=== PATIENT | female | born 1935 | race Caucasian/White ===

== ENCOUNTER 2023-06-24 12:08 | Inpatient (IN) | payer OTHER ==
--- OUTSIDE RECORDS SUMMARY | 2023-06-24 12:17 | XMS REPORT | Continuity of Care Document ---
Author Name Unknown Address [address] [facility] [address] [place] [address] [facility] Address [address] [facility] [address] [place] [address] Care Team Providers Care Nurse Head Name Role Phone MATHEUS MCNAMARA Primary Care Physician Diane vailable KATARZYNA MARQUEZ Attending Clinician Unavailable Katarzyna Owens Attending Clinician [phone] Pascual Smallwood MD Attending Clinician [phone] MATHEUS MCNAMARA Attending Clinician Matheus Yang MD Attending Clinician + [phone] Doctor Unassigned, [place] Attending Clinician U Yuliya Manjarrez Attending Clinician Unavailable JUSTINE LOPEZ Attending Clinician Unavailable Justine Lopez MD Attending Clinician [phone] CHUCKY PERKINS Attending Clinician Chucky Treadwell MD Attending Clinician + [phone] Only, Ad[facility] Test Attending Clinician Unavailable Daron Kelly CRNA Attending Clinician [phone] Stefanie Hernández MD Attending Clinician [phone] [phone], [facility] Main Attending Clinician Unavailbindu Mariee MD, Chucky Attending Clinician [phone] Penelope Diehl DO Attending Clinician [phone] PENELOPE DIEHL Attending Clinician Unavailable MARIE BATISTA Attending Clinician Unavailable Efra Aguilar DO Attending Clinician 2, [facility] Attending Clinician Unavailable Celeste Perez MD Attending Clinician [phone] Kika Sparks RN Attending Clinician [phone] Attending Clinician [phone] Sherif HOLLIS, Fabiana Attending Clinician [phone] Yuliya Potter Admitting Clinician Unavailable CHUCKY PERKINS Admitting Clinician Flip Perkins MD, Chucky Nassar Admitting Clinician +[phone] Fabiana Gorman MD Admitting Clinician [phone] Payers Payer Name Policy Type Policy Number Effective Date Expirati on Date Source [employer] MA[employer]GED MEDICARE PPO-MARLEN [id number] 2020 00:00:00 Problems Condition Name Condition Details Condition Category Status Onset Date Resolution Date Last Treatment Date Treating Clinician Comments Source Rectal bleed Rectal bleed Disease Active 06-13 00:00: 00 [facility] Acute on chronic diastolic congestive heart failure Acute on chronic diastolic congestive heart failure Disease Active 2017-05 00:00: 00 [facility] Anemia Anemia Disease Active 2017-05 00:00: 00 [facility] PAF (paroxysma l atrial fibrillati on) PAF (paroxysma l atrial fibrillati on) Disease Active 2017-05 00:00: 00 [facility] Lower GI bleed Lower GI bleed Disease Active 2017-05 00:00: 00 [facility] Acute blood loss anemia Acute blood loss anemia Disease Active 2017-05 00:00: 00 [facility] Screening for colorectal cancer Screening for colorectal cancer Disease Active 2017-05 00:00: 00 Overview: Formattin g of this note might be different from the original. Added automatic ally from request for surgery [id number] [facility] Chest pain Chest pain Disease Active 09-15 00:00: 00 [facility] Allergic rhinitis Allergic rhinitis Disease Active 2014-05 00:00: 00 [facility] Essential hypertensi on, benign Essential hypertensi on, benign Disease Active 2014-05 00:00: 00 [facility] Generalize d anxiety disorder Generalize d anxiety disorder Disease Active 2014-05 00:00: 00 [facility] Osteoarthr itis Osteoarthr itis Disease Active 2014-05 00:00: 00 [facility] Asthma, mild intermitte nt Asthma, mild intermitte nt Disease Active 2014-05 00:00: 00 [facility] Hypothyroi dism Hypothyroi dism Disease Active 2014-05 00:00: 00 [facility] Hyperlipid emia Hyperlipid emia Disease Active 2014-05 00:00: 00 [facility] Malaise Malaise Disease Active 2014-05 00:00: 00 [facility] Lumbago Lumbago Disease Active 2014-05 00:00: 00 [facility] Sinusitis, acute Sinusitis, acute Disease Active 2014-05 00:00: 00 [facility] Renal insufficie ncy Renal insufficie ncy Disease Active 2014-05 00:00: 00 Overview: Formattin g of this note might be different from the original. Patient is already under multiple MD's care for chronic renal insuffici ency. [facility] Allergies, Adverse Reactions, Alerts Allergy Name Allergy Type Status Severity Reaction(s) Onset Date Inactive Date Treating Clinician Comments Source enedeliaine DA Active [place] CHEST PAIN 2022-0516 00:00: 00 EDDIE Snell [facility] Doxycycl ine Drug Allergy Active Other - See comments 2018-05 0 00:00: 00 [facility] DOXYCYCL INE DRUG INGREDI Active Other-Cmnt 2018-05 0-04 00:00: 00 [facility] VIBRAMYC IN (CALCIUM ) DRUG Active N/V 2014-05 00:00: 00 [facility] Vibramyc in (Calcium ) Propensi ty to adverse reaction s Active Nausea and/or Vomiting 2014-05 00:00: 00 [facility] Vibramyc in Calcium Propensi ty to adverse reaction s Active Nausea and/or Vomiting 2014-05 00:00: 00 [facility] Codeine Drug Allergy Active Other - See comments 2014-05 00:00: 00 Chest pain also Chest pain also [facility] CODEINE DRUG INGREDI Active ITCHING 2014-05 00:00: 00 [facility] Social History Social Habit Start Date Stop Date Quantity Comments Source Gender identity [facility] function 2023-05-23 00:00:00 2023-05-23 00:00:00 [facility] Tobacco use and exposure 2023-05-23 00:00:00 2023-05-23 00:00:00 Smokeless tobacco non-user [facility] Alcohol intake 2023-05-23 00:00:00 2023-05-23 00:00:00 0 /d [facility] Exposure to SARS-CoV-2 (event) 2022-05-15 00:00:00 2022-05-25 10:36:00 Not sure [facility] Sex Assigned At 1935 00:00:00 1935 00:00:00 [facility] Smoking Status Start Date Stop Date Source Never smoked tobacco [facility] Medications Ordered Medication Name Filled Medication Name Start Date Stop Date Current Medication? Ordering Clinician Indication Dosage Frequency Signature (SIG) Comments Components Source azithromyci n 250 mg tablet 05-23 00:00: 00 Yes [id number] Take 500 mg PO day 1, then 250 mg PO days 2 to 5 [facility] benzonatate (TESSALON PERLES) 100 mg capsule 05-23 00:00: 00 Yes [id number] 100mg Take 1 capsule by mouth every 8 (eight) hours as needed for Cough. [facility] azelastine 137 mcg (0.1 %) nasal spray 05-23 00:00: 00 Yes [id number] 1{spray } Use 1 [place] in each nostril in the morning and 1 [place] in the evening. Use in each nostril as directed [facility] azithromyci n 250 mg tablet 05-23 00:00: 00 Yes [id number] Take 500 mg PO day 1, then 250 mg PO days 2 to 5 [facility] benzonatate (TESSALON PERLES) 100 mg capsule 05-23 00:00: 00 Yes [id number] 100mg Take 1 capsule by mouth every 8 (eight) hours as needed for Cough. [facility] azelastine 137 mcg (0.1 %) nasal spray 05-23 00:00: 00 Yes [id number] 1{spray } Use 1 [place] in each nostril in the morning and 1 [place] in the evening. Use in each nostril as directed [facility] azithromyci n 250 mg tablet 05-23 00:00: 00 Yes [id number] Take 500 mg PO day 1, then 250 mg PO days 2 to 5 [facility] benzonatate (TESSALON PERLES) 100 mg capsule 05-23 00:00: 00 Yes [id number] 100mg Take 1 capsule by mouth every 8 (eight) hours as needed for Cough. [facility] azelastine 137 mcg (0.1 %) nasal spray 05-23 00:00: 00 Yes [id number] 1{spray } Use 1 [place] in each nostril in the morning and 1 [place] in the evening. Use in each nostril as directed [facility] LEVOTHYROXI NE 50 mcg tablet 2022-05 00:00: 00 Yes [id number] TAKE 1 TABLET BY MOUTH EVERY DAY [facility] LEVOTHYROXI NE 50 mcg tablet 2022-05 00:00: 00 Yes [id number] TAKE 1 TABLET BY MOUTH EVERY DAY [facility] LEVOTHYROXI NE 50 mcg tablet 2022-05 2- 00:00: 00 Yes [id number] TAKE 1 TABLET BY MOUTH EVERY DAY [facility] LEVOTHYROXI NE 50 mcg tablet 2022-05 2- 00:00: 00 Yes [id number] TAKE 1 TABLET BY MOUTH EVERY DAY [facility] LEVOTHYROXI NE 50 mcg tablet 2022-0 9- 00:00: 00 Yes [id number] TAKE 1 TABLET BY MOUTH EVERY DAY [facility] LEVOTHYROXI NE 50 mcg tablet 2022-0 9- 00:00: 00 Yes [id number] TAKE 1 TABLET BY MOUTH EVERY DAY [facility] LEVOTHYROXI NE 50 mcg tablet 2022-0 01-24 00:00: 00 Yes [id number] TAKE 1 TABLET BY MOUTH EVERY DAY [facility] LEVOTHYROXI NE 50 mcg tablet 2022-0 01-24 00:00: 00 04-23 00:00 :00 No [id number] TAKE 1 TABLET BY MOUTH EVERY DAY [facility] PAROXETINE 10 mg tablet 2022-0 817 00:00: 00 Yes [id number] 10mg TAKE 1 TABLET BY MOUTH EVERY DAY IN THE MORNING [facility] PAROXETINE 10 mg tablet 2022-0 8-17 00:00: 00 Yes [id number] 10mg TAKE 1 TABLET BY MOUTH EVERY DAY IN THE MORNING [facility] PAROXETINE 10 mg tablet 2022-0 8-17 00:00: 00 Yes [id number] 10mg TAKE 1 TABLET BY MOUTH EVERY DAY IN THE MORNING [facility] PAROXETINE 10 mg tablet 3-0 8-17 00:00: 00 Yes [id number] 10mg TAKE 1 TABLET BY MOUTH EVERY DAY IN THE MORNING [facility] PAROXETINE 10 mg tablet 3-0 8-17 00:00: 00 Yes [id number] 10mg TAKE 1 TABLET BY MOUTH EVERY DAY IN THE MORNING [facility] PAROXETINE 10 mg tablet 3-0 8-17 00:00: 00 Yes [id number] 10mg TAKE 1 TABLET BY MOUTH EVERY DAY IN THE MORNING [facility] PAROXETINE 10 mg tablet 2023-0 8-17 00:00: 00 Yes [id number] 10mg TAKE 1 TABLET BY MOUTH EVERY DAY IN THE MORNING [facility] PAROXETINE 10 mg tablet 01-04 00:00: 00 Yes [id number] 10mg TAKE 1 TABLET BY MOUTH EVERY DAY IN THE MORNING [facility] LEVOTHYROXI NE 50 mcg tablet 10-18 00:00: 00 Yes [id number] TAKE 1 TABLET BY MOUTH EVERY DAY [facility] LEVOTHYROXI NE 50 mcg tablet 10-18 00:00: 00 Yes [id number] TAKE 1 TABLET BY MOUTH EVERY DAY [facility] LEVOTHYROXI NE 50 mcg tablet 10-18 00:00: 00 01-24 00:00 :00 No [id number] TAKE 1 TABLET BY MOUTH EVERY DAY [facility] LEVOTHYROXI NE 50 mcg tablet 07-20 00:00: 00 Yes [id number] TAKE 1 TABLET BY MOUTH EVERY DAY [facility] LEVOTHYROXI NE 50 mcg tablet 07-20 00:00: 00 Yes [id number] TAKE 1 TABLET BY MOUTH EVERY DAY [facility] LEVOTHYROXI NE 50 mcg tablet 07-20 00:00: 00 10-18 00:00 :00 No [id number] TAKE 1 TABLET BY MOUTH EVERY DAY [facility] amoxicillin 500 mg tablet 05-25 00:00: 00 Yes [id number] 500mg Take 1 tablet by mouth in the morning and 1 tablet at noon and 1 tablet in the evening. [facility] albuterol (VENTOLIN HFA) 90 mcg/actuati on inhaler 05-25 00:00: 00 Yes [id number] 2{puff} Inhale 2 Puffs every 6 (six) hours as needed for Wheezing or Shortness of Breath. [facility] amoxicillin 500 mg tablet 05-25 00:00: 00 Yes [id number] 500mg Take 1 tablet by mouth in the morning and 1 tablet at noon and 1 tablet in the evening. [facility] albuterol (VENTOLIN HFA) 90 mcg/actuati on inhaler 05-25 00:00: 00 Yes [id number] 2{puff} Inhale 2 Puffs every 6 (six) hours as needed for Wheezing or Shortness of Breath. [facility] amoxicillin 500 mg tablet 05-25 00:00: 00 Yes [id number] 500mg Take 1 tablet by mouth in the morning and 1 tablet at noon and 1 tablet in the evening. [facility] albuterol (VENTOLIN HFA) 90 mcg/actuati on inhaler 05-25 00:00: 00 Yes [id number] 2{puff} Inhale 2 Puffs every 6 (six) hours as needed for Wheezing or Shortness of Breath. [facility] amoxicillin 500 mg tablet 05-25 00:00: 00 Yes [id number] 500mg Take 1 tablet by mouth in the morning and 1 tablet at noon and 1 tablet in the evening. [facility] albuterol (VENTOLIN HFA) 90 mcg/actuati on inhaler 05-25 00:00: 00 Yes [id number] 2{puff} Inhale 2 Puffs every 6 (six) hours as needed for Wheezing or Shortness of Breath. [facility] amoxicillin 500 mg tablet 05-25 00:00: 00 Yes [id number] 500mg Take 1 tablet by mouth in the morning and 1 tablet at noon and 1 tablet in the evening. [facility] albuterol (VENTOLIN HFA) 90 mcg/actuati on inhaler 05-25 00:00: 00 Yes [id number] 2{puff} Inhale 2 Puffs every 6 (six) hours as needed for Wheezing or Shortness of Breath. [facility] amoxicillin 500 mg tablet 05-25 00:00: 00 Yes [id number] 500mg Take 1 tablet by mouth in the morning and 1 tablet at noon and 1 tablet in the evening. [facility] albuterol (VENTOLIN HFA) 90 mcg/actuati on inhaler 05-25 00:00: 00 Yes [id number] 2{puff} Inhale 2 Puffs every 6 (six) hours as needed for Wheezing or Shortness of Breath. [facility] amoxicillin 500 mg tablet 05-25 00:00: 00 Yes [id number] 500mg Take 1 tablet by mouth in the morning and 1 tablet at noon and 1 tablet in the evening. [facility] albuterol (VENTOLIN HFA) 90 mcg/actuati on inhaler 05-25 00:00: 00 Yes [id number] 2{puff} Inhale 2 Puffs every 6 (six) hours as needed for Wheezing or Shortness of Breath. [facility] amoxicillin 500 mg tablet 05-25 00:00: 00 Yes [id number] 500mg Take 1 tablet by mouth in the morning and 1 tablet at noon and 1 tablet in the evening. [facility] albuterol (VENTOLIN HFA) 90 mcg/actuati on inhaler 05-25 00:00: 00 Yes [id number] 2{puff} Inhale 2 Puffs every 6 (six) hours as needed for Wheezing or Shortness of Breath. [facility] amoxicillin 500 mg tablet 05-25 00:00: 00 Yes [id number] 500mg Take 1 tablet by mouth in the morning and 1 tablet at noon and 1 tablet in the evening. [facility] albuterol (VENTOLIN HFA) 90 mcg/actuati on inhaler 05-25 00:00: 00 Yes [id number] 2{puff} Inhale 2 Puffs every 6 (six) hours as needed for Wheezing or Shortness of Breath. [facility] amoxicillin 500 mg tablet 05-25 00:00: 00 Yes [id number] 500mg Take 1 tablet by mouth in the morning and 1 tablet at noon and 1 tablet in the evening. [facility] albuterol (VENTOLIN HFA) 90 mcg/actuati on inhaler 05-25 00:00: 00 Yes [id number] 2{puff} Inhale 2 Puffs every 6 (six) hours as needed for Wheezing or Shortness of Breath. [facility] albuterol (VENTOLIN HFA) 90 mcg/actuati on inhaler 05-25 00:00: 00 Yes [id number] 2{puff} Inhale 2 Puffs every 6 (six) hours as needed for Wheezing or Shortness of Breath. [facility] albuterol (VENTOLIN HFA) 90 mcg/actuati on inhaler 05-25 00:00: 00 Yes [id number] 2{puff} Inhale 2 Puffs every 6 (six) hours as needed for Wheezing or Shortness of Breath. [facility] albuterol (VENTOLIN HFA) 90 mcg/actuati on inhaler 05-25 00:00: 00 Yes [id number] 2{puff} Inhale 2 Puffs every 6 (six) hours as needed for Wheezing or Shortness of Breath. [facility] amoxicillin 500 mg tablet 05-25 00:00: 00 05-23 00:00 :00 No [id number] 500mg Take 1 tablet by mouth in the morning and 1 tablet at noon and 1 tablet in the evening. [facility] amoxicillin 500 mg tablet 05-25 00:00: 00 05-23 00:00 :00 No [id number] 500mg Take 1 tablet by mouth in the morning and 1 tablet at noon and 1 tablet in the evening. [facility] fluconazole (DIFLUCAN) 150 mg tablet 05-25 00:00: 00 05-26 05:59 :00 No [id number] 150mg Take 1 tablet by mouth once now for 1 dose. [facility] fluconazole (DIFLUCAN) 150 mg tablet 05-25 00:00: 00 05-26 05:59 :00 No [id number] 150mg Take 1 tablet by mouth once now for 1 dose. [facility] FUROSEMIDE 40 mg tablet 2021-05 00:00: 00 Yes [id number] TAKE 1 TABLET BY MOUTH EVERY DAY [facility] LEVOTHYROXI NE 50 mcg tablet 2021-05 00:00: 00 Yes [id number] TAKE 1 TABLET BY MOUTH EVERY DAY [facility] FUROSEMIDE 40 mg tablet 2021-05 00:00: 00 Yes [id number] TAKE 1 TABLET BY MOUTH EVERY DAY [facility] LEVOTHYROXI NE 50 mcg tablet 2021-05 00:00: 00 Yes [id number] TAKE 1 TABLET BY MOUTH EVERY DAY [facility] FUROSEMIDE 40 mg tablet 2021-05 00:00: 00 Yes [id number] TAKE 1 TABLET BY MOUTH EVERY DAY [facility] m[facility] tablet 2021-05 00:00: 00 Yes [id number] TAKE 1 TABLET BY MOUTH EVERY DAY [facility] FUROSEMIDE 40 mg tablet 2021-05 00:00: 00 Yes [id number] TAKE 1 TABLET BY MOUTH EVERY DAY [facility] FUROSEMIDE 40 mg tablet 2021-05 00:00: 00 Yes [id number] TAKE 1 TABLET BY MOUTH EVERY DAY [facility] FUROSEMIDE 40 mg tablet 2021-05 00:00: 00 Yes [id number] TAKE 1 TABLET BY MOUTH EVERY DAY [facility] FUROSEMIDE 40 mg tablet 2021-05 00:00: 00 Yes [id number] TAKE 1 TABLET BY MOUTH EVERY DAY [facility] FUROSEMIDE 40 mg tablet 2021-05 00:00: 00 Yes [id number] TAKE 1 TABLET BY MOUTH EVERY DAY [facility] FUROSEMIDE 40 mg tablet 2021-05 00:00: 00 Yes [id number] TAKE 1 TABLET BY MOUTH EVERY DAY [facility] FUROSEMIDE 40 mg tablet 2021-05 00:00: 00 Yes [id number] TAKE 1 TABLET BY MOUTH EVERY DAY [facility] FUROSEMIDE 40 mg tablet 2021-05 00:00: 00 Yes [id number] TAKE 1 TABLET BY MOUTH EVERY DAY [facility] FUROSEMIDE 40 mg tablet 2021-05 00:00: 00 Yes [id number] TAKE 1 TABLET BY MOUTH EVERY DAY [facility] FUROSEMIDE 40 mg tablet 2021-05 00:00: 00 Yes [id number] TAKE 1 TABLET BY MOUTH EVERY DAY [facility] FUROSEMIDE 40 mg tablet 2021-05 00:00: 00 Yes [id number] TAKE 1 TABLET BY MOUTH EVERY DAY [facility] LEVOTHYROXI NE 50 mcg tablet 2021-05 00:00: 00 07-20 00:00 :00 No [id number] TAKE 1 TABLET BY MOUTH EVERY DAY [facility] LEVOTHYROXI NE 50 mcg tablet 01-19 00:00: 00 Yes [id number] TAKE 1 TABLET BY MOUTH EVERY DAY [facility] LEVOTHYROXI NE 50 mcg tablet 0 01-19 00:00: 00 Yes [id number] TAKE 1 TABLET BY MOUTH EVERY DAY [facility] LEVOTHYROXI NE 50 mcg tablet 01-19 00:00: 00 Yes [id number] TAKE 1 TABLET BY MOUTH EVERY DAY [facility] LEVOTHYROXI NE 50 mcg tablet 01-19 00:00: 00 04-25 00:00 :00 No [id number] TAKE 1 TABLET BY MOUTH EVERY DAY [facility] molnupiravi r 200 mg capsule 2021-0 12-20 00:00: 00 Yes [id number] 800mg Take 4 capsules by mouth every 12 (twelve) hours. [facility] molnupiravi r 200 mg capsule 2021-0 12-20 00:00: 00 Yes [id number] 800mg Take 4 capsules by mouth every 12 (twelve) hours. [facility] molnupiravi r 200 mg capsule 2021-0 8- 00:00: 00 Yes [id number] 800mg Take 4 capsules by mouth every 12 (twelve) hours. [facility] molnupiravi r 200 mg capsule 2021-0 8- 00:00: 00 Yes [id number] 800mg Take 4 capsules by mouth every 12 (twelve) hours. [facility] molnupiravi r 200 mg capsule 2021-0 8- 00:00: 00 05-25 00:00 :00 No [id number] 800mg Take 4 capsules by mouth every 12 (twelve) hours. [facility] molnupiravi r 200 mg capsule 12-20 00:00: 00 05-25 00:00 :00 No [id number] 800mg Take 4 capsules by mouth every 12 (twelve) hours. [facility] molnupiravi r 200 mg capsule 12-20 00:00: 00 12-20 00:00 :00 No [id number] 800mg Take 4 capsules by mouth every 12 (twelve) hours. [facility] carvedilol 3.125 mg tablet 12-19 13:26: 11 Yes 3.125mg Take 3.125 mg by mouth 2 (two) times daily with meals. [facility] carvedilol 3.125 mg tablet 12-19 13:26: 11 Yes 3.125mg Take 3.125 mg by mouth 2 (two) times daily with meals. [facility] carvedilol 3.125 mg tablet 12-19 13:26: 11 Yes 3.125mg Take 3.125 mg by mouth 2 (two) times daily with meals. [facility] carvedilol 3.125 mg tablet 12-19 13:26: 11 Yes 3.125mg Take 3.125 mg by mouth 2 (two) times daily with meals. [facility] carvedilol 3.125 mg tablet 12-19 13:26: 11 Yes 3.125mg Take 3.125 mg by mouth 2 (two) times daily with meals. [facility] carvedilol 3.125 mg tablet 12-19 13:26: 11 Yes 3.125mg Take 3.125 mg by mouth 2 (two) times daily with meals. [facility] carvedilol 3.125 mg tablet 0 12-19 13:26: 11 Yes 3.125mg Take 3.125 mg by mouth 2 (two) times daily with meals. [facility] carvedilol 3.125 mg tablet 0 12-19 13:26: 11 Yes 3.125mg Take 3.125 mg by mouth 2 (two) times daily with meals. [facility] carvedilol 3.125 mg tablet 12-19 13:26: 11 Yes 3.125mg Take 3.125 mg by mouth 2 (two) times daily with meals. [facility] carvedilol 3.125 mg tablet 12-19 13:26: 11 Yes 3.125mg Take 3.125 mg by mouth 2 (two) times daily with meals. [facility] carvedilol 3.125 mg tablet 12-19 13:26: 11 Yes 3.125mg Take 3.125 mg by mouth 2 (two) times daily with meals. [facility] carvedilol 3.125 mg tablet 12-19 13:26: 11 Yes 3.125mg Take 3.125 mg by mouth 2 (two) times daily with meals. [facility] carvedilol 3.125 mg tablet 12-19 13:26: 11 Yes 3.125mg Take 3.125 mg by mouth 2 (two) times daily with meals. [facility] carvedilol 3.125 mg tablet 12-19 13:26: 11 Yes 3.125mg Take 3.125 mg by mouth 2 (two) times daily with meals. [facility] carvedilol 3.125 mg tablet 12-19 13:26: 11 Yes 3.125mg Take 3.125 mg by mouth 2 (two) times daily with meals. [facility] carvedilol 3.125 mg tablet 12-19 13:26: 11 Yes 3.125mg Take 3.125 mg by mouth 2 (two) times daily with meals. [facility] carvedilol 3.125 mg tablet 12-19 13:26: 11 Yes 3.125mg Take 3.125 mg by mouth 2 (two) times daily with meals. [facility] carvedilol 3.125 mg tablet 12-19 13:26: 11 Yes 3.125mg Take 3.125 mg by mouth 2 (two) times daily with meals. [facility] PARoxetine 10 mg tablet 2021-0 8- 00:00: 00 Yes [id number] 10mg Take 1 tablet by mouth in the morning. [facility] PARoxetine 10 mg tablet 0 8- 00:00: 00 Yes [id number] 10mg Take 1 tablet by mouth in the morning. [facility] PARoxetine 10 mg tablet 0 8- 00:00: 00 Yes [id number] 10mg Take 1 tablet by mouth in the morning. [facility] PARoxetine 10 mg tablet 0 8- 00:00: 00 Yes [id number] 10mg Take 1 tablet by mouth in the morning. [facility] PARoxetine 10 mg tablet 0 8- 00:00: 00 Yes [id number] 10mg Take 1 tablet by mouth in the morning. [facility] PARoxetine 10 mg tablet 0 8- 00:00: 00 Yes [id number] 10mg Take 1 tablet by mouth in the morning. [facility] PARoxetine 10 mg tablet 0 8- 00:00: 00 Yes [id number] 10mg Take 1 tablet by mouth in the morning. [facility] PARoxetine 10 mg tablet 0 8- 00:00: 00 Yes [id number] 10mg Take 1 tablet by mouth in the morning. [facility] PARoxetine 10 mg tablet 0 8- 00:00: 00 Yes [id number] 10mg Take 1 tablet by mouth in the morning. [facility] PARoxetine 10 mg tablet 0 8- 00:00: 00 Yes [id number] 10mg Take 1 tablet by mouth in the morning. [facility] PARoxetine 10 mg tablet 2021-0 8- 00:00: 00 01-04 00:00 :00 No [id number] 10mg Take 1 tablet by mouth in the morning. [facility] LEVOTHYROXI NE 50 mcg tablet 6 00:00: 00 Yes [id number] TAKE 1 TABLET BY MOUTH EVERY DAY [facility] LEVOTHYROXI NE 50 mcg tablet 10-25 00:00: 00 01-19 00:00 :00 No [id number] TAKE 1 TABLET BY MOUTH EVERY DAY [facility] FUROSEMIDE 40 mg tablet 0 10-18 00:00: 00 Yes [id number] TAKE 1 TABLET BY MOUTH EVERY DAY [facility] FUROSEMIDE 40 mg tablet 0 10-18 00:00: 00 Yes [id number] TAKE 1 TABLET BY MOUTH EVERY DAY [facility] FUROSEMIDE 40 mg tablet 0 10-18 00:00: 00 Yes [id number] TAKE 1 TABLET BY MOUTH EVERY DAY [facility] FUROSEMIDE 40 mg tablet 0 10-18 00:00: 00 Yes [id number] TAKE 1 TABLET BY MOUTH EVERY DAY [facility] FUROSEMIDE 40 mg tablet 0 10-18 00:00: 00 04-25 00:00 :00 No [id number] TAKE 1 TABLET BY MOUTH EVERY DAY [facility] telmisartan 40 mg tablet 2021-0 3-05 00:00: 00 Yes 40mg Take 40 mg by mouth daily. [facility] telmisartan 40 mg tablet 2021-0 3-05 00:00: 00 Yes 40mg Take 40 mg by mouth daily. [facility] telmisartan 40 mg tablet 2021-0 3-05 00:00: 00 Yes 40mg Take 40 mg by mouth daily. [facility] telmisartan 40 mg tablet 2021-0 3-05 00:00: 00 Yes 40mg Take 40 mg by mouth daily. [facility] telmisartan 40 mg tablet 2021-0 3-05 00:00: 00 Yes 40mg Take 40 mg by mouth daily. [facility] telmisartan 40 mg tablet 2021-0 3-05 00:00: 00 Yes 40mg Take 40 mg by mouth daily. [facility] telmisartan 40 mg tablet 2021-0 3-05 00:00: 00 Yes 40mg Take 40 mg by mouth daily. [facility] telmisartan 40 mg tablet 2021-0 3-05 00:00: 00 Yes 40mg Take 40 mg by mouth daily. [facility] telmisartan 40 mg tablet 0 305 00:00: 00 Yes 40mg Take 40 mg by mouth daily. [facility] telmisartan 40 mg tablet 3 00:00: 00 Yes 40mg Take 40 mg by mouth daily. [facility] telmisartan 40 mg tablet 3 00:00: 00 Yes 40mg Take 40 mg by mouth daily. [facility] telmisartan 40 mg tablet 3 00:00: 00 Yes 40mg Take 40 mg by mouth daily. [facility] telmisartan 40 mg tablet 07-23 00:00: 00 Yes 40mg Take 40 mg by mouth daily. [facility] telmisartan 40 mg tablet 07-23 00:00: 00 Yes 40mg Take 40 mg by mouth daily. [facility] telmisartan 40 mg tablet 3 00:00: 00 Yes 40mg Take 40 mg by mouth daily. [facility] telmisartan 40 mg tablet 3 00:00: 00 Yes 40mg Take 40 mg by mouth daily. [facility] telmisartan 40 mg tablet 07-23 00:00: 00 Yes 40mg Take 40 mg by mouth daily. [facility] telmisartan 40 mg tablet 07-23 00:00: 00 Yes 40mg Take 40 mg by mouth daily. [facility] spironolact one (SPIRONOLAC TONE) 25 mg tablet 06-30 11:39: 45 Yes 25mg Take 25 mg by mouth daily. [facility] cetirizine (ZYRTEC) 10 mg tablet 06-30 11:39: 45 Yes 10mg Take 10 mg by mouth as needed. [facility] NEBULIZER ACCESSORIES (NEBULIZER MISC) 06-30 11:39: 45 Yes [facility] MAGNESIUM CHLORIDE (SLOW-MAG ORAL) 06-30 11:39: 45 Yes Take by mouth daily. Indication s: stopped taking, reports not effective [facility] spironolact one (SPIRONOLAC TONE) 25 mg tablet 06-30 11:39: 45 Yes 25mg Take 25 mg by mouth daily. [facility] cetirizine (ZYRTEC) 10 mg tablet 06-30 11:39: 45 Yes 10mg Take 10 mg by mouth as needed. [facility] NEBULIZER ACCESSORIES (NEBULIZER MISC) 06-30 11:39: 45 Yes [facility] MAGNESIUM CHLORIDE (SLOW-MAG ORAL) 06-30 11:39: 45 Yes Take by mouth daily. Indication s: stopped taking, reports not effective [facility] spironolact one (SPIRONOLAC TONE) 25 mg tablet 06-30 11:39: 45 Yes 25mg Take 25 mg by mouth daily. [facility] cetirizine (ZYRTEC) 10 mg tablet 06-30 11:39: 45 Yes 10mg Take 10 mg by mouth as needed. [facility] NEBULIZER ACCESSORIES (NEBULIZER MISC) 06-30 11:39: 45 Yes [facility] MAGNESIUM CHLORIDE (SLOW-MAG ORAL) 06-30 11:39: 45 Yes Take by mouth daily. Indication s: stopped taking, reports not effective [facility] spironolact one (SPIRONOLAC TONE) 25 mg tablet 06-30 11:39: 45 Yes 25mg Take 25 mg by mouth daily. [facility] cetirizine (ZYRTEC) 10 mg tablet 06-30 11:39: 45 Yes 10mg Take 10 mg by mouth as needed. [facility] NEBULIZER ACCESSORIES (NEBULIZER MISC) 06-30 11:39: 45 Yes [facility] MAGNESIUM CHLORIDE (SLOW-MAG ORAL) 06-30 11:39: 45 Yes Take by mouth daily. Indication s: stopped taking, reports not effective [facility] spironolact one (SPIRONOLAC TONE) 25 mg tablet 06-30 11:39: 45 Yes 25mg Take 25 mg by mouth daily. [facility] cetirizine (ZYRTEC) 10 mg tablet 06-30 11:39: 45 Yes 10mg Take 10 mg by mouth as needed. [facility] NEBULIZER ACCESSORIES (NEBULIZER MISC) 06-30 11:39: 45 Yes [facility] MAGNESIUM CHLORIDE (SLOW-MAG ORAL) 06-30 11:39: 45 Yes Take by mouth daily. Indication s: stopped taking, reports not effective [facility] spironolact one (SPIRONOLAC TONE) 25 mg tablet 06-30 11:39: 45 Yes 25mg Take 25 mg by mouth daily. [facility] cetirizine (ZYRTEC) 10 mg tablet 06-30 11:39: 45 Yes 10mg Take 10 mg by mouth as needed. [facility] NEBULIZER ACCESSORIES (NEBULIZER MISC) 06-30 11:39: 45 Yes [facility] MAGNESIUM CHLORIDE (SLOW-MAG ORAL) 06-30 11:39: 45 Yes Take by mouth daily. Indication s: stopped taking, reports not effective [facility] spironolact one (SPIRONOLAC TONE) 25 mg tablet 06-30 11:39: 45 Yes 25mg Take 25 mg by mouth daily. [facility] cetirizine (ZYRTEC) 10 mg tablet 06-30 11:39: 45 Yes 10mg Take 10 mg by mouth as needed. [facility] NEBULIZER ACCESSORIES (NEBULIZER MISC) 06-30 11:39: 45 Yes [facility] MAGNESIUM CHLORIDE (SLOW-MAG ORAL) 06-30 11:39: 45 Yes Take by mouth daily. Indication s: stopped taking, reports not effective [facility] spironolact one (SPIRONOLAC TONE) 25 mg tablet 06-30 11:39: 45 Yes 25mg Take 25 mg by mouth daily. [facility] cetirizine (ZYRTEC) 10 mg tablet 06-30 11:39: 45 Yes 10mg Take 10 mg by mouth as needed. [facility] NEBULIZER ACCESSORIES (NEBULIZER MISC) 06-30 11:39: 45 Yes [facility] MAGNESIUM CHLORIDE (SLOW-MAG ORAL) 06-30 11:39: 45 Yes Take by mouth daily. Indication s: stopped taking, reports not effective [facility] spironolact one (SPIRONOLAC TONE) 25 mg tablet 06-30 11:39: 45 Yes 25mg Take 25 mg by mouth daily. [facility] cetirizine (ZYRTEC) 10 mg tablet 06-30 11:39: 45 Yes 10mg Take 10 mg by mouth as needed. [facility] NEBULIZER ACCESSORIES (NEBULIZER MISC) 06-30 11:39: 45 Yes [facility] MAGNESIUM CHLORIDE (SLOW-MAG ORAL) 06-30 11:39: 45 Yes Take by mouth daily. Indication s: stopped taking, reports not effective [facility] spironolact one (SPIRONOLAC TONE) 25 mg tablet 06-30 11:39: 45 Yes 25mg Take 25 mg by mouth daily. [facility] cetirizine (ZYRTEC) 10 mg tablet 06-30 11:39: 45 Yes 10mg Take 10 mg by mouth as needed. [facility] NEBULIZER ACCESSORIES (NEBULIZER MISC) 06-30 11:39: 45 Yes [facility] MAGNESIUM CHLORIDE (SLOW-MAG ORAL) 06-30 11:39: 45 Yes Take by mouth daily. Indication s: stopped taking, reports not effective [facility] spironolact one (SPIRONOLAC TONE) 25 mg tablet 06-30 11:39: 45 Yes 25mg Take 25 mg by mouth daily. [facility] cetirizine (ZYRTEC) 10 mg tablet 06-30 11:39: 45 Yes 10mg Take 10 mg by mouth as needed. [facility] NEBULIZER ACCESSORIES (NEBULIZER MISC) 06-30 11:39: 45 Yes [facility] MAGNESIUM CHLORIDE (SLOW-MAG ORAL) 06-30 11:39: 45 Yes Take by mouth daily. Indication s: stopped taking, reports not effective [facility] spironolact one (SPIRONOLAC TONE) 25 mg tablet 06-30 11:39: 45 Yes 25mg Take 25 mg by mouth daily. [facility] cetirizine (ZYRTEC) 10 mg tablet 06-30 11:39: 45 Yes 10mg Take 10 mg by mouth as needed. [facility] NEBULIZER ACCESSORIES (NEBULIZER MISC) 06-30 11:39: 45 Yes [facility] MAGNESIUM CHLORIDE (SLOW-MAG ORAL) 06-30 11:39: 45 Yes Take by mouth daily. Indication s: stopped taking, reports not effective [facility] spironolact one (SPIRONOLAC TONE) 25 mg tablet 06-30 11:39: 45 Yes 25mg Take 25 mg by mouth daily. [facility] cetirizine (ZYRTEC) 10 mg tablet 06-30 11:39: 45 Yes 10mg Take 10 mg by mouth as needed. [facility] NEBULIZER ACCESSORIES (NEBULIZER MISC) 06-30 11:39: 45 Yes [facility] MAGNESIUM CHLORIDE (SLOW-MAG ORAL) 06-30 11:39: 45 Yes Take by mouth daily. Indication s: stopped taking, reports not effective [facility] spironolact one (SPIRONOLAC TONE) 25 mg tablet 06-30 11:39: 45 Yes 25mg Take 25 mg by mouth daily. [facility] cetirizine (ZYRTEC) 10 mg tablet 06-30 11:39: 45 Yes 10mg Take 10 mg by mouth as needed. [facility] NEBULIZER ACCESSORIES (NEBULIZER MISC) 06-30 11:39: 45 Yes [facility] MAGNESIUM CHLORIDE (SLOW-MAG ORAL) 06-30 11:39: 45 Yes Take by mouth daily. Indication s: stopped taking, reports not effective [facility] spironolact one (SPIRONOLAC TONE) 25 mg tablet 06-30 11:39: 45 Yes 25mg Take 25 mg by mouth daily. [facility] cetirizine (ZYRTEC) 10 mg tablet 06-30 11:39: 45 Yes 10mg Take 10 mg by mouth as needed. [facility] NEBULIZER ACCESSORIES (NEBULIZER MISC) 06-30 11:39: 45 Yes [facility] MAGNESIUM CHLORIDE (SLOW-MAG ORAL) 06-30 11:39: 45 Yes Take by mouth daily. Indication s: stopped taking, reports not effective [facility] spironolact one (SPIRONOLAC TONE) 25 mg tablet 06-30 11:39: 45 Yes 25mg Take 25 mg by mouth daily. [facility] cetirizine (ZYRTEC) 10 mg tablet 06-30 11:39: 45 Yes 10mg Take 10 mg by mouth as needed. [facility] NEBULIZER ACCESSORIES (NEBULIZER MISC) 06-30 11:39: 45 Yes [facility] MAGNESIUM CHLORIDE (SLOW-MAG ORAL) 06-30 11:39: 45 Yes Take by mouth daily. Indication s: stopped taking, reports not effective [facility] spironolact one (SPIRONOLAC TONE) 25 mg tablet 06-30 11:39: 45 Yes 25mg Take 25 mg by mouth daily. [facility] cetirizine (ZYRTEC) 10 mg tablet 06-30 11:39: 45 Yes 10mg Take 10 mg by mouth as needed. [facility] NEBULIZER ACCESSORIES (NEBULIZER MISC) 06-30 11:39: 45 Yes [facility] MAGNESIUM CHLORIDE (SLOW-MAG ORAL) 06-30 11:39: 45 Yes Take by mouth daily. Indication s: stopped taking, reports not effective [facility]SPIRONOLAC TONE[facility] 25 mg tablet 06-30 11:39: 45 Yes 25mg Take 25 mg by mouth daily. [facility] (ZYRTEC) 10 mg tablet 06-30 11:39: 45 Yes 10mg Take 10 mg by mouth as needed. [facility] NEBULIZER ACCESSORIES (NEBULIZER MISC) 06-30 11:39: 45 Yes [facility] MAGNESIUM CHLORIDE (SLOW-MAG ORAL) 06-30 11:39: 45 Yes Take by mouth daily. Indication s: stopped taking, reports not effective [facility] XARELTO 15 mg tablet 06-23 00:00: 00 Yes 15mg Take 15 mg by mouth daily. [facility] mg tablet 06-23 00:00: 00 Yes 15mg Take 15 mg by mouth daily. [facility] mg tablet 06-23 00:00: 00 Yes 15mg Take 15 mg by mouth daily. [facility] mg tablet 06-23 00:00: 00 Yes 15mg Take 15 mg by mouth daily. [facility] mg tablet 06-23 00:00: 00 Yes 15mg Take 15 mg by mouth daily. [facility] mg tablet 06-23 00:00: 00 Yes 15mg Take 15 mg by mouth daily. [facility] mg tablet 06-23 00:00: 00 Yes 15mg Take 15 mg by mouth daily. [facility] XARELTO 15 mg tablet 06-23 00:00: 00 Yes 15mg Take 15 mg by mouth daily. [facility] XARELTO 15 mg tablet 0 2 00:00: 00 Yes 15mg Take 15 mg by mouth daily. [facility] XARELTO 15 mg tablet 0 2 00:00: 00 Yes 15mg Take 15 mg by mouth daily. [facility] XARELTO 15 mg tablet 0 2- 00:00: 00 Yes 15mg Take 15 mg by mouth daily. [facility] XARELTO 15 mg tablet 0 2 00:00: 00 Yes 15mg Take 15 mg by mouth daily. [facility] XARELTO 15 mg tablet 0 06-23 00:00: 00 Yes 15mg Take 15 mg by mouth daily. [facility] XARELTO 15 mg tablet 0 06-23 00:00: 00 Yes 15mg Take 15 mg by mouth daily. [facility] XARELTO 15 mg tablet 0 06-23 00:00: 00 Yes 15mg Take 15 mg by mouth daily. [facility] XARELTO 15 mg tablet 0 06-23 00:00: 00 Yes 15mg Take 15 mg by mouth daily. [facility] XARELTO 15 mg tablet 06-23 00:00: 00 Yes 15mg Take 15 mg by mouth daily. [facility] XARELTO 15 mg tablet 0 06-23 00:00: 00 Yes 15mg Take 15 mg by mouth daily. [facility] PROCTOSOL HC 2.5 % rectal cream 2020-05 00:00: 00 Yes [id number] INSERT INTO RECTUM 2 (TWO) TIMES DAILY. [facility] PROCTOSOL HC 2.5 % rectal cream 2020-05 00:00: 00 Yes [id number] INSERT INTO RECTUM 2 (TWO) TIMES DAILY. [facility] PROCTOSOL HC 2.5 % rectal cream 2020-05 00:00: 00 Yes [id number] INSERT INTO RECTUM 2 (TWO) TIMES DAILY. [facility] PROCTOSOL HC 2.5 % rectal cream 2020-05 00:00: 00 Yes [id number] INSERT INTO RECTUM 2 (TWO) TIMES DAILY. [facility] PROCTOSOL HC 2.5 % rectal cream 2020-05 00:00: 00 Yes [id number] INSERT INTO RECTUM 2 (TWO) TIMES DAILY. [facility] PROCTOSOL HC 2.5 % rectal cream 2020-05 00:00: 00 Yes [id number] INSERT INTO RECTUM 2 (TWO) TIMES DAILY. [facility] PROCTOSOL HC 2.5 % rectal cream 2020-05 00:00: 00 Yes [id number] INSERT INTO RECTUM 2 (TWO) TIMES DAILY. [facility] PROCTOSOL HC 2.5 % rectal cream 2020-05 00:00: 00 Yes [id number] INSERT INTO RECTUM 2 (TWO) TIMES DAILY. [facility] PROCTOSOL HC 2.5 % rectal cream 2020-05 00:00: 00 Yes [id number] INSERT INTO RECTUM 2 (TWO) TIMES DAILY. [facility] PROCTOSOL HC 2.5 % rectal cream 2020-05 00:00: 00 Yes [id number] INSERT INTO RECTUM 2 (TWO) TIMES DAILY. [facility] PROCTOSOL HC 2.5 % rectal cream 2020-05 00:00: 00 Yes [id number] INSERT INTO RECTUM 2 (TWO) TIMES DAILY. [facility] PROCTOSOL HC 2.5 % rectal cream 2020-05 00:00: 00 Yes [id number] INSERT INTO RECTUM 2 (TWO) TIMES DAILY. [facility] PROCTOSOL HC 2.5 % rectal cream 2020-05 00:00: 00 Yes [id number] INSERT INTO RECTUM 2 (TWO) TIMES DAILY. [facility] PROCTOSOL HC 2.5 % rectal cream 2020-05 00:00: 00 Yes [id number] INSERT INTO RECTUM 2 (TWO) TIMES DAILY. [facility] PROCTOSOL HC 2.5 % rectal cream 2020-05 00:00: 00 Yes [id number] INSERT INTO RECTUM 2 (TWO) TIMES DAILY. [facility] PROCTOSOL HC 2.5 % rectal cream 2020-05 00:00: 00 Yes [id number] INSERT INTO RECTUM 2 (TWO) TIMES DAILY. [facility] PROCTOSOL HC 2.5 % rectal cream 2020-05 00:00: 00 Yes [id number] INSERT INTO RECTUM 2 (TWO) TIMES DAILY. [facility] PROCTOSOL HC 2.5 % rectal cream 2020-05 00:00: 00 Yes [id number] INSERT INTO RECTUM 2 (TWO) TIMES DAILY. [facility] allopurinoL 300 mg tablet 0 16 00:00: 00 Yes 1{tbl} Take 1 tablet by mouth daily. [facility] allopurinoL 300 mg tablet 0 02-03 00:00: 00 Yes 1{tbl} Take 1 tablet by mouth daily. [facility] allopurinoL 300 mg tablet 2020-0 16 00:00: 00 Yes 1{tbl} Take 1 tablet by mouth daily. [facility] allopurinoL 300 mg tablet 0 16 00:00: 00 Yes 1{tbl} Take 1 tablet by mouth daily. [facility] allopurinoL 300 mg tablet 2020-0 16 00:00: 00 Yes 1{tbl} Take 1 tablet by mouth daily. [facility] allopurinoL 300 mg tablet 2020-0 16 00:00: 00 Yes 1{tbl} Take 1 tablet by mouth daily. [facility] allopurinoL 300 mg tablet 2020-0 16 00:00: 00 Yes 1{tbl} Take 1 tablet by mouth daily. [facility] allopurinoL 300 mg tablet 2020-0 16 00:00: 00 Yes 1{tbl} Take 1 tablet by mouth daily. [facility] allopurinoL 300 mg tablet 2020-0 16 00:00: 00 Yes 1{tbl} Take 1 tablet by mouth daily. [facility] allopurinoL 300 mg tablet 0 16 00:00: 00 Yes 1{tbl} Take 1 tablet by mouth daily. [facility] allopurinoL 300 mg tablet 0 16 00:00: 00 Yes 1{tbl} Take 1 tablet by mouth daily. [facility] allopurinoL 300 mg tablet 0 16 00:00: 00 Yes 1{tbl} Take 1 tablet by mouth daily. [facility] allopurinoL 300 mg tablet 0 16 00:00: 00 Yes 1{tbl} Take 1 tablet by mouth daily. [facility] allopurinoL 300 mg tablet 0 16 00:00: 00 Yes 1{tbl} Take 1 tablet by mouth daily. [facility] allopurinoL 300 mg tablet 0 16 00:00: 00 Yes 1{tbl} Take 1 tablet by mouth daily. [facility] allopurinoL 300 mg tablet 0 16 00:00: 00 Yes 1{tbl} Take 1 tablet by mouth daily. [facility] allopurinoL 300 mg tablet 0 16 00:00: 00 Yes 1{tbl} Take 1 tablet by mouth daily. [facility] allopurinoL 300 mg tablet 0 16 00:00: 00 Yes 1{tbl} Take 1 tablet by mouth daily. [facility] albuterol (VENTOLIN HFA) 90 mcg/actuati on inhaler 11-15 00:00: 00 Yes [id number] 2{puff} Inhale 2 Puffs every 6 (six) hours as needed for Wheezing or Shortness of Breath. [facility] albuterol (VENTOLIN HFA) 90 mcg/actuati on inhaler 11-15 00:00: 00 Yes [id number] 2{puff} Inhale 2 Puffs every 6 (six) hours as needed for Wheezing or Shortness of Breath. [facility] albuterol (VENTOLIN HFA) 90 mcg/actuati on inhaler 11-15 00:00: 00 Yes [id number] 2{puff} Inhale 2 Puffs every 6 (six) hours as needed for Wheezing or Shortness of Breath. [facility] albuterol (VENTOLIN HFA) 90 mcg/actuati on inhaler 11-15 00:00: 00 Yes [id number] 2{puff} Inhale 2 Puffs every 6 (six) hours as needed for Wheezing or Shortness of Breath. [facility] albuterol (VENTOLIN HFA) 90 mcg/actuati on inhaler 11-15 00:00: 00 Yes [id number] 2{puff} Inhale 2 Puffs every 6 (six) hours as needed for Wheezing or Shortness of Breath. [facility] albuterol (VENTOLIN HFA) 90 mcg/actuati on inhaler 11-15 00:00: 00 05-25 00:00 :00 No [id number] 2{puff} Inhale 2 Puffs every 6 (six) hours as needed for Wheezing or Shortness of Breath. [facility] albuterol (VENTOLIN HFA) 90 mcg/actuati on inhaler 11-15 00:00: 00 05-25 00:00 :00 No [id number] 2{puff} Inhale 2 Puffs every 6 (six) hours as needed for Wheezing or Shortness of Breath. [facility] PULMICORT FLEXHALER 180 mcg/actuati on aerosol powder 0 10-30 00:00: 00 Yes [id number] TAKE 1 PUFF BY MOUTH EVERY DAY [facility] PULMICORT FLEXHALER 180 mcg/actuati on aerosol powder 2020-0 10-30 00:00: 00 Yes [id number] TAKE 1 PUFF BY MOUTH EVERY DAY [facility] PULMICORT FLEXHALER 180 mcg/actuati on aerosol powder 2020-0 10-30 00:00: 00 Yes [id number] TAKE 1 PUFF BY MOUTH EVERY DAY [facility] PULMICORT FLEXHALER 180 mcg/actuati on aerosol powder 2020-0 6-12 00:00: 00 Yes [id number] TAKE 1 PUFF BY MOUTH EVERY DAY [facility] PULMICORT FLEXHALER 180 mcg/actuati on aerosol powder 2020-0 6-12 00:00: 00 Yes [id number] TAKE 1 PUFF BY MOUTH EVERY DAY [facility] PULMICORT FLEXHALER 180 mcg/actuati on aerosol powder 2020-0 6-12 00:00: 00 Yes [id number] TAKE 1 PUFF BY MOUTH EVERY DAY [facility] PULMICORT FLEXHALER 180 mcg/actuati on aerosol powder 2020-0 6-12 00:00: 00 Yes [id number] TAKE 1 PUFF BY MOUTH EVERY DAY [facility] PULMICORT FLEXHALER 180 mcg/actuati on aerosol powder 2020-0 6-12 00:00: 00 Yes [id number] TAKE 1 PUFF BY MOUTH EVERY DAY [facility] PULMICORT FLEXHALER 180 mcg/actuati on aerosol powder 2020-0 6-12 00:00: 00 Yes [id number] TAKE 1 PUFF BY MOUTH EVERY DAY [facility] PULMICORT FLEXHALER 180 mcg/actuati on aerosol powder 2020-0 612 00:00: 00 Yes [id number] TAKE 1 PUFF BY MOUTH EVERY DAY [facility] PULMICORT FLEXHALER 180 mcg/actuati on aerosol powder 2020-0 6-12 00:00: 00 Yes [id number] TAKE 1 PUFF BY MOUTH EVERY DAY [facility] PULMICORT FLEXHALER 180 mcg/actuati on aerosol powder 2020-0 6-12 00:00: 00 Yes [id number] TAKE 1 PUFF BY MOUTH EVERY DAY [facility] PULMICORT FLEXHALER 180 mcg/actuati on aerosol powder 2020-0 6-12 00:00: 00 Yes [id number] TAKE 1 PUFF BY MOUTH EVERY DAY [facility] PULMICORT FLEXHALER 180 mcg/actuati on aerosol powder 2020-0 6-12 00:00: 00 Yes [id number] TAKE 1 PUFF BY MOUTH EVERY DAY [facility] PULMICORT FLEXHALER 180 mcg/actuati on aerosol powder 2020-0 6-12 00:00: 00 Yes [id number] TAKE 1 PUFF BY MOUTH EVERY DAY [facility] PULMICORT FLEXHALER 180 mcg/actuati on aerosol powder 2020-0 6-12 00:00: 00 Yes [id number] TAKE 1 PUFF BY MOUTH EVERY DAY [facility] PULMICORT FLEXHALER 180 mcg/actuati on aerosol powder 2020-0 6-12 00:00: 00 Yes [id number] TAKE 1 PUFF BY MOUTH EVERY DAY [facility] PULMICORT FLEXHALER 180 mcg/actuati on aerosol powder 2020-0 612 00:00: 00 Yes [id number] TAKE 1 PUFF BY MOUTH EVERY DAY [facility] Immunizations Ordered Immunization Name Filled Immunization Name Date Status Comments Source SARS-COV-2 COVID-19 PFIZER VACCINE 2020-07-23 00:00:00 Completed [facility] SARS-COV-2 COVID-19 PFIZER VACCINE 2020-07-23 00:00:00 Completed [facility] SARS-COV-2 COVID-19 PFIZER VACCINE 2020-07-23 00:00:00 Completed [facility] SARS-COV-2 COVID-19 PFIZER VACCINE 2020-07-23 00:00:00 Completed [facility] SARS-COV-2 COVID-19 PFIZER VACCINE 2020-07-23 00:00:00 Completed [facility] SARS-COV-2 COVID-19 PFIZER VACCINE 2020-07-23 00:00:00 Completed [facility] SARS-COV-2 COVID-19 PFIZER VACCINE 2020-07-23 00:00:00 Completed [facility] SARS-COV-2 COVID-19 PFIZER VACCINE 2020-07-23 00:00:00 Completed [facility] SARS-COV-2 COVID-19 PFIZER VACCINE 2020-07-23 00:00:00 Completed [facility] SARS-COV-2 COVID-19 PFIZER VACCINE 2020-07-23 00:00:00 Completed [facility] SARS-COV-2 COVID-19 PFIZER VACCINE 2020-07-23 00:00:00 Completed [facility] SARS-COV-2 COVID-19 PFIZER VACCINE 2020-07-23 00:00:00 Completed [facility] SARS-COV-2 COVID-19 PFIZER VACCINE 2020-07-02 00:00:00 Completed [facility] SARS-COV-2 COVID-19 PFIZER VACCINE 2020-07-02 00:00:00 Completed [facility] SARS-COV-2 COVID-19 PFIZER VACCINE 2020-07-02 00:00:00 Completed [facility] SARS-COV-2 COVID-19 PFIZER VACCINE 2020-07-02 00:00:00 Completed [facility] SARS-COV-2 COVID-19 PFIZER VACCINE 2020-07-02 00:00:00 Completed [facility] SARS-COV-2 COVID-19 PFIZER VACCINE 2020-07-02 00:00:00 Completed [facility] SARS-COV-2 COVID-19 PFIZER VACCINE 2020-07-02 00:00:00 Completed [facility] SARS-COV-2 COVID-19 PFIZER VACCINE 2020-07-02 00:00:00 Completed [facility] SARS-COV-2 COVID-19 PFIZER VACCINE 2020-07-02 00:00:00 Completed [facility] SARS-COV-2 COVID-19 PFIZER VACCINE 2020-07-02 00:00:00 Completed [facility] SARS-COV-2 COVID-19 PFIZER VACCINE 2020-07-02 00:00:00 Completed [facility] SARS-COV-2 COVID-19 PFIZER VACCINE 2020-07-02 00:00:00 Completed [facility] Influenza High Dose 2019-02-13 00:00:00 Completed [facility] Influenza High Dose 2019-02-13 00:00:00 Completed [facility] Influenza High Dose 2019-02-13 00:00:00 Completed [facility] Influenza High Dose 2019-02-13 00:00:00 Completed [facility] Influenza High Dose 2019-02-13 00:00:00 Completed [facility] Influenza High Dose 2019-02-13 00:00:00 Completed [facility] Influenza High Dose 2019-02-13 00:00:00 Completed [facility] Influenza High Dose 2019-02-13 00:00:00 Completed [facility] Influenza High Dose 2019-02-13 00:00:00 Completed [facility] Influenza High Dose 2019-02-13 00:00:00 Completed [facility] Influenza High Dose 2019-02-13 00:00:00 Completed [facility] Influenza High Dose 2019-02-13 00:00:00 Completed [facility] Influenza High Dose 2018-03-14 00:00:00 Completed [facility] Influenza High Dose 2018-03-14 00:00:00 Completed [facility] Influenza High Dose 2018-03-14 00:00:00 Completed [facility] Influenza High Dose 2018-03-14 00:00:00 Completed [facility] Influenza High Dose 2018-03-14 00:00:00 Completed [facility] Influenza High Dose 2018-03-14 00:00:00 Completed [facility] Influenza High Dose 2018-03-14 00:00:00 Completed [facility] Influenza High Dose 2018-03-14 00:00:00 Completed [facility] Influenza High Dose 2018-03-14 00:00:00 Completed [facility] Influenza High Dose 2018-03-14 00:00:00 Completed [facility] Influenza High Dose 2018-03-14 00:00:00 Completed [facility] Influenza High Dose 2018-03-14 00:00:00 Completed [facility] Influenza High Dose 2017-02-21 00:00:00 Completed [facility] Influenza High Dose 2017-02-21 00:00:00 Completed [facility] Influenza High Dose 2017-02-21 00:00:00 Completed [facility] Influenza High Dose 2017-02-21 00:00:00 Completed [facility] Influenza High Dose 2017-02-21 00:00:00 Completed [facility] Influenza High Dose 2017-02-21 00:00:00 Completed [facility] Influenza High Dose 2017-02-21 00:00:00 Completed [facility] Influenza High Dose 2017-02-21 00:00:00 Completed [facility] Influenza High Dose 2017-02-21 00:00:00 Completed [facility] Influenza High Dose 2017-02-21 00:00:00 Completed [facility] Influenza High Dose 2017-02-21 00:00:00 Completed [facility] Influenza High Dose 2017-02-21 00:00:00 Completed [facility] Influenza High Dose 2016-02-11 00:00:00 Completed [facility] Influenza High Dose 2016-02-11 00:00:00 Completed [facility] Influenza High Dose 2016-02-11 00:00:00 Completed [facility] Influenza High Dose 2016-02-11 00:00:00 Completed [facility] Influenza High Dose 2016-02-11 00:00:00 Completed [facility] Influenza High Dose 2016-02-11 00:00:00 Completed [facility] Influenza High Dose 2016-02-11 00:00:00 Completed [facility] Influenza High Dose 2016-02-11 00:00:00 Completed [facility] Influenza High Dose 2016-02-11 00:00:00 Completed [facility] Influenza High Dose 2016-02-11 00:00:00 Completed [facility] Influenza High Dose 2016-02-11 00:00:00 Completed [facility] Influenza High Dose 2016-02-11 00:00:00 Completed [facility] Influenza High Dose 2015-04-27 00:00:00 Completed [facility] Influenza High Dose 2015-04-27 00:00:00 Completed [facility] Influenza High Dose 2015-04-27 00:00:00 Completed [facility] Influenza High Dose 2015-04-27 00:00:00 Completed [facility] Influenza High Dose 2015-04-27 00:00:00 Completed [facility] Influenza High Dose 2015-04-27 00:00:00 Completed [facility] Influenza High Dose 2015-04-27 00:00:00 Completed [facility] Influenza High Dose 2015-04-27 00:00:00 Completed [facility] Influenza High Dose 2015-04-27 00:00:00 Completed [facility] Influenza High Dose 2015-04-27 00:00:00 Completed [facility] Influenza High Dose 2015-04-27 00:00:00 Completed [facility] Influenza High Dose 2015-04-27 00:00:00 Completed [facility] Influenza High Dose Unknown Completed [facility] Influenza High Dose Unknown Completed [facility] Influenza High Dose Unknown Completed [facility] Influenza High Dose Unknown Completed [facility] Influenza High Dose Unknown Completed [facility] SARS-COV-2 COVID-19 PFIZER VACCINE Unknown Completed [facility] SARS-COV-2 COVID-19 PFIZER VACCINE Unknown Completed [facility] Influenza High Dose Unknown Completed [facility] Influenza High Dose Unknown Completed [facility] Influenza High Dose Unknown Completed [facility] Influenza High [facility]ose Unknown Completed [facility] Influenza High Dose Unknown Completed [facility] SARS-COV-2 COVID-19 PFIZER VACCINE Unknown Completed [facility] SARS-COV-2 COVID-19 PFIZER VACCINE Unknown Completed [facility] Influenza High Dose Unknown Completed [facility] Influenza High Dose Unknown Completed [facility] Influenza High Dose Unknown Completed [facility] Influenza High Dose Unknown Completed [facility] Influenza High Dose Unknown Completed [facility] SARS-COV-2 COVID-19 PFIZER VACCINE Unknown Completed [facility] SARS-COV-2 COVID-19 PFIZER VACCINE Unknown Completed [facility] Influenza High Dose Unknown Completed [facility] Influenza High Dose Unknown Completed [facility] Influenza High Dose Unknown Completed [facility] Influenza High Dose Unknown Completed [facility] Influenza High Dose Unknown Completed [facility] SARS-COV-2 COVID-19 PFIZER VACCINE Unknown Completed [facility] SARS-COV-2 COVID-19 PFIZER VACCINE Unknown Completed [facility] Influenza High Dose Unknown Completed [facility] Influenza High Dose Unknown Completed [facility] Influenza High Dose Unknown Completed [facility] Influenza High Dose Unknown Completed [facility] Influenza High Dose Unknown Completed [facility] SARS-COV-2 COVID-19 PFIZER VACCINE Unknown Completed [facility] SARS-COV-2 COVID-19 PFIZER VACCINE Unknown Completed [facility] Influenza High Dose Unknown Completed [facility] Influenza High Dose Unknown Completed [facility] Influenza High Dose Unknown Completed [facility] Influenza High Dose Unknown Completed [facility] Influenza High Dose Unknown Completed [facility] SARS-COV-2 COVID-19 PFIZER VACCINE Unknown Completed [facility] SARS-COV-2 COVID-19 PFIZER VACCINE Unknown Completed [facility] Vital Signs Vital Name Observation Time Observation Value Comments Michael curry Systolic blood pressure 2023-05-23 19:07:00 138 mm[Hg] [facility] Diastolic blood pressure 2023-05-23 19:07:00 81 mm[Hg] [facility] Heart rate 2023-05-23 19:07:00 94 /min [facility] Body temperature 2023-05-23 19:07:00 36.44 Hilaria [facility] Respiratory rate 2023-05-23 19:07:00 18 /min [facility] Body height 2023-05-23 19:07:00 152.4 cm [facility] Body weight 2023-05-23 19:07:00 50.349 kg [facility] BMI 2023-05-23 19:07:00 21.68 kg/m2 [facility] Oxygen saturation in Arterial blood by Pulse oximetry 2023-05-23 19:07:00 98 /min [facility] Systolic blood pressure 2022-05-25 16:49:00 108 mm[Hg] [facility] Diastolic blood pressure 2022-05-25 16:49:00 68 mm[Hg] [facility] Heart rate 2022-05-25 16:49:00 102 /min [facility] Body temperature 2022-05-25 16:49:00 36.39 Hilaria [facility] Body height 2022-05-25 16:49:00 152.4 cm [facility] Body weight 2022-05-25 16:49:00 51.256 kg [facility] BMI 2022-05-25 16:49:00 22.07 kg/m2 [facility] Oxygen saturation in Arterial blood by Pulse oximetry 2022-05-25 16:49:00 97 /min [facility] Procedures Procedure Date / Time Performed Performing Clinicia n Source REFERRAL- REQUEST/RESPONSE 2023-03-20 05:01:00 Doctor Unassigned, [place] [facility] REFERRAL- REQUEST/RESPONSE 2022-08-15 05:01:00 Doctor Unassigned, [place] [facility] REFERRAL- REQUEST/RESPONSE 2022-02-07 05:01:00 Doctor Unassigned, [place] [facility] Encounters Start Date/Time End Date/Time Encounter Type Admission Type Attending Clinicians Care Facility Care Department Encounter ID Source 2023-05-23 13:21:41 2023-05-23 23:59:00 Outpatient R KATARZYNA MARQUEZ [facility] [id number] [facility] 2023-05-23 13:21:41 2023-05-23 23:59:00 Hospital Encounter Katarzyna Marquez [facility] 1.2.840.114 350.1.13.10 4.2.7.2.686 [id number] [facility] 2023-05-23 13:00:00 2023-05-23 13:21:21 Office Visit Katarzyna Marquez [facility] 1.2.840.114 350.1.13.10 4.2.7.2.686 [id number] [facility] 2023-04-23 00:00:00 2023-04-23 00:00:00 Refill Pascual [place] [facility] 1.2.840.114 350.1.13.10 4.2.7.2.686 [id number] [facility] 2023-03-22 10:00:00 2023-03-22 10:00:00 Outpatient R MATHEUS MCNAMARA [facility] [id number] [facility] 2023-03-21 00:00:00 2023-03-21 00:00:00 Telephone Matheus Mcnamara [facility] 1.2.840.114 350.1.13.10 4.2.7.2.686 [id number] [facility] 2023-03-20 00:00:2023-03-20 00:00:00 Orders Only Doctor Unassigned, [place] [facility] 1.2840.114 350.1.13.10 4.2.7.2.686 [id number] [facility] 2023-03-10 11:04:00 2023-03-11 10:52:00 Inpatient Yuliya Tate [facility] MEDI.01 [id number] [facility] 2023-01-24 00:00:00 2023-01-24 00:00:00 Refill Naima [facility] 1.20.114 350.1.13.10 4.2.7.2.686 [id number] [facility] 2023-01-04 00:00:00 2023-01-04 00:00:00 Refill Naima [facility] 1.2840.114 350.1.13.10 4.2.7.2.686 [id number] [facility] 2022-10-18 00:00:00 2022-10-18 00:00:00 Refill Bryannated [facility] 1..114 350.1.13.10 4.2.7.2.686 [id number] [facility] 2022-08-15 00:00:00 2022-08-15 00:00:00 Orders Only Doctor Unassigned, [place] [facility] 1.2840.114 350.1.13.10 4.2.7.2.686 [id number] [facility] 2022-07-20 00:00:00 2022-07-20 00:00:00 Refill Bryannated [facility] 1.2.840.114 350.1.13.10 4.2.7.2.686 [id number] [facility] 2022-05-25 10:45:00 2022-05-25 11:00:00 Office Visit Matheus Mcnamara [facility] 1.2840.114 350.1.13.10 4.2.7.2.686 [id number] [facility] 2022-05-25 10:45:00 2022-05-25 10:45:00 Outpatient R AFSHANJOAO [facility] [id number] [facility] 2022-04-25 00:00:00 2022-04-25 00:00:00 Refill Naima [facility] 1.0114 350.1.13.10 4.2.7.2.686 [id number] [facility] 2022-02-15 00:00:00 2022-02-15 00:00:00 Refill Naima [facility] 1.20.114 350.1.13.10 4.2.7.2.686 [id number] [facility] 2022-02-07 00:00:00 2022-02-07 00:00:00 Orders Only Doctor Unassigned, [place] [facility] 1.2840.114 350.1.13.10 4.2.7.2.686 [id number] [facility] 2022-01-19 00:00:00 2022-01-19 00:00:00 Refill Naima [facility] 1.2840.114 350.1.13.10 4.2.7.2.686 [id number] [facility] 2021-12-20 00:00:00 2021-12-20 00:00:00 Telephone Matheus Mcnamara [facility] NAL BUILDING 1.2.840.114 350.1.13.10 4.2.7.2.686 [id number] [facility] 2021-12-20 00:00:00 2021-12-20 00:00:00 Telephone [facility] 1.2.840.114 350.1.13.10 4.2.7.2.686 [id number] [facility] 2021-12-19 13:15:00 2021-12-19 13:45:27 Outpatient R MATHEUS MCNAMARA [facility] [id number] [facility] 2021-12-19 13:15:00 2021-12-19 13:45:27 Outpatient R MATHEUS MCNAMARA [facility] [id number] [facility] 2021-12-19 13:15:00 2021-12-19 13:30:00 Office Visit [facility] 1.2.840.114 350.1.13.10 4.2.7.2.686 [id number] [facility] 2021-12-19 13:15:00 2021-12-19 13:15:00 Outpatient R MATHEUS MCNAMARA [facility] [id number] [facility] 2021-12-19 13:15:00 2021-12-19 13:15:00 Outpatient R MATHEUS MCNAMARA [facility] [id number] [facility] 2021-10-25 14:15:00 2021-10-25 14:15:00 Outpatient R MATHEUS MCNAMARA [facility] [id number] [facility] 2021-10-25 00:00:00 2021-10-25 00:00:00 Matheus Moreno [facility] 1..840.114 350.1.13.10 4.2.7.2.686 [id number] [facility] 2021-10-17 00:00:00 2021-10-17 00:00:00 Matheus Moreno [facility] 1.840.114 350.1.13.10 4.2.7.2.686 [id number] [facility] 2021-08-25 00:00:00 2021-08-25 00:00:00 Patient Secure Msg Doctor Unassigned, [place] [facility] 1.840.114 350.1.13.10 4.2.7.2.686 [id number] [facility] 2021-08-19 17:20:00 2021-08-19 17:42:43 Outpatient R JOHN [facility] [id number] [facility] 2021-08-19 17:20:00 2021-08-19 17:42:43 Urgent Care [facility] 1..840.114 350.1.13.10 4.2.7.2.686 [id number] [facility] 2021-08-18 17:20:00 2021-08-18 17:20:00 Outpatient R [facility] [id number] [facility] 2021-08-03 00:00:00 2021-08-03 00:00:00 Orders Only Doctor Unassigned, [place] [facility] 1.284.114 350.1.13.10 4.2.7.2.686 [id number] [facility] 2021-07-27 00:00:00 2021-07-27 00:00:00 [facility] 1.84.114 350.1.13.10 4.2.7.2.686 [id number] [facility] 2021-06-30 09:29:00 2021-06-30 11:39:[address] [facility] [id number] [facility] 2021-06-30 09:29:00 2021-06-30 11:39:00 [facility] 1.20.114 350.1.13.10 4.2.7.2.686 [id number] [facility] 2021-06-30 09:50:00 2021-06-30 10:25:00 Surgery Gregorio [facility] 1.20.114 350.1.13.10 4.2.7.2.686 [id number] [facility] 2021-06-28 14:45:00 2021-06-28 15:00:00 Laboratory Only Only, Adc Test Gregorio [facility] 1.2840.114 350.1.13.10 4.2.7.2.686 [id number] [facility] 2021-06-28 14:45:00 2021-06-28 14:45:00 Outpatient CHUCKY CAMPUZANO [facility] [id number] [facility] 2021-06-16 07:45:00 2021-06-16 10:25:00 Outpatient R CHUCKY PERKINS [facility] OPH [id number] [facility] 2021-06-16 07:45:00 2021-06-16 10:25:00 [facility] 1.2840.114 350.1.13.10 4.2.7.2.686 [id number] [facility] 2021-06-16 09:10:00 2021-06-16 09:40:00 Anesthesia Event Daron Kelly Queen[facility] 1.20.114 350.1.13.10 4.2.7.2.686 [id number] [facility] 2021-06-16 08:40:00 2021-06-16 09:15:00 Surgery Chucky Perkins [facility] 1.0.114 350.1.13.10 4.2.7.2.686 [id number] [facility] 2021-06-16 00:00:00 2021-06-16 00:00:00 Orders Only Doctor Unassigned, [place] [facility] 1..114 350.1.13.10 4.2.7.2.686 [id number] [facility] 2021-06-14 10:30:00 2021-06-14 10:45:00 Laboratory Only Only, Adc Test Chucky Perkins [facility] 1..114 350.1.13.10 4.2.7.2.686 [id number] [facility] 2021-06-14 10:30:00 2021-06-14 10:30:00 Outpatient R CHUCKY PERKINS [facility] [id number] [facility] 2021-06-14 10:15:00 2021-06-14 10:30:00 Clean Up Helper Banquet Visit Pob, Adc Lab Main Gregorio, Chucky Cesario [facility] 1.114 350.1.13.10 4.2.7.2.686 [id number] [facility] 2021-05-24 00:00:00 2021-05-24 00:00:00 Orders Only Doctor Unassigned, [place] [facility] 1.0.114 350.1.13.10 4.2.7.2.686 [id number] [id number] [facility] 2021-04-28 00:00:00 2021-04-28 00:00:00 Concha Mcnamara [facility] OFFICE BUILDING ONE 1.0.114 350.1.13.10 4.2.7.2.686 [id number] 044 [id number] [facility] 2021-04-18 00:00:00 2021-04-18 00:00:00 Orders Only Doctor Unassigned, [place] [facility] 1.0.114 350.1.13.10 4.2.7.2.686 [id number] [id number] [facility] 2021-03-22 00:00:00 2021-03-22 00:00:00 Concha Mcnamara [facility] OFFICE BUILDING ONE 1..114 350.1.13.10 4.2.7.2.686 [id number] 044 [id number] [facility] 2021-03-01 00:00:00 2021-03-01 00:00:00 Concha Mcnamara [facility] Office Building One 1..114 350.1.13.10 4.2.7.2.686 [id number] 044 [id number] [facility] 2021-02-10 00:00:00 2021-02-10 00:00:00 Orders Only Doctor Unassigned, [place] [facility] 1.0.114 350.1.13.10 4.2.7.2.686 [id number] 009 [id number] [facility] 2021-01-11 00:00:00 2021-01-11 00:00:00 Concha Mcnamara [facility] Office Building One 1.2.840.114 350.1.13.10 4.2.7.2.686 [id number] 044 [id number] [facility] 2020-12-28 00:00:00 2020-12-28 00:00:00 Refill Matheus Mcnamara [facility] Building 1.2840.114 350.1.13.10 4.2.7.2.686 [id number] 044 [id number] [facility] 2020-12-21 00:00:00 2020-12-21 00:00:00 Orders Only Doctor Unassigned, [place] [facility] 1.20.114 350.1.13.10 4.2.7.2.686 [id number] 009 [id number] [facility] 2020-11-26 08:56:37 2020-11-26 09:11:37 Clean Up Helper Banquet Visit Pob, Adc Lab Main Chucky Mariee [facility] Building 1.84.114 350.1.13.10 4.2.7.2.686 [id number] [facility] 2020-11-26 08:45:00 2020-11-26 08:45:00 Outpatient R [facility] [id number] [facility] 2020-11-26 00:00:00 2020-11-26 00:00:00 Orders Only Doctor Unassigned, [place] [facility] 1.2.114 350.1.13.10 4.2.7.2.686 [id number] [id number] [facility] 2020-11-15 10:39:15 2020-11-15 11:35:08 Office Visit Matheus Mcnamara [facility] Office Building One 1.284.114 350.1.13.10 4.2.7.2.686 [id number] 044 [id number] [facility] 2020-11-15 10:45:00 2020-11-15 10:45:00 Outpatient MATHEUS THAYER [facility] [id number] [facility] 2020-09-28 00:00:00 2020-09-28 00:00:00 Telephone Naima [facility] Office Building One 1.84.114 350.1.13.10 4.2.7.2.686 [id number] 044 [id number] [facility] 2020-09-27 00:00:00 2020-09-27 00:00:00 Orders Only Doctor Unassigned, [place] [facility] 1.840.114 350.1.13.10 4.2.7.2.686 [id number] [id number] [facility] 2020-09-23 00:00:00 2020-09-23 00:00:00 Refill Naima [facility] Office Building One 1.84.114 350.1.13.10 4.2.7.2.686 [id number] 044 [id number] [facility] 2020-07-30 10:12:53 2020-07-30 10:27:53 Clean Up Helper Banquet Visit Pob, Adc Lab Main Penelope Diehl [facility] Building 1.84.114 350.1.13.10 4.2.7.2.686 [id number] [facility] 2020-07-30 10:00:00 2020-07-30 10:00:00 Outpatient PENELOPE GUDINO [facility] [id number] [facility] 2020-07-30 00:00:00 2020-07-30 00:00:00 Orders Only Doctor Unassigned, [place] [facility] 1.284.114 350.1.13.10 4.2.7.2.686 [id number] [id number] [facility] 2020-07-23 14:40:00 2020-07-23 14:40:00 Outpatient Liz LESTER, REX [facility] [id number] [facility] 2020-07-14 00:00:00 2020-07-14 00:00:00 Concha Mcnamara Matheus Hoffmann [facility] Office Building One 1..840.114 350.1.13.10 4.2.7.2.686 [id number] 044 [id number] [facility] 2020-07-02 13:00:00 2020-07-02 13:00:00 Outpatient Liz LESTER MARIE [facility] [id number] [facility] 2020-07-02 13:00:00 2020-07-02 13:00:[address] [facility] [id number] [facility] 2020-06-12 00:00:00 2020-06-12 00:00:00 Patient Outreach Efra Aguilar [facility] 1.84.114 350.1.13.10 4.2.7.2.686 [id number] [facility] 2020-04-05 08:03:45 2020-04-05 08:18:45 Clean Up Helper Banquet Visit Pob, Adc Lab Main Penelope Diehl [facility] Building 1.840.114 350.1.13.10 4.2.7.2.686 [id number] [facility] 2020-04-05 08:00:00 2020-04-05 08:00:00 Outpatient PENELOPE GUDINO [facility] [id number] [facility] 2020-04-05 00:00:00 2020-04-05 00:00:00 Orders Only Doctor Unassigned, [place] [facility] 1.840.114 350.1.13.10 4.2.7.2.686 [id number] [id number] [facility] 2020-03-29 00:00:00 2020-03-29 00:00:00 Concha GouldjyotsnaMatheus loo [facility] Office Building One 1..114 350.1.13.10 4.2.7.2.686 [id number] 044 [id number] [facility] 2020-01-02 10:00:00 2020-01-02 10:00:00 Outpatient R PENELOPE DIEHL [facility] [id number] [facility] 2020-01-02 09:24:15 2020-01-02 09:39:15 Clean Up Helper Banquet Visit Pob, Adc Lab Main Penelope Diehl [facility] Building 1..114 350.1.13.10 4.2.7.2.686 [id number] [facility] 2020-01-02 00:00:00 2020-01-02 00:00:00 Orders Only Doctor Unassigned, [place] [facility] 1..114 350.1.13.10 4.2.7.2.686 [id number] 009 [id number] [facility] 2020-01-02 00:00:00 2020-01-02 00:00:00 Concha Mcnamara [facility] Office Building One 1.114 350.1.13.10 4.2.7.2.686 [id number] 044 [id number] [facility] 2019-12-27 00:00:00 2019-12-27 00:00:00 Refill Naima [facility] Office Building One 1.114 350.1.13.10 4.2.7.2.686 [id number] 044 [id number] [facility] 2019-12-24 11:49:05 2019-12-24 12:04:05 Clean Up Helper Banquet Visit 2, Adc Lab Afshanjoao [facility] Building 1.2840.114 350.1.13.10 4.2.7.2.686 [id number] [facility] 2019-12-24 11:17:19 2019-12-24 11:32:19 Office Visit Matheus Mcnamara Shun [facility] Building 1.2840.114 350.1.13.10 4.2.7.2.686 [id number] 044 [id number] [facility] 2019-12-24 11:30:00 2019-12-24 11:30:00 Outpatient R NAIMA MATHEUS [facility] [id number] [facility] 2019-12-11 00:00:00 2019-12-11 00:00:00 Telephone Naima Matheus [facility] Building 1.2840.114 350.1.13.10 4.2.7.2.686 [id number] 044 [id number] [facility] 2019-12-11 00:00:00 2019-12-11 00:00:00 Orders Only Doctor Unassigned, [place] [facility] 1.2840.114 350.1.13.10 4.2.7.2.686 [id number] [id number] [facility] 2019-12-03 00:00:00 2019-12-03 00:00:00 Refill BryannatedMatheus [facility] Office Building One 1.2840.114 350.1.13.10 4.2.7.2.686 [id number] 044 [id number] [facility] 2019-11-28 00:00:00 2019-11-28 00:00:00 Pre Visit Outreach Naima Matheus Hoffmann [facility] Building 1.2840.114 350.1.13.10 4.2.7.2.686 [id number] [id number] [facility] 2019-10-31 00:00:00 2019-10-31 00:00:00 Refill Matheus Mcnamara [facility] Building 1.2.840.114 350.1.13.10 4.2.7.2.686 [id number] 044 [id number] [facility] 2019-10-31 00:00:00 2019-10-31 00:00:00 Refill Matheus Mcnamara [facility] Office Building One 1.2840.114 350.1.13.10 4.2.7.2.686 [id number] 044 [id number] [facility] 2019-10-28 00:00:00 2019-10-28 00:00:00 Refill Matheus Mcnamara [facility] Building 1.2.840.114 350.1.13.10 4.2.7.2.686 [id number] 044 [id number] [facility] 2019-10-27 00:00:00 2019-10-27 00:00:00 Refill Naima [facility] Office Building One 1.2840.114 350.1.13.10 4.2.7.2.686 [id number] 044 [id number] [facility] 2019-10-14 00:00:00 2019-10-14 00:00:00 Telephone NaimaMatheus [facility] Building 1.2.840.114 350.1.13.10 4.2.7.2.686 [id number] 044 [id number] [facility] 2019-09-29 00:00:00 2019-09-29 00:00:00 Refill Matheus Mcnamara [facility] Office Building One 1.2840.114 350.1.13.10 4.2.7.2.686 [id number] 044 [id number] [facility] 2019-09-04 00:00:00 2019-09-04 00:00:00 Telephone Veselka, Matheus [facility] Office Building One 1.840.114 350.1.13.10 4.2.7.2.686 [id number] 044 [id number] [facility] 2019-09-03 00:00:00 2019-09-03 00:00:00 Telephone [facility] 1.840.114 350.1.13.10 4.2.7.2.686 [id number] 044 [id number] [facility] 2019-09-03 00:00:00 2019-09-03 00:00:00 Telephone Naima [facility] Office Building One 1..114 350.1.13.10 4.2.7.2.686 [id number] 044 [id number] [facility] 2019-08-29 00:00:00 2019-08-29 00:00:00 Refill Naima [facility] Building One 1.0.114 350.1.13.10 4.2.7.2.686 [id number] 044 [id number] [facility] 2019-08-25 00:00:00 2019-08-25 00:00:00 Orders Only Doctor Unassigned, [place] [facility] 1.0.114 350.1.13.10 4.2.7.2.686 [id number] [id number] [facility] 2019-08-05 10:30:49 2019-08-18 07:52:14 Telemedici ne Visit Naima [facility] Building One 1..114 350.1.13.10 4.2.7.2.686 [id number] 044 [id number] [facility] 2019-08-06 00:00:00 2019-08-06 00:00:00 Refill Naima [facility] Building One 1.114 350.1.13.10 4.2.7.2.686 [id number] 044 [id number] [facility] 2019-08-05 10:15:00 2019-08-05 10:15:00 Outpatient Liz MCNAMARA MATHEUS [facility] [id number] [facility] 2019-08-01 07:36:52 2019-08-01 07:51:52 Clean Up Helper Banquet Visit Pob, Adc Lab Main CristinoroslynchunPenelope sawant [facility] Building 1.114 350.1.13.10 4.2.7.2.686 [id number] [facility] 2019-08-01 07:45:00 2019-08-01 07:45:00 Outpatient PENELOPE GUDINO [facility] [id number] [facility] 2019-08-01 00:00:00 2019-08-01 00:00:00 Orders Only Doctor Unassigned, [place] [facility] 1.114 350.1.13.10 4.2.7.2.686 [id number] [id number] [facility] 2019-07-22 08:59:19 2019-07-22 09:42:43 Office Visit Matheus Mcnamara domi [facility] Office Building One 1.114 350.1.13.10 4.2.7.2.686 [id number] [id number] [facility] 2019-07-22 09:00:00 2019-07-22 09:00:00 Outpatient Liz MCNAMARA MATHEUS [facility] [id number] [facility] 2019-07-07 00:00:00 2019-07-07 00:00:00 Telephone Matheus Mcnamara [facility] Office Building One 1.114 350.1.13.10 4.2.7.2.686 [id number] 044 [id number] [facility] 2019-07-03 09:26:15 2019-07-03 10:37:04 Office Visit Matheus Mcnamara [facility] Office Building One 1.2.840.114 350.1.13.10 4.2.7.2.686 [id number] 044 [id number] [facility] 2019-07-03 00:00:00 2019-07-03 00:00:00 Orders Only Doctor Unassigned, [place] [facility] 1.2.840.114 350.1.13.10 4.2.7.2.686 [id number] [id number] [facility] 2019-06-26 14:19:49 2019-06-26 15:35:33 Office Visit Chris Celeste [facility] Building 1.2840.114 350.1.13.10 4.2.7.2.686 [id number] [facility] 2019-06-21 00:00:00 2019-06-21 00:00:00 Refill Matheus Mcnamara [facility] Office Building One 1.2840.114 350.1.13.10 4.2.7.2.686 [id number] 044 [id number] [facility] 2019-06-17 00:00:00 2019-06-17 00:00:00 Transition of Care Kika Sparks 1.2.840.114 350.1.13.10 4.2.7.2.686 [id number] [facility] 2019-06-13 18:48:06 2019-06-16 18:54:00 Hospital Encounter Cr Dumont [facility] 1.2.840.114 350.1.13.10 4.2.7.2.686 [id number] [facility] 2019-06-14 00:00:00 2019-06-14 00:00:00 Matheus Moreno [facility] Office Building One 1.2840.114 350.1.13.10 4.2.7.2.686 [id number] 044 [id number] [facility] 2019-06-10 00:00:00 2019-06-10 00:00:00 Orders Only Doctor Unassigned, [place] [facility] 1.2.840.114 350.1.13.10 4.2.7.2.686 [id number] [id number] [facility] 2019-01-29 00:00:00 2019-01-29 00:00:00 Concha Mcnamara [facility] Office Building One 1.2840.114 350.1.13.10 4.2.7.2.686 [id number] 044 [id number] [facility] 2019-01-08 00:00:00 2019-01-08 00:00:00 Concha Mcnamara [facility] Office Building One 1.2840.114 350.1.13.10 4.2.7.2.686 [id number] 044 [id number] [facility] 2019-01-05 00:00:00 2019-01-05 00:00:00 Concha Mcnamara [facility] Office Building One 1.2.840.114 350.1.13.10 4.2.7.2.686 [id number] 044 [id number] [facility] 2018-12-12 00:00:00 2018-12-12 00:00:00 Concha Mcnamara [facility] Building One 1.2840.114 350.1.13.10 4.2.7.2.686 [id number] 044 [id number] [facility] Results Test Description Test Time Test Comments Results Result Co mments Source - XR CHEST 1 V 2023-03-11 07:11:00 [facility] 1935 Sex: F Name: JAMA VERDUZCO [facility] : 1935 Age/S: 88 / F [address] Unit #: [id number] Loc: [place] [address] Phys: Nury Mendoza MD Cardiology Acct: [id number] Dis Date: Status: ADM IN PHONE #: [phone] Exam Date: 03/11/2023 0438 FAX #: Reason: Post implanted device EXAMS: CPT: [id number] XR CHEST 1 V 20428 Fluoro Time: DAP (Gy m2): Air Kerma (mGy): EXAM: Portable chest x-ray, one view INDICATION: Post implanted device ADMITTING DIAGNOSIS: sick sinus syndrome, post pacemaker placement LOCATION CODE: C3 COMPARISON: March 10, 2023 TECHNIQUE: Single Portable AP upright view of the chest DISCUSSION: Catheter and Tubes: This a left subclavian pacemaker with a single ventricular lead. Lung: The lungs are clear. No pneumothorax No Pleural effusion Mediastinum: Unremarkable Cardiac: Heart is mild to moderately enlarged Osseous structures are within normal limits. IMPRESSION: 1. Unremarkable chest x-ray. Stable chest x-ray at 0711 Reported and signed by: Vishnu Pederson M.D. CC: Nury Alejandra Cardiology Reji HOLLIS; Yuliya Potter MD PAGE 1 Signed Report Name: JAMA VERDUZCO [facility] : 1935 Age/S: 88 / F [id number] [facility] Unit #: [id number] Loc: [place] [address] Phys: Nury Mendoza MD Cardiology Acct: [id number] Dis Date: Status: ADM IN PHONE #: [phone] Exam Date: 03/11/2023 0438 FAX #: Reason: Post implanted device EXAMS: CPT: [id number] XR CHEST 1 V 46537 Fluoro Time: DAP (Gy m2): Air Kerma (mGy): (Continued) Technologist: Myra Gunn Trnscb Date/Time: 03/11/2023 (0711) [id number] Orig Print D/T: S: 03/11/2023 (0777) PAGE 2 Signed Report CBC W/AUTO [id number] 04:44:00* Test Item Value Reference Range Interpretation Comme nts WHITE BLOOD CELL (test code = WBC) 5.9 K/mm3 3.5-11.0 N RED BLOOD CELL (test code = RBC) 3.68 M/mm3 4.70-6.10 L HEMOGLOBIN (test code = HGB) 10.7 G/DL 10.4-14.9 N HEMATOCRIT (test code = HCT) 34.4 % 31.5-44.1 N MEAN CELL VOLUME (test code = MCV) 93.5 Fl 84.5-98.6 N MEAN CELL HGB (test code = MCH) 29.1 pg 27.0-34.2 N MEAN CELL HGB CONCETRATION (test code = MCHC) 31.1 G/DL 31.5-34.0 L RED CELL DISTRIBUTION WIDTH (test code = RDW) 16.2 SD 11.5-14.5 H PLATELET COUNT (test code = PLT) 213 K/mm3 150-450 N MEAN PLATELET VOLUME (test c ode = MPV) 10.90 fL 7.0-10.5 H NEUTROPHIL % (test code = NT%) 52.2 % 40-76 IMMATURE GRANULOCYTE % (test code = IG%) 0.2 % 0.0-5.0 N LYMPHOCYTE % (test code = LY%) 35.1 % 20.5-51.1 N MONOCYTE % (test code = MO%) 7.6 % 1.7-9.3 N EOSINOPHIL % (test code = EO%) 4.1 % 0.0-6.0 N BASOPHIL % (test code = BA%) 0.8 % 0.0-2.0 N NUCLEATED RBC % (test code = NRBC%) 0.3 /100WBC% 0.0-1.0 N NEUTROPHIL # (test code = NT#) 3.1 K/mm3 1.8-7.6 N IMMATURE GRANULOCYTE # (test code = IG#) 0.01 x10 3/uL 0.00-0.03 N LYMPHOCYTE # (test code = LY#) 2.1 K/mm3 0.6-3.2 N MONOCYTE # (test code = MO#) 0.5 K/mm3 0.3-1.1 N EOSINOPHIL # (test code = EO#) 0.2 K/mm3 0.0-0.4 N BASOPHIL # (test code = BA#) 0.1 K/mm3 0.0-0.1 N NUCLEATED RBC # (test code = NRBC#) 0.0 K/mm3 0.0-0.1 N MANUAL DIFF REQUIRED (test c ode = MDIFF) NO DIFF/SCN CRITERIA - XR CHEST 1 [id number] 15:12:00 [facility] 1935 Sex: F Name: JAMA VERDUZCO [facility] : 1935 Age/S: 88 / F [address] Unit #: [id number] Loc: [place] [address] Phys: Nury Mendoza MD Cardiology Acct: [id number] Dis Date: Status: ADMIN PHONE #: [phone] Exam Date: 03/10/2023 1446 FAX #: Reason: Post implanted device EXAMS: CPT: [id number] XR CHEST 1 V 89174 Fluoro Time: DAP (Gy m2): Air Kerma (mGy): EXAM: Portable chest x-ray, one view INDICATION: Post implanted device ADMITTING DIAGNOSIS: 6 sinus syndrome, post pacemakerplacement LOCATION CODE: C3 COMPARISON: None TECHNIQUE: Single Portable AP upright view of the chest DISCUSSION: Catheter and Tubes: This a left subclavian pacemaker with a single ventricular lead. Lung: The lungs are clear. No pneumothorax No Pleural effusion Mediastinum: Severe atherosclerotic calcification of the aortic knob is noted. Cardiac: Heart is moderately enlarged. Osseous structures thoracic spine demonstrate scoliosis with secondary severe degenerative changes. IMPRESSION: 1. Cardiomegaly. 2. Status post left subclavian pacemaker. at 1512 Reported and signed by: Vishnu Pederson M.D. CC: Nury Alejandra Cardiology Reji HOLLIS; Yuliya Potter MD PAGE 1 Signed Report Name: JAMA VERDUZCO [facility] : 6Age/S: 88 / F [id number] [address] Unit #: [id number] Loc: [place] [address] Phys: Nury Mendoza MD Cardiology Acct: [id number] Dis Date: Status: ADM IN PHONE #: [phone] Exam Date: 03/10/2023 1446 FAX #: Reason: Post implanted device EXAMS: CPT: [id number] XR CHEST 1 V 13753 Fluoro Time: DAP (Gy m2): Air Kerma (mGy): (Continued) Technologist: Tirso Adams Trnscb Date/Time: 03/10/2023 (1511) [email or web address] Orig Print D/T: S: 03/10/2023 (1515) PAGE 2 Signed ReportPROTHROMBIN [id number] 10:52:00* Test Item Value Reference Range Interpretation Comme nts PT PATIENT (test code = PTP) 12.1 SECONDS 9.3-12.9 N INTERNATIONAL NORMAL RATIO (test code = INR) 1.09 INR Unit 0.8-1.2 N TARGET INR BY INDICATION Indication INR1. Prophylaxis of venous thrombosis 2.0 - 3.0 (orthopedic surgery), Prophylaxis of venous thrombosis (other than high-risk surgery), Treatment of Deep Vein Thrombosis/Pulmonary Embolism, Prevention of systemic embolism - Tissue heart valves, Acute Myocardial Infarction (to prevent systemic embolism), Valvular heart disease, Acute Myocardial Infarction (to prevent systemic embolism), Valvular heart disease, Atrial Fibrillation, Bileaflet mechanical valve in aortic position.2. Mechanical prosthetic valves (high risk), 2.5 - 3.5 Presence of Lupus Anticoagulant or Antiphospholipid Antibodies, Prevention of systemic embolism - Acute Myocardial Infarction (to prevent recurrent infarct). COMPREHENSIVE METABOLIC [id number] 10:52:00* Test Item Value Reference Range Interpretation Comme nts SODIUM (test code = NA) 141 mmol/L 134-147 N POTASSIUM (test code = K) 3.2 mmol/L 3.4-5.0 L CHLORIDE (test code = CL) 109 mmol/L 100-108 H CARBON DIOXIDE (test code = CO2) 28 mmol/L 21-32 N ANION GAP (test code = GAP) 4.0 GAP calc 4.0-15.0 N GLUCOSE (test code = GLU) 135 MG/DL 70-110 H BLOOD UREA NITROGEN (test code = BUN) 22 MG/DL 7-18 H GLOMERULAR FILTRATION RATE (test code = GFR) 40 estGFR >60 L The Glomerular Filtration Rate is a calculated parameterbased on serum Creatinine, patient age and sex. GFR valuesless than 60 mL/min/1.73 square meters are indicative ofChronic Kidney Disease. Values less than 15 mL/min/1.73square meters indicate Kidney failure. The calculation forGFR is based on the CKD-EPI (202) calculation. This formulais race indifferent and is the recommended formula for GFRby the National Kidney Foundation for Adults.The GFR will not calculate if the sex is unknown or if thepatient's age is <18 years. CREATININE (test code = CREAT) 1.3 MG/DL 0.6-1.0 H TOTAL PROTEIN (test code = PROT) 8.3 G/DL 6.4-8.2 H ALBUMIN (test code = ALB) 3.7 G/DL 3.4-5.0 N GLOBULIN (test code = GLOB) 4.6 GM/dL ALBUMIN/GLOBULIN RATIO (test code = A/G) 0.8 RATIO 1.2-2.2 L CALCIUM (test code = CA) 9.5 MG/DL 8.5-10.1 N BILIRUBIN TOTAL (test code = BILT) 1.50 MG/DL 0.2-1.2 H SGOT/AST (test code = AST) 9 Unit/L 15-37 L SGPT/ALT (test code = ALT) 13 Unit/L 12-78 N ALKALINE PHOSPHATASE TOTAL (test code = ALKP) 89 Unit/L 45-117 N LIPID PROFILE (CORONARY RISK)2023-03-10 10:52:00* Test Item Value Reference Range Interpretation Comme nts TRIGLYCERIDES (test code = TRIG) 85 MG/DL 0-150 N CHOLESTEROL (test code = CHOL) 159 MG/DL 133-200 N CHOLESTEROL/HDL RATIO (test code = CHOLHDL) 2.79 RATIO See_Comment RISK ASSOCIATED WITH CHOL/HDL RATIOS: RISK MALE FEMALE1/2 AVERAGE 3.43 3.27AVERAGE 4.97 4.442X AVERAGE 9.55 7.053X AVERAGE 23.39 11.04 NOTE THAT THE REFERENCE VALUE IS RELATED TO RISK LEVELS ASRECOMMENDED BY THE [facility]. [Automated message] The system which generated this result transmitted reference range: 0-. The reference range was not used to interpret this result as normal/abnormal. HDL CHOLESTEROL (test code = HDL) 57 MG/DL 40-59 N NON-HDL CHOLESTEROL (test code = NHDL) 102 mg/dL <130 LIPOPROTEIN LDL (test code = LDL) 90 MG/DL 0-129 N <100 [id number] 0 - 129 NEAR OPTIMAL/ABOVE [id number] - 159 [id number] - 189 HIGH>OR= 190 VERY HIGHNOTE THAT GUIDELINES ARE PROVIDED BY NATIONAL CHOLESTEROLEDUCATION PROGRAM ADULT TREATMENT PANEL III LDL/HDL (test code = LDL/HDL) 1.57 Ratio See_Comment N [Automated messa ge] The system which generated this result transmitted reference range: 1.48-3.22 Avg. The reference range was not used to interpret this result as normal/abnormal. [id number] 10:52:00* Test Item Value Reference Range Interpretation Comme nts MAGNESIUM (test code = MAG) 2.1 MG/DL 1.8-2.4 N CBC W/AUTO [id number] 10:28:00* Test Item Value Reference Range Interpretation Comme nts WHITE BLOOD CELL (test code = WBC) 8.6 K/mm3 3.5-11.0 N RED BLOOD CELL (test code = RBC) 4.23 M/mm3 4.70-6.10 L HEMOGLOBIN (test code = HGB) 12.4 G/DL 10.4-14.9 N HEMATOCRIT (test code = HCT) 39.3 % 31.5-44.1 N MEAN CELL VOLUME (test code = MCV) 92.9 Fl 84.5-98.6 N MEAN CELL HGB (test code = MCH) 29.3 pg 27.0-34.2 N MEAN CELL HGB CONCETRATION (test code = MCHC) 31.6 G/DL 31.5-34.0 N RED CELL DISTRIBUTION WIDTH (test code = RDW) 16.2 SD 11.5-14.5 H PLATELET COUNT (test code = PLT) 270 K/mm3 150-450 N MEAN PLATELET VOLUME (test c ode = MPV) 10.70 fL 7.0-10.5 H NEUTROPHIL % (test code = NT%) 71.0 % 40-76 N IMMATURE GRANULOCYTE % (test code = IG%) 0.3 % 0.0-5.0 N LYMPHOCYTE % (test code = LY%) 21.3 % 20.5-51.1 N MONOCYTE % (test code = MO%) 4.3 % 1.7-9.3 N EOSINOPHIL % (test code = EO%) 2.3 % 0.0-6.0 N BASOPHIL % (test code = BA%) 0.8 % 0.0-2.0 N NUCLEATED RBC % (test code = NRBC%) 0.0 /100WBC% 0.0-1.0 N NEUTROPHIL # (test code = NT#) 6.1 K/mm3 1.8-7.6 N IMMATURE GRANULOCYTE # (test code = IG#) 0.03 x10 3/uL 0.00-0.03 N LYMPHOCYTE # (test code = LY#) 1.8 K/mm3 0.6-3.2 N MONOCYTE # (test code = MO#) 0.4 K/mm3 0.3-1.1 N EOSINOPHIL # (test code = EO#) 0.2 K/mm3 0.0-0.4 N BASOPHIL # (test code = BA#) 0.1 K/mm3 0.0-0.1 N NUCLEATED RBC # (test code = NRBC#) 0.0 K/mm3 0.0-0.1 N MANUAL DIFF REQUIRED (test c ode = MDIFF) NO DIFF/SCN CRITERIA Notes Date/Time Note Provider Source 2023-03-11 08:37:00 [id number] mTgUvEW+SRLz JkvEy9EjTeI3AWvBw3j99ZK+2266-46-33S56:37:00 [facility] ([facility])Hospitalist Discharge SummaryREPORT#:[id number] REPORT STATUS: SignedREPORT INITIALIZATION DATE:03/11/23 TIME:836 PATIENT: JAMA VERDUZCO UNIT #: [id number]#: [id number] [address] AGE: 88 SEX: F ATTEND: Yuliya Potter MDADM AUTHOR: Alirio Thompson MDREPT SERVICE DT/TIME: 03/11/23836* ALL edits or amendments must be made on the electronic/computer document * General InformationDischarge date: 03/11/23Discharge diagnosis:Symptomatic sick sinus syndromeChronic atrial fibrillationStatus post pacemaker placementHypertensionHyperlipidemiaHypothyroidism Hospital course:88-year-old female with past medical history of sick sinus syndrome who underwent pacemaker placement by Dr. Mendoza and is admitted for postoperative monitoring. Denies any pain. No fever or chills. No nausea vomiting or diarrhea.Patient was admitted and was monitored closely under telemetry. Pain was controlled well. Patient had a pacemaker impression. Appreciate help from cardiology She responded well to treatment and is being discharged to home today in a stable condition with an advise to follow up with PCP in 1 week and also with Cardiology in 1 week Med Rec Med RecDischarge meds:Continue taking these medications:LEVOTHYROXINE (SYNTHROID) 50 MCG TAB 50 MICROGRAM ORAL DAILY. FUROSEMIDE (LASIX) 20 MG TAB 20 MILLIGRAM ORAL DAILY. RIVAROXABAN (XARELTO) 15 MG TAB 15 MILLIGRAM ORAL DAILY. CARVEDILOL (COREG) 3.125 MG TAB 3.125 MILLIGRAM ORAL DAILY. SPIRONOLACTONE (ALDACTONE) 50 MG TAB 50 MILLIGRAM ORAL DAILY. TELMISARTAN (MICARDIS) 40 MG TAB 40 MILLIGRAM ORAL DAILY. ALLOPURINOL (ZYLOPRIM) 300 MG TAB 300 MILLIGRAM ORAL DAILY. PARoxetine HCL (PAXIL) 10 MG TAB 10 MILLIGRAM ORAL EVERY MORNING. ALBUTEROL (ALBUTEROL HFA 90 MCG/ACT) 90 MCG INHALER 2 PUFF INHALATION RT - EVERY 6 HOURS. ObjectiveVS/I OLast Documented: Result Date Time O2 Delivery Nasal cannula 03/11 930 O2 Flow Rate 2 03/11 930 Pulse Ox 97 03/11 0752 B/P 140/76 03/11 075 B/P Mean 97.2 03/11 075 Pulse 91 03/11 0752 Resp 21 03/11 075 FiO2 28 03/11 0738 Temp 97.5 03/11 0405 Free Text Obj NotesFree Text Obj Notes:Physical ExamGeneral appearance: alert, awake, orientedHEENT : normocephalic ,AtraumaticEyes: Eyes normal inspection.ENT: Dry mucous membranes present.Neck: Normal inspection. Neck supple.CVS: Normal heart rate and rhythm. Heart sounds normal.Respiratory: No respiratory distress. Breath sounds normal.Abdomen: Soft and nontender.Genitourinary: no bladder distentionBack: Normal inspection.Skin: Skin warm. Normal skin color. No rash.Extremities: No lower extremity edema.Neuro: Oriented X 3. No motor deficitNo generalized lymph adenopathyPsych normal affect Discharge Instructions PCPDischarge to: Home/Self CareAdditional Discharge Routines: PCP Follow-Up, Cashier And Waiter/Waitress Follow-UpDiet: Resume Home Diet/FeedsDischarge management: greater than 30 mins Follow-up AppointmentsPCP follow-up: PCP: DOES_NOT KNOW PCP follow up timeframe: In 1-2 weeksConsulting provider 1: Provider 1: Nury Mendoza MD Cardiology Specialty: CardiologyInterventional Consult follow up timeframe: In 1-2 weeks at [address] [facility] #: [id number] OF REPORT DSDischarge dooklwy7275-38-19R54:37:00L.[id number] able for patient gkigKTGLFFGPFKUIER5422-28-73I11:04:39 [facility] 2023-03-11 05:47:00 [id number] wqJCzZrjUCJv HY4Zgwi2H+urm0gnl0i3immR1447-42-50J80:47:[id number] [facility] [id number] [place] [address] PATIENT NAME: JAMA VERDUZCO ADMIT DATE: 03/10/23ACCOUNT NO: [id number] ROOM NO: [facility] AGE: 88 REPORT TYPE: eELECTROCARDIOGRAM SEX: F ADMITTING PHYSICIAN: Yuliya Potter MD ATTENDING PHYSICIAN: Yuliya Potter MD Order:[id number] Reason : Post insertion procedure Test Date/Time Stamp:SunMar 11 2023 05:47:22Blood Pressure : / mmHGVent. Rate : 077 BPM Atrial Rate : 308 BPM P-R Int : 000 ms QRS Dur : 102 ms QT Int : 418 ms P-R-T Axes : 000 099 024 degrees QTc Int : 473 ms Atrial flutter with variable AV blockLateral infarct (cited on or before 10-MAR-2023)Abnormal ECGWhen compared with ECG of 10-MAR-2023 14:10,Criteria for Septal infarct are no longer presentConfirmed by NURY MENDOZA ([id number]) on 03/11/2023 8:08:35 AM Referred By: Nury Mendoza Confirmed by:NURY MENDOZA at 0808 PATIENT NAME: JAMA VERDUZCO .[id number] [facility] patient hakoRMMGXBHRIMHKUY4154-69-35A06:08:58 [facility] 2023-03-10 15:11:00 [id number]+ au4RmU16eHRu QveLtTDsDauFeXqnFA/Gp7IB3384-78-09Q31:11:00 [facility])Hospitalist History PhysicalREPORT#:[id number] REPORT STATUS: SignedREPORT INITIALIZATION DATE:03/10/23 TIME:1510 PATIENT: JAMA VERDUZCO UNIT #: [id number]#: [id number] [address] AGE: 88 SEX: F ATTEND: Yuliya Potter [facility] AUTHOR: Alirio Thompson MDREPT SERVICE DT/TIME: 03/10/231510* ALL edits or amendments must be made on the electronic/computer document * History of Present Illness HPIChief complaint:Status post pacemaker placementHPI:88-year-old female with past medical history of sick sinus syndrome who underwent pacemaker placement by Dr. Mendoza and is admitted for postoperative monitoring. Denies any pain. No fever or chills. No nausea vomiting or diarrhea. History Past Medical Surgical HxAdditional medical history:Hypertension, hyperlipidemia, osteoarthritis, hypothyroidism, anxiety, gout, iron deficiency anemia, asthma, sinusitis, CKD stage II, vitamin D deficiencyAdditional surgical history:Status post pacemaker placementComplete cystectomyLeft knee replacement, cholecystectomy, Family HistoryFamily history:Reports: Hypertension. Social HistorySmoking status for patients 13 years old or older: Never Smoker Medication/Allergy-Vaccine HxMedications:Home Medications:LEVOTHYROXINE (SYNTHROID) 50 MCG PO DAILY FUROSEMIDE (LASIX) 20 MG PO DAILY RIVAROXABAN (XARELTO) 15 MG PO DAILY CARVEDILOL (COREG) 3.125 MG PO DAILY SPIRONOLACTONE (ALDACTONE) 50 MG PO DAILY TELMISARTAN (MICARDIS) 40 MG PO DAILY ALLOPURINOL (ZYLOPRIM) 300 MG PO DAILY PARoxetine HCL (PAXIL) 10 MG PO QAM ALBUTEROL (ALBUTEROL HFA 90 MCG/ACT) 2 PUFF INH RTQ6H Allergies:Coded Allergies:codeine (Intermediate, CHEST PAIN 03/05/23) Review of Systems Free Text ROS NotesFree Text ROS Notes:Constitutional:Reports: generalized weakness. Skin:Denies: rash. Allergy/Immun:Denies: rhinorrhea, sneezing. Eyes:Denies: visual loss/blurred. ENT:Denies: earache, nasal congestion. Respiratory:Denies: non productive cough. Cardiovascular:Denies: chest pain, palpitations. GI:Denies: diarrhea, nausea. :Denies: dysuria. Musculoskeletal:Reports: arthritis. Denies: extremity pain. Heme:Denies: bleeding. Endocrine:Denies: polydipsia. Neuro:Reports: dizziness, gait problem, lightheaded, spinning sensation. Psych:Reports: anxiety. All systems rev neg: except as noted OBJECTIVEVS/I O:Vital Signs Date Temp Pulse Resp B/P B/P Mean Pulse Ox FiO2 03/10 97.3-98.0 88-99 - 122-150/71-93 95-100 Last Documented: Result Date Time Pulse Ox 98 03/10 1450 B/P 150/71 03/10 1450 O2 Delivery Nasal cannula 03/10 1450 O2 Flow Rate 2 03/10 1450 Pulse 90 03/10 1450 Resp 18 03/10 1430 Temp 97.3 03/10 1400 Patient Weight and BMI Weight (kg): 50.000 BMI: 20.8 Medications:Active Meds + DC'd Last 24 HrsAllopurinol (ZYLOPRIM) 300 MG DAILY PO Furosemide (LASIX) 20 MG DAILY PO Losartan Potassium (COZAAR) 50 MG DAILY PO Paroxetine HCl (PAXIL) 10 MG QAM PO Spironolactone (ALDACTONE) 50 MG DAILY PO Carvedilol (COREG) 12.5 MG BID@0900,2100 PO Acetaminophen (TYLENOL) 650 MG Q4H PRN PRN PO Albuterol Sulfate (PROVENTIL) 2.5 MG RTQ6H NEB Cefazolin Sodium (KEFZOL) 1 GM Q8H IV Sterile Water (WATER FOR INJECTION) 10 MLHydrocodone Bitart/Acetaminophen (NORCO 5/325) 1 TAB Q4H PRN PRN PO Ondansetron HCl (ZOFRAN ODT) 4 MG Q8H PRN PRN PO Sodium Chloride (SODIUM CHLORIDE) SALINE FLUSH ASDIR PRN IV Metoprolol Tartrate (LOPRESSOR) 0 .STK-MED ONE .ROUTE (DC) Metoprolol Tartrate (LOPRESSOR) 0 .STK-MED ONE .ROUTE (DC) Lidocaine HCl (lidocaine HCL) 0 .STK-MED ONE .ROUTE (DC) Potassium Chloride (K-DUR 20 mEq) 40 MEQ ONCE ONE PO (DC) Lidocaine HCl (lidocaine HCL) 0 .STK-MED ONE .ROUTE (DC) Lidocaine HCl (lidocaine HCL) 0 .STK-MED ONE .ROUTE (DC) Cefazolin Sodium (KEFZOL) 0 .STK-MED ONE .ROUTE (DC) Fentanyl Citrate (SUBLIMAZE) 0 .STK-MED ONE .ROUTE (DC) Gentamicin Sulfate (GARAMYCIN) 0 .STK-MED ONE .ROUTE (DC) Midazolam HCl (VERSED) 0 .STK-MED ONE .ROUTE (DC) Diazepam (VALIUM) 5 MG ONCALL PO (CKD) Diphenhydramine HCl (BENADRYL) 25 MG ONCALL PO (CKD) Sodium Chloride (0.9% Sodium Chloride) 1,000 ML ASDIR IV ResultsFindings/Data:Laboratory Tests 03/10/23 1000:[Embedded Image Not Available]Laboratory Tests: 03/10 1000 Chemistry Sodium (134 - 147 mmol/L) 141 Potassium (3.4 - 5.0 mmol/L) 3.2 L Chloride (100 - 108 mmol/L) 109 H Carbon Dioxide (21 - 32 mmol/L) 28 Anion Gap (4.0 - 15.0 GAP calc) 4.0 BUN (7 - 18 MG/DL) 22 H Creatinine (0.6 - 1.0 MG/DL) 1.3 H Glomerular Filtr Rate (>60 estGFR) 40 L Glucose (70 - 110 MG/DL) 135 H Calcium (8.5 - 10.1 MG/DL) 9.5 Magnesium (1.8 - 2.4 MG/DL) 2.1 Total Bilirubin (0.2 - 1.2 MG/DL) 1.50 H AST (15 - 37 Unit/L) 9 L ALT (12 - 78 Unit/L) 13 Total Alk Phosphatase (45 - 117 Unit/L) 89 Total Protein (6.4 - 8.2 G/DL) 8.3 H Albumin (3.4 - 5.0 G/DL) 3.7 Globulin (GM/dL) 4.6 Albumin/Globulin Ratio (1.2 - 2.2 RATIO) 0.8 L Triglycerides (0 - 150 MG/DL) 85 Cholesterol (133 - 200 MG/DL) 159 LDL Cholesterol Measurd (0 - 129 MG/DL) 90 Non-HDL Cholesterol (<130 mg/dL) 102 HDL Cholesterol (40 - 59 MG/DL) 57 LDL/HDL Ratio (1.48 - 3.22 Avg Ratio) 1.57 Cholesterol/HDL Ratio (0 RATIO) 2.79 Coagulation INR (0.8 - 1.2 INR Unit) 1.09 PT Patient/Control Mix (9.3 - 12.9 SECONDS) 12.1 Hematology WBC (3.5 - 11.0 K/mm3) 8.6 RBC (4.70 - 6.10 M/mm3) 4.23 L Hgb (10.4 - 14.9 G/DL) 12.4 Hct (31.5 - 44.1 %) 39.3 MCV (84.5 - 98.6 Fl) 92.9 MCH (27.0 - 34.2 pg) 29.3 MCHC (31.5 - 34.0 G/DL) 31.6 RDW (11.5 - 14.5 SD) 16.2 H Plt Count (150 - 450 K/mm3) 270 MPV (7.0 - 10.5 fL) 10.70 H Neut % (Auto) (40 - 76 %) 71.0 Lymph % (Auto) (20.5 - 51.1 %) 21.3 Alcorn % (Auto) (1.7 - 9.3 %) 4.3 Eos % (Auto) (0.0 - 6.0 %) 2.3 Baso % (Auto) (0.0 - 2.0 %) 0.8 Neut # (Auto) (1.8 - 7.6 K/mm3) 6.1 Lymph # (Auto) (0.6 - 3.2 K/mm3) 1.8 Alcorn # (Auto) (0.3 - 1.1 K/mm3) 0.4 Eos # (Auto) (0.0 - 0.4 K/mm3) 0.2 Baso # (Auto) (0.0 - 0.1 K/mm3) 0.1 Abs Immat Gran (auto) (0.00 - 0.03 x10 3/uL) 0.03 Add Manual Diff (CRITERIA DIFF/SCN) NO Immature Gran % (0.0 - 5.0 %) 0.3 Nucleated RBC % (0.0 - 1.0 /100WBC%) 0.0 Laboratory Tests 03/10/23 1000:[Embedded Image Not Available] Free Text PE NotesFree Text PE Notes:Physical ExamGeneral appearance: alert, awake, orientedHEENT : normocephalic ,AtraumaticEyes: Eyes normal inspection.ENT: Dry mucous membranes present.Neck: Normal inspection. Neck supple.CVS: Normal heart rate and rhythm. Heart sounds normal.Respiratory: No respiratory distress. Breath sounds normal.Abdomen: Soft and nontender.Genitourinary: no bladder distentionBack: Normal inspection.Skin: Skin warm. Normal skin color. No rash.Extremities: No lower extremity edema.Neuro: Oriented X 3. No motor deficitNo generalized lymph adenopathyPsych normal affect Diagnosis, Assessment PlanFree Text A P:Symptomatic sick sinus syndrome chronic atrial fibrillationStatus post pacemaker placementPain controlAppreciate help from cardiologyContinue home medications HypertensionContinue home medicationsTitrate antihypertensives HyperlipidemiaContinue statin HypothyroidismContinue Synthroid Anemia of chronic diseaseMonitor CBC in a.m.GI/DVT prophylaxisAdvanced directive full code at [facility] #: [id number] OF REPORT HPHistory and physical ydjjxyrwaee2424-47-74O65:11:00L.[id number] vailable for patient jiinZLYGJZEDZFHNGQ3929-76-62Q92:03:09 [facility] 2023-03-10 14:10:00 [id number]+R585rt7rlgKcDwL5y FW+rOUoheoKc 2I5QKJND8yDw3tpdBp5Oi4T12480-56-52B79:10:528421-[address] [address] PATIENT NAME: JAMA VERDUZCO ADMIT DATE: 03/10/23ACCOUNT NO: [id number] ROOM NO: [facility] AGE: 88 REPORT TYPE: eELECTROCARDIOGRAM SEX: F ADMITTING PHYSICIAN: Yuliya Potter MD ATTENDING PHYSICIAN: Yuliya Potter MD Order:[id number] Reason : post ekg Test Date/Time Stamp:[facility] Mar 10 2023 14:10:55Blood Pressure : / mmHGVent. Rate : 088 BPM Atrial Rate : 264 BPM P-R Int : 000 ms QRS Dur : 108 ms QT Int : 402 ms P-R-T Axes : 000 104 -18 degrees QTc Int : 486 ms Atrial flutter with variable AV blockSeptal infarct (cited on or before 10-MAR-2023)Lateral infarct (cited on or before 10-MAR-2023)Abnormal ECGWhen compared with ECG of 10-MAR-2023 10:20,Atrial flutter has replaced Atrial fibrillationT wave inversion no longer evident in Inferior leadsConfirmed by NURY MENDOZA ([id number]) on 03/10/2023 2:45:42 PM Referred By: Nury Mendoza Confirmed by:NURY MENDOZA at 1445 PATIENT NAME: JAMA VERDUZCO .[id number] vailable for patient nzqmRBFEPIXXBXDXLQ7857-06-64Z54:46:05 [facility] 2023-03-10 13:45:00 [id number]/MWsMimhSyPzM/9vU7Q1 C3Yj8HWwPK87 BeNl3ngYjgZpUQBDk5YgDtXV4918-87-57F62:45:471784-[address] [address] PATIENT NAME: JAMA VERDUZCO ADMIT DATE: 03/10/23ACCOUNT NO: [id number] ROOM NO: [facility] AGE: 88 REPORT TYPE: OPERATIVE REPORT SEX: F ADMITTING PHYSICIAN: Yuliya Potter MD ATTENDING PHYSICIAN: Yuliya Potter MD OPERATION DATE: 03/10/2023 CARDIOLOGY PROCEDURE. BUSINESS DEVELOPMENT ASSISTANT: Nury Mendoza MD PREOPERATIVE DIAGNOSIS: POSTOPERATIVE DIAGNOSIS TITLE OF PROCEDURE: Single chamber MRI compatible permanent pacemaker implantation. SURGEON: Nury Mendoza MDASSISTANT: INDICATION FOR THE PROCEDURE: Symptomatic sick sinus syndrome, tachybrady syndrome in a patient with chronic atrial fibrillation, frequent pauses, heart rates down to 18 at night. ESTIMATED BLOOD LOSS: Minimal. COMPLICATIONS: None. CONTRAST: None. ANESTHESIA: Conscious sedation with Versed and fentanyl and 1% lidocaine for local anesthesia. FINAL DIAGNOSES: Successful single chamber permanent pacemaker implantation that is MRI compatible. DISPOSITION: Observation overnight. PROCEDURE IN DETAIL: Please see enclosed report in the chart. Dictated By: Nury Mendoza MD Date Dictated: 03/10/2023 13:45:38Date Transcribed: 03/10/2023 14:54:27SNIMA/Yoandy #: [id number] PATIENT NAME: JAMA VERDUZCO Receipt ID: [id number] by Nury Mendoza MD On 03/10/2023 09:11:29 PM at 0911 PATIENT NAME: JAMA VERDUZCO wxbqyw7582-22-49Y95:54:00L.[id number] le for patient mvwwVXFTSQRJZSMOSO9417-40-29C08:12:01 H [facility] 2023-03-10 10:20:00 [id number]JiRZ 8xvSlW87rnPO UsraRrkac2LtC4Vgl25gajYQ0052-78-93U62:20:[id number] [address] PATIENT NAME: JAMA VERDUZCO ADMIT DATE: 03/10/23ACCOUNT NO: [id number] ROOM NO: AGE: 88 REPORT TYPE: eELECTROCARDIOGRAM SEX: F ADMITTING PHYSICIAN: ATTENDING PHYSICIAN: Nury Alejandra Cardiology MD Reji Order:[id number] Reason : PRE PPM Test Date/Time Stamp:[facility] Mar 10 2023 10:20:28Blood Pressure : / mmHGVent. Rate : 090 BPM Atrial Rate : 000 BPM P-R Int : 000 ms QRS Dur : 106 ms QT Int : 384 ms P-R-T Axes : 000 106 -51 degrees QTc Int : 469 ms Atrial fibrillation with premature ventricular or aberrantly conducted complexesSeptal infarct , age undeterminedLateral infarct , age undeterminedT wave abnormality, consider inferior ischemiaAbnormal ECGNo previous ECGs availableConfirmed by NURY MENDOZA ([id number]) on 03/10/2023 10:25:29 AM Referred By: Nury Mendoza Confirmed by:NURY MENDOZA at 1025 PATIENT NAME: JAMA VERDUZCO .[id number] vailable for patient hnqaDOFWZCMFAMTFNO0042-67-84E86:25:58 [facility] 2023-03-09 07:39:00 [id number]5r3+ tFFzteBrxYK3 hIjSPQ/AeL5GFt0O6efpbDXS0225-56-47N40:39:140625-[address] [address] PATIENT NAME: JAMA VERDUZCO ADMIT DATE: ACCOUNT NO: [id number] ROOM NO: AGE: 88 REPORT TYPE: HISTORY AND PHYSICAL SEX: F ADMITTING PHYSICIAN: ATTENDING PHYSICIAN: Nury Mendoza MD Cardiology PATIENT NAME: JAMA VERDUZCO ADMIT DATE:03/10/2023DMISSION DATE: 03/10/2023 10:30:00 ADMISSION HISTORY AND PHYSICAL BUSINESS DEVELOPMENT ASSISTANT: Nury Mendoza MD REASON FOR ADMISSION: Single chamber permanent pacemaker implantation forsymptomatic sick sinus syndrome with worsening pauses in a patient with chronicatrial fibrillation. HISTORY OF PRESENT ILLNESS: Jama is an 88-year-old lady who I have beenfollowing in my office since 2003. The patient has a long history of atrialfibrillation, which is now chronic and sick sinus syndrome. She has beenfollowed up regularly over the years with monitoring. Her last Holter monitorshowed 805 pauses, the longest was 4.7 seconds. Heart rate going down to 18 atnight. Average heart rate was 76. The patient has worsening sick sinussyndrome and is here for single chamber permanent pacemaker implantation. Shehad a cardiac catheterization back in 2008 that showed no angiographic coronaryartery disease. She has had carotid Doppler showing less than 25% plaquing.Echocardiogram shows wewhwsfp-xc-vuhkbd mitral regurgitation, moderate tricuspidinsufficiency, vmpv-ue-sywwfsta aortic valve insufficiency, normal ejectionfraction, pulmonary hypertension 50-60 mmHg. Her last nuclear stress test wasnegative for ischemia in 2014. The patient has been having worsening dizziness,dyspnea, tiredness. No syncope. She has had episodes of near syncope in thepast. She has been taking a very low dose carvedilol for atrial fibrillationcontrol and she is here for single chamber permanent pacemaker implantation.The patient needs the carvedilol for rate control for her atrial fibrillation.So, she has tachybrady syndrome also. There is no history of congestive heartfailure, TIAs or strokes. There is no history of chest pains. PAST MEDICAL HISTORY: Remarkable for the above, in addition to hypertension,hyperlipidemia, osteoarthritis, hypothyroidism, anxiety, gout, bronchitis, irondeficiency anemia, asthma, sinusitis, chronic renal insufficiency. She had COVIDin 11/2021. History also of vitamin D deficiency, and allergies. PAST SURGICAL HISTORY: She has had complete hysterectomy, left kneereplacement, cholecystectomy, right knee replacement, and colonoscopy back [id number]. ALLERGIES: CODEINE AND DOXYCYCLINE. PATIENT NAME: JAMA VERDUZCO MEDICATIONS: She takes Xarelto 15 mg daily is on hold, carvedilol 3.125 mgdaily, furosemide 20 mg daily, paroxetine 10 mg daily, allopurinol 300 mg daily,iron, ____ 50 mcg daily, Slow-Mag, vitamin D3, Zyrtec, albuterol, vfquvbbwwileyh75 mg daily, telmisartan 40 mg daily. SOCIAL HISTORY: There is no history of smoking, alcohol or street drug use. FAMILY HISTORY: Negative for premature atherosclerosis. REVIEW OF SYSTEMS: Remarkable for the above, in addition to fatigue, allergies,decreased hearing, mouth breathing at night, dizzy spells, presyncope episodes,asthma, cough, occasional wheezing, history of symptomatic anemia,osteoarthritis, difficulty balancing for which she uses a cane, poorcoordination, numbness. No acute GI or symptoms. No TIAs or strokes. PHYSICAL EXAMINATION:GENERAL: Reveals a pleasant elderly lady in no acute distress.VITAL SIGNS: Blood pressure 136/68, pulse 90 and irregular, respiratory rate 18and unlabored, temperature afebrile.HEENT: Head atraumatic, normocephalic. Eyes and ENT examination within normalfor age.NECK: Supple. Elevated jugular venous pressure is noted. No bruits. Normalupstroke.LUNGS: Clear and resonant.HEART: Irregular rate and rhythm with III/ systolic and II/ diastolicmurmurs at the mitral and aortic area respectively. No gallops.ABDOMEN: Soft. No tenderness, no organomegaly, no masses or bruits.EXTREMITIES: 1+ edema. 2+ distal pulses. No cyanosis or clubbing.NEUROLOGIC: Alert and oriented x3. Examination appears to be nonfocal. LABORATORY DATA: Pending. Noninvasive cardiovascular workup enclosed. IMPRESSION: This is an 88-year-old lady with chronic atrial fibrillation,tachybrady syndrome with significant pauses on recent Holter monitor that issymptomatic with dizzy spells. The patient has also valvular heart disease andhypertensive heart disease, pulmonary hypertension, multiple cardiovascular riskfactors. The patient is here for single chamber permanent pacemakerimplantation. PLAN: The recommendation is to proceed with the above-mentioned procedures.The risks and benefits of the planned procedures were discussed in detail withthe patient and available family members and she is willing to proceed. Rest asper orders. Dictated By: Nury Mendoaz MD Date Dictated: 03/09/2023 07:39:07Date Transcribed: 03/09/2023 10:13:43SNIMA/Romelia #: [id number] ID: [id number] and Edited by Nury Mendoza MD On 03/09/23 4:54:10 PM PATIENT NAME: JAMA VERDUZCO at 0455 PATIENT NAME: JAMA VERDUZCO and physical xmywbdwxdvq4401-55-31R29:13:00L.[id number] ailable for patient zkoeFCXJFILGIFBTTX1023-01-59P67:56:31 [facility] 2023-01-24 10:45:24 CHeknM0WnmyFLF5IYaQlSQt21fqclXN+BxtFielL WGeTYVw50UXD [facility]+IraF9f2832-52-80O35:45:24 Images from the original note were not included.Requested Renewals Name from pharmacy: LEVOTHYROXINE 50 MCG TABLET Will file in chart as: LEVOTHYROXINE 50 mcg tablet Sig: TAKE 1 TABLET BY MOUTH EVERY DAY Disp: 90 tablet Refills: 0 (Pharmacy requested: Not specified) Start: 01/24/2023 Class: eRX For: Acquired hypothyroidism Last ordered: 3 months ago (10/18/2022) by Matheus Mcnamara MD Last refill: 10/18/2022 Rx #: [id number] Endocrinology: Hypothyroid Agents Failed 01/24/2023 09:58 AM Protocol Details Manual Review: ENT providers forward refill request to PCP. TSH in normal range and within 360 days Valid encounter within last 12 months To be filled at: [facility]/pharmacy #[id number] - [place], [place] - [address] AT [facility] [address] Recent VisitsDate Type Provider Dept 05/25/22 Office Visit Matheus Mcnamara MD [facility] 12/19/21 Office Visit Matheus Mcnamara MD [facility] Showing recent visits within past 540 days with a meds authorizing provider and meeting all other requirementsFuture AppointmentsNo visits were found meeting these conditions.Showing future appointments within next 150 days with a meds authorizing provider and meeting all other requirements [id number] encounter [id number] encounter [id number] 41AVAvailable for patient [id number] M Fisher [address] Ht[id number] [id number]:45:[id number]|1. [id number] Christiane Workman [facility] 2023-01-04 09:39:03 [id number] ZLF4/[id number] [id number]:39:03 Images from the original note were not included.Requested Renewals Name from pharmacy: PAROXETINE HCL 10 MG TABLET Will file in chart as: PAROXETINE 10 mg tablet Sig: TAKE 1 TABLET BY MOUTH EVERY DAY IN THE MORNING Disp: 90 tablet Refills: 3 Start: 01/04/2023 Class: eRX For: Generalized anxiety disorder Last ordered: 1 year ago (12/19/2021) by Matheus Mcnamara MD Last refill: 10/03/2022 Rx #: [id number] Psychiatry: Antidepressants Failed 01/04/2023 12:38 AM Protocol Details Manual Review: Verify no changes in dose in the last 3 months Valid encounter within last 12 months To be filled at: [facility]/pharmacy #[id number] - [place], [place] - [facility] [address] [facility] [address] Recent VisitsDate Type Provider Dept 05/25/22 Office Visit Matheus Mcnamara MD [facility] 12/19/21 Office Visit Matheus Mcnamara MD [facility] Showing recent visits within past 540 days with a meds authorizing provider and meeting all other requirementsFuture AppointmentsNo visits were found meeting these conditions.Showing future appointments within next 150 days with a meds authorizing provider and meeting all other requirements [id number] encounter [id number]:39:12Telephone encounter [id number] for patient [id number] M Fisher [address] [id number] [id number]:39:[id number]|1. [id number] Christiane Workman LVN [facility]"
[2023-06-24] MEDS ORDERED: ONDANSETRON 4 MG/2 ML VIAL ONE (13:31)
[2023-06-24] MEDS ORDERED: NA CHLORIDE 0.9% 1,000 ML ONE (13:32)
[2023-06-24 14:15] LABS: Absolute Lymphocytes (CBC) 0.5 K/uL (0.7-4.9); Hematocrit 41.3 % (36.0-45.0); MCV 93.7 fL (80-100); MPV 8.3 fL (7.6-11.3); Platelets 219 thou/uL (152-406); RBC Red Blood Cell Count 4.41 M/uL (3.86-4.86)
[2023-06-24 14:32] LABS: Albumin 3.6 g/dL (3.4-5.0); Bilirubin Total 1.5 mg/dL (0.2-1.0); Potassium 4.3 mEq/L (3.5-5.1); Protein, Total 8.2 g/dL (6.4-8.2); Troponin High Sensitivity 9.4 pg/mL (<58.9)
[2023-06-24 14:33] LABS: Specific Gravity 1.018 (1.005-1.030); Urine Bacteria Loaded /HPF (<20); Urine Bilirubin NEGATIVE (Negative); Urine Blood Negative (Negative); Urine Clarity Extremely Turbid (Clear); Urine Color Yellow (Yellow); Urine Glucose NEGATIVE (Negative); Urine Mucus 4+ /HPF (None Seen); Urine Protein TRACE (Negative); Urine RBC <5 /HPF (None Seen); Urine Urobilinogen Normal (Normal); Urine pH 5.5 (5.0-7.0)
--- NOTE | 2023-06-24 15:51 | RAD REPORT ---
EXAM DESCRIPTION: CT - Abdomen Pelvis Wo Contrast - 06/24/2023 3:16 pm CLINICAL HISTORY: Abdominal pain COMPARISON: None TECHNIQUE: Computed axial tomography of the abdomen and pelvis was obtained. IV and oral contrast we re not requested. All CT scans are performed using dose optimization technique as appropriate and may include automated exposure control or mA/KV adjustment according to patient size. FINDINGS: The evaluation of solid organs, vessels and bowel is limited secondary to the lack of con trast administration. Moderate ground-glass and tree-in-bud opacities right middle and right lower lobes. It appears that t he gallbladder has been resected although this is not certain. Prominence of the extrahepatic biliary tree 8 millimeter peripherally calcified lesions spleen nonspecific but probably benign Liver, pancreas, adrenals and right kidney grossly normal. Tiny nonobstructing left renal calculus. Small low-density left renal mass is nonspecific but may rep resent a cyst. Appendix not clearly seen. Diverticula stem from the colon without visualization of diverticulitis Hysterectomy. No adnexal mass Mild anterior subluxation of L4 on L5. Spondylosis lumbar spine. Scoliosis Mild gastric distention IMPRESSION: Moderate ground-glass and tree-in-bud opacities right middle and right lower lobes proba tanesha indicate pneumonia Prominence of the extrahepatic biliary tree. If the patient has had a cholecystectomy then this may b e physiologic. This should be correlated clinically and with appropriate lab values Mild gastric distention
--- NOTE | 2023-06-24 16:19 | EDPHYS ---
Physician Documentation [facility] Name: Jama Johnson Age: 88 yrs Sex: Female : 1935 Arrival Date: 06/24/2023 Time: 12:08 Bed 17 Private MD: ED Physician rAsh Lacy HPI: 06/24 13:53 This 88 yrs old Female presents to ER via Wheelchair with complaints of sp3 Nausea/Vomiting/Diarrhea. 13:53 88-year-old female with a history of hypertension, atrial fibrillation, status post sp3 pacemaker, diverticulitis now presents to the ED with chief complaint nausea, vomiting, diarrhea, diffuse crampy abdominal pain after eating out yesterday. Patient denies any other symptoms including fever, URI symptoms, chest pain, shortness of breath, rash, bleeding, any other signs or symptoms at this time. No other family members ill.. Historical: - Allergies: 12:32 Codeine (Upset stomach); hb - PMHx: 12:32 Pacemaker; Hypertension; Atrial fibrillation; hb 12:34 Diverticulitis; hb - PSHx: 12:32 Cholecystectomy; Hysterectomy; hb 12:34 Knee - Bilateral; hb 12:34 Appendectomy; hb - Immunization history:: Client reports having NOT received the Covid vaccine. Flu vaccine is up to date. - Social history:: Smoking status: Patient denies any tobacco usage or history of. ROS: 13:54 Constitutional: Negative for fever, chills, and weight loss, Eyes: Negative for injury, sp3 pain, redness, and discharge, ENT: Negative for injury, pain, and discharge, Neck: Negative for injury, pain, and swelling, Respiratory: Negative for shortness of breath, cough, wheezing, and pleuritic chest pain, Back: Negative for injury and pain, MS/Extremity: Negative for injury and deformity, Skin: Negative for injury, rash, and discoloration, Neuro: Negative for headache, weakness, numbness, tingling, and seizure, Psych: Negative for depression, anxiety, suicide ideation, homicidal ideation, and hallucinations, Allergy/Immunology: Negative for hives, rash, and allergies, Endocrine: Negative for neck swelling, polydipsia, polyuria, polyphagia, and marked weight changes, Hematologic/Lymphatic: Negative for swollen nodes, abnormal bleeding, and unusual bruising, 13:54 All other systems are negative, Exam: 13:54 Constitutional: This is a well developed, well nourished patient who is awake, alert, sp3 and in no acute distress. Head/Face: Normocephalic, atraumatic. Eyes: Pupils equal round and reactive to light, extra-ocular motions intact. Lids and lashes normal. Conjunctiva and sclera are non-icteric and not injected. Cornea within normal limits. Periorbital areas with no swelling, redness, or edema. ENT: Nares patent. No nasal discharge, no septal abnormalities noted. External auditory canals are clear. Oropharynx with no redness, swelling, or masses, exudates, or evidence of obstruction, uvula midline. Mucous membranes moist. Neck: Trachea midline, no thyromegaly or masses palpated, and no cervical lymphadenopathy. Supple, full range of motion without nuchal rigidity, or vertebral point tenderness. No Meningismus. Chest/axilla: Normal chest wall appearance and motion. Nontender with no deformity. No lesions are appreciated. Respiratory: Lungs have equal breath sounds bilaterally, clear to auscultation and percussion. No rales, rhonchi or wheezes noted. No increased work of breathing, no retractions or nasal flaring. Back: No spinal tenderness. No costovertebral tenderness. Full range of motion. Skin: Warm, dry with normal turgor. Normal color with no rashes, no lesions, and no evidence of cellulitis. MS/ Extremity: Pulses equal, no cyanosis. Neurovascular intact. Full, normal range of motion. Neuro: Awake and alert, GCS 15, oriented to person, place, time, and situation. Cranial nerves II-XII grossly intact. Motor strength 5/5 in all extremities. Sensory grossly intact. Cerebellar exam normal. Normal gait. Psych: Awake, alert, with orientation to person, place and time. Behavior, mood, and affect are within normal limits. 13:54 Cardiovascular: Patient with tachycardia in the 110s, 13:54 Abdomen/GI: Diffuse abdominal pain to palpation without peritoneal signs, rebound or guarding. Decreased bowel sounds noted., Vital Signs: 12:30 BP 142 / 90; Pulse 114; Resp 18; Temp 98(O); Pulse Ox 98% on R/A; Weight 49.9 kg; hb Height 5 ft. 1 in. ; Pain 0/10; 14:03 BP 143 / 71 LA; Pulse 107 LA; Resp 14 S; Pulse Ox 99% on R/A; jg11 14:30 BP 136 / 92; Pulse 104; Resp 18; Pulse Ox 96% on R/A; db 19:00 BP 119 / 45; Pulse 92; Resp 16; Pulse Ox 96% on R/A; km8 12:30 Body Mass Index 20.78 (49.90 kg, 154.94 cm) hb 12:30 Pain Scale: Adult hb MDM: 13:22 Patient medically screened. sp3 13:55 Data reviewed: vital signs, nurses notes, lab test result(s), EKG, radiologic studies. sp3 ED course: 88-year-old female with PMH above now with nausea, vomiting, diarrhea and abdominal pain after eating out. Differential diagnosis includes foodborne illness, gastroenteritis, viral syndrome, COVID-19, other GI pathology, among others. On my highly suspicious for aortic pathology including dissection or aneurysm, acute coronary syndrome, PE, sepsis, shock reother critical process at this time. Workup will include CT scan of the abdomen pelvis, laboratory lites, urinalysis, normal saline rehydration, as needed ondansetron IV, and general supportive care. Workup pending and disposition will be based on workup and patient course.. 16:11 ED course: Patient positive for UTI as well as pneumonia on chest x-ray. Will treat sp3 with cefepime IV and admit patient. Continue IV fluids for elevated lactate.. 06/24 13:21 Order name: CBC with Diff sp3 06/24 13:21 Order name: CMP; Complete Time: 14:35 sp3 06/24 13:21 Order name: Lipase; Complete Time: 14:35 sp3 06/24 13:21 Order name: Urinalysis w/ reflexes; Complete Time: 14:39 sp3 06/24 13:21 Order name: Troponin High Sensitivity; Complete Time: 14:35 sp3 06/24 13:21 Order name: Lactate w/ 2H reflex if indic.; Complete Time: 14:39 sp3 06/24 14:39 Order name: Urine Culture EDMS 06/24 14:39 Order name: Blood Culture Adult (2) snw 06/24 16:50 Order name: NT PRO-BNP EDSC 06/24 16:50 Order name: T4 Free EDMS 06/24 16:50 Order name: Thyroid Stimulating Hormone EDMS 06/24 16:50 Order name: Urinalysis w/ reflexes EDMS 06/24 16:50 Order name: Basic Metabolic Panel EDMS 06/24 16:50 Order name: Basic Metabolic Panel EDMS 06/24 16:50 Order name: Basic Metabolic Panel EDMS 06/24 16:50 Order name: Basic Metabolic Panel EDMS 06/24 16:50 Order name: CBC with Automated Diff EDMS 06/24 16:50 Order name: CBC with Automated Diff EDMS 06/24 16:50 Order name: CBC with Automated Diff EDMS 06/24 16:50 Order name: CBC with Automated Diff EDMS 06/24 16:50 Order name: Lipid Profile EDMS 06/24 16:50 Order name: Lipid Profile EDMS 06/24 16:50 Order name: Magnesium EDMS 06/24 16:50 Order name: Magnesium EDMS 06/24 16:50 Order name: Magnesium EDMS 06/24 16:50 Order name: Magnesium EDMS 06/24 16:50 Order name: Phosphorus EDMS 06/24 16:50 Order name: Phosphorus EDMS 06/24 16:50 Order name: Phosphorus EDMS 06/24 16:50 Order name: Phosphorus EDMS 06/24 17:41 Order name: CBC Smear Scan EDMS 06/24 17:41 Order name: Lactate Sepsis 2 HR Follow-up EDMS 06/24 15:15 Order name: Abdomen ; Complete Time: 16:11 EDMS 06/24 13:21 Order name: EKG; Complete Time: 13:22 sp3 06/24 13:21 Order name: IV Saline Lock; Complete Time: 13:27 sp3 06/24 13:21 Order name: Labs collected and sent; Complete Time: 14:03 sp3 06/24 13:21 Order name: EKG - Nurse/Tech; Complete Time: 13:59 sp3 Administered Medications: 13:55 Drug: NS 0.9% IV 1000 ml IV at 1 bolus Per protocol; 1000 mL bolus Route: IV; Rate: 1 db bolus; Site: right antecubital; 16:01 Follow up: Response: No adverse reaction; IV Status: Completed infusion; IV Intake: db 1000ml 13:58 Drug: Ondansetron IVP 4 mg IVP once; over 2 minutes Route: IVP; Site: right antecubital; 16:01 Follow up: Response: No adverse reaction db 15:55 Drug: levofloxacin IVPB 500 mg 100 ml IVPB once over 60 mins Volume: 100 ml; Route: db IVPB; Infused Over: 60 mins; Site: right antecubital; 19:00 Follow up: IV Status: Completed infusion km8 16:04 Drug: NS 0.9% IV 1000 ml IV at 75 ml/hr continuous Route: IV; Rate: 75 ml/hr; Site: db right antecubital; 19:30 Follow up: IV Status: Infusion continued upon admission km8 Disposition Summary: 06/24/23 16:19 Hospitalization Ordered Notes: Hospitalization Status: Inpatient Admission sp3 Provider: Bravo Painter sp3 Condition: Stable sp3 Problem: new sp3 Symptoms: have worsened sp3 Bed/Room Type: Standard sp3 Location: Telemetry/MedSurg (Inpatient)(06/25/23 04:26) cg Room Assignment: [facility](06/25/23 04:26) Diagnosis - UTI, pneumonia, dehydration sp3 Forms: - Medication Reconciliation Form sp3 - SBAR form sp3 - Leadership Thank You Letter sp3 Signatures: Dispatcher [employer] EDMS Martina Garcia FNP-C RN FIRST ASSISTANT-Csnw Kathya Munroe, RN RN Lulu Medellin RN RN Arsh Lacy MD MD sp3 Jaleesa Hidalgo RN RN db Niharika Watkins RN km8 Corrections: (The following items were deleted from the chart) 14:06 13:21 Barnhart ordered. sp3 db 15:15 13:22 Abdomen Pelvis W Con+CT.RAD.BRZ ordered. EDMS EDMS 19:02 16:19 Telemetry/MedSurg (Inpatient) sp3 cg 19:02 16:19 sp3 cg 06/25 04:26 06/24 19:02 [facility] ER HOLD cg cg 06/25 04:06/24 19:02 ERHOLD- cg cg
--- NOTE | 2023-06-24 16:19 | ER ---
Nurse's Notes [facility] Name: Jama Johnson Age: 88 yrs Sex: Female : 1935 Arrival Date: 06/24/2023 Time: 12:08 Bed 17 Private MD: Diagnosis: UTI, pneumonia, dehydration Presentation: 06/24 12:30 Chief complaint: EMS states: N/V/D since this morning. Coronavirus screen: Client hb presents with at least one sign or symptom that may indicate coronavirus-19. Provider contacted for isolation considerations. Ebola Screen: No symptoms or risks identified at this time. Initial Sepsis Screen: Does the patient meet any 2 criteria? HR > 90 bpm. No. Patient's initial sepsis screen is negative. Does the patient have a suspected source of infection? No. Patient's initial sepsis screen is negative. Risk Assessment: Do you want to hurt yourself or someone else? Patient reports no desire to harm self or others. Onset of symptoms was June 24, 2023. 12:30 Method Of Arrival: Wheelchair hb 12:30 Acuity: ALMAZ 3 hb Historical: - Allergies: 12:32 Codeine (Upset stomach); hb - PMHx: 12:32 Pacemaker; Hypertension; Atrial fibrillation; hb 12:34 Diverticulitis; hb - PSHx: 12:32 Cholecystectomy; Hysterectomy; hb 12:34 Knee - Bilateral; hb 12:34 Appendectomy; hb - Immunization history:: Client reports having NOT received the Covid vaccine. Flu vaccine is up to date. - Social history:: Smoking status: Patient denies any tobacco usage or history of. Screenin:[address] [facility] ED Fall Risk Assessment (Adult) History of falling in the last 3 months, db including since admission No falls in past 3 months (0 pts) Confusion or Disorientation No (0 pts) Intoxicated or Sedated No (0 pts) Impaired Gait No (0 pts) Mobility Assist Device Used No (0 pt) Altered Elimination No (0 pt) Score/Fall Risk Level 0 - 2 = Low Risk Oriented to surroundings, Maintained a safe environment. Abuse screen: Denies threats or abuse. Denies injuries from another. Nutritional screening: No deficits noted. Tuberculosis screening: No symptoms or risk factors identified. Assessment: 14:07 Reassessment: Patient appears in no apparent distress at this time. Patient and/or db family updated on plan of care and expected duration. Pain level reassessed. Patient is alert, oriented x 3, equal unlabored respirations, skin warm/dry/pink. COMPLAINS OF N/V/DIARRHEA STARTED THIS AM. LAST NIGHT ATE [facility] [employer]. General: Appears in no apparent distress. comfortable, Behavior is calm, cooperative. Pain: Denies pain. Neuro: Level of Consciousness is awake, alert, obeys commands, Oriented to person, place, time, situation. Respiratory: Airway is patent Respiratory effort is even, unlabored, Respiratory pattern is regular, symmetrical. GI: Abdomen is flat, non-distended, Reports diarrhea, nausea, vomiting. 15:00 Reassessment: Patient appears in no apparent distress at this time. Patient and/or db family updated on plan of care and expected duration. Pain level reassessed. Patient is alert, oriented x 3, equal unlabored respirations, skin warm/dry/pink. Patient states feeling better. Patient states symptoms have improved. 15:06 Reassessment: PT TO CT. db Vital Signs: 12:30 BP 142 / 90; Pulse 114; Resp 18; Temp 98(O); Pulse Ox 98% on R/A; Weight 49.9 kg; hb Height 5 ft. 1 in. ; Pain 0/10; 14:03 BP 143 / 71 LA; Pulse 107 LA; Resp 14 S; Pulse Ox 99% on R/A; jg11 14:30 BP 136 / 92; Pulse 104; Resp 18; Pulse Ox 96% on R/A; db 19:00 BP 119 / 45; Pulse 92; Resp 16; Pulse Ox 96% on R/A; km8 12:30 Body Mass Index 20.78 (49.90 kg, 154.94 cm) hb 12:30 Pain Scale: Adult hb ED Course: 12:12 Patient arrived in ED. mg5 12:32 Triage completed. hb 12:34 Arm band placed on. hb 13:12 Arsh Lacy MD is Attending Physician. sp3 13:26 Jaleesa Hidalgo, MIKE is Primary Nurse. db 13:59 Lactate w/ 2H reflex if indic. Sent. jg11 14:00 Initial lab(s) drawn, by me, sent to lab. Urine collected: clean catch specimen, clear. jg11 Inserted saline lock: 22 gauge in right antecubital area, using aseptic technique. Blood collected. 14:08 Patient has correct armband on for positive identification. Bed in low position. Call db light in reach. Side rails up X 1. Client placed on continuous cardiac and pulse oximetry monitoring. NIBP monitoring applied. Warm blanket given. 14:57 First set of blood cultures drawn Second set of blood cultures drawn. db 15:18 Abdomen In Process Unspecified. EDMS 16:18 Bravo Painter MD is Hospitalizing Provider. sp3 19:30 Provided Education on: admission process. km8 19:30 No provider procedures requiring assistance completed. km8 19:30 Patient admitted, IV remains in place. km8 Administered Medications: 13:55 Drug: NS 0.9% IV 1000 ml IV at 1 bolus Per protocol; 1000 mL bolus Route: IV; Rate: 1 db bolus; Site: right antecubital; 16:01 Follow up: Response: No adverse reaction; IV Status: Completed infusion; IV Intake: db 1000ml 13:58 Drug: Ondansetron IVP 4 mg IVP once; over 2 minutes Route: IVP; Site: right antecubital;db 16:01 Follow up: Response: No adverse reaction db 15:55 Drug: levofloxacin IVPB 500 mg 100 ml IVPB once over 60 mins Volume: 100 ml; Route: db IVPB; Infused Over: 60 mins; Site: right antecubital; 19:00 Follow up: IV Status: Completed infusion km8 16:04 Drug: NS 0.9% IV 1000 ml IV at 75 ml/hr continuous Route: IV; Rate: 75 ml/hr; Site: db right antecubital; 19:30 Follow up: IV Status: Infusion continued upon admission km8 Medication: 19:30 VIS not applicable for this client. km8 Intake: 16:01 IV: 1000ml; Total: 1000ml. db Outcome: 16:19 Decision to Hospitalize by Provider. sp3 19:30 Admitted to ER Hold. Please see [facility] for further documentation. km8 19:30 Condition: stable 19:30 Instructed on the need for admit, Demonstrated understanding of instructions, 0205 05:03 Patient left the ED. km8 Signatures: Dispatcher [employer] EDMS Lulu Medellin RN RN Arsh Lacy MD MD sp3 Jaleesa Hidalgo RN RN db Piedad Hodge mg5 Niharika Watkins RN RN km8 Steve Castro jg11
[2023-06-24] MEDS ORDERED: ALBUTEROL 2.5 MG/3 ML NEB SOL NEB PRN ×2 (16:44)
[2023-06-24] MEDS ORDERED: IPRATROPIUM BROM 0.5MG/2.5ML NEB PRN (16:44)
[2023-06-24] MEDS ORDERED: HYDROCODONE/APAP 5/325 MG TAB PO PRN (16:44)
[2023-06-24] MEDS ORDERED: SODIUM CHLORIDE 0.9% 10ML INJ IV PRN (16:47)
--- NOTE | 2023-06-24 16:51 | P.HP ---
Certification for Inpatient Patient admitted to: Inpatient With expected LOS: <2 Midnights Patient will require the following post-hospital care: None Practitioner: I am a practitioner with admitting privileges, knowledge of patient current condition, hospital course, and medical plan of care. Services: Services provided to patient in accordance with Admission requirements found in Title 42 Section 412.3 of the Code of Federal Regulations <Karuna Lucia - Last Filed: 06/24/23 17:11> Patient History Date of Service: 06/24/23 Reason for admission: UTI,Pneimonia History of Present Illness: Ms. Yun 88-year-old female with a primary medical history of hypertension, atrial fibrillation, permanent pacemaker, and diverticulitis presented to the emergency room via wheelchair with complaints of nausea/vomiting/diarrhea. Patient reports that the onset of symptoms 1 day ago. Patient is also positive for diffuse abdominal pain. Pain severity 5 out of 10. Patient denies chest pain, shortness of breath, fever or chills. ED course Vital signs blood pressure 140/90, heart rate 114, breathing 18/min, temperature 98.0, pulse ox 98% on room air. Laboratory evaluationCBC unremarkable, basic metabolic panel showing renal impairment elevated BUN of 40, creatinine 1.6, low GFR 31, hyperglycemia blood sugar 172. Elevated lactic acid of 2.6. Positive urinalysis. CT abdomen pelvis without contrast showing moderate to groundglass and tree-in-bud opacities right middle and right lower lobes probably indicate pneumonia.. Patient was given levofloxacin and normal saline bolus in the emergency department. Admitting the patient with a diagnosis of UTI, pneumonia and dehydration. - Past Medical/Surgical History -: HTN -: Afib -: PPM -: Diverticulitis -: Knee surgery Psychosocial/ Personal History: Lives at home with family - Social History Smoking Status: Never smoker Alcohol use: No CD- Drugs: No Caffeine use: Yes Place of Residence: Home <Karuna Lucia - Last Filed: 06/24/23 17:11> Date of Service: 06/24/23 <Bravo Painter - Last Filed: 06/24/23 17:38> Review of Systems 10-point ROS is otherwise unremarkable <Karuna Lucia - Last Filed: 06/24/23 17:11> Physical Examination - Physical Exam General: Alert, Oriented x3 HEENT: Atraumatic, Normocephalic Neck: Supple, 2+ carotid pulse no bruit Respiratory: Clear to auscultation bilaterally, Normal air movement Cardiovascular: No edema, Normal pulses, Normal S1 S2, Irregular heart rate/rhythm Gastrointestinal: Normal bowel sounds, Soft and benign Musculoskeletal: No clubbing, No swelling Integumentary: No rashes, No breakdown Neurological: Normal speech, Normal tone, Normal reflexes 2+ - Studies Laboratory Data (last 24 hrs) 06/24/23 06/24/23 13:53 13:53 WBC 9.60 Hgb 13.8 Hct 41.3 Plt Count 219 Sodium 136 Potassium 4.3 BUN 40 H Creatinine 1.60 H Glucose 172 H Total Bilirubin 1.5 H AST 9 L ALT 14 Alkaline Phosphatase 84 Lipase 38 <Karuna Lucia - Last Filed: 06/24/23 17:11> - Studies Laboratory Data (last 24 hrs) 06/24/23 06/24/23 13:53 13:53 WBC 9.60 Hgb 13.8 Hct 41.3 Plt Count 219 Sodium 136 Potassium 4.3 BUN 40 H Creatinine 1.60 H Glucose 172 H Total Bilirubin 1.5 H AST 9 L ALT 14 Alkaline Phosphatase 84 Lipase 38 <Bravo Painter - Last Filed: 06/24/23 17:38> Assessment and Plan - Problems (Diagnosis) (1) UTI (urinary tract infection) Current Visit: Yes Status: Acute Qualifiers: Urinary tract infection type: acute pyelonephritis Qualified Code(s): N10 - Acute pyelonephritis (2) Pneumonia Current Visit: Yes Status: Acute Qualifiers: Pneumonia type: due to unspecified organism Laterality: right Lung location: lower lobe of lung Qualified Code(s): J18.9 - Pneumonia, unspecified organism (3) SIRS (systemic inflammatory response syndrome) Current Visit: Yes Status: Acute (4) Dehydration Current Visit: Yes Status: Acute (5) Abdominal pain Current Visit: Yes Status: Acute Qualifiers: Abdominal location: generalized Qualified Code(s): R10.84 - Generalized abd ominal pain (6) Nausea and vomiting Current Visit: Yes Status: Acute Qualifiers: Vomiting type: unspecified Qualified Code(s): R11.2 - Nausea with vomiting, unspecified (7) Hypertension Current Visit: Yes Status: Acute Qualifiers: Hypertension type: primary hypertension Qualified Code(s): I10 - Essential (primary) hypertension (8) A-fib Current Visit: Yes Status: Acute Qualifiers: Atrial fibrillation type: unspecified Qualified Code(s): I48.91 - Unspecified atrial fibrillation (9) Renal impairment Current Visit: Yes Status: Acute - Plan UTI Pneumonia SIRS Dehydration Abdominal pain, nausea/vomiting/diarrhea Hypertension Atrial fibrillation Permanent pacemaker Renal impairment * Anemia based on clinical presentation and CT abdomen pelvis without contrast showing moderate to groundglass and tree-in-bud opacities right middle and right lower lobes probably indicate pneumonia.. * Empiric antibiotic therapy with Rocephin and Zithromax to be continued to cover appropriate organism. * Vital signs blood pressure 140/90, heart rate 114, breathing 18/min, tempera ture 98.0, pulse ox 98% on room air. * Monitor clinical symptomatology * Continue as needed breathing treatment. * Will supplement oxygen if oxygen saturation drops less than 90%. * Urinary tract infection-positive urinalysis-IV antibiotic and IV hydration, analgesics as needed and PPI * monitor electrolytes and replete * Close monitoring of vital signs reconciliation of home medication and resume as appropriate * Continue the current antihypertensive medications at this time * A-fibpatient denies palpitation or chest discomfort, continue the current home medications at this time * Renal impairment- basic metabolic panel showing renal impairment elevated BUN of 40, creatinine 1.6, low GFR 31-renal dose the medications avoid nephrotoxins, and NSAIDs. IV hydration started. Will closely monitor renal panel. * DVT prophylaxis heparin * CODE STATUS full code * Diet low-sodium diet . Discharge Plan: Home Plan to discharge in: 48 Hours - Advance Directives Does patient have a Living Will: No Does patient have a Durable POA for Healthcare: No - Code Status/Comfort Care Code Status Assessed: Yes (full code) Code Status: Full Code Physician Review: Patient Assessed, Agree with Above Assessment and Plan Critical Care: No Time Spent Managing Pts Care (In Minutes): 55 (Minutes) <Karuna Lucia - Last Filed: 06/24/23 17:11> - Plan Pt seen and examined. I agree with the note by the DINING ROOM MAID. Pt is an 88yo male with past medical history A. fib, htn and diverticulosis who presents with nausea, vomiting, diarrhea, diffuse crampy abdominal pain. The symptoms started after pt ate out yesterday. The symptoms progressively worsened and pt came to the ER for evaluation. On admission, lab studies show wbc 9.6, Hgb 13.8, K 4.3, Cr 1.6, lactate 2.6, UA is positive for UTI. CT chest and abd shows RML and RLL pneumonia. At bedside, pt is resting comfortably in bed. A/P: Severe sepsis 2/2 UTI and Pneumonia: Will continue abx, IVF and follow up blood cx / urine cx. Pneumonia: CT chest shows RML and RLL pna. Will continue rocephin and azithro. Follow up blood cx. UTI: Continue rocephin and follow up blood cx. Htn: Continue home med A.fib: Continue telemetry, and home meds. Lactic acidosis: lactate is 2.6. Will continue IVF and trend lactate. DVT ppx: SCD Code: full <Bravo Painter - Last Filed: 06/24/23 17:38>
[2023-06-24] MEDS: HEPARIN 5000 UNIT/ML 1 ML VIAL SQ SCH (17:00)
[2023-06-24 17:40] LABS: Blood Morphology Comment NOT SEEN (NOT SEEN); Platelet Estimate ADEQ; White Blood Cell Scan OK (OK)
[2023-06-24 17:47] LABS: Thyroid Stimulating Hormone 0.794 uIU/mL (0.358-3.740)
[2023-06-24] MEDS: NA CHLORIDE 0.9% 1,000 ML IV SCH (19:00)
[2023-06-24] MEDS: NA CHLORIDE 0.9% 1,000 ML ONE (19:43)
[2023-06-24] MEDS: Levofloxacin500mg IV 500 MG/100 ML BAG IV ONE (19:45)
[2023-06-24] MEDS ORDERED: AZITHROMYCIN 500 MG INJ IVPB ONE (19:55)
[2023-06-24] MEDS ORDERED: NA CHLORIDE 0.9% 250 ML ONE (19:55)
[2023-06-24] MEDS: AZITHROMYCIN IV 500 MG in NA CHLORIDE 0.9% 250 ML IVPB SCH (20:00)
[2023-06-24] MEDS: IPRATROPIUM BROM 0.5MG/2.5ML NEB SCH (21:02)
[2023-06-24] MEDS ORDERED: CEFTRIAXONE 1000 MG/VIAL ONE (21:10)
[2023-06-24] MEDS ORDERED: IPRATROPIUM BROM 0.5MG/2.5ML ONE (21:10)
[2023-06-24] MEDS ORDERED: ACETAMINOPHEN 500 MG TAB ONE (21:10)
[2023-06-24] MEDS ORDERED: NA CHLORIDE 0.9% 50 ML ONE (21:11)
[2023-06-24] MEDS: CEFTRIAXONE 1,000 MG in NA CHLORIDE 0.9% 50 ML IVPB SCH (21:15)
[2023-06-24] MEDS: ACETAMINOPHEN 500 MG TAB PO PRN (21:21)
[2023-06-24 21:40] VITALS: BMI 20.7
[2023-06-25] MEDS ORDERED: IPRATROPIUM BROM 0.5MG/2.5ML ONE (01:08)
[2023-06-25] MEDS ORDERED: HEPARIN 5000 UNIT/ML 1 ML VIAL ONE (01:08)
[2023-06-25] MEDS ORDERED: ACETAMINOPHEN 500 MG TAB ONE (03:31)
[2023-06-25 04:25] LABS: Absolute Lymphocytes (CBC) 0.8 K/uL (0.7-4.9); Hematocrit 32.7 % (36.0-45.0); Lymphocytes % 15.9 % (15.3-44.8); MCV 94.4 fL (80-100); MPV 8.5 fL (7.6-11.3); Platelets 176 thou/uL (152-406); RBC Red Blood Cell Count 3.47 M/uL (3.86-4.86)
[2023-06-25 04:34] LABS: Magnesium 1.8 mg/dL (1.6-2.4); Phosphorus 2.7 mg/dL (2.5-4.9); Potassium 4.4 mEq/L (3.5-5.1)
[2023-06-25] MEDS ORDERED: MAGNESIUM SULFATE 1 gm IVPB 1 GM/100 ML BAG IV ONE (05:05)
[2023-06-25] MEDS: MAGNESIUM SULFATE 1 gm IVPB 1 GM/100 ML BAG IV ONE (05:45)
[2023-06-25] MEDS: PANTOPRAZOLE 40 MG INJ IVP SCH (08:03)
[2023-06-25] MEDS: allopurinoL 300 MG TAB PO SCH (10:59)
[2023-06-25] MEDS: FUROSEMIDE 40 MG TABLET PO SCH (10:59)
[2023-06-25] MEDS ORDERED: FUROSEMIDE 40 MG/4 ML VIAL IV SCH ×2 (11:00→21:00)
[2023-06-25] MEDS: PARoxetine HCL 10 MG TAB PO SCH (11:00)
--- NOTE | 2023-06-25 12:48 | P.PN ---
Subjective Date of Service: 06/25/23 Chief Complaint: UTI,Pneimonia Pt is resting comfortably in bed. She denies any fever, chills, chest pain, SOB or cough. Pt is feeling better. No complaints. Review of Systems Unremarkable General: Unremarkable Eyes: Unremarkable ENT: Unremarkable Respiratory: Unremarkable Cardiovascular: Unremarkable Gastrointestinal: Unremarkable Genitourinary: Unremarkable Musculoskeletal: Unremarkable Integumentary: Unremarkable Neurological: Unremarkable Lymphatics: Unremarkable Physical Examination - Vital Signs Temperature: 98.2 F Blood Pressure: 129/70 Pulse: 86 Respirations: 16 Pulse Ox (%): 99 - Physical Exam General: Alert, In no apparent distress, Oriented x3 HEENT: Atraumatic, Normocephalic, PERRLA Neck: Supple, 2+ carotid pulse no bruit Respiratory: Clear to auscultation bilaterally, Normal air movement Cardiovascular: No edema, Normal pulses, Regular rate/rhythm, Normal S1 S2 Capillary refill: <2 Seconds Gastrointestinal: Normal bowel sounds, Soft and benign, Non-distended Musculoskeletal: No clubbing, No swelling Integumentary: No rashes, No breakdown Neurological: Normal speech, Normal strength at 5/5 x4 extr, Normal tone, Sensation intact, Cranial nerves 3-12 intact Lymphatics: No axilla or inguinal lymphadenopathy - Studies Laboratory Data (last 24 hrs) 06/24/23 06/24/23 13:53 13:53 WBC 9.60 Hgb 13.8 Hct 41.3 Plt Count 219 Sodium 136 Potassium 4.3 BUN 40 H Creatinine 1.60 H Glucose 172 H Total Bilirubin 1.5 H AST 9 L ALT 14 Alkaline Phosphatase 84 Lipase 38 Assessment And Plan - Plan Severe sepsis 2/2 UTI and Pneumonia: Will continue abx and follow up blood cx / urine cx. Pneumonia: CT chest shows RML and RLL pna. Will continue rocephin and azithro. Follow up blood cx. Hx of CHF: BNP is 3622. Will continue lasix 40mg po daily, coreg, low salt diet and daily weight. Will add spironolactone and telmisartan as BP permits. Follow up Echo. UTI: Continue rocephin and follow up blood cx. Htn: Continue home meds A.fib: Continue telemetry, and home meds. Lactic acidosis: lactate is 1.7<- 2.6. Will discontinue IVF and trend lactate. DVT ppx: SCD Code: full Dispo: Pending hospital course. Physician Review: Patient Assessed, Agree with Above Assessment and Plan
--- NOTE | 2023-06-25 15:00 | EKG ---
Test Date: 2023-06-24 Test Time: 13:44:51 Boiler Service Technician: ROSENDA MEASUREMENT RESULTS: Intervals: Rate: 108 PA: 168 QRSD: 124 QT: 376 QTc: 503 Bradley: P: 38 PA: 168 QRS: 105 T: -51 INTERPRETIVE STATEMENTS: Sinus tachycardia s T wave abnormality, consider inferior ischemia T wave abnormality, consider anterolateral ischemia Abnormal ECG No previous ECG available for comparison Electronically Signed On 06-25-23 14:58:07 LINE CREW SUPERVISOR by Hoang Reynolds
--- NOTE | 2023-06-25 22:23 | RAD REPORT ---
EXAM DESCRIPTION: RADChest Single View06/25/2023 4:23 pm CLINICAL HISTORY: poss pneumonia COMPARISON: Abdomen Pelvis Wo Contrast dated 06/24/2023 TECHNIQUE: Portable AP view of the chest. FINDINGS: Patchy perihilar mild airspace opacification again seen. No pneumothorax or effusion. Mil d cardiomegaly. Mediastinal contours are unremarkable. Left chest wall pacer in place IMPRESSION: Mild patchy perihilar opacities, may reflect central edema or multifocal pneumonia.
[2023-06-26] MEDS: LEVOTHYROXINE SOD 0.05 MG TABLET PO SCH (05:45)
[2023-06-26 07:39] LABS: Phosphorus 2.3 mg/dL (2.5-4.9); Potassium 3.8 mEq/L (3.5-5.1)
[2023-06-26 07:47] LABS: Absolute Lymphocytes (CBC) 1.6 K/uL (0.7-4.9); Hematocrit 32.3 % (36.0-45.0); Lymphocytes % 28.6 % (15.3-44.8); MCV 94.1 fL (80-100); MPV 8.4 fL (7.6-11.3); Platelets 165 thou/uL (152-406); RBC Red Blood Cell Count 3.44 M/uL (3.86-4.86)
--- NOTE | 2023-06-26 07:54 | RAD REPORT ---
EXAM DESCRIPTION: RADChest Single View06/26/2023 4:38 am CLINICAL HISTORY: poss pneumonia COMPARISON: Chest Single View dated 06/25/2023 TECHNIQUE: Portable AP view of the chest. FINDINGS: Stable perihilar mild patchy opacities. Peripheral left basilar mild opacification may be slightly progressive, and could relate to progressive airspace opacification or atelectasis. No pneu mothorax or effusion. Stable cardiomegaly. Left chest wall pacer in place. Mediastinal contours are u nchanged. dextroconvex lower thoracic scoliosis somewhat limits evaluation. IMPRESSION: Mildly progressive left basilar peripheral opacity, may relate to progressive airspace d isease or atelectasis. Other stable findings as above.
[2023-06-26] MEDS: SPIRONOLACTONE 25 MG TABLET PO SCH (08:51)
[2023-06-26] MEDS: VALSARTAN 80 MG TAB PO SCH (08:51)
[2023-06-26] MEDS: carvediloL 12.5 MG TAB PO SCH (08:53)
[2023-06-26] MEDS ORDERED: TELMISARTAN 40 MG PO SCH (09:00)
--- NOTE | 2023-06-26 12:07 | P.CNS ---
Date of Consult: 06/26/23 Reason for Consult: Possible pneumonia Chief Complaint: UTI,Pneimonia History of Present Illness: Patient is 88 years of age a poor historian admitted with 3-day onset of diarrhea nausea feeling ill and weak and was admitted from the emergency room prior history of pulmonary complaints does see a dinking machine operator as an outpatient Allergies codeine Adverse Reaction (Verified 06/24/23 21:23) Nausea/Vomiting Home Medications: Albuterol Inhaler [Ventolin Inhaler*] 1 puff 06/25/23 Albuterol Sulfate [Albuterol Sulfate 0.083% Neb Soln] 1 amp NEB PRN 06/25/23 Allopurinol 300 mg PO DAILY 06/25/23 Carvedilol [Coreg] 12.5 mg PO DAILY 06/25/23 Cetirizine HCl [Zyrtec] 10 mg PO DAILY 06/25/23 Furosemide 20 mg PO DAILY 06/25/23 Levothyroxine [Synthroid] 50 mcg PO [id number] 06/25/23 PARoxetine HCL [Paxil*] 10 mg PO DAILY 06/25/23 Rivaroxaban [Xarelto*] 15 mg PO DAILY 06/25/23 Spironolactone 50 mg PO DAILY 06/25/23 Telmisartan 40 mg PO DAILY 06/25/23 - Past Medical/Surgical History Diabetic: No -: HTN -: Afib -: PPM -: Diverticulitis -: Knee surgery Psychosocial/ Personal History: Lives at home with family - Social History Alcohol use: No CD- Drugs: No Caffeine use: Yes Place of Residence: Home Review of Systems Unremarkable General: Weakness Respiratory: Cough Gastrointestinal: Nausea, Diarrhea Physical Examination Temp Pulse Resp BP Pulse Ox 97.6 F 120 H 17 126/81 96 06/26/23 04:00 06/26/23 08:53 06/26/23 04:00 06/26/23 08:53 06/26/23 04:00 General: Alert, In no apparent distress, Oriented x3 Neck: Supple Respiratory: Clear to auscultation bilaterally Cardiovascular: No edema, Regular rate/rhythm, Normal S1 S2 Gastrointestinal: Normal bowel sounds, Soft and benign, Non-distended - Problems (1) Abnormal CT of the abdomen Current Visit: Yes Status: Acute Plan: Patient is 88 years of age admitted with diarrhea and nausea feeling weak and sick for the past 2 or 3 days and is very alert oriented feeling weak right now CT of the abdomen some basilar groundglass changes she has very impressive cardiomegaly on the chest x-ray with a pacemaker white count is normal mildly anemic patient is in renal failure renal function is improving vital signs oxygenation satisfactory I agree this is probably a urinary tract infection can DC azithromycin echocardiogram is pending suspect patient has CHF as she is on Lasix and spironolactone also anticoagulated
[2023-06-26] MEDS: ALBUTEROL 2.5 MG/3 ML NEB SOL NEB SCH (13:41)
--- NOTE | 2023-06-26 13:51 | P.PN ---
Subjective Date of Service: 06/26/23 Chief Complaint: UTI,Pneimonia No reported pain, fever, hard of hearing, PT eval for ambulation assistance instruction on fall precautions - Physical Exam General: Alert, In no apparent distress, Oriented x3 HEENT: Atraumatic, Normocephalic, PERRLA Neck: Supple, 2+ carotid pulse no bruit Respiratory: Clear to auscultation bilaterally, Normal air movement Cardiovascular: No edema, Normal pulses, Regular rate/rhythm, Normal S1 S2 Capillary refill: <2 Seconds Gastrointestinal: Normal bowel sounds, Soft and benign, Non-distended Musculoskeletal: No clubbing, No swelling moderate generalized weakness Integumentary: No rashes, No breakdown Neurological: Normal speech, Normal strength at 5/5 x4 extr, Normal tone, Sensation intact, Cranial nerves 3-12 intact Lymphatics: No axilla or inguinal lymphadenopathy Review of Systems per HPI Physical Examination - Vital Signs Temperature: 97.6 F Blood Pressure: 126/81 Pulse: 120 Respirations: 17 Pulse Ox (%): 96 Assessment And Plan - Plan Assessment plan Severe sepsis 2/2 UTI and Pneumonia: Will continue abx and follow up blood cx / urine cx. Lactic acidosis: lactate is 1.7<- 2.6. Will discontinue IVF and trend lactate Acute hypoxic respiratory failure secondary to mild pneumonia pneumonia: CT chest shows RML and RLL pna. Will continue rocephin and azithro. Follow up blood cx. Acute on chronic heart unknown baseline ejection fraction Hx of CHF: BNP is 3622. Will continue lasix 40mg po daily, coreg, low salt diet and daily weight. Will add spironolactone and telmisartan as BP permits. Follow up Echo. Acute cystitis UTI: Continue rocephin and follow up blood cx. Generalized weakness Fall precautions PT eval Htn: Stable Continue home meds A.fib: Continue telemetry, and home meds. DVT ppx: SCD Code: full Dispo: Pending hospital course. Physician Review: Patient Assessed, Agree with Above Assessment and Plan Discharge Plan: Home - Code Status/Comfort Care Code Status: Full Code Critical Care: No Time Spent Managing PTS Care (In Minutes): 35
[2023-06-26] MEDS: RIVAROXABAN 15 MG TABLET PO SCH (16:40)
[2023-06-26] MEDS: POTASS/SODIUM PHOSPHATE 1 PKT POWD.PACK PO SCH (16:58)
[2023-06-26] MEDS: POTASSIUM CL SA 10 MEQ TAB PO ONE (16:59)
[2023-06-27 04:45] VITALS: BP 110/59; TEMP 97.9
[2023-06-27 07:09] LABS: Hematocrit 31.5 % (36.0-45.0); Lymphocytes % 37.9 % (15.3-44.8); MCV 93.9 fL (80-100); MPV 8.1 fL (7.6-11.3); Platelets 169 thou/uL (152-406); RBC Red Blood Cell Count 3.36 M/uL (3.86-4.86)
[2023-06-27 07:25] LABS: Magnesium 1.8 mg/dL (1.6-2.4); Phosphorus 3.1 mg/dL (2.5-4.9); Potassium 4.1 mEq/L (3.5-5.1)
--- NOTE | 2023-06-27 08:11 | P.DS ---
Admission Date: 06/24/23 Discharge Date: 06/27/23 Disposition: ROUTINE DISCHARGE Discharge Condition: FAIR Reason for Admission: UTI,Pneimonia Brief History of Present Illness: Ms. Yun 88-year-old female with a primary medical history of hypertension, atrial fibrillation, permanent pacemaker, and diverticulitis presented to the emergency room via wheelchair with complaints of nausea/vomiting/diarrhea. Patient reports that the onset of symptoms 1 day ago. Patient is also positive for diffuse abdominal pain. Pain severity 5 out of 10. Patient denies chest pain, shortness of breath, fever or chills. ED course Vital signs blood pressure 140/90, heart rate 114, breathing 18/min, temperature 98.0, pulse ox 98% on room air. Laboratory evaluationCBC unremarkable, basic metabolic panel showing renal impairment elevated BUN of 40, creatinine 1.6, low GFR 31, hyperglycemia blood sugar 172. Elevated lactic acid of 2.6. Positive urinalysis. CT abdomen pelvis without contrast showing moderate to groundglass and tree-in-bud opacities right middle and right lower lobes probably indicate pneumonia.. Patient was given levofloxacin and normal saline bolus in the emergency department. Admitting the patient with a diagnosis of UTI, pneumonia and dehydration. - Physical Exam General: Alert, In no apparent distress, Oriented x3 HEENT: Atraumatic, Normocephalic, PERRLA Neck: Supple, 2+ carotid pulse no bruit Respiratory: Clear to auscultation bilaterally, Normal air movement Cardiovascular: No edema, Normal pulses, Regular rate/rhythm, Normal S1 S2 Capillary refill: <2 Seconds Gastrointestinal: Normal bowel sounds, Soft and benign, Non-distended Musculoskeletal: No clubbing, No swelling moderate generalized weakness Integumentary: No rashes, No breakdown Neurological: Normal speech, Normal strength at 5/5 x4 extr, Normal tone, Sensation intact, Cranial nerves 3-12 intact Lymphatics: No axilla or inguinal lymphadenopathy Hospital Course: 88year-old female patient presented with shortness of breath, generalized weakness, abdominal pain. Was noted to have sepsis secondary to pneumonia and UTI. Treated with IV antibiotic, IV fluids, pneumonia and urinary tract infection. Was treated with IV antibiotics, evaluated by pulmonary. Condition improved with IV antibiotics, IV fluid. Patient was evaluated by physical therapy for generalized weakness. Patient lives at home with spouse. Patient tolerating diet, stable for discharge to home with follow-up appointment with primary care physician. PROBLEM: Pneumonia Urinary tract infection Generalized weakness History of atrial fibrillation permanent pacemaker on Coreg, New prescription for digoxin per cardiology Patient ambulated with therapy using rolling walker. finished antibiotics Instructed on fall precautions with physical therapy Patient needs to follow-up with cardiology after discharge. Continue home medicines as previously prescribed GOAL: Clear understanding of disease process INSTRUCTIONS: Physician Discharge Instructions: -DC IV and DC home -Follow-up with PCP in 1 to 2 weeks -Please call Dr. Medeiros at [phone] if any questions regarding hospital stay -Please call nursing station at [phone] if any nursing or medication questions -Return to the emergency room if symptoms worsen Diet: ADA, low sodium Activity: Fall precautions DME: Date Ordered: Name of Company: [employer] Services Needed: None Date or Referral: IMMUNIZATION Influenza Vaccine Indicated: Influenza Vaccine Given: Date Given: Pneumonia Vaccine Indicated: Pneumonia Vaccine Given: Date Given: Vital Signs/Physical Exam: Temp Pulse Resp BP Pulse Ox 97.9 F 103 H 18 110/59 L 93 06/27/23 04:00 06/27/23 04:00 06/27/23 04:00 06/27/23 04:00 06/27/23 04:00 Laboratory Data at Discharge: WBC 5.40 thou/uL (4.3-10.9) 06/27/23 07:01 Hgb 10.5 g/dL (12.0-15.0) L 06/27/23 07:01 Hct 31.5 % (36.0-45.0) L 06/27/23 07:01 Plt Count 169 thou/uL (152-406) 06/27/23 07:01 Sodium 138 mEq/L (136-145) 06/27/23 07:01 Potassium 4.1 mEq/L (3.5-5.1) 06/27/23 07:01 BUN 17 mg/dL (7-18) 06/27/23 07:01 Creatinine 1.24 mg/dL (0.55-1.02) H 06/27/23 07:01 Glucose 97 mg/dL (74-106) 06/27/23 07:01 Phosphorus 3.1 mg/dL (2.5-4.9) 06/27/23 07:01 Magnesium 1.8 mg/dL (1.6-2.4) 06/27/23 07:01 Total Bilirubin 1.5 mg/dL (0.2-1.0) H 06/24/23 13:53 AST 9 U/L (15-37) L 06/24/23 13:53 ALT 14 U/L (13-56) 06/24/23 13:53 Alkaline Phosphatase 84 U/L (45-117) 06/24/23 13:53 Triglycerides 57 mg/dL (<150) 06/25/23 04:05 Cholesterol 107 mg/dL (<200) 06/25/23 04:05 HDL Cholesterol 45 mg/dL (40-60) 06/25/23 04:05 Cholesterol/HDL Ratio 2.38 06/25/23 04:05 Lipase 38 U/L (13-75) 06/24/23 13:53 Home Medications: Albuterol Inhaler [Ventolin Inhaler*] 1 puff 06/25/23 Allopurinol 300 mg PO DAILY 06/25/23 Carvedilol [Coreg] 12.5 mg PO DAILY 06/25/23 Cetirizine HCl [Zyrtec] 10 mg PO DAILY 06/25/23 Furosemide 20 mg PO DAILY 06/25/23 Levothyroxine [Synthroid*] 50 mcg PO [id number] 06/25/23 PARoxetine HCL [Paxil*] 10 mg PO DAILY 06/25/23 Rivaroxaban [Xarelto*] 15 mg PO DAILY 06/25/23 Spironolactone 50 mg PO DAILY 06/25/23 Telmisartan 40 mg PO DAILY 06/25/23 Digoxin 125 mcg PO DAILY #30 tab 06/27/23 New Medications: Digoxin 125 mcg PO DAILY #30 tab Physician Discharge Instructions: 88year-old female patient presented with shortness of breath, generalized weakness, abdominal pain. Was noted to have sepsis secondary to pneumonia and UTI. Treated with IV antibiotic, IV fluids, pneumonia and urinary tract infection. Was treated with IV antibiotics, evaluated by pulmonary. Condition improved with IV antibiotics, IV fluid. Patient was evaluated by physical therapy for generalized weakness. Patient lives at home with spouse. Patient tolerating diet, stable for discharge to home with follow-up appointment with primary care physician. PROBLEM: Pneumonia Urinary tract infection Generalized weakness History of atrial fibrillation permanent pacemaker on Coreg Patient ambulated with therapy using rolling walker. finished antibiotics inpatient Instructed on fall precautions with physical therapy Patient needs to follow-up with cardiology after discharge. Continue home medicines as previously prescribed GOAL: Clear understanding of disease process INSTRUCTIONS: Physician Discharge Instructions: -DC IV and DC home -Follow-up with PCP in 1 to 2 weeks -Please call Dr. Medeiros at [phone] if any questions regarding hospital stay -Please call nursing station at [phone] if any nursing or medication questions -Return to the emergency room if symptoms worsen Diet: ADA, low sodium Activity: Fall precautions Diet: AHA Activity: Fall precautions Followup: OOT,OOT [Primary Care Provider] - (Follow-up with cardiology after discharge) Hoang Reynolds MD [ACTIVE - CAN ADMIT] - Time spent managing pt's care (in minutes): 55
--- NOTE | 2023-06-27 08:26 | ECHO ---
HEIGHT: 5 ft 1 in WEIGHT: 110 lb 0 oz DATE OF STUDY: 06/26/[address]: Bravo Painter MD 2-DIMENSIONAL: YES M.MODE: YES DOPPLER: YES COLOR FLOW: YES TDS: PORTABLE: YES DEFINITY: BUBBLE STUDY: DIAGNOSIS: ELEVATED TROPONIN CARDIAC HISTORY: CATHERIZATION: SURGERY: PROSTHETIC VALVE: PACEMAKER: MEASUREMENTS (cm) DIASTOLIC (NORMALS) SYSTOLIC (NORMALS) IVSd 0.9 (0.6-1.2) LA Diam 5.2 (1.9-4.0) LVEF 50% LVIDd 3.6 (3.5-5.7) LVIDs 2.7 (2.0-3.5) %FS 25% LVPWd 0.9 (0.6-1.2) Ao Diam 2.7 (2.0-3.7) 2 DIMENSIONAL ASSESSMENT: RIGHT ATRIUM: NORMAL LEFT ATRIUM: SEVERELY ENLARGED RIGHT VENTRICLE: NORMAL LEFT VENTRICLE: NORMAL TRICUSPID VALVE: MILD TRICUSPID REGURGITATION MITRAL VALVE: MODERATE TO SEVERE MITRAL REGURGITATION PULMONIC VALVE: MILD PULMONIC INSUFFICIENCY AORTIC VALVE: MILD AORTIC INSUFFICIENCY PERICARDIAL EFFUSION: NONE AORTIC ROOT: NORMAL LEFT VENTRICULAR WALL MOTION: NORMAL DOPPLER/COLOR FLOW: SEE BELOW COMMENTS: 1. NORMAL LEFT VENTRICULAR EJECTION FRACTIO N55-60% 2. NORMAL WALL MOTION 3. SEVERELY DILATED LEFT ATRIUM 4. MODERATE TO SEVERE MITRAL REGURGITATION, RECOMMEND TRASNESOPHAGEAL ECHOCARDIOGRAM TO FURTHER EVALUATE. TECHNOLOGIST: LEON SLAUGHTER
[2023-06-27 11:14] VITALS: O2SAT 95
--- NOTE | 2023-06-27 12:21 | P.PN ---
Subjective Date of Service: 06/27/23 Chief Complaint: UTI, Subjective: Improving (Patient is doing much better no new complaints still feels a little weak) Review of Systems Unremarkable General: Weakness Physical Examination - Vital Signs Temperature: 97.9 F Blood Pressure: 110/59 Pulse: 103 Respirations: 18 Pulse Ox (%): 93 - Physical Exam General: Alert, Oriented x3 Neck: Supple Respiratory: Clear to auscultation bilaterally Cardiovascular: No edema, Regular rate/rhythm - Studies Microbiology Data (last 24 hrs): 06/24/23 13:53 Clean Catch Urine [place] Count - Final BETWEEN 10,000 & 100,000 CFU/ML 06/24/23 13:53 Clean Catch Urine - Final Escherichia Coli Assessment And Plan - Current Problems (Diagnosis) (1) UTI (urinary tract infection) Current Visit: Yes Status: Acute Plan: Patient is 88 years of age admitted with E. coli UTI which appears to be pansensitive and is currently doing much better vital signs are stable oxygenation satisfactory plan to discharge on p.o. antibiotics renal function has improved Qualifiers: Urinary tract infection type: acute cystitis Physician Review: Patient Assessed, Agree with Above Assessment and Plan
[2023-06-27] MEDS: DIGOXIN 0.25 MG TABLET PO ONE (13:29)
[2023-06-27] MEDS: AMOXICILLIN TRIHYDR 250 MG CAP PO SCH (13:29)
== END 2023-06-27 15:37 | disposition home or self-care (01) | DRG 871 ==
LOC: ER 12:08 → ERHOLD 16:55 → 2ND 06-25 04:36
PROVIDERS: ADMIT Hospitalist; ATTEND Hospitalist
DX: A41.51 Sepsis due to Escherichia coli [E. coli] (principal); J18.9 Pneumonia, unspecified organism; J96.01 Acute respiratory failure with hypoxia; N10 Acute pyelonephritis; E87.20 Acidosis, unspecified; I50.30 Unspecified diastolic (congestive) heart failure; I11.0 Hypertensive heart disease with heart failure; R65.20 Severe sepsis without septic shock; E86.0 Dehydration; D64.9 Anemia, unspecified; I48.91 Unspecified atrial fibrillation; N28.9 Disorder of kidney and ureter, unspecified; R73.9 Hyperglycemia, unspecified; Z95.0 Presence of cardiac pacemaker; Z88.5 Allergy status to narcotic agent; Z79.02 Long term (current) use of antithrombotics/antiplatelets; Z90.49 Acquired absence of other specified parts of digestive tract; Z90.710 Acquired absence of both cervix and uterus; Z28.310 Unvaccinated for COVID-19; Z79.890 Hormone replacement therapy; Z79.899 Other long term (current) drug therapy
CPT/HCPCS: 36415; 71045; 74176; 80048; 80053; 80061; 81001; 83605; 83690; 83735; 83880; 84100; 84439; 84443; 84484; 85025; 87040; 87077; 87086; 87088; 87186; 93005; 93306; 94640; 96361; 96365; 96366; 96375; 97116; 97161; 97530; 99285; C9113; J0696; J1644; J2405; J3475; J7030; J7050; J7613; J7644

== ENCOUNTER 2023-12-15 17:53 | Inpatient (IN) | payer OTHER ==
--- OUTSIDE RECORDS SUMMARY | 2023-12-15 17:57 | XMS REPORT | Continuity of Care Document ---
Author Name Unknown Address [address] [facility] [place] [address] [facility] Address [address] [facility] [place] [address] Care Team Providers Care Transportation Superintendent Name Role Phone MATHEUS MCNAMARA Primary Care Physician Diane MATHEUS Jones Attending Clinician Flip Mcnamara MD, Matheus Hoffmann Attending Clinician + [phone] Doctor Unassigned, [place] Attending Clinician U Katarzyna De Los Santos Attending Clinician [phone] KATARZYNA MARQUEZ Attending Clinician Unavailable Pascual Smallwood MD Attending Clinician [phone] Yuliya Potter Attending Clinician Unavailable JUSTINE LOPEZ Attending Clinician Unavailable Justine Lopez MD Attending Clinician [phone] CHUCKY PERKINS Attending Clinician Flip Perkins MD, Chucky Nassar Attending Clinician +- [phone] Only, [facility] Attending Clinician Unavailable Daron Kelly CRNA Attending Clinician [phone] Stefanie Hernández MD Attending Clinician [phone] Pob, [facility] Main Attending Clinician Unavailbindu Mariee MD, Chucky Attending Clinician [phone] Penelope Diehl DO Attending Clinician [phone] PENELOPE DIEHL Attending Clinician Unavailable MARIE BATISTA Attending Clinician Unavailable Efra Aguilar DO Attending Clinician 2, [facility] Attending Clinician Unavailable Celeste Perez MD Attending Clinician [phone] Kika Sparks RN Attending Clinician [phone] Attending Clinician [phone] Sherif HOLLIS, Fabiana Attending Clinician [phone] Yuliya Potter Admitting Clinician Unavailable CHUCKY PERKINS Admitting Clinician Flip Perkins MD, Chucky Nassar Admitting Clinician [phone]- [phone] Fabiana Gorman MD Admitting Clinician [phone] Payers Payer Name Policy Type Policy Number Effective Date Expirati on Date Source [employer] MA[employer]ED [employer]ICARE PPO-MARLEN [id number] 2020 00:00:00 Problems Condition Name Condition Details Condition Category Status Onset Date Resolution Date Last Treatment Date Treating Clinician Comments Source Rectal bleed Rectal bleed Disease Active 06-13 00:00: 00 [facility] Acute on chronic diastolic congestive heart failure Acute on chronic diastolic congestive heart failure Disease Active 2017-05 00:00: 00 [facility] Anemia Anemia Disease Active 2017-05 00:00: 00 [facility] PAF (paroxysma l atrial fibrillati on) PAF (paroxysma l atrial fibrillati on) Disease Active 2017-05 00:00: 00 [facility] Lower GI bleed Lower GI bleed Disease Active 2017-05 00:00: 00 [facility] Acute blood loss anemia Acute blood loss anemia Disease Active 2017-05 00:00: 00 [facility] Screening for colorectal cancer Screening for colorectal cancer Disease Active 2017-05 00:00: 00 Overview: Formattin g of this note might be different from the original. Added automatic ally from request for surgery [id number] [facility] Chest pain Chest pain Disease Active 09-15 00:00: 00 [facility] Allergic rhinitis Allergic rhinitis Disease Active 2014-05 00:00: 00 [facility] Essential hypertensi on, benign Essential hypertensi on, benign Disease Active 2014-05 00:00: 00 [facility] Generalize d anxiety disorder Generalize d anxiety disorder Disease Active 2014-05 00:00: 00 [facility] Osteoarthr itis Osteoarthr itis Disease Active 2014-05 00:00: 00 [facility] Asthma, mild intermitte nt Asthma, mild intermitte nt Disease Active 2014-05 00:00: 00 [facility] Hypothyroi dism Hypothyroi dism Disease Active 2014-05 00:00: 00 [facility] Hyperlipid emia Hyperlipid emia Disease Active 2014-05 00:00: 00 [facility] Malaise Malaise Disease Active 2014-05 00:00: 00 [facility] Lumbago Lumbago Disease Active 2014-05 00:00: 00 [facility] Sinusitis, acute Sinusitis, acute Disease Active 2014-05 00:00: 00 [facility] Renal insufficie ncy Renal insufficie ncy Disease Active 2014-05 00:00: 00 Overview: Formattin g of this note might be different from the original. Patient is already under multiple MD's care for chronic renal insuffici ency. [facility] Allergies, Adverse Reactions, Alerts Allergy Name Allergy Type Status Severity Reaction(s) Onset Date Inactive Date Treating Clinician Comments Source enedeliaine DA Active [place] CHEST PAIN 2022-05 0-16 00:00: 00 [facility] [place] Doxycycl ine Drug Allergy Active Other - See comments 2018-05 004 00:00: 00 [facility] DOXYCYCL INE DRUG INGREDI Active Other-Cmnt 2018-05 004 00:00: 00 [facility] VIBRAMYC IN (CALCIUM ) DRUG Active N/V 2014-05 00:00: 00 [facility] Vibramyc in (Calcium ) Propensi ty to adverse reaction s Active Nausea and/or Vomiting 2014-05 00:00: 00 [facility] Vibramyc in Calcium Propensi ty to adverse reaction s Active Nausea and/or Vomiting 2014-05 00:00: 00 [facility] Codeine Drug Allergy Active Other - See comments 2014-05 00:00: 00 Chest pain also Chest pain also [facility] CODEINE DRUG INGREDI Active ITCHING 2014-05 00:00: 00 [facility] Social History Social Habit Start Date Stop Date Quantity Comments Source Gender identity [facility] Alcoholic beverage intake 2023-10-16 00:00:00 2023-10-16 00:00:00 0 /d [facility] Alcohol intake 2023-07-16 00:00:00 2023-07-16 00:00:00 0 /d [facility] History of Social function 2023-05-23 00:00:00 2023-05-23 00:00:00 [facility] Tobacco use and exposure 2023-05-23 00:00:00 2023-05-23 00:00:00 Smokeless tobacco non-user [facility] Exposure to SARS-CoV-2 (event) 2022-05-15 00:00:00 2022-05-25 10:36:00 Not sure [facility] Sex assigned at 1935 00:00:00 1935 00:00:00 [facility] Smoking Status Start Date Stop Date Source Never smoked tobacco [facility] Medications Ordered Medication Name Filled Medication Name Start Date Stop Date Current Medication? Ordering Clinician Indication Dosage Frequency Signature (SIG) Comments Components Source carvediloL 6.25 mg tablet 10-15 16:31: 53 Yes 6.25mg Take 1 tablet by mouth in the morning and 1 tablet in the evening. Take with meals. [facility] hydrocortis one (PROCTOSOL HC) 2.5 % rectal cream 10-15 00:00: 00 Yes [id number] INSERT INTO RECTUM 2 (TWO) TIMES DAILY. [facility] azelastine 137 mcg (0.1 %) nasal spray 3-07 00:00: 00 10-15 00:00 :00 No [id number] 1{spray } USE 1 SPRAY IN EACH NOSTRIL IN THE MORNING AND 1 SPRAY IN THE EVENING. USE IN EACH NOSTRIL DIRECTED [facility] levothyroxi ne 50 mcg tablet - 00:00: 00 Yes [id number] 50ug Take 1 tablet by mouth every morning. [facility] azelastine 137 mcg (0.1 %) nasal spray 2- 00:00: 00 07-25 00:00 :00 No [id number] 1{spray } Use 1 [place] in each nostril in the morning and 1 [place] in the evening. Use in each nostril as directed [facility] azithromyci n 250 mg tablet 1-03 00:00: 00 07-16 00:00 :00 No [id number] Take 500 mg PO day 1, then 250 mg PO days 2 to 5 [facility] benzonatate (TESSALON PERLES) 100 mg capsule 1-03 00:00: 00 07-16 00:00 :00 No [id number] 100mg Take 1 capsule by mouth every 8 (eight) hours as needed for Cough. [facility] azelastine 137 mcg (0.1 %) nasal spray 1-03 00:00: 00 06-25 00:00 :00 No [id number] 1{spray } Use 1 [place] in each nostril in the morning and 1 [place] in the evening. Use in each nostril as directed [facility] LEVOTHYROXI NE 50 mcg tablet 2022-05 2-04 00:00: 00 07-16 00:00 :00 No [id number] TAKE 1 TABLET BY MOUTH EVERY DAY [facility] LEVOTHYROXI NE 50 mcg tablet - 00:00: 00 04-23 00:00 :00 No [id number] TAKE 1 TABLET BY MOUTH EVERY DAY [facility] PAROXETINE 10 mg tablet 8-17 00:00: 00 Yes [id number] 10mg TAKE 1 TABLET BY MOUTH EVERY DAY IN THE MORNING [facility] LEVOTHYROXI NE 50 mcg tablet - 00:00: 00 01-24 00:00 :00 No [id number] TAKE 1 TABLET BY MOUTH EVERY DAY [facility] LEVOTHYROXI NE 50 mcg tablet - 00:00: 00 10-18 00:00 :00 No [id number] TAKE 1 TABLET BY MOUTH EVERY DAY [facility] albuterol (VENTOLIN HFA) 90 mcg/actuati on inhaler - 00:00: 00 Yes [id number] 2{puff} Inhale 2 Puffs every 6 (six) hours as needed for Wheezing or Shortness of Breath. [facility] amoxicillin 500 mg tablet - 00:00: 00 05-23 00:00 :00 No [id number] 500mg Take 1 tablet by mouth in the morning and 1 tablet at noon and 1 tablet in the evening. [facility] fluconazole (DIFLUCAN) 150 mg tablet 05-25 00:00: 00 05-26 05:59 :00 No [id number] 150mg Take 1 tablet by mouth once now for 1 dose. [facility] FUROSEMIDE 40 mg tablet 2021-05 00:00: 00 Yes [id number] TAKE 1 TABLET BY MOUTH EVERY DAY [facility] LEVOTHYROXI NE 50 mcg tablet 2021-05 00:00: 00 07-20 00:00 :00 No [id number] TAKE 1 TABLET BY MOUTH EVERY DAY [facility] LEVOTHYROXI NE 50 mcg tablet 01-19 00:00: 00 04-25 00:00 :00 No [id number] TAKE 1 TABLET BY MOUTH EVERY DAY [facility] molnupiravi r 200 mg capsule 12-20 00:00: 00 05-25 00:00 :00 No [id number] 800mg Take 4 capsules by mouth every 12 (twelve) hours. [facility] carvedilol 3.125 mg tablet 12-19 13:26: 11 10-15 00:00 :00 No 3.125mg Take 3.125 mg by mouth 2 (two) times daily with meals. [facility] PARoxetine 10 mg tablet 12-19 00:00: 00 01-04 00:00 :00 No [id number] 10mg Take 1 tablet by mouth in the morning. [facility] LEVOTHYROXI NE 50 mcg tablet 10-25 00:00: 00 Yes [id number] TAKE 1 TABLET BY MOUTH EVERY DAY [facility] FUROSEMIDE 40 mg tablet 5-31 00:00: 00 04-25 00:00 :00 No [id number] TAKE 1 TABLET BY MOUTH EVERY DAY [facility] telmisartan 40 mg tablet 305 00:00: 00 Yes 40mg Take 40 mg by mouth daily. [facility] spironolact one (SPIRONOLAC TONE) 25 mg tablet 2 11:39: 45 Yes 25mg Take 25 mg by mouth daily. [facility] cetirizine (ZYRTEC) 10 mg tablet 06-30 11:39: 45 Yes 10mg Take 10 mg by mouth as needed. [facility] NEBULIZER ACCESSORIES (NEBULIZER MISC) 2- 11:39: 45 10-15 00:00 :00 No [facility] MAGNESIUM CHLORIDE (SLOW-MAG ORAL) 2-10 11:39: 45 10-15 00:00 :00 No Take by mouth daily. Indication s: stopped taking, reports not effective [facility] XARELTO 15 mg tablet 2-03 00:00: 00 Yes 15mg Take 15 mg by mouth daily. [facility] PROCTOSOL HC 2.5 % rectal cream 2020-05- 00:00: 00 10-15 00:00 :00 No [id number] INSERT INTO RECTUM 2 (TWO) TIMES DAILY. [facility] allopurinoL 300 mg tablet 02-03 00:00: 00 Yes 1{tbl} Take 1 tablet by mouth daily. [facility] albuterol (VENTOLIN HFA) 90 mcg/actuati on inhaler 11-15 00:00: 00 05-25 00:00 :00 No [id number] 2{puff} Inhale 2 Puffs every 6 (six) hours as needed for Wheezing or Shortness of Breath. [facility] PULMICORT FLEXHALER 180 mcg/actuati on aerosol powder 10-30 00:00: 00 Yes [id number] TAKE 1 PUFF BY MOUTH EVERY DAY [facility] Immunizations Ordered Immunization Name Filled Immunization Name Date Status Comments Source SARS-COV-2 COVID-19 PFIZER VACCINE 2020-07-23 00:00:00 Completed [facility] SARS-COV-2 COVID-19 PFIZER VACCINE 2020-07-23 00:00:00 Completed [facility] SARS-COV-2 COVID-19 PFIZER VACCINE 2020-07-23 00:00:00 Completed [facility] SARS-COV-2 COVID-19 PFIZER VACCINE 2020-07-23 00:00:00 Completed [facility] SARS-COV-2 COVID-19 PFIZER VACCINE 2020-07-23 00:00:00 Completed [facility] SARS-COV-2 COVID-19 PFIZER VACCINE 2020-07-23 00:00:00 Completed [facility] SARS-COV-2 COVID-19 PFIZER VACCINE 2020-07-23 00:00:00 Completed [facility] SARS-COV-2 COVID-19 PFIZER VACCINE 2020-07-23 00:00:00 Completed [facility] SARS-COV-2 COVID-19 PFIZER VACCINE 2020-07-23 00:00:00 Completed [facility] SARS-COV-2 COVID-19 PFIZER VACCINE 2020-07-23 00:00:00 Completed [facility] SARS-COV-2 COVID-19 PFIZER VACCINE 2020-07-23 00:00:00 Completed [facility] SARS-COV-2 COVID-19 PFIZER VACCINE 2020-07-23 00:00:00 Completed [facility] SARS-COV-2 COVID-19 PFIZER VACCINE 2020-07-02 00:00:00 Completed [facility] SARS-COV-2 COVID-19 PFIZER VACCINE 2020-07-02 00:00:00 Completed [facility] SARS-COV-2 COVID-19 PFIZER VACCINE 2020-07-02 00:00:00 Completed [facility] SARS-COV-2 COVID-19 PFIZER VACCINE 2020-07-02 00:00:00 Completed [facility] SARS-COV-2 COVID-19 PFIZER VACCINE 2020-07-02 00:00:00 Completed [facility] SARS-COV-2 COVID-19 PFIZER VACCINE 2020-07-02 00:00:00 Completed [facility] SARS-COV-2 COVID-19 PFIZER VACCINE 2020-07-02 00:00:00 Completed [facility] SARS-COV-2 COVID-19 PFIZER VACCINE 2020-07-02 00:00:00 Completed [facility] SARS-COV-2 COVID-19 PFIZER VACCINE 2020-07-02 00:00:00 Completed [facility] SARS-COV-2 COVID-19 PFIZER VACCINE 2020-07-02 00:00:00 Completed [facility] SARS-COV-2 COVID-19 PFIZER VACCINE 2020-07-02 00:00:00 Completed [facility] SARS-COV-2 COVID-19 PFIZER VACCINE 2020-07-02 00:00:00 Completed [facility] Influenza High Dose 2019-02-13 00:00:00 Completed [facility] Influenza High Dose 2019-02-13 00:00:00 Completed [facility] Influenza High Dose 2019-02-13 00:00:00 Completed [facility] Influenza High Dose 2019-02-13 00:00:00 Completed [facility] Influenza High Dose 2019-02-13 00:00:00 Completed [facility] Influenza High Dose 2019-02-13 00:00:00 Completed [facility] Influenza High Dose 2019-02-13 00:00:00 Completed [facility] Influenza High Dose 2019-02-13 00:00:00 Completed [facility] Influenza High Dose 2019-02-13 00:00:00 Completed [facility] Influenza High Dose 2019-02-13 00:00:00 Completed [facility] Influenza High Dose 2019-02-13 00:00:00 Completed [facility] Influenza High Dose 2019-02-13 00:00:00 Completed [facility] Influenza High Dose 2018-03-14 00:00:00 Completed [facility] Influenza High Dose 2018-03-14 00:00:00 Completed [facility] Influenza High Dose 2018-03-14 00:00:00 Completed [facility] Influenza High Dose 2018-03-14 00:00:00 Completed [facility] Influenza High Dose 2018-03-14 00:00:00 Completed [facility] Influenza High Dose 2018-03-14 00:00:00 Completed [facility] Influenza High Dose 2018-03-14 00:00:00 Completed [facility] Influenza High Dose 2018-03-14 00:00:00 Completed [facility] Influenza High Dose 2018-03-14 00:00:00 Completed [facility] Influenza High Dose 2018-03-14 00:00:00 Completed [facility] Influenza High Dose 2018-03-14 00:00:00 Completed [facility] Influenza High Dose 2018-03-14 00:00:00 Completed [facility] Influenza High Dose 2017-02-21 00:00:00 Completed [facility] Influenza High Dose 2017-02-21 00:00:00 Completed [facility] Influenza High Dose 2017-02-21 00:00:00 Completed [facility] Influenza High Dose 2017-02-21 00:00:00 Completed [facility] Influenza High Dose 2017-02-21 00:00:00 Completed [facility] Influenza High Dose 2017-02-21 00:00:00 Completed [facility] Influenza High Dose 2017-02-21 00:00:00 Completed [facility] Influenza High Dose 2017-02-21 00:00:00 Completed [facility] Influenza High Dose 2017-02-21 00:00:00 Completed [facility] Influenza High Dose 2017-02-21 00:00:00 Completed [facility] Influenza High Dose 2017-02-21 00:00:00 Completed [facility] Influenza High Dose 2017-02-21 00:00:00 Completed [facility] Influenza High Dose 2016-02-11 00:00:00 Completed [facility] Influenza High Dose 2016-02-11 00:00:00 Completed [facility] Influenza High Dose 2016-02-11 00:00:00 Completed [facility] Influenza High Dose 2016-02-11 00:00:00 Completed [facility] Influenza High Dose 2016-02-11 00:00:00 Completed [facility] Influenza High Dose 2016-02-11 00:00:00 Completed [facility] Influenza High Dose 2016-02-11 00:00:00 Completed [facility] Influenza High Dose 2016-02-11 00:00:00 Completed [facility] Influenza High Dose 2016-02-11 00:00:00 Completed [facility] Influenza High Dose 2016-02-11 00:00:00 Completed [facility] Influenza High Dose 2016-02-11 00:00:00 Completed [facility] Influenza High Dose 2016-02-11 00:00:00 Completed [facility] Influenza High Dose 2015-04-27 00:00:00 Completed [facility] Influenza High Dose 2015-04-27 00:00:00 Completed [facility] Influenza High Dose 2015-04-27 00:00:00 Completed [facility] Influenza High Dose 2015-04-27 00:00:00 Completed [facility] Influenza High Dose 2015-04-27 00:00:00 Completed [facility] Influenza High Dose 2015-04-27 00:00:00 Completed [facility] Influenza High Dose 2015-04-27 00:00:00 Completed [facility] Influenza High Dose 2015-04-27 00:00:00 Completed [facility] Influenza High Dose 2015-04-27 00:00:00 Completed [facility] Influenza High Dose 2015-04-27 00:00:00 Completed [facility] Influenza High Dose 2015-04-27 00:00:00 Completed [facility] Influenza High Dose 2015-04-27 00:00:00 Completed [facility] Influenza High Dose Unknown Completed [facility] Influenza High Dose Unknown Completed [facility] Influenza High Dose Unknown Completed [facility] Influenza High Dose Unknown Completed [facility] Influenza High Dose Unknown Completed [facility] SARS-COV-2 COVID-19 PFIZER VACCINE Unknown Completed [facility] SARS-COV-2 COVID-19 PFIZER VACCINE Unknown Completed [facility] Influenza High Dose Unknown Completed [facility] Influenza High Dose Unknown Completed [facility] Influenza High Dose Unknown Completed [facility] Influenza High Dose Unknown Completed [facility] Influenza High Dose Unknown Completed [facility] SARS-COV-2 COVID-19 PFIZER VACCINE Unknown Completed [facility] SARS-COV-2 COVID-19 PFIZER VACCINE Unknown Completed [facility] Influenza High Dose Unknown Completed [facility] Influenza High Dose Unknown Completed [facility] Influenza High Dose Unknown Completed [facility] Influenza High Dose Unknown Completed [facility] Influenza High Dose Unknown Completed [facility] SARS-COV-2 COVID-19 PFIZER VACCINE Unknown Completed [facility] SARS-COV-2 COVID-19 PFIZER VACCINE Unknown Completed [facility] Influenza High Dose Unknown Completed [facility] Influenza High Dose Unknown Completed [facility] Influenza High Dose Unknown Completed [facility] Influenza High Dose Unknown Completed [facility] Influenza High Dose Unknown Completed [facility] SARS-COV-2 COVID-19 PFIZER VACCINE Unknown Completed [facility] SARS-COV-2 COVID-19 PFIZER VACCINE Unknown Completed [facility] Influenza High Dose Unknown Completed [facility] Influenza High Dose Unknown Completed [facility] Influenza High Dose Unknown Completed [facility] Influenza High Dose Unknown Completed [facility] Influenza High Dose Unknown Completed [facility] SARS-COV-2 COVID-19 PFIZER VACCINE Unknown Completed [facility] SARS-COV-2 COVID-19 PFIZER VACCINE Unknown Completed [facility] Influenza High Dose Unknown Completed [facility] Influenza High Dose Unknown Completed [facility] Influenza High Dose Unknown Completed [facility] Influenza High Dose Unknown Completed [facility] Influenza High Dose Unknown Completed [facility] SARS-COV-2 COVID-19 PFIZER VACCINE Unknown Completed [facility] SARS-COV-2 COVID-19 PFIZER VACCINE Unknown Completed [facility] Influenza High Dose Unknown Completed [facility] Influenza High Dose Unknown Completed [facility] Influenza High Dose Unknown Completed [facility] Influenza High Dose Unknown Completed [facility] Influenza High Dose Unknown Completed [facility] SARS-COV-2 COVID-19 PFIZER VACCINE Unknown Completed [facility] SARS-COV-2 COVID-19 PFIZER VACCINE Unknown Completed [facility] Influenza High Dose Unknown Completed [facility] Influenza High Dose Unknown Completed [facility] Influenza High Dose Unknown Completed [facility] Influenza High Dose Unknown Completed [facility] Influenza High Dose Unknown Completed [facility] SARS-COV-2 COVID-19 PFIZER VACCINE Unknown Completed [facility] SARS-COV-2 COVID-19 PFIZER VACCINE Unknown Completed [facility] Influenza High Dose Unknown Completed [facility] Influenza High Dose Unknown Completed [facility] Influenza High Dose Unknown Completed [facility] Influenza High Dose Unknown Completed [facility] Influenza High Dose Unknown Completed [facility] SARS-COV-2 COVID-19 PFIZER VACCINE Unknown Completed [facility] SARS-COV-2 COVID-19 PFIZER VACCINE Unknown Completed [facility] Influenza High Dose Unknown Completed [facility] Influenza High Dose Unknown Completed [facility] Influenza High Dose Unknown Completed [facility] Influenza High Dose Unknown Completed [facility] Influenza High Dose Unknown Completed [facility] SARS-COV-2 COVID-19 PFIZER VACCINE Unknown Completed [facility] SARS-COV-2 COVID-19 PFIZER VACCINE Unknown Completed [facility] Influenza High Dose Unknown Completed [facility] Influenza High Dose Unknown Completed [facility] Influenza High Dose Unknown Completed [facility] Influenza High Dose Unknown Completed [facility] Influenza High Dose Unknown Completed [facility] SARS-COV-2 COVID-19 PFIZER VACCINE Unknown Completed [facility] SARS-COV-2 COVID-19 PFIZER VACCINE Unknown Completed [facility] Influenza High Dose Unknown Completed [facility] Influenza High Dose Unknown Completed [facility] Influenza High Dose Unknown Completed [facility] Influenza High Dose Unknown Completed [facility] Influenza High Dose Unknown Completed [facility] SARS-COV-2 COVID-19 PFIZER VACCINE Unknown Completed [facility] SARS-COV-2 COVID-19 PFIZER VACCINE Unknown Completed [facility] Influenza High Dose Unknown Completed [facility] Influenza High Dose Unknown Completed [facility] Influenza High Dose Unknown Completed [facility] Influenza High Dose Unknown Completed [facility] Influenza High Dose Unknown Completed [facility] SARS-COV-2 COVID-19 PFIZER VACCINE Unknown Completed [facility] SARS-COV-2 COVID-19 PFIZER VACCINE Unknown Completed [facility] Vital Signs Vital Name Observation Time Observation Value Comments S ource Systolic blood pressure 2023-10-16 21:24:00 153 mm[Hg] [facility] Diastolic blood pressure 2023-10-16 21:24:00 81 mm[Hg] [facility] Heart rate 2023-10-16 21:15:00 95 /min [facility] Body temperature 2023-10-16 21:15:00 36.11 Hilaria [facility] Body weight 2023-10-16 21:15:00 48.988 kg [facility] BMI 2023-10-16 21:15:00 21.09 kg/m2 [facility] Oxygen saturation in Arterial blood by Pulse oximetry 2023-10-16 21:15:00 95 /min [facility] Systolic blood pressure 2023-07-16 20:29:00 124 mm[Hg] [facility] Diastolic blood pressure 2023-07-16 20:29:00 75 mm[Hg] [facility] Heart rate 2023-07-16 20:29:00 81 /min [facility] Body temperature 2023-07-16 20:29:00 36.39 Hilaria [facility] Body weight 2023-07-16 20:29:00 49.442 kg [facility] BMI 2023-07-16 20:29:00 21.29 kg/m2 [facility] Oxygen saturation in Arterial blood by Pulse oximetry 2023-07-16 20:29:00 98 /min [facility] Systolic blood pressure 2023-05-23 19:07:00 138 mm[Hg] [facility] Diastolic blood pressure 2023-05-23 19:07:00 81 mm[Hg] [facility] Heart rate 2023-05-23 19:07:00 94 /min [facility] Body temperature 2023-05-23 19:07:00 36.44 Hilaria [facility] Respiratory rate 2023-05-23 19:07:00 18 /min [facility] Body height 2023-05-23 19:07:00 152.4 cm [facility] Body weight 2023-05-23 19:07:00 50.349 kg [facility] BMI 2023-05-23 19:07:00 21.68 kg/m2 [facility] Oxygen saturation in Arterial blood by Pulse oximetry 2023-05-23 19:07:00 98 /min [facility] Systolic blood pressure 2022-05-25 16:49:00 108 mm[Hg] [facility] Diastolic blood pressure 2022-05-25 16:49:00 68 mm[Hg] [facility] Heart rate 2022-05-25 16:49:00 102 /min [facility] Body temperature 2022-05-25 16:49:00 36.39 Hilaria [facility] Body height 2022-05-25 16:49:00 152.4 cm [facility] Body weight 2022-05-25 16:49:00 51.256 kg [facility] BMI 2022-05-25 16:49:00 22.07 kg/m2 [facility] Oxygen saturation in Arterial blood by Pulse oximetry 2022-05-25 16:49:00 97 /min [facility] Procedures Procedure Date / Time Performed Performing Clinicia n Source REFERRAL- REQUEST/RESPONSE 2023-07-24 06:01:00 Doctor Unassigned, [place] [facility] REFERRAL- REQUEST/RESPONSE 2023-03-20 05:01:00 Doctor Unassigned, [place] [facility] REFERRAL- REQUEST/RESPONSE 2022-08-15 05:01:00 Doctor Unassigned, [place] [facility] REFERRAL- REQUEST/RESPONSE 2022-02-07 05:01:00 Doctor Unassigned, [place] [facility] Encounters Start Date/Time End Date/Time Encounter Type Admission Type Attending [facility] Care Facility Care Department Encounter ID Source 2024-04-10 10:15:00 2024-04-10 10:15:00 Outpatient MATHEUS THAYER [facility] [id number] [facility] 2023-12-10 14:00:00 2023-12-10 14:00:00 Outpatient MATHEUS THAYER [facility] [id number] [facility] 2023-10-16 16:30:00 2023-10-16 16:45:00 Office Visit Matheus Mcnamara [facility] MEDICAL OFFICE BUILDING 1.2.840.114 350.1.13.10 4.2.7.2.686 [id number] [facility] 2023-10-16 16:30:00 2023-10-16 16:41:03 Outpatient MATHEUS THAYER [facility] [id number] [facility] 2023-07-24 00:00:00 2023-07-24 00:00:00 Orders Only Doctor Unassigned, [place] [facility] 1.2.840.114 350.1.13.10 4.2.7.2.686 [id number] [facility] 2023-07-19 00:00:00 2023-07-19 00:00:00 Refill Katarzyna Marquez [facility] MEDICAL OFFICE BUILDING 1.2.840.114 350.1.13.10 4.2.7.2.686 [id number] [facility] 2023-07-16 14:30:00 2023-07-16 15:00:00 Office Visit BryannajyotsanjoaoMatheus [facility] 1.84114 350.1.13.10 4.2.7.2.686 [id number] [facility] 2023-07-16 14:30:00 2023-07-16 14:30:00 Outpatient R AFSHANJAOOMATHEUS [facility] [id number] [facility] 2023-06-24 00:00:00 2023-06-24 00:00:00 Refill Jovita Katarzyna Cid [facility] MEDICAL OFFICE BUILDING 1.84114 350.1.13.10 4.2.7.2.686 [id number] [facility] 2023-05-23 13:21:41 2023-05-23 23:59:00 Outpatient R KATARZYNA MARQUEZ [facility] [id number] [facility] 2023-05-23 13:21:41 2023-05-23 23:59:00 Hospital Encounter Jovita Katarzyna Cid [facility] MEDICAL OFFICE BUILDING 1.114 350.1.13.10 4.2.7.2.686 [id number] [facility] 2023-05-23 13:00:00 2023-05-23 13:21:21 Office Visit Jovita Katarzyna Cid [facility] MEDICAL OFFICE BUILDING 1.84114 350.1.13.10 4.2.7.2.686 [id number] [facility] 2023-04-23 00:00:00 2023-04-23 00:00:00 Refill Pascual [place] [facility] MEDICAL OFFICE BUILDING 1.114 350.1.13.10 4.2.7.2.686 [id number] [facility] 2023-03-22 10:00:00 2023-03-22 10:00:00 Outpatient MATHEUS THAYER [facility] [id number] [facility] 2023-03-21 00:00:00 2023-03-21 00:00:00 Telephone [facility] MEDICAL OFFICE BUILDING 1.84114 350.1.13.10 4.2.7.2.686 [id number] [facility] 2023-03-20 00:00:00 2023-03-20 00:00:00 Orders Only Doctor Unassigned, [place] [facility] 1..114 350.1.13.10 4.2.7.2.686 [id number] [facility] 2023-03-10 11:04:00 2023-03-11 10:52:00 Inpatient Yuliya Tate [facility] MEDI.01 [id number] [facility] [place] 2023-01-24 00:00:00 2023-01-24 00:00:00 Concha Mcnamara Matheus [facility] M[facility]O?[facility] MEDICAL OFFICE BUILDING 1.84.114 350.1.13.10 4.2.7.2.686 [id number] [facility] 2023-01-04 00:00:00 2023-01-04 00:00:00 Reffrance Mcnamara Matheus [facility] MEDICAL OFFICE BUILDING 1.84.114 350.1.13.10 4.2.7.2.686 [id number] [facility] 2022-10-18 00:00:00 2022-10-18 00:00:00 Concha Mcnamara Matheus [facility] MEDICAL OFFICE BUILDING 1.840.114 350.1.13.10 4.2.7.2.686 [id number] [facility] 2022-08-15 00:00:00 2022-08-15 00:00:00 Orders Only Doctor Unassigned, [place] [facility] 1.2840.114 350.1.13.10 4.2.7.2.686 [id number] [facility] 2022-07-20 00:00:00 2022-07-20 00:00:00 Refill [facility] MEDICAL OFFICE BUILDING 1..114 350.1.13.10 4.2.7.2.686 [id number] [facility] 2022-05-25 10:45:00 2022-05-25 11:00:00 Office [facility] MEDICAL OFFICE BUILDING 1.114 350.1.13.10 4.2.7.2.686 [id number] [facility] 2022-05-25 10:45:00 2022-05-25 10:45:00 Outpatient R MATHEUS MCNAMARA [facility] [id number] [facility] 2022-04-25 00:00:00 2022-04-25 00:00:00 Refill Naima [facility] MEDICAL OFFICE BUILDING 1.114 350.1.13.10 4.2.7.2.686 [id number] [facility] 2022-02-15 00:00:00 2022-02-15 00:00:00 Refill Bryannabeulah [facility] MEDICAL OFFICE BUILDING 1..114 350.1.13.10 4.2.7.2.686 [id number] [facility] 2022-02-07 00:00:00 2022-02-07 00:00:00 Orders Only Doctor Unassigned, [place] [facility] 1.84.114 350.1.13.10 4.2.7.2.686 [id number] [facility] 2022-01-19 00:00:00 2022-01-19 00:00:00 Refill BryannaMatheus jean [facility] 1.84.114 350.1.13.10 4.2.7.2.686 [id number] [facility] 2021-12-20 00:00:00 2021-12-20 00:00:[address] [facility] NAL BUILDING 1.84.114 350.1.13.10 4.2.7.2.686 [id number] [facility] 2021-12-20 00:00:00 2021-12-20 00:00:00 [facility] MEDICAL OFFICE BUILDING 1.84.114 350.1.13.10 4.2.7.2.686 [id number] [facility] 2021-12-19 13:15:00 2021-12-19 13:45:27 Outpatient R MATHEUS MCNAMARA [facility] [id number] [facility] 2021-12-19 13:15:00 2021-12-19 13:45:27 Outpatient R MATHEUS MCNAMARA [facility] [id number] [facility] 2021-12-19 13:15:00 2021-12-19 13:30:00 Office [facility] MEDICAL OFFICE BUILDING 1.84.114 350.1.13.10 4.2.7.2.686 [id number] [facility] 2021-12-19 13:15:00 2021-12-19 13:15:00 Outpatient Liz NAIMAMATHEUS [facility] [id number] [facility] 2021-12-19 13:15:00 2021-12-19 13:15:00 Outpatient Liz ALTAMIRANOBEULAH MATHEUS [facility] [id number] [facility] 2021-10-25 14:15:00 2021-10-25 14:15:00 Outpatient Liz ALTAMIRANOBEULAHMATHEUS [facility] [id number] [facility] 2021-10-25 00:00:00 2021-10-25 00:00:00 Matheus Moreno [facility]?YULIANAJose Roberto [facility] MEDICAL OFFICE BUILDING 1..840.114 350.1.13.10 4.2.7.2.686 [id number] [facility] 2021-10-17 00:00:00 2021-10-17 00:00:00 Concha Bryannabeulah [facility] MEDICAL OFFICE BUILDING 1..840.114 350.1.13.10 4.2.7.2.686 [id number] [facility] 2021-08-25 00:00:00 2021-08-25 00:00:00 Patient Secure Msg Doctor Unassigned, [place] [facility] 1.840.114 350.1.13.10 4.2.7.2.686 [id number] [facility] 2021-08-19 17:20:00 2021-08-19 17:42:43 Outpatient JUSTINE MURILLO [facility] [id number] [facility] 2021-08-19 17:20:00 2021-08-19 17:42:43 [facility] 1.840.114 350.1.13.10 4.2.7.2.686 [id number] [facility] 2021-08-18 17:20:00 2021-08-18 17:20:00 Outpatient R [facility] [id number] [facility] 2021-08-03 00:00:00 2021-08-03 00:00:00 Orders Only Doctor Unassigned, [place] [facility] 1..114 350.1.13.10 4.2.7.2.686 [id number] [facility] 2021-07-27 00:00:00 2021-07-27 00:00:00 Matheus Moreno [facility] OFFICE BUILDING ONE 1.114 350.1.13.10 4.2.7.2.686 [id number] [facility] 2021-06-30 09:29:00 2021-06-30 11:39:00 Outpatient R CHUCKY PERKINS [facility] O[facility] [id number] [facility] 2021-06-30 09:29:00 2021-06-30 11:39:00 Hospital Encounter Chucky Perkins [facility] 1..114 350.1.13.10 4.2.7.2.686 [id number] [facility] 2021-06-30 09:50:00 2021-06-30 10:25:00 Surgery Chucky Perkins [facility] 1..114 350.1.13.10 4.2.7.2.686 [id number] [facility] 2021-06-28 14:45:00 2021-06-28 15:00:00 Laboratory Only Only, Adc Test Chucky Perkins [facility] 1..114 350.1.13.10 4.2.7.2.686 [id number] [facility] 2021-06-28 14:45:00 2021-06-28 14:45:00 Outpatient R CHUCKY PERKINS [facility] [id number] [facility] 2021-06-16 07:45:00 2021-06-16 10:25:00 Outpatient R CHUCKY PERKINS [facility] OPH [id number] [facility] 2021-06-16 07:45:00 2021-06-16 10:25:[address] Hospital Encounter Chucky Perkins [facility] 1.2.840.114 350.1.13.10 4.2.7.2.686 [id number] [facility] 2021-06-16 09:10:00 2021-06-16 09:40:00 Anesthesia Event Daron Kelly [facility] 1.2.840.114 350.1.13.10 4.2.7.2.686 [id number] [facility] 2021-06-16 08:40:00 2021-06-16 09:15:00 Surgery Chucky Perkins [facility] 1.2.840.114 350.1.13.10 4.2.7.2.686 [id number] [facility] 2021-06-16 00:00:00 2021-06-16 00:00:00 Orders Only Doctor Unassigned, [place] [facility] 1.2.840.114 350.1.13.10 4.2.7.2.686 [id number] [facility] 2021-06-14 10:30:00 2021-06-14 10:45:00 Laboratory Only Only, Adc Test Chucky Perkins [facility] 1.2.840.114 350.1.13.10 4.2.7.2.686 [id number] [facility] 2021-06-14 10:30:00 2021-06-14 10:30:00 Outpatient R CHUCKY PERKINS [facility] [id number] [facility] 2021-06-14 10:15:00 2021-06-14 10:30:00 Foreign Agent Visit Pob, Adc Lab Main Chucky Perkins Cesario [facility] BUILDING 1.114 350.1.13.10 4.2.7.2.686 [id number] [facility] 2021-05-24 00:00:00 2021-05-24 00:00:00 Orders Only Doctor Unassigned, [place] [facility] 1.114 350.1.13.10 4.2.7.2.686 [id number] [facility] 2021-04-28 00:00:00 2021-04-28 00:00:00 Refill Naima [facility] OFFICE BUILDING ONE .114 350.1.13.10 4.2.7.2.686 [id number] [facility] 2021-04-18 00:00:00 2021-04-18 00:00:00 Orders Only Doctor Unassigned, [place] [facility] 1..114 350.1.13.10 4.2.7.2.686 [id number] [facility] 2021-03-22 00:00:00 2021-03-22 00:00:00 Concha Mcnamara [facility] OFFICE BUILDING ONE .114 350.1.13.10 4.2.7.2.686 [id number] [facility] 2021-03-01 00:00:00 2021-03-01 00:00:00 Reffrance Mcnamara [facility] Office Building One .2.840.114 350.1.13.10 4.2.7.2.686 [id number] [facility] 2021-02-10 00:00:00 2021-02-10 00:00:00 Orders Only Doctor Unassigned, [place] [facility] 1.2.840.114 350.1.13.10 4.2.7.2.686 [id number] [id number] [facility] 2021-01-11 00:00:00 2021-01-11 00:00:00 [facility] 1.2840.114 350.1.13.10 4.2.7.2.686 [id number] [facility] 2020-12-28 00:00:00 2020-12-28 00:00:00 Concha Mcnamara [facility] Building 1.2840.114 350.1.13.10 4.2.7.2.686 [id number] [facility] 2020-12-21 00:00:00 2020-12-21 00:00:00 Orders Only Doctor Unassigned, [place] [facility] 1.2.840.114 350.1.13.10 4.2.7.2.686 [id number] [facility] 2020-11-26 08:56:37 2020-11-26 09:11:37 Foreign Agent Visit Pob, Adc Lab Main Chucky Mariee [facility] Building 1.2840.114 350.1.13.10 4.2.7.2.686 [id number] [facility] 2020-11-26 08:45:00 2020-11-26 08:45:00 Outpatient R [facility] [id number] [facility] 2020-11-26 00:00:00 2020-11-26 00:00:00 Orders Only Doctor Unassigned, [place] [facility] 1.0.114 350.1.13.10 4.2.7.2.686 [id number] [facility] 2020-11-15 10:39:15 2020-11-15 11:35:08 Office Visit Naima [facility] Office Building One 1.0.114 350.1.13.10 4.2.7.2.686 [id number] [facility] 2020-11-15 10:45:00 2020-11-15 10:45:00 Outpatient R MATHEUS MCNAMARA [facility] [id number] [facility] 2020-09-28 00:00:00 2020-09-28 00:00:00 Telephone Afshanjoao [facility] Office Building One 1..114 350.1.13.10 4.2.7.2.686 [id number] [facility] 2020-09-27 00:00:00 2020-09-27 00:00:00 Orders Only Doctor Unassigned, [place] [facility] 1.0.114 350.1.13.10 4.2.7.2.686 [id number] [facility] 2020-09-23 00:00:00 2020-09-23 00:00:00 Refill Bryannajyotsnajoao [facility] Office Building One ..114 350.1.13.10 4.2.7.2.686 [id number] [facility] 2020-07-30 10:12:53 2020-07-30 10:27:53 Foreign Agent Visit Pob, Adc Lab Main Penelope Diehl [facility] Building 1..114 350.1.13.10 4.2.7.2.686 [id number] [facility] 2020-07-30 10:00:00 2020-07-30 10:00:00 Outpatient PENELOPE GUDINO [facility] [id number] [facility] 2020-07-30 00:00:00 2020-07-30 00:00:00 Orders Only Doctor Unassigned, [place] [facility] 1.0.114 350.1.13.10 4.2.7.2.686 [id number] [facility] 2020-07-23 14:40:00 2020-07-23 14:40:00 Outpatient MARIE VALENTINE [facility] [id number] [facility] 2020-07-14 00:00:00 2020-07-14 00:00:[address] [facility] Building One .840.114 350.1.13.10 4.2.7.2.686 [id number] [facility] 2020-07-02 13:00:00 2020-07-02 13:00:00 Outpatient MARIE VALENTINE [facility] [id number] [facility] 2020-07-02 13:00:00 2020-07-02 13:00:00 Outpatient MARIE VALENTINE [facility] [id number] [facility] 2020-06-12 00:00:00 2020-06-12 00:00:00 Patient Outreach Efra Aguilar [facility] 1.840.114 350.1.13.10 4.2.7.2.686 [id number] [facility] 2020-04-05 08:03:45 2020-04-05 08:18:45 Foreign Agent Visit Pob, Adc Lab Main [facility] 1.114 350.1.13.10 4.2.7.2.686 [id number] [facility] 2020-04-05 08:00:00 2020-04-05 08:00:00 Outpatient PENELOPE GUDINO [facility] [id number] [facility] 2020-04-05 00:00:00 2020-04-05 00:00:00 Orders Only Doctor Unassigned, [place] [facility] 1.114 350.1.13.10 4.2.7.2.686 [id number] [facility] 2020-03-29 00:00:00 2020-03-29 00:00:00 Conhca Mcnamara [facility] Office Building One .114 350.1.13.10 4.2.7.2.686 [id number] [facility] 2020-01-02 10:00:00 2020-01-02 10:00:00 Outpatient PENELOPE GUDINO [facility] [id number] [facility] 2020-01-02 09:24:15 2020-01-02 09:39:15 Foreign Agent Visit Pob, Adc Lab Main Bautista Penelope [facility] Building 1. 350.1.13.10 4.2.7.2.686 [id number] [facility] 2020-01-02 00:00:00 2020-01-02 00:00:00 Orders Only Doctor Unassigned, [place] [facility] . 350.1.13.10 4.2.7.2.686 [id number] [id number] [facility] 2020-01-02 00:00:00 2020-01-02 00:00:00 Concha Mcnamara [facility] Office Building One .2.840.114 350.1.13.10 4.2.7.2.686 [id number] [facility] 2019-12-27 00:00:00 2019-12-27 00:00:00 Refill Matheus Mcnamara [facility] Office Building One [id number] 350.1.13.10 4.2.7.2.686 [id number] [facility] 2019-12-24 11:49:05 2019-12-24 12:04:05 Foreign Agent Visit 2, [facility] Matheus Mcnamara [facility] Building 1.2840.114 350.1.13.10 4.2.7.2.686 [id number] [facility] 2019-12-24 11:17:19 2019-12-24 11:32:19 Office Visit Matheus Mcnamara [facility] Building 1.2840.114 350.1.13.10 4.2.7.2.686 [id number] [facility] 2019-12-24 11:30:00 2019-12-24 11:30:00 Outpatient R MATHEUS MCNAMARA [facility] [id number] [facility] 2019-12-11 00:00:00 2019-12-11 00:00:00 Telephone Matheus Mcnamara [facility] Building 1.2840.114 350.1.13.10 4.2.7.2.686 [id number] 044 [id number] [facility] 2019-12-11 00:00:00 2019-12-11 00:00:00 Orders Only Doctor Unassigned, [place] [facility] 1.2840.114 350.1.13.10 4.2.7.2.686 [id number] [id number] [facility] 2019-12-03 00:00:00 2019-12-03 00:00:00 Refill Matheus Mcnamara [facility] Office Building One 1.2.840.114 350.1.13.10 4.2.7.2.686 [id number] 044 [id number] [facility] 2019-11-28 00:00:00 2019-11-28 00:00:00 Pre Visit Outreach Matheus Mcnamara [facility] Building 1.2.840.114 350.1.13.10 4.2.7.2.686 [id number] 044 [id number] [facility] 2019-10-31 00:00:00 2019-10-31 00:00:00 Refill Matheus Mcnamara [facility] Building 1.2.840.114 350.1.13.10 4.2.7.2.686 [id number] 044 [id number] [facility] 2019-10-31 00:00:00 2019-10-31 00:00:00 Refill Matheus Mcnamara [facility] Office Building One 1.2840.114 350.1.13.10 4.2.7.2.686 [id number] 044 [id number] [facility] 2019-10-28 00:00:00 2019-10-28 00:00:00 Refill Matheus Mcnamara [facility] 1.2.840.114 350.1.13.10 4.2.7.2.686 [id number] 044 [id number] [facility] 2019-10-27 00:00:00 2019-10-27 00:00:00 Refill Matheus Mcnamara [facility] Office Building One 1.2840.114 350.1.13.10 4.2.7.2.686 [id number] 044 [id number] [facility] 2019-10-14 00:00:00 2019-10-14 00:00:00 Telephone Matheus Mcnamara [facility] 1.2840.114 350.1.13.10 4.2.7.2.686 [id number] 044 [id number] [facility] 2019-09-29 00:00:00 2019-09-29 00:00:00 Refill Naima [facility] Office Building One 1.840.114 350.1.13.10 4.2.7.2.686 [id number] 044 [id number] [facility] 2019-09-04 00:00:00 2019-09-04 00:00:00 Telephone Naima [facility] Office Building One 1.840.114 350.1.13.10 4.2.7.2.686 [id number] 044 [id number] [facility] 2019-09-03 00:00:00 2019-09-03 00:00:00 Telephone Naima [facility] Building 1.840.114 350.1.13.10 4.2.7.2.686 [id number] 044 [id number] [facility] 2019-09-03 00:00:00 2019-09-03 00:00:00 Telephone Naima [facility] Office Building One 1.840.114 350.1.13.10 4.2.7.2.686 [id number] 044 [id number] [facility] 2019-08-29 00:00:00 2019-08-29 00:00:00 Refill Naima [facility] Office Building One 1.2840.114 350.1.13.10 4.2.7.2.686 [id number] 044 [id number] [facility] 2019-08-25 00:00:00 2019-08-25 00:00:00 Orders Only Doctor Unassigned, [place] [facility] 1.114 350.1.13.10 4.2.7.2.686 [id number] 009 [id number] [facility] 2019-08-05 10:30:49 2019-08-18 07:52:14 Telemedici ne Visit Naima [facility] Office Building One 1.114 350.1.13.10 4.2.7.2.686 [id number] 044 [id number] [facility] 2019-08-06 00:00:00 2019-08-06 00:00:00 Refill aNima [facility] Office Building One 1.114 350.1.13.10 4.2.7.2.686 [id number] 044 [id number] [facility] 2019-08-05 10:15:00 2019-08-05 10:15:00 Outpatient MATHEUS THAYER [facility] [id number] [facility] 2019-08-01 07:36:52 2019-08-01 07:51:52 Foreign Agent Visit Yang, Adc Lab Main Penelope Diehl [facility] Building 1.114 350.1.13.10 4.2.7.2.686 [id number] [facility] 2019-08-01 07:45:00 2019-08-01 07:45:00 Outpatient PENELOPE GUDINO [facility] [id number] [facility] 2019-08-01 00:00:00 2019-08-01 00:00:00 Orders Only Doctor Unassigned, [place] [facility] 1.114 350.1.13.10 4.2.7.2.686 [id number] 009 [id number] [facility] 2019-07-22 08:59:19 2019-07-22 09:42:43 Office Visit Afshanjoao [facility] Office Building One 1.0.114 350.1.13.10 4.2.7.2.686 [id number] 044 [id number] [facility] 2019-07-22 09:00:00 2019-07-22 09:00:00 Outpatient R MATHEUS MCNAMARA [facility] [id number] [facility] 2019-07-07 00:00:00 2019-07-07 00:00:00 Telephone Matheus Mcnamara [facility] Office Building One 1.0.114 350.1.13.10 4.2.7.2.686 [id number] 044 [id number] [facility] 2019-07-03 09:26:15 2019-07-03 10:37:04 Office Visit Matheus Mcnamara [facility] Office Building One 1.840.114 350.1.13.10 4.2.7.2.686 [id number] 044 [id number] [facility] 2019-07-03 00:00:00 2019-07-03 00:00:00 Orders Only Doctor Unassigned, [place] [facility] 1.840.114 350.1.13.10 4.2.7.2.686 [id number] 009 [id number] [facility] 2019-06-26 14:19:49 2019-06-26 15:35:33 Office Visit Celeste Perez [facility] Building 1..114 350.1.13.10 4.2.7.2.686 [id number] [facility] 2019-06-21 00:00:00 2019-06-21 00:00:00 Refill Matheus Mcnamara [facility] Office Building One 1..114 350.1.13.10 4.2.7.2.686 [id number] 044 [id number] [facility] 2019-06-17 00:00:00 2019-06-17 00:00:00 Transition of Care Kika Sparks 1.2.840.114 350.1.13.10 4.2.7.2.686 [id number] [facility] 2019-06-13 18:48:06 2019-06-16 18:54:00 Hospital Encounter Cr Dumont Adnan [facility] 1.2.840.114 350.1.13.10 4.2.7.2.686 [id number] [facility] 2019-06-14 00:00:00 2019-06-14 00:00:00 Matheus Moreno [facility] Office Building One 1.840.114 350.1.13.10 4.2.7.2.686 [id number] 044 [id number] [facility] 2019-06-10 00:00:00 2019-06-10 00:00:00 Orders Only Doctor Unassigned, [place] [facility] 1.2840.114 350.1.13.10 4.2.7.2.686 [id number] 009 [id number] [facility] 2019-01-29 00:00:00 2019-01-29 00:00:00 Concha Mcnamara [facility] Office Building One 1.0.114 350.1.13.10 4.2.7.2.686 [id number] 044 [id number] [facility] 2019-01-08 00:00:00 2019-01-08 00:00:00 Matheus Moreno [facility] Office Building One 1.840.114 350.1.13.10 4.2.7.2.686 [id number] 044 [id number] [facility] 2019-01-05 00:00:00 2019-01-05 00:00:00 Matheus Moreno [facility] Office Building One .2.840.114 350.1.13.10 4.2.7.2.686 [id number] 044 [id number] [facility] 2018-12-12 00:00:00 2018-12-12 00:00:00 Matheus Moreno [facility] One ..840.114 350.1.13.10 4.2.7.2.686 [id number] 044 [id number] [facility] Results Test Description Test Time Test Comments Results Result Co mments Source - XR CHEST 1 V 2023-03-11 07:11:00 [facility] 1935 Sex: F Name: JAMA VERDUZCO [facility] : 1935 Age/S: 88 / F [address] Unit #: [id number] Loc: [place] [address] Phys: Nury Mendoza MD Cardiology Acct: [id number] Dis Date: Status: ADM IN PHONE #: [phone] Exam Date: 03/11/2023 0438 FAX #: Reason: Post implanted device EXAMS: CPT: [id number] XR CHEST 1 V 32935 Fluoro Time: DAP (Gy m2): Air Kerma [...] PAGE 1 Signed Report Name: JAMA VERDUZCO [facility] : 1935 Age/S: 88 / F [address] Unit #: [id number] Loc: [place] [address] Phys: Nury Mendoza MD Cardiology Acct: [id number] Dis Date: Status: ADM IN PHONE #: [phone] Exam Date: 03/11/2023 0438 FAX #: Reason: Post implanted device EXAMS: CPT: [id number] XR CHEST 1 V 69618 Fluoro Time: DAP (Gy m2): Air Kerma (mGy): (Continued) Technologist: Myra Gunn Trnscb Date/Time: 03/11/2023 (0711) tEARLR.WEID Orig Print D/T: S: 03/11/2023 (0714) PAGE 2 Signed Report CBC W/AUTO UKDJ2755-16-37 04:44:00* Test Item Value Reference Range Interpretation [...] NO DIFF/SCN CRITERIA - XR CHEST 1 Q9127-35-72 15:12:00 [facility]: 1935 Sex: F Name: JAMA VERDUZCO [place] : 1935 Age/S: 88 / F [address] Unit #: [id number] Loc: [place] [address] Phys: Nury Mendoza MD Cardiology Acct: [id number] Dis Date: Status: ADM IN PHONE #: [phone] Exam Date: 03/10/2023 1446 FAX #: Reason: Post implanted device EXAMS: CPT: [id number] XR CHEST 1 V 69420 Fluoro Time: DAP (Gy m2): Air Kerma (mGy): EXAM: Portable chest x-ray,one view INDICATION: Post implanted device ADMITTING DIAGNOSIS: 6 sinus syndrome, post pacemaker placement LOCATION CODE: C3 COMPARISON: None TECHNIQUE: Single [...] Cardiomegaly. 2. Status post left subclavian pacemaker. Electronically Signed by Marguerite Pederson on 03/10/2023 at 1512 Reported and signed by: Vishnu Pederson M.D. CC: Nury Alejandra Cardiology Didi; Yuliya Potter MD PAGE 1 Signed Report Name: JAMA VERDUZCO [place] : 1935 Age/S: 88 / F [address] Unit #: [id number] Loc: [place] [address] Phys: Nury Mendoza MD Cardiology Acct: [id number] Dis Date: Status: ADM IN PHONE #: [phone] Exam Date: 03/10/2023 4641 FAX #: Reason: Post implanted device EXAMS: CPT: [id number] XR CHEST 1 V 76802 Fluoro Time: DAP (Gy m2): Air Kerma (mGy): (Continued) Technologist: Tirso Adamsb Date/Time: 03/10/2023 (1511)Michelle Orig Print D/T: S: 03/10/2023 (1919) PAGE 2 Signed ReportPROTHROMBIN CDSF8370-25-67 10:52:00* Test Item Value Reference Range Interpretation [...] Infarction (to prevent recurrent infarct). COMPREHENSIVE METABOLIC PIJZR8634-42-43 10:52:00* Test Item Value Reference Range Interpretation [...] calculation forGFR is based on the CKD-EPI (2020) calculation. This formulais race indifferent and is [...] = LDL) 90 MG/DL 0-129 N <100 BWLOFEE46 0 - 129 NEAR OPTIMAL/ABOVE DZOJFZS107 - 159 WEWBVWYRAI883 - 189 HIGH>OR= 190 VERY HIGHNOTE THAT GUIDELINES ARE PROVIDED BY NATIONAL CHOLESTEROLEDUCATION PROGRAM ADULT TREATMENT PANEL III LDL/HDL (test code = LDL/HDL) 1.57 Ratio See_Comment N [Automated Buruda[employer]certa ge] The system which generated this result transmitted reference range: 1.48-3.22 Avg. The reference range was not used to interpret this result as normal/abnormal. KASZBYIJM3116-74-77 10:52:00* Test Item Value Reference Range Interpretation Comme nts MAGNESIUM (test code = MAG) 2.1 MG/DL 1.8-2.4 N CBC W/AUTO FMFC0861-24-21 10:28:00* Test Item Value Reference Range Interpretation [...] DIFF/SCN CRITERIA Notes Date/Time Note Provider Source 2023-07-19 09:45:59 0643-88-75L37:45:59Formatting of this no te is different from the original.Images from the original note were not included.Requesting 90 daysNotes: 06/25/23Last Refilled:[facility]/pharmacy #[id number] - [place], [place] - [address] [facility] [address] ST[address]Phone: Hkopgr VisitsDate Type Provider Dept07/16/23 Office Visit Matheus Mcnamara MD [facility]05/23/23 Office Visit Katarzyna Marquez PA [facility]05/25/22 Office Visit Matheus Mcnamara MD [facility] MedShowing recent visits within past 540 days with a meds authorizing provider and meeting all other requirementsFuture AppointmentsDate Type Provider Dept10/16/23 Appointment Matheus Mcnamara MD [facility] MedShowing future appointments within next 150 days with a meds authorizing provider and meeting all other requirementsName from pharmacy: AZELASTINE 0.1% (137 MCG) Jimi file in chart as: AZELASTINE 137 mcg (0.1 %) nasal spraySig: Use 1 [place] in each nostril in the morning and 1 [place] in the evening. Use in each nostril as directedDisp: Not specified (Pharmacy requested: 90 Each) Refills: 1Start: 07/19/2023lass: eRXNon-formulary For: Acute URI, Acute coughLast ordered: 3 weeks ago (06/25/2023) by Dago Levy refill: 4Rx #: [id number] comment: REQUEST FOR 90 DAYS PRESCRIPTION. DX Code Needed.Allergy Tkfcnm6607/19/2023 09:31 AMProtocol Details Valid encounter within last 12 monthsThis request has changes from the previous prescription.To be filled at: [facility]/pharmacy #[id number] - [place], [place] - [facility] [address] AT [facility] [id number] encounter HgteWK8660-07-16V61:46:47Telephone encounter NoteTXT1.2.840.139014.1.13.104.2.7.2.448148|[id number] 60AVAvailable for patient kczx67497-9YgluJOAVSWHDAFVJcfzfykhv C-CDA narrative text[address] JxgaImsjonpjyHojfxsuqnRYYB0698881349LKYJCSQHLXSTGPSK NNJRKM3599-51-35C28:46:471.2.840.103496.1.72.3.15|1. 2.840.119940.1.13.104.2.7.2.727879_2037113560 [facility] 2023-03-11 08:37:00 EH0773922296gVj7Ul0SiGTxgOUACa+9NW9VT0jh mTgUvEW+SRLz UptHc7UcJqH9NFyAm6a31RM+3409-86-68C81:37:00 [facility] ([facility])Hospitalist Discharge SummaryREPORT#:[id number] REPORT STATUS: SignedREPORT INITIALIZATION DATE:03/11/23 TIME:836 PATIENT: JAMA VERDUZCO UNIT #: [id number]#: [id number] [address] [birth year] AGE: 88 SEX: F ATTEND: [...] 2 03/11 930 Pulse Ox 97 03/11 075 B/P 140/76 03/11 0752 B/P Mean 97.2 03/11 075 Pulse 91 03/11 075 Resp 21 03/11 075 FiO2 28 03/11 [...] to: Home/Self CareAdditional Discharge Routines: PCP Follow-Up, Contour [employer] Mill Operator Follow-UpDiet: Resume Home Diet/FeedsDischarge management: greater than 30 mins Follow-up AppointmentsPCP follow-up: PCP: DOES_NOT KNOW PCP follow up timeframe: In 1-2 weeksConsulting provider 1: Provider 1: Nury Mendoza MD Cardiology Specialty: CardiologyInterventional Consult follow up timeframe: In 1-2 weeks at [address] [facility] #: [id number] OF REPORT DSDischarge gjbootb1738-77-56C69:37:00L.XLIM99014357-3924PYKkrca able for patient dmocPMQQWIRRFZOQGL0506-63-85W73:04:39 [facility] 2023-03-11 05:47:00 IK3276852859FAL6RBGuIZSrUasaS5C89ZAnLDwM wqJCzZrjUCJv WA0Egjd3I+hzm3xej8x5cjlV9978-26-37E29:47:581844-2420 [facility] [address] [place] [address] PATIENT NAME: JAMA VERDUZCO ADMIT DATE: 03/10/23ACCOUNT NO: [id number] ROOM NO: L.PO7 AGE: 88 REPORT TYPE: eELECTROCARDIOGRAM SEX: F ADMITTING PHYSICIAN: Yuliya Potter MD ATTENDING PHYSICIAN: Yuliya Potter MD Order:[id number] Reason : Post insertion procedure Test Date/Time Stamp:[place] Mar 11 2023 05:47:22Blood Pressure : / mmHGVent. [...] 8:08:35 AM Referred By: Nury Mendoza Confirmed by:NUYR MENDOZA at 0808 PATIENT NAME: JAMA VERDUZCO .[id number] vailable for patient yvvwGHDDCZTKYAGFFE2732-24-73I71:08:58 [facility] 2023-03-10 15:11:00 QI0975576197bv4qc1G1NZt64hwD8ElG068t5ti+ ge2KeP98oZMh QveLtTDsDauFeXqnFA/Oe2SF3541-18-74S84:11:00 [facility] ([facility])Hospitalist History PhysicalREPORT#:[id number] REPORT STATUS: SignedREPORT INITIALIZATION DATE:03/10/23 TIME:1511 PATIENT: JAMA VERDUZCO UNIT #: [id number]#: [id number] [facility]ED: [facility]DOB: [birth year] AGE: 88 SEX: F ATTEND: Yuliya Potter [employer] AUTHOR: Alirio Thompson MDREPT SERVICE DT/TIME: 03/10/23 1511* ALL edits or amendments must be made [...] Mean Pulse Ox FiO2 03/10 97.3-98.0 88-99 18- 122-150/71-93 95-100 Last Documented: Result Date Time [...] % (Auto) (20.5 - 51.1 %) 21.3 Drew % (Auto) (1.7 - 9.3 %) 4.3 Eos % (Auto) (0.0 - 6.0 %) 2.3 Baso % (Auto) (0.0 - 2.0 %) 0.8 Neut # (Auto) (1.8 - 7.6 K/mm3) 6.1 Lymph # (Auto) (0.6 - 3.2 K/mm3) 1.8 Drew # (Auto) (0.3 - 1.1 K/mm3) 0.4 [...] a.m.GI/DVT prophylaxisAdvanced directive full code at 1102 RPT #: [id number] OF REPORT HPHistory and physical kivptndzenu7209-26-59L06:11:00L.YMGG12611518-2250GSR vailable for patient vrelRTNJPVOADXRGHA0530-27-19S12:03:09 [facility] 2023-03-10 14:10:00 [id number]+K704ln1sihRcKrC4o FW+rOUoheoKc 0U7MOENJ8tIv9jmbUw1Cs6Q84975-15-42S80:10:485466-4[address] [facility] [address] [place] [address] PATIENT NAME: JAMA VERDUZCO ADMIT DATE: 03/10/23ACCOUNT NO: [id number] ROOM NO: [facility] AGE: 88 REPORT TYPE: eELECTROCARDIOGRAM SEX: F ADMITTING PHYSICIAN: Yuliya Potter MD ATTENDING PHYSICIAN: Yuliya Potter MD Order:[id number] Reason : post ekg Test Date/Time Stamp:[facility] Mar 10 2023 14:10:55Blood Pressure : / [...] MENDOZA at 1445 PATIENT NAME: JAMA VERDUZCO .[id number] vailable for patient pyneSNAKYUKMCVLJYJ4951-76-38F50:46:05 [facility] 2023-03-10 13:45:00 [id number]/MWsMimhSyPzM/9vU7Q1 Y6Sj6MXjDG72 KpEf4ucHazIhSSPAy1ZdJxFU3627-59-20J18:45:586223-[address] [address] PATIENT NAME: JAMA VERDUZCO ADMIT DATE: 03/10/23ACCOUNT NO: [id number] ROOM NO: [facility] AGE: 88 REPORT TYPE: OPERATIVE REPORT SEX: F ADMITTING PHYSICIAN: Yuliya Potter MD ATTENDING PHYSICIAN: Yuliya Potter MD OPERATION DATE: 03/10/2023 CARDIOLOGY PROCEDURE. TRAFFIC RATE ANALYST: Nury Mendoza MD PREOPERATIVE DIAGNOSIS: POSTOPERATIVE DIAGNOSIS [...] MD Date Dictated: 03/10/2023 13:45:38Date Transcribed: 03/10/2023 14:54:27SFD/Yoandy #: [id number] PATIENT NAME: JAMA VERDUZCO Receipt ID: [id number] by Nury Mendoza MD On 03/10/2023 09:11:29 PM at 0911 PATIENT NAME: JAMA VERDUZCO sxnnqv7839-60-31J34:54:00L.VFA66202217-8604HGDxgflho le for patient ndngEEZIIAEQTKDOHQ4260-88-18F12:12:01 [facility] 2023-03-10 10:20:00 [id number]UNIjRF 1hkPlN46nfXV ApvvEumfk8TgL7Yzs82wxcLG9265-14-86O57:20:859271-2249 [facility] [address] [place] [address] PATIENT NAME: JAMA VERDUZCO ADMIT DATE: 03/10/23ACCOUNT NO: [id number] ROOM NO: AGE: 88 REPORT TYPE: eELECTROCARDIOGRAM SEX: F ADMITTING PHYSICIAN: ATTENDING PHYSICIAN: Nury Mendoza MD Order:[id number] Reason : PRE PPM Test Date/Time Stamp:Sat Mar 10 2023 10:20:28Blood Pressure : / [...] MENDOZA at 1025 PATIENT NAME: JAMA VERDUZCO .[id number] vailable for patient ynewRJCMCWMBDNTWST2273-61-65L72:25:58 [facility] 2023-03-09 07:39:00 [id number]1a8+ tFFzteBrxYK3 hIjSPQ/ZiF2GHm2L0avezEAI5017-97-79Y62:39:651111-32[address] [facility] [address] [place] [address] PATIENT NAME: JAMA VERDUZCO ADMIT DATE: ACCOUNT NO: [id number] ROOM NO: AGE: 88 REPORT TYPE: HISTORY AND PHYSICAL SEX: F ADMITTING PHYSICIAN: ATTENDING PHYSICIAN: Nury Mendoza MD Cardiology PATIENT NAME: JAMA VERDUZCO ADMIT DATE:03/10/2023DMISSION DATE: 03/10/2023 10:30:00 ADMISSION HISTORY AND PHYSICAL TRAFFIC RATE ANALYST: Nury Mendoza MD REASON FOR ADMISSION: Single [...] Doppler showing less than 25% plaquing.Echocardiogram shows elpkcnbh-sw-msybrp mitral regurgitation, moderate tricuspidinsufficiency, rueo-qh-yzqtbkct aortic valve insufficiency, normal ejectionfraction, pulmonary hypertension [...] cholecystectomy, right knee replacement, and colonoscopy back el0825. ALLERGIES: CODEINE AND DOXYCYCLINE. PATIENT NAME: JAMA VERDUZCO MEDICATIONS: She takes Xarelto 15 mg daily is on hold, carvedilol 3.125 mgdaily, furosemide 20 mg daily, paroxetine 10 mg daily, allopurinol 300 mg daily,iron, ____ 50 mcg daily, Slow-Mag, vitamin D3, Zyrtec, albuterol, ixekaycnbactnn03 mg daily, telmisartan 40 mg daily. SOCIAL [...] proceed. Rest asper orders. Dictated By: Nury Mendoza MD Date Dictated: 03/09/2023 07:39:07Date Transcribed: 03/09/2023 10:13:43SNIMA/CHRISTINA/Griffin #: [id number] ID: [id number] and Edited by Nury Mendoza MD On 03/09/23 4:54:10 PM PATIENT NAME: DAXJAMA at 0455 PATIENT NAME: DAXVYE and physical yztgjfcptxc9077-09-46N68:13:00L.VIG55540312-1878JKEg ailable for patient kgmwUVNSYOZQOAGVKE8759-07-21K33:56:31 [facility] 2023-01-24 10:45:24 1997-74-36R36:45:24Formatting of this no te is different from the original.Images from the original note were not included.Requested Renewals Name from pharmacy: LEVOTHYROXINE 50 MCG TABLET Will file in chart as: LEVOTHYROXINE 50 mcg tablet Sig: TAKE 1 TABLET BY MOUTH EVERY DAY Disp: 90 tablet Refills: 0 (Pharmacy requested: Not specified) Start: 01/24/2023 Class: eRX For: Acquired hypothyroidism Last ordered: 3 months ago (10/18/2022) by Matheus Mcnamara MD Last refill: 10/18/2022 Rx #: [id number] Endocrinology: Hypothyroid Agents Failed 01/24/2023 09:58 AM Protocol Details Manual Review: ENT providers forward refill request to PCP. TSH in normal range and within 360 days Valid encounter within last 12 months To be filled at: [facility]/pharmacy #[id number] - [place], [place] - [address] [place] [address] [address] [facility] [address] [place] Recent VisitsDate Type Provider Dept 05/25/22 Office Visit Matheus Mcnamara MD [facility] Med 12/19/21 Office Visit Matheus Mcnamara MD [facility] Med Showing recent visits within past 540 days with a meds authorizing provider and meeting all other requirementsFuture AppointmentsNo visits were found meeting these conditions.Showing future appointments within next 150 days with a meds authorizing provider and meeting all other requirements 70960-8Pvaxozefq encounter RielOA7658-66-05U90:45:34Telephone encounter NoteTXT1.2.840.211280.1.13.104.2.7.2.405040|[id number] 41AVAvailable for patient kuwg55793-5RaapES412323832Armnxfe M Fisher [address] [id number] SENABIBHNN8032-06-69X52:45:341.2.840.708253.1.72.3.15|1. 2.840.825408.1.13.104.2.7.2.727879_1892243341 Christiane Workman LVN [facility] 2023-01-04 09:39:03 0240-37-08U99:39:03Formatting of this no te is different from the original.Images from the original note were not included.Requested [...] Mcnamara MD Last refill: 10/03/2022 Rx #: [id number] Psychiatry: Antidepressants Failed 01/04/2023 12:38 AM Protocol Details Manual Review: Verify no changes in dose in the last 3 months Valid encounter within last 12 months To be filled at: [facility]/pharmacy #[id number] [place] [place] [facility] Recent VisitsDate Type Provider Dept 05/25/22 Office Visit Matheus Mcnamara MD [facility] 12/19/21 Office Visit Matheus Mcnamara MD [facility] Showing recent visits within past 540 days with a meds authorizing provider and meeting all other requirementsFuture AppointmentsNo visits were found meeting these conditions.Showing future appointments within next 150 days with a meds authorizing provider and meeting all other requirements [id number] encounter [id number]:39:12Telephone encounter [id number] 21AVAvailable for patient [id number] M Fisher [address] Gy[id number] [id number]:39:121.2.840.123177.1.72.3.15|1. 2.84[id number] Christiane Workman [facility]"
--- NOTE | 2023-12-15 20:09 | RAD REPORT ---
[facility] CLINICAL HISTORY: weakness COMPARISON: Chest Single View dated 06/26/2023; Chest Single View dated 06/25/2023 TECHNIQUE: Portable AP view of the chest. FINDINGS: No pneumothorax. Developing left small effusion and underlying airspace opacification. The cardiomediastinal contours are unremarkable. IMPRESSION: Developing left small pleural effusion with underlying airspace opacification. Pneumonia should be considered.
[2023-12-15] MEDS ORDERED: ONDANSETRON 4 MG/2 ML VIAL ONE (20:49)
[2023-12-15] MEDS ORDERED: NA CHLORIDE 0.9% 500 ML ONE (20:49)
[2023-12-15 21:04] LABS: Absolute Basophils 0.1 K/uL (0-0.5); Absolute Eosinophils 0.1 K/uL (0-0.5); Absolute Lymphocytes (CBC) 1.4 K/uL (0.7-4.9); Absolute Monocytes 0.7 K/uL (0.1-1.3); Absolute Neutrophil 7.2 K/uL (1.8-8.0); Basophils % 0.9 % (0-1.3); Eosinophils % 0.9 % (0-4.4); Hematocrit 35.8 % (36.0-45.0); Hemoglobin 11.5 g/dL (12.0-15.0); Lymphocytes % 14.9 % (15.3-44.8); MCHC 32.2 g/dL (32.0-36.0); MCV 89.9 fL (80-100); MPV 7.5 fL (7.6-11.3); Monocytes % 7.6 % (3.3-12.3); Neutrophils % 75.7 % (41.7-73.7); Nucleated Red Blood Cells % 0.1 % (0-0); Platelets 537 thou/uL (152-406); RBC Red Blood Cell Count 3.99 M/uL (3.86-4.86); Red Cell Distribution Width 16.5 % (12.1-15.2)
[2023-12-15 21:24] LABS: AST/SGOT 12 U/L (15-37); Albumin 2.6 g/dL (3.4-5.0); Albumin/Globulin Ratio 0.6 (1.1-1.8); Alkaline Phosphatase 68 U/L (45-117); Anion Gap 12.7 mEq/L (5.0-15.0); BUN Blood Urea Nitrogen 24 mg/dL (7-18); Bicarbonate 21 mEq/L (21-32); Bilirubin Direct 0.2 mg/dL (0-0.2); Bilirubin Indirect, Calculated 0.5 mg/dL (0.2-0.8); Bilirubin Total 0.7 mg/dL (0.2-1.0); Globulin 4.1 g/dL (2.3-3.5); Glomerular Filtration Rate 48 ml/min (=/>90); Glucose Level 136 mg/dL (74-106); Magnesium 1.8 mg/dL (1.6-2.4); Potassium 4.7 mEq/L (3.5-5.1); Protein, Total 6.7 g/dL (6.4-8.2); Sodium Level 133 mEq/L (136-145)
[2023-12-15 21:27] LABS: PT Prothrombin Time 32.6 SECONDS (9.4-12.5); Protime INR 3.01
[2023-12-15 21:28] LABS: ALT/SGPT < 14 U/L (13-56)
[2023-12-15 21:54] LABS: Sqamous Epithelial <5 /HPF (None Seen); Urine Bacteria <20 /HPF (<20); Urine Culture Reflex Order REFLEXED; Urine Mucus Slight /HPF (None Seen); Urine RBC <5 /HPF (None Seen)
[2023-12-15 21:55] LABS: Specific Gravity 1.014 (1.005-1.030); Urine Bilirubin NEGATIVE (Negative); Urine Blood Negative (Negative); Urine Clarity Extremely Turbid (Clear); Urine Color Light-Yellow (Yellow); Urine Glucose NEGATIVE (Negative); Urine Ketones NEGATIVE (Negative); Urine Micro Reflex YN NO BILL NO MICROSCOPIC; Urine Nitrite NEGATIVE (Negative); Urine Protein TRACE (Negative); Urine Urobilinogen Normal (Normal); Urine pH 5.5 (5.0-7.0)
[2023-12-15 22:11] LABS: SARS-CoV-2 Antigen CONTROL BLUE LINE VIS/BG OK; SARS-CoV-2 Antigen Rapid Res Negative (Negative)
[2023-12-15] MEDS ORDERED: carvediloL 6.25 MG TAB ONE (22:28)
--- NOTE | 2023-12-15 23:08 | RAD REPORT ---
EXAM DESCRIPTION: CT - Head Brain Wo Cont - 12/15/2023 10:24 pm CLINICAL HISTORY: WEAKNESS COMPARISON: No comparisons TECHNIQUE: Noncontrast head CT images were obtained without IV contrast. Multiplanar reformats were generated and reviewed. All CT scans are performed using dose optimization technique as appropriate and may include automated exposure control or mA/KV adjustment according to patient size. FINDINGS: No intracranial hemorrhage, mass, or edema. Midline structures are unremarkable. Normal ventricular caliber for age. Left parasagittal occipital parietal encephalomalacia suggesting sequelae of remote ischemia. Aguirre-wh ite matter differentiation elsewhere is preserved, without evidence of acute infarct. No abnormal ext ra-axial fluid collections. Mastoid air cells and visualized portions of the paranasal sinuses are clear. No acute bony findings. IMPRESSION: No evidence of an acute intracranial process. Left occipital parietal encephalomalacia s uggesting sequelae of remote ischemia.
--- NOTE | 2023-12-15 23:31 | RAD REPORT ---
EXAM DESCRIPTION: CT - Abdomen Pelvis W Contrast - 12/15/2023 10:25 pm CLINICAL HISTORY: ABD PAIN COMPARISON: Head Brain Wo Cont dated 12/15/2023 TECHNIQUE: Thin cut axial CT imaging of the abdomen and pelvis was performed following intravenous a dministration of iodinated contrast. Multiplanar reformats were generated and reviewed. All CT scans are performed using dose optimization technique as appropriate and may include automated exposure control or mA/KV adjustment according to patient size. FINDINGS: No suspicious findings in the lung bases. The liver, spleen, adrenal glands, and pancreas show no suspicious findings. Gallbladder is not visua lized, could be surgically removed. Prominent common bile duct up to 1.4 cm in caliber. Symmetric renal function is seen with no hydronephrosis or suspicious renal mass. Moderate to large volume free ascites, with linear enhancement along the dependent peritoneal lining, specially in the pelvis. Some mucosal or visceral peritoneal enhancement of mildly dilated fluid-charlie led small bowel loops in the central abdomen. No focal transition point or bowel wall thickening. No free air, fluid collections, or inflammatory stranding. No hernia, mass or bulky lymphadenopathy. The urinary bladder is without significant finding. No suspicious bony findings. IMPRESSION: Mildly distended small bowel loops with no focal transition point, suggesting ileus. Moderate to large volume free fascitis. Linear enhancement along the dependent peritoneal peritoneal lining, suggesting reactive or infectious peritonitis. Some enhancement is also seen along the small bowel mucosa which may indicate concomitant enteritis. Nonspecific distention of the common bile duct. Please correlate for history of prior cholecystectomy and signs/ symptoms of biliary stasis.
--- NOTE | 2023-12-16 00:14 | ER ---
Nurse's Notes [facility] Name: Jama Johnson Age: 88 yrs Sex: Female : 1935 Arrival Date: 12/15/2023 Time: 17:53 Bed 19 Private MD: Diagnosis: Weakness;Ileus, unspecified;Other ascites Presentation: 12/14 18:32 Chief complaint: Patient states: Pt c/o her heart feeling like it is "jumping around', tl4 right side abdominal pain, loose stools, heartburn, nausea, and decreased energy. Pt was diagnosed with IBS approx 1 week ago. Symptoms seem to be getting worse. Pt states she is getting weaker. Coronavirus screen: diarrhea, nausea. Ebola Screen: No symptoms or risks identified at this time. Initial Sepsis Screen: Does the patient meet any 2 criteria? No. Patient's initial sepsis screen is negative. Does the patient have a suspected source of infection? No. Patient's initial sepsis screen is negative. Risk Assessment: Do you want to hurt yourself or someone else? Patient reports no desire to harm self or others. Onset of symptoms is unknown. 18:32 Method Of Arrival: Wheelchair tl4 18:32 Acuity: ALMAZ 3 tl4 Triage Assessment: 18:41 General: Appears in no apparent distress. Behavior is cooperative. Pain: Complains of tl4 pain in abdomen. EENT: No signs and/or symptoms were reported regarding the EENT system. Neuro: Level of Consciousness is awake, alert, obeys commands, Oriented to person, place, time, situation. Cardiovascular: Capillary refill < 3 seconds Patient's skin is warm and dry. Respiratory: Airway is patent Respiratory effort is even, unlabored, Respiratory pattern is regular, symmetrical. GI: Reports lower abdominal pain, upper abdominal pain, bloating. : No signs and/or symptoms were reported regarding the genitourinary system. Musculoskeletal: No signs and/or symptoms reported regarding the musculoskeletal system. Historical: - Allergies: 18:40 Codeine (Upset stomach); tl4 - Home Meds: 18:44 dicyclomine 10 mg Oral capsule 1 cap 3 times per day [Active]; Xarelto 15 mg oral tl4 tablet 1 tab daily [Active]; levothyroxine 50 mcg tablet 1 tab daily [Active]; telmisartan 40 mg oral tablet 1 tab daily [Active]; carvedilol 6.25 mg oral tablet 1 tab 2 times per day [Active]; paroxetine HCl 10 mg oral tablet 1 tab daily [Active]; - PMHx: 18:40 Atrial fibrillation; Diverticulitis; Hypertension; Pacemaker; tl4 - PSHx: 18:40 Appendectomy; Cholecystectomy; hysterectomy; Knee - Bilateral; tl4 - Immunization history:: Adult Immunizations unknown. - Infectious Disease History:: Denies. - Social history:: Smoking status: Patient denies any tobacco usage or history of. Screenin:16 [facility] ED Fall Risk Assessment (Adult) History of falling in the last 3 months, mt4 including since admission No falls in past 3 months (0 pts) Confusion or Disorientation No (0 pts) Intoxicated or Sedated No (0 pts) Impaired Gait No (0 pts) Mobility Assist Device Used Yes (1 pt) Altered Elimination No (0 pt) Score/Fall Risk Level 3 or more points = High Risk Oriented to surroundings, Maintained a safe environment, Educated pt \\T\\ family on fall prevention, incl call for assistance when getting out of bed, Assessed \\T\\ reinforced patient's understanding of fall precautions, Provided non-skid footwear, Hourly rounding (assess needs \\T\\ fall precautionary measures) done, Used ambulatory aids as needed (educated on \\T\\ assisted with), Implemented a Fall Risk Plan of Care. Abuse screen: Denies injuries from another. Nutritional screening: No deficits noted. Tuberculosis screening: No symptoms or risk factors identified. Assessment: 20:15 Cardiovascular: Capillary refill < 3 seconds Patient's skin is warm and dry. Rhythm is mt4 atrial fibrillation with rapid ventricular response Chest pain is denied. 20:15 General: Appears in no apparent distress. comfortable, Behavior is calm, cooperative, mt4 appropriate for age, Smells of Reports Denies. 20:15 Pain: Complains of pain in abdomen Pain Quality of pain is described as aching, crampy, mt4 Pain began Is. Neuro: Level of Consciousness is awake, alert, obeys commands, Oriented to person, place, time, situation, Speech is normal. Respiratory: Airway is patent Respiratory effort is unlabored, Respiratory pattern is regular. GI: Bowel sounds present X 4 quads. Abd is soft X 4 quads Reports upper abdominal pain, diarrhea. : Urine is cloudy. EENT: Ear canal decrease hearing . Oral mucosa is moist. Musculoskeletal: Range of motion: intact in all extremities. 21:15 Reassessment: Patient and/or family updated on plan of care and expected duration. Pain mt4 level reassessed. Patient is alert, oriented x 3, equal unlabored respirations, skin warm/dry/pink. 22:00 Reassessment: No changes from previously documented assessment. Patient and/or family mt4 updated on plan of care and expected duration. Pain level reassessed. Patient is alert, oriented x 3, equal unlabored respirations, skin warm/dry/pink. 23:00 Reassessment: Patient and/or family updated on plan of care and expected duration. Pain mt4 level reassessed. Patient is alert, oriented x 3, equal unlabored respirations, skin warm/dry/pink. 23:00 Pain: Denies pain. mt4 12/15 00:00 Reassessment: Patient and/or family updated on plan of care and expected duration. Pain mt4 level reassessed. Patient is alert, oriented x 3, equal unlabored respirations, skin warm/dry/pink. 01:00 Reassessment: Patient and/or family updated on plan of care and expected duration. Pain mt4 level reassessed. Patient is alert/active/playful, equal unlabored respirations, skin warm/dry/pink. Pain: Denies pain. Vital Signs: 12/14 18:32 BP 113 / 69; Pulse 112; Resp 20; Temp 97.5(O); Pulse Ox 99% on R/A; Weight 45.36 kg; tl4 Height 5 ft. 1 in. ; 20:16 BP 137 / 94; Pulse 113; Resp 18; Temp 98.4; Pulse Ox 97% on R/A; Pain 6/10; mt4 21:15 BP 139 / 82; Pulse 113; Resp 16; Pulse Ox 95% on R/A; mt4 22:00 BP 126 / 90; Pulse 116; Resp 16; Pulse Ox 98% on R/A; mt4 23:55 BP 120 / 75; Pulse 104; Resp 25; Pulse Ox 99% on R/A; mt4 12/15 01:09 BP 116 / 85; Pulse 96; Resp 26; Temp 98(O); Pulse Ox 98% on R/A; Pain 0/10; mt4 12/14 18:32 Body Mass Index 18.89 (45.36 kg, 154.94 cm) tl4 20:16 Pain Scale: Adult mt4 12/15 01:09 Pain Scale: Adult mt4 Vitals: 12/14 20:16 Cardiac Rhythm Assessment Atrial fibrillation W/rapid ventricular response. mt4 [place] Coma Score: 20:16 Eye Response: spontaneous(4). Motor Response: obeys commands(6). Verbal Response: mt4 oriented(5). Total: 15. 12/15 01:00 Eye Response: spontaneous(4). Motor Response: obeys commands(6). Verbal Response: mt4 oriented(5). Total: 15. ED Course: 12/14 17:57 Patient arrived in ED. ts1 18:21 Richard Alfaro PA is PHCP. cp 18:21 Yoan Adair MD is Attending Physician. cp 18:40 Triage completed. tl4 18:42 Arm band placed on left wrist. tl4 19:40 XRAY Chest (1 view) In Process Unspecified. EDMS 19:42 Bhupendra Tripathi MD is Attending Physician. cp 20:16 No apparent distress. Resting quietly. mt4 20:16 Patient has correct armband on for positive identification. Fall risk band placed. Bed mt4 in low position. Call light in reach. Side rails up X 1. Adult w/ patient. Client placed on continuous cardiac and pulse oximetry monitoring. NIBP monitoring applied. head of merchandise buying on. Pulse ox on. Noise minimized. Lights dimmed. Patient is placed in psych hold. Assisted to bathroom. 20:16 Inserted saline lock: 20 gauge in left antecubital area, using aseptic technique. mt4 Patient maintains SpO2 saturation greater than 95% on room air. 20:21 Nafisa Foy, RN is Primary Nurse. mt4 21:15 Bed in low position. Call light in reach. Side rails up X 1. Adult w/ patient. Verbal mt4 reassurance given. 22:00 Patient has correct armband on for positive identification. Bed in low position. Call mt4 light in reach. Side rails up X 1. Adult w/ patient. 22:25 CT Head Brain wo Cont In Process Unspecified. EDMS 22:27 CT Abd/Pelvis - IV Contrast Only In Process Unspecified. EDMS 23:00 Bed in low position. Call light in reach. Side rails up X2. Adult w/ patient. mt4 12/15 00:00 Fall risk band placed. Call light in reach. Side rails up X 1. Adult w/ patient. mt4 00:13 Nestor Thompson MD is Hospitalizing Provider. cp 01:00 Allergy band placed. Fall risk band placed. Placed in gown. Bed in low position. Call mt4 light in reach. Side rails up X 1. 01:54 Provided Education on: need for admission. 8 01:54 No provider procedures requiring assistance completed. Patient admitted, IV remains in bm8 place. Administered Medications: 12/14 20:55 Drug: Ondansetron IVP 4 mg IVP once; over 2 minutes Route: IVP; Site: left antecubital; mn4 23:47 Follow up: Response: No adverse reaction mn4 20:55 Drug: NS 0.9% IV 500 ml IV at 250 ml/hr continuous Route: IV; Rate: 250 ml/hr; Site: [facility] left antecubital; 23:47 Follow up: Response: No adverse reaction; IV Status: Completed infusion; IV Intake: mt4 500ml 22:39 Drug: carvedilol PO 6.25 mg PO once; administer with food Route: PO; 8 23:47 Follow up: Response: No adverse reaction [facility] 12/15 00:43 Drug: Piperacillin-Tazobactam IVPB 3.375 grams IVPB once over 60 mins; (mix in NS 100 mt4 mL) Route: IVPB; Infused Over: 60 mins; Site: left antecubital; 01:53 Follow up: Response: No adverse reaction; IV Status: Completed infusion; IV Intake: bm8 100ml 00:43 Drug: NS 0.9% IV 500 ml IV at 500 ml/hr once Route: IV; Rate: 500 ml/hr; Site: left [facility] antecubital; 01:40 Follow up: IV Status: Completed infusion; IV Intake: 500ml mn4 Medication: 01:54 VIS not applicable for this client. bm8 Intake: 12/14 23:47 IV: 500ml; Total: 500ml. mn4 12/15 01:40 IV: 500ml; Total: 1000ml. mt4 01:53 IV: 100ml; Total: 1100ml. bm8 Outcome: 00:14 Decision to Hospitalize by Provider. cp 01:42 Admitted to Med/surg accompanied by nurse, accompanied by tech, via stretcher, room mt4 204, Report called to faxed up 01:42 Condition: stable 01:42 Instructed on the need for admit, Demonstrated understanding of instructions, 01:55 Patient left the ED. bm8 Signatures: Dispatcher [employer] EDMS Richard Alfaro PA PA cp Simpson, Tanya, PAS PAS ts1 Oliver Marte, RN RN tl4 Charles Maldonado, RN RN bm8 Nafisa Foy RN RN mt4 Corrections: (The following items were deleted from the chart) 12/14 22:02 21:47 Cardiovascular: Capillary refill < 3 seconds Patient's skin is warm and dry. mt4 Rhythm is atrial fibrillation with rapid ventricular response Chest pain is denied mt4 22:04 21:47 General: Appears in no apparent distress. comfortable, Behavior is calm, mt4 cooperative, appropriate for age, Smells of Reports Denies mt4 22:04 21:47 Pain: Complains of pain in abdomen Pain Quality of pain is described as aching, mt4 crampy, Pain began Is mt4 22:04 21:47 Neuro: Level of Consciousness is awake, alert, obeys commands, Oriented to mt4 person, place, time, situation, Speech is normal, mt4 22:40 21:47 Respiratory: Airway is patent Respiratory effort is unlabored, Respiratory mt4 pattern is regular, mt4 22:40 21:47 GI: Bowel sounds present X 4 quads. Abd is soft X 4 quads Reports upper abdominal mt4 pain, diarrhea, mt4 22:40 21:47 : Urine is cloudy, mt4 mt4 22:40 21:47 EENT: Ear canal decrease hearing . Oral mucosa is moist. mt4 mt4 22:40 21:47 Musculoskeletal: Range of motion: intact in all extremities, mt4 mt4 22:40 21:47 Neuro: Level of Consciousness is awake, alert, obeys commands, Oriented to mt4 person, place, time, situation, Speech is normal, mt4 22:40 21:47 Pain: Complains of pain in abdomen Pain Quality of pain is described as aching, mt4 crampy, Pain began Is mt4
--- NOTE | 2023-12-16 00:14 | EDPHYS ---
Physician Documentation [facility] Name: Jama Johnson Age: 88 yrs Sex: Female : 1935 Arrival Date: 12/15/2023 Time: 17:53 Bed 19 Private MD: ED Physician Bhupendra Tripathi HPI: 12/14 20:30 This 88 yrs old Female presents to ER via Wheelchair with complaints of Abdominal Pain, cp General Weakness. 20:30 The patient presents with abdominal pain in the upper abdomen, abdominal distention cp that is diffuse. 20:30 Onset: The symptoms/episode began/occurred 1 week(s) ago. cp 20:30 Associated signs and symptoms: Pertinent positives: diarrhea, nausea, Pertinent cp negatives: blood in stools, chest pain, fever, vomiting. The symptoms are described as constant. Historical: - Allergies: 18:40 Codeine (Upset stomach); tl4 - Home Meds: 18:44 dicyclomine 10 mg Oral capsule 1 cap 3 times per day [Active]; Xarelto 15 mg oral tl4 tablet 1 tab daily [Active]; levothyroxine 50 mcg tablet 1 tab daily [Active]; telmisartan 40 mg oral tablet 1 tab daily [Active]; carvedilol 6.25 mg oral tablet 1 tab 2 times per day [Active]; paroxetine HCl 10 mg oral tablet 1 tab daily [Active]; - PMHx: 18:40 Atrial fibrillation; Diverticulitis; Hypertension; Pacemaker; tl4 - PSHx: 18:40 Appendectomy; Cholecystectomy; hysterectomy; Knee - Bilateral; tl4 - Immunization history:: Adult Immunizations unknown. - Infectious Disease History:: Denies. - Social history:: Smoking status: Patient denies any tobacco usage or history of. ROS: 20:35 Constitutional: Negative for fever, cp 20:35 Eyes: Negative for injury, pain, redness, and discharge, cp 20:35 Cardiovascular: Negative for chest pain, 20:35 Respiratory: Negative for cough, shortness of breath, wheezing, 20:35 Abdomen/GI: Positive for abdominal pain, nausea, diarrhea, 20:35 Neuro: Positive for weakness, Negative for altered mental status, 20:35 All other systems are negative, Exam: 20:40 Constitutional: The patient appears in no acute distress, alert, awake, cp non-diaphoretic, non-toxic, well developed, well nourished, 20:40 Head/Face: Normocephalic, atraumatic. cp 20:40 Eyes: Periorbital structures: appear normal, Conjunctiva: normal, no exudate, no injection, Sclera: no appreciated abnormality, Lids and lashes: appear normal, bilaterally, 20:40 ENT: External ear(s): are unremarkable, Nose: is normal, Mouth: Lips: moist, Oral mucosa: pink and intact, moist, Posterior pharynx: Airway: no evidence of obstruction, patent, 20:40 Chest/axilla: Inspection: normal, 20:40 Cardiovascular: Rate: tachycardic, Rhythm: irregular, Edema: is not appreciated, JVD: is not appreciated, 20:40 Respiratory: the patient does not display signs of respiratory distress, Respirations: normal, no use of accessory muscles, no retractions, labored breathing, is not present, Breath sounds: are clear throughout, no decreased breath sounds, no stridor, no wheezing, 20:40 Abdomen/GI: Inspection: distension, that is moderate, Bowel sounds: active, all quadrants, Palpation: soft, in all quadrants, mild abdominal tenderness, in all quadrants, 20:40 Back: CVA tenderness, is absent, 20:40 Neuro: Orientation: to person, place \T\ time. Mentation: is normal, Motor: moves all fours, no focal deficits, Sensation: no obvious gross deficits, 20:58 ECG was reviewed by the Attending Physician. cp Vital Signs: 18:32 BP 113 / 69; Pulse 112; Resp 20; Temp 97.5(O); Pulse Ox 99% on R/A; Weight 45.36 kg; tl4 Height 5 ft. 1 in. ; 20:16 BP 137 / 94; Pulse 113; Resp 18; Temp 98.4; Pulse Ox 97% on R/A; Pain 6/10; mt4 21:15 BP 139 / 82; Pulse 113; Resp 16; Pulse Ox 95% on R/A; mt4 22:00 BP 126 / 90; Pulse 116; Resp 16; Pulse Ox 98% on R/A; mt4 23:55 BP 120 / 75; Pulse 104; Resp 25; Pulse Ox 99% on R/A; mt4 12/15 01:09 BP 116 / 85; Pulse 96; Resp 26; Temp 98(O); Pulse Ox 98% on R/A; Pain 0/10; wa4 12/14 18:32 Body Mass Index 18.89 (45.36 kg, 154.94 cm) tl4 20:16 Pain Scale: Adult wa4 12/15 01:09 Pain Scale: Adult wa4 Bowman Coma Score: 12/14 20:16 Eye Response: spontaneous(4). Motor Response: obeys commands(6). Verbal Response: mt4 oriented(5). Total: 15. 12/15 01:00 Eye Response: spontaneous(4). Motor Response: obeys commands(6). Verbal Response: mt4 oriented(5). Total: 15. MDM: 12/14 18:49 Patient medically screened. cp 12/15 00:00 Differential diagnosis: diverticulitis, gastritis, Pyelonephritis, urinary tract cp infection. 00:10 Data reviewed: vital signs, nurses notes, lab test result(s), EKG, radiologic studies, cp CT scan. 00:10 Management of patient was discussed with the following: Baby Sitter: DR Goldberg would cp like patient started on IV Zosyn and admit to services of hospitalist. I considered the following discharge prescriptions or medication management in the emergency department Medications were administered in the Emergency Department. See MAR. Care significantly affected by the following chronic conditions: Hypertension. Counseling: I had a detailed discussion with the patient and/or guardian regarding the historical points, exam findings, and any diagnostic results supporting the discharge/admit diagnosis, lab results, radiology results. Response to treatment: the patient's symptoms have mildly improved after treatment. 00:20 Management of patient was discussed with the following: Hospitalist: DR Jay seaman admit after discussion. 12/14 19:16 Order name: Basic Metabolic Panel; Complete Time: 22:05 12/14 22:06 Interpretation: Normal except: NA 133; GLUC 136; BUN 24; CRE 1.11; GFR 48. 12/14 19:16 Order name: CBC with Diff; Complete Time: 22:05 12/14 22:06 Interpretation: Normal except: HGB 11.5; HCT 35.8; PLT 537; RDW 16.5; MPV 7.5; PRESTON% cp 75.7; LYM% 14.9. 12/14 19:16 Order name: LFT's; Complete Time: 22:05 12/14 22:07 Interpretation: Normal except: AST 12; ALB 2.6; GLOB 4.1; A/G 0.6. 12/14 19:16 Order name: Magnesium; Complete Time: 22:05 12/14 19:16 Order name: PT-INR; Complete Time: 22:05 12/14 22:07 Interpretation: Reviewed. 12/14 19:16 Order name: Troponin HS; Complete Time: 22:05 12/14 20:34 Order name: SARS RAPID; Complete Time: 23:39 12/14 20:34 Order name: Influenza Screen (a \T\ B); Complete Time: 23:39 12/14 20:34 Order name: Urinalysis W/Microscopic; Complete Time: 22:05 12/14 22:07 Interpretation: Normal except: [facility] Extremely Turbid; UPROT TRACE; UESTR 75; UWBC 10-20. 12/14 21:58 Order name: Urine Culture [facility] 12/14 23:53 Order name: Lactate w/ 2H reflex if indic. 12/14 23:53 Order name: Blood Culture Adult (2) 12/14 23:53 Order name: CRP 12/15 00:39 Order name: Urinalysis w/ reflexes [facility] 12/15 00:39 Order name: CBC with Automated Diff [facility] 12/15 00:39 Order name: CBC with Automated Diff [facility] 12/15 00:39 Order name: Comprehensive Metabolic Panel [facility] 12/15 00:39 Order name: Comprehensive Metabolic Panel [facility] 12/14 19:16 Order name: XRAY Chest (1 view); Complete Time: 22:05 12/14 22:07 Interpretation: Report reviewed. 12/14 20:34 Order name: CT Head Brain wo Cont; Complete Time: 23:39 12/14 23:39 Interpretation: Report reviewed. 12/14 20:34 Order name: CT Abd/Pelvis - IV Contrast Only; Complete Time: 23:39 12/14 19:16 Order name: Cardiac monitoring; Complete Time: 20:55 12/14 19:16 Order name: EKG - Nurse/Tech; Complete Time: 20:56 12/14 19:16 Order name: IV Saline Lock; Complete Time: 20:56 cp 12/14 19:16 Order name: Labs collected and sent; Complete Time: 20:56 cp 12/14 19:16 Order name: O2 Per Protocol; Complete Time: 20:57 cp 12/14 19:16 Order name: O2 Sat Monitoring; Complete Time: 20:57 cp EC/27 20:58 Rate is 118 beats/min. Rhythm is irregular. QRS interval is prolonged at 102 msec. QT cp interval is normal. Interpreted by me. Reviewed by me. Administered Medications: 20:55 Drug: Ondansetron IVP 4 mg IVP once; over 2 minutes Route: IVP; Site: left antecubital; mt4 23:47 Follow up: Response: No adverse reaction mt4 20:55 Drug: NS 0.9% IV 500 ml IV at 250 ml/hr continuous Route: IV; Rate: 250 ml/hr; Site: [facility] left antecubital; 23:47 Follow up: Response: No adverse reaction; IV Status: Completed infusion; IV Intake: mt4 500ml 22:39 Drug: carvedilol PO 6.25 mg PO once; administer with food Route: PO; bm8 23:47 Follow up: Response: No adverse reaction wa4 12/15 00:43 Drug: Piperacillin-Tazobactam IVPB 3.375 grams IVPB once over 60 mins; (mix in NS 100 mt4 mL) Route: IVPB; Infused Over: 60 mins; Site: left antecubital; 01:53 Follow up: Response: No adverse reaction; IV Status: Completed infusion; IV Intake: bm8 100ml 00:43 Drug: NS 0.9% IV 500 ml IV at 500 ml/hr once Route: IV; Rate: 500 ml/hr; Site: left wa4 antecubital; 01:40 Follow up: IV Status: Completed infusion; IV Intake: 500ml mt4 Disposition: 05:00 Co-signature as Attending Physician, Bhupendra Tripathi MD I reviewed the patient's care rn provided by the Advanced Practice Provider and agree with the diagnosis and treatment plan. Disposition Summary: 12/16/23 00:14 Hospitalization Ordered Notes: Hospitalization Status: Inpatient Admission cp Provider: Nestor Thompson cp Location: [facility] (Inpatient) cp Condition: Stable cp Problem: new cp Symptoms: have improved cp Bed/Room Type: Standard cp Room Assignment: 204(12/16/23 00:52) kl Diagnosis - Weakness cp - Ileus, unspecified cp - Other ascites cp Forms: - Medication Reconciliation Form cp - SBAR form cp - Leadership Thank You Letter cp Signatures: Dispatcher [employer] EDKavita Salgado, MIKE RN Bhupendra Barnhart MD MD rn Page, Corey, PA PA cp Oliver Marte, RN RN tl4 Charlse Maldonado RN RN bm8 Nafisa Foy, RN RN mt4 Corrections: (The following items were deleted from the chart) 12/14 19:17 19:16 Chest Single View+RAD.RAD.BRZ ordered. EDMS EDMS 20:34 20:34 SARS-COV-2 Antigen Rapid+I.LAB.BRZ ordered. EDMS EDMS 20:34 20:34 Influenza Screen (A \T\ B)+BA.LAB.BRZ ordered. EDMS EDMS 20:34 20:34 Urinalysis W/Microscopic+U.LAB.BRZ ordered. EDMS EDMS 20:34 20:34 Abdomen Pelvis W Con+CT.RAD.BRZ ordered. EDMS EDMS 23:53 23:53 LACTATE+C.LAB.BRZ ordered. EDMS EDMS 23:53 23:53 BLOOD CULTURE*+BA.LAB.BRZ ordered. EDMS EDMS 23:53 23:53 C-REACTIVE PROTEIN+C.LAB.BRZ ordered. EDMS EDMS 12/15 00:52 00:14 cp kl
[2023-12-16] MEDS ORDERED: NA CHLORIDE 0.9% 500 ML ONE (00:16)
[2023-12-16] MEDS ORDERED: PIPERACIL/TAZO 3.375 GM VIAL IV ONE (00:17)
[2023-12-16] MEDS ORDERED: NA CHLORIDE 0.9% 100 ML ONE (00:18)
--- NOTE | 2023-12-16 00:25 | P.HP ---
Certification for Inpatient Patient admitted to: Inpatient With expected LOS: >2 Midnights Practitioner: I am a practitioner with admitting privileges, knowledge of patient current condition, hospital course, and medical plan of care. Services: Services provided to patient in accordance with Admission requirements found in Title 42 Section 412.3 of the Code of Federal Regulations Patient History Date of Service: 12/16/23 Reason for admission: Abdominal Pain History of Present Illness: 88 yrs old Female with past medical history of hypertension, atrial fibrillation, status post pacemaker placement, diverticulitis, appendectomy and cholecystectomy and bilateral knee surgeries and hysterectomy who was brought to ER with abdominal pain and generalized weakness which has been going on for the last 2 days and has been progressively worsening. Abdominal pain and distention noted few days ago. Abdominal pain is diffuse intermittent, not associated with any diaphoresis. Patient still nauseous but no vomiting. Denies any melena. No fever or chills. Denies any dysuria. The patient was assessed in the ER and was admitted for further management of possible ileus and ascites with possible infective/reactive peritonitis. Allergies codeine Adverse Reaction (Verified 06/24/23 21:23) Nausea/Vomiting Home medications list reviewed: Yes Home Medications: Albuterol Inhaler [Ventolin Inhaler*] 1 puff 06/25/23 Allopurinol 300 mg PO DAILY 06/25/23 Carvedilol [Coreg] 12.5 mg PO DAILY 06/25/23 Cetirizine HCl [Zyrtec] 10 mg PO DAILY 06/25/23 Furosemide 20 mg PO DAILY 06/25/23 Levothyroxine [Synthroid*] 50 mcg PO [id number] 06/25/23 PARoxetine HCL [Paxil*] 10 mg PO DAILY 06/25/23 Rivaroxaban [Xarelto*] 15 mg PO DAILY 06/25/23 Spironolactone 50 mg PO DAILY 06/25/23 Telmisartan 40 mg PO DAILY 06/25/23 Digoxin 125 mcg PO DAILY #30 tab 06/27/23 - Past Medical/Surgical History Diabetic: No Past Medical History: Reviewed- Non-Contributory -: HTN -: Afib -: PPM -: Diverticulitis Past Surgical History: Reviewed- Non-Contributory -: Knee surgery Psychosocial/ Personal History: Lives at home with family - Family History Family History: Reviewed- Non-Contributory - Social History Smoking Status: Never smoker Alcohol use: No CD- Drugs: No Caffeine use: Yes Review of Systems 10-point ROS is otherwise unremarkable Physical Examination - Vital Signs Temperature: 97.5 F Blood Pressure: 113/68 Pulse: 102 Respirations: 18 Pulse Ox (%): 94 - Physical Exam General: Alert, In no apparent distress, Oriented x3 HEENT: Atraumatic, Normocephalic Neck: Supple Respiratory: Clear to auscultation bilaterally, Normal air movement Cardiovascular: Regular rate/rhythm, Normal S1 S2 Capillary refill: <2 Seconds Gastrointestinal: W/out hepatosplenomegaly, Distended, Tenderness Musculoskeletal: No clubbing Integumentary: No rashes Neurological: Normal speech, Normal strength at 5/5 x4 extr Lymphatics: No axilla or inguinal lymphadenopathy - Studies Laboratory Data (last 24 hrs) 12/15/23 12/15/23 12/15/23 20:40 20:40 20:40 WBC 9.60 Hgb 11.5 L Hct 35.8 L Plt Count 537 H PT 32.6 H INR 3.01 Sodium 133 L Potassium 4.7 BUN 24 H Creatinine 1.11 H Glucose 136 H Magnesium 1.8 Total Bilirubin 0.7 AST 12 L ALT < 14 Alkaline Phosphatase 68 Microbiology Data (last 24 hrs): 12/15/23 21:00 Nasopharnyx Influenza Type A Antigen Screen - Final 12/15/23 21:00 Nasopharnyx Influenza Type B Antigen Screen - Final Assessment and Plan - Problems (Diagnosis) (1) Abdominal pain Current Visit: No Status: Acute Plan: Abdominal pain CT findings noted : Mildly distended small bowel loops with no focal transition point, suggesting ileus. Moderate to large volume free fascitis. Linear enhancement along the dependent peritoneal peritoneal lining, suggesting reactive or infectious peritonitis. Some enhancement is also seen along the small bowel mucosa which may indicate concomitant enteritis. Nonspecific distention of the common bile duct. Started on IV antibiotics Pain control Monitor closely on telemetry Hypertension Continue home medications and titrate as needed History of atrial fibrillation Rate controlled now Status post pacemaker Monitor closely under telemetry Hyponatremia Acute renal insufficiency Dehydration Elevated CRP IV hydration Continue antibiotics Monitor closely Monitor electrolytes and replace accordingly GI/DVT prophylaxis Advanced directive full code Qualifiers: Abdominal location: generalized Qualified Code(s): R10.84 - Generalized abdominal pain Discharge Plan: Home Plan to discharge in: 48 Hours - Advance Directives Does patient have a Living Will: No Does patient have a Durable POA for Healthcare: No - Code Status/Comfort Care Code Status: Full Code Time Spent Managing Pts Care (In Minutes): 48
[2023-12-16] MEDS: NA CHLORIDE 0.9% 1,000 ML IV SCH (02:41)
[2023-12-16 02:48] VITALS: BMI 21.5
[2023-12-16] MEDS: LEVOTHYROXINE SOD 0.05 MG TABLET PO SCH (06:05)
[2023-12-16] MEDS: MAGNESIUM SULFATE 1 gm IVPB 1 GM/100 ML BAG IV SCH (08:00)
[2023-12-16] MEDS: carvediloL 12.5 MG TAB PO SCH (09:00)
[2023-12-16] MEDS: ENOXAPARIN 30 MG/0.3 ML SQ SCH (09:20)
[2023-12-16] MEDS: DIGOXIN 0.125 MG TABLET PO SCH (09:20)
[2023-12-16] MEDS: PIPER TAZO 3.375 GM in NA CHLORIDE 0.9% 100 ML IV SCH (09:21)
[2023-12-16] MEDS: PARoxetine HCL 10 MG TAB PO SCH (09:21)
[2023-12-16] MEDS ORDERED: carvediloL 12.5 MG TAB PO SCH (09:30)
[2023-12-16] MEDS: carvediloL 3.125 MG TAB PO SCH (09:30)
[2023-12-16] MEDS: carvediloL 6.25 MG TAB PO SCH (09:30)
--- NOTE | 2023-12-16 13:22 | P.PN ---
Date of Service: 12/16/23 Patient seen and examined. She denies any abdominal pain. She states she feels better today Patient states she is passing gas. On examination, abdomen is benign, no rebound tenderness or guarding. Normal bowel sounds. Ascites Suspected peritonitis. UTI Plan: Continue IV Zosyn Analgesics as needed Diet as tolerated N.p.o. at bedtime US guided therapeutic and diagnostic thoracentesis.
[2023-12-16] MEDS ORDERED: carvediloL 6.25 MG TAB PO SCH (18:00)
[2023-12-16] MEDS: KETOROLAC 30 MG/ML INJ IV ONE (21:51)
[2023-12-16] MEDS: MAGNESIUM SULFATE 1 gm IVPB 1 GM/100 ML BAG IV ONE (21:52)
[2023-12-17 07:17] LABS: Absolute Basophils 0.1 K/uL (0-0.5); Absolute Eosinophils 0.2 K/uL (0-0.5); Absolute Lymphocytes (CBC) 1.9 K/uL (0.7-4.9); Absolute Neutrophil 5.5 K/uL (1.8-8.0); Basophils % 0.9 % (0-1.3); Eosinophils % 2.8 % (0-4.4); Hematocrit 33.8 % (36.0-45.0); Hemoglobin 10.6 g/dL (12.0-15.0); Lymphocytes % 22.2 % (15.3-44.8); MCH 28.7 pg (27.0-35.0); MCHC 31.4 g/dL (32.0-36.0); MCV 91.2 fL (80-100); MPV 7.6 fL (7.6-11.3); Monocytes % 11.1 % (3.3-12.3); Platelets 468 thou/uL (152-406); RBC Red Blood Cell Count 3.71 M/uL (3.86-4.86); Red Cell Distribution Width 17.2 % (12.1-15.2)
[2023-12-17 07:31] LABS: Albumin 2.3 g/dL (3.4-5.0); Albumin/Globulin Ratio 0.6 (1.1-1.8); Alkaline Phosphatase 60 U/L (45-117); Anion Gap 10.4 mEq/L (5.0-15.0); BUN Blood Urea Nitrogen 21 mg/dL (7-18); Bicarbonate 21 mEq/L (21-32); Bilirubin Total 0.7 mg/dL (0.2-1.0); Globulin 3.9 g/dL (2.3-3.5); Glomerular Filtration Rate 41 ml/min (=/>90); Glucose Level 107 mg/dL (74-106); Potassium 4.4 mEq/L (3.5-5.1); Protein, Total 6.2 g/dL (6.4-8.2); Sodium Level 136 mEq/L (136-145)
[2023-12-17 07:33] LABS: ALT/SGPT < 14 U/L (13-56); AST/SGOT < 10 U/L (15-37)
[2023-12-17 10:20] LABS: PT Prothrombin Time 16.4 SECONDS (9.4-12.5); PTT, Activated Partial Thromb 34.6 SECONDS (24.3-36.9); Protime INR 1.48
[2023-12-17] MEDS: VALSARTAN 80 MG TAB PO SCH (10:43)
[2023-12-17] MEDS: SPIRONOLACTONE 25 MG TABLET PO SCH (10:43)
[2023-12-17] MEDS: ONDANSETRON 4 MG/2 ML VIAL IV PRN (11:36)
--- NOTE | 2023-12-17 12:31 | EKG ---
Test Date: 2023-12-15 Test Time: 20:50:41 Hospital Scientist: BF MEASUREMENT RESULTS: Intervals: Rate: 118 CT: QRSD: 102 QT: 312 QTc: 437 [place]: P: CT: QRS: -70 T: 104 INTERPRETIVE STATEMENTS: Atrial fibrillation with rapid ventricular response with premature ventricular or aberrantly conducted complexes Left axis deviation Inferior infarct, age undetermined ST & T wave abnormality, consider anterolateral ischemia Abnormal ECG Compared to ECG 06/24/2023 13:44:51 Ventricular premature complex(es) now present Left-axis deviation now present Myocardial infarct finding now present ST (T wave) deviation now present Sinus tachycardia no longer present T-wave abnormality no longer present Possible ischemia still present Electronically Signed On 12-17-23 12:30:17 CDT by Hoang Reynolds
--- NOTE | 2023-12-17 13:09 | P.PN ---
Subjective Date of Service: 12/17/23 Chief Complaint: Abdominal Pain Patient denies any new complaint. No issues overnight. No recorded fever. Physical Examination - Vital Signs Temperature: 97.5 F Blood Pressure: 129/79 Pulse: 96 Respirations: 15 Pulse Ox (%): 97 Assessment And Plan - Plan Physical examination General: Alert and oriented x3, NAD, HEENT: Conjunctiva not pale, anicteric sclera Neck: Supple, no elevated JVD Heart: Heart sounds 1 and 2 normal, regular rhythm, normal rate, no pedal edema Lungs: Clear to auscultation bilaterally, adequate breath sounds bilaterally, no rhonchi or crackles. Abdomen: Soft, mildly distended, mild tenderness in the left lower quadrant, ascites, normal bowel sounds. Extremities: No tenderness, no deformity Skin: Normal skin turgor, no rash, no nodules or ulcers. Neuro: No focal motor deficit. Normal speech. Psychiatry: Normal mood, no agitation. Abdominal pain Ascites Ileus Peritonitis CT findings noted Continue IV antibiotics Analgesics as needed Patient is on Aldactone I suspect she has baseline chronic liver disease. Diagnostic and therapeutic US guided paracentesis Hypertension Continue home medications. Chronic atrial fibrillation Rate controlled. Status post pacemaker Continue home dose Coreg Xarelto is on hold for pparacentesis. Hyponatremia Resolved IV Lasix Chronic kidney disease stage III Continue Lasix and Aldactone. Monitor renal function. DVT prophylaxis: Lovenox Advanced directive full code
[2023-12-17] MEDS: FUROSEMIDE 40 MG/4 ML VIAL IV SCH (18:29)
[2023-12-18 05:47] LABS: Absolute Basophils 0.1 K/uL (0-0.5); Absolute Eosinophils 0.2 K/uL (0-0.5); Absolute Monocytes 0.8 K/uL (0.1-1.3); Absolute Neutrophil 6.2 K/uL (1.8-8.0); Basophils % 0.8 % (0-1.3); Eosinophils % 2.9 % (0-4.4); Hematocrit 30.8 % (36.0-45.0); Hemoglobin 10.1 g/dL (12.0-15.0); Lymphocytes % 11.9 % (15.3-44.8); MCH 29.6 pg (27.0-35.0); MCHC 32.9 g/dL (32.0-36.0); MPV 7.1 fL (7.6-11.3); Monocytes % 9.8 % (3.3-12.3); Neutrophils % 74.6 % (41.7-73.7); Platelets 423 thou/uL (152-406); RBC Red Blood Cell Count 3.42 M/uL (3.86-4.86); Red Cell Distribution Width 17.5 % (12.1-15.2)
[2023-12-18 06:01] LABS: Albumin 2.1 g/dL (3.4-5.0); Albumin/Globulin Ratio 0.6 (1.1-1.8); Alkaline Phosphatase 54 U/L (45-117); Anion Gap 11.2 mEq/L (5.0-15.0); BUN Blood Urea Nitrogen 19 mg/dL (7-18); Bicarbonate 22 mEq/L (21-32); Bilirubin Total 0.6 mg/dL (0.2-1.0); Globulin 3.6 g/dL (2.3-3.5); Glomerular Filtration Rate 39 ml/min (=/>90); Glucose Level 105 mg/dL (74-106); Potassium 4.2 mEq/L (3.5-5.1); Protein, Total 5.7 g/dL (6.4-8.2); Sodium Level 138 mEq/L (136-145)
[2023-12-18 06:02] LABS: ALT/SGPT < 14 U/L (13-56); AST/SGOT < 10 U/L (15-37)
[2023-12-18] MEDS: LORazepam 2 MG/ML VIAL IV ONE (09:19)
--- NOTE | 2023-12-18 10:27 | RAD REPORT ---
EXAM DESCRIPTION: US - Paracentesis Proc Guidance - 12/18/2023 10:17 am CLINICAL HISTORY: ascites, peritoniitis Ascites COMPARISON: No comparisons FINDINGS: Informed consent was obtained and time-out was performed. Patient's abdomen was prepped and draped in the usual sterile fashion. 1% lidocaine was used for loca l anesthetic purposes. A small skin incision was made right lower quadrant. A paracentesis catheter was guided into the milan susie cavity under sonographic guidance. A small amount of fluid was sent for requested lab studies. A large volume paracentesis was performed . The patient tolerated the procedure well. Patient was administered IV albumin per protocol following the procedure. IMPRESSION: Successful ultrasound-guided paracentesis.
--- NOTE | 2023-12-18 11:18 | P.PN ---
Date of Service: 12/18/23 Subjective: tired after paracentesis no new/worsening symptoms s/p 0.5mg ativan ROS: 10 point ROS as noted above, otherwise negative Physical Exam: GEN: Alert, oriented, tired HEENT: Normal conjunctiva, sclera anicteric CV: Regular rate and rhythm, trace pedal edema Pulm: Nonlabored respirations on room air, diminished bilaterally ABD: mildly distended, mild LLQ tenderness Integumentary: No rashes Neuro: Normal speech, normal affect vitals reviewed Problem List: Ascites, unknown etiology Ileus POA, secondary to ascites suspected Peritonitis Hypertension Chronic atrial fibrillation s/p pacemaker Hyponatremia CKD3 Ascites, unknown etiology Ileus secondary to ascites suspected Peritonitis CT abdomen (12/14): mildly distended small bowel loops suggesting ileus, moderate-large volume ascites Linear enhancement along the dependent peritoneal peritoneal lining, ?possible reactive/infectious peritonitis on admission presented with diffuse abdominal pain, abdominal distention,, weakness for ~2 days. +nausea without vomiting concerning for peritonitis Continue empiric IV zosyn (12/15-) pain control continue IV lasix, spironolactone Suspect she has baseline chronic liver disease. however no prior documentation s/p diagnostic and therapeutic US guided paracentesis (12/17) results pending afebrile reports a few days prior to these symptoms, she was seen and treated for UTI, unclear if possible medication side effect LFTS are unremarkable making DILI unlikely, and not typical presentation Hypertension Continue home coreg, valsartan Chronic atrial fibrillation s/p pacemaker Rate controlled. Continue home dose Coreg Lovenox held this morning for paracentesis Hyponatremia, resolved monitor and replete electrolytes as needed Resolved CKD3 Continue home Lasix and Aldactone. Stable. continue to monitor renal function. VTE: Lovenox held this morning for paracentesis Code: Full Dispo: Home, ~2 days pending paracentesis results Time Spent Managing Pts Care (In Minutes): 45
[2023-12-18 14:19] LABS: Body Fluid Source PERITONEAL; Color of Supernate Not Xanthochromic (Not Xantho); Color of fluid Yellow (COLORLESS)
[2023-12-18 14:20] LABS: Appearance SLT. TURBID (CLEAR); Body Fluid WBC 1025 /mm^3; Fluid Total Cells Count 100
[2023-12-18 14:21] LABS: Body Fluid Lymphocytes 59 %
[2023-12-19 05:53] LABS: Absolute Basophils 0.1 K/uL (0-0.5); Absolute Eosinophils 0.3 K/uL (0-0.5); Absolute Monocytes 0.9 K/uL (0.1-1.3); Absolute Neutrophil 5.4 K/uL (1.8-8.0); Basophils % 1.1 % (0-1.3); Eosinophils % 3.7 % (0-4.4); Hematocrit 32.2 % (36.0-45.0); Hemoglobin 10.1 g/dL (12.0-15.0); Lymphocytes % 13.5 % (15.3-44.8); MCH 28.4 pg (27.0-35.0); MCHC 31.4 g/dL (32.0-36.0); MCV 90.3 fL (80-100); MPV 7.5 fL (7.6-11.3); Monocytes % 11.2 % (3.3-12.3); Neutrophils % 70.5 % (41.7-73.7); Platelets 391 thou/uL (152-406); RBC Red Blood Cell Count 3.57 M/uL (3.86-4.86); Red Cell Distribution Width 17.3 % (12.1-15.2)
[2023-12-19 06:14] LABS: AST/SGOT 13 U/L (15-37); Albumin 2.1 g/dL (3.4-5.0); Albumin/Globulin Ratio 0.6 (1.1-1.8); Alkaline Phosphatase 56 U/L (45-117); Anion Gap 8.9 mEq/L (5.0-15.0); BUN Blood Urea Nitrogen 18 mg/dL (7-18); Bicarbonate 23 mEq/L (21-32); Bilirubin Total 0.6 mg/dL (0.2-1.0); Globulin 3.7 g/dL (2.3-3.5); Glomerular Filtration Rate 36 ml/min (=/>90); Glucose Level 106 mg/dL (74-106); Magnesium 1.7 mg/dL (1.6-2.4); Potassium 3.9 mEq/L (3.5-5.1); Protein, Total 5.8 g/dL (6.4-8.2); Sodium Level 139 mEq/L (136-145)
[2023-12-19 06:17] LABS: ALT/SGPT < 14 U/L (13-56)
[2023-12-19] MEDS: MAGNESIUM SULFATE 1 gm IVPB 1 GM/100 ML BAG IV ONE (08:43)
[2023-12-19] MEDS: POTASSIUM CL SA 10 MEQ TAB PO ONE (08:43)
[2023-12-19] MEDS: FUROSEMIDE 40 MG TABLET PO SCH (08:44)
--- NOTE | 2023-12-19 10:40 | P.PN ---
Date of Service: 12/19/23 Subjective: feels slightly better overall today abdomen feels a little tender but not as bad as yesterday doesn't feel any worse stomach discomfort improving ROS: 10 point ROS as noted above, otherwise negative Physical Exam: GEN: Alert, oriented, tired HEENT: Normal conjunctiva, sclera anicteric CV: Regular rate and rhythm, trace pedal edema Pulm: Nonlabored respirations on room air, diminished bilaterally ABD: mildly distended, mild LLQ tenderness - improving Integumentary: No rashes Neuro: Normal speech, normal affect vitals reviewed Problem List: Ascites, unknown etiology Ileus POA, secondary to ascites suspected Peritonitis hx diverticulitis Hypertension Chronic atrial fibrillation s/p pacemaker Hyponatremia CKD3 Ascites, unknown etiology Ileus secondary to ascites suspected Peritonitis hx diverticulitis CT abdomen (12/14): mildly distended small bowel loops suggesting ileus, moderate-large volume ascites Linear enhancement along the dependent peritoneal peritoneal lining, ?possible reactive/infectious peritonitis on admission presented with diffuse abdominal pain, abdominal distention,, weakness for ~2 days. +nausea without vomiting has history of diverticulitis. Family reports between 1-5 hospitalizations in the past. suspect peritonitis, however unclear origin source ; possible malignancy Continue empiric IV zosyn (12/15-) for now afebrile, no leukocytosis lasix, spironolactone s/p diagnostic and therapeutic US guided paracentesis (12/17) fluid cytology sent out. Culture preliminary without growth Hypertension Continue home coreg, valsartan Chronic atrial fibrillation s/p pacemaker Rate controlled. Continue home dose Coreg takes xarelto at home Hyponatremia, resolved monitor and replete electrolytes as needed Resolved CKD3 Continue home Lasix and Aldactone. Stable. continue to monitor renal function. VTE: Lovenox for now Code: Full Dispo: Home, ~1-2 days pending paracentesis results / culture Time Spent Managing Pts Care (In Minutes): 40
[2023-12-19] MEDS: LORazepam 2 MG/ML VIAL IV ONE (23:22)
[2023-12-20 06:45] LABS: AST/SGOT 12 U/L (15-37); Albumin/Globulin Ratio 0.6 (1.1-1.8); Alkaline Phosphatase 49 U/L (45-117); Anion Gap 8.1 mEq/L (5.0-15.0); BUN Blood Urea Nitrogen 22 mg/dL (7-18); Bicarbonate 27 mEq/L (21-32); Bilirubin Total 0.6 mg/dL (0.2-1.0); Globulin 3.6 g/dL (2.3-3.5); Glomerular Filtration Rate 27 ml/min (=/>90); Glucose Level 113 mg/dL (74-106); Potassium 4.1 mEq/L (3.5-5.1); Protein, Total 5.6 g/dL (6.4-8.2); Sodium Level 142 mEq/L (136-145)
[2023-12-20 06:49] LABS: ALT/SGPT < 14 U/L (13-56)
--- NOTE | 2023-12-20 09:31 | P.PN ---
Date of Service: 12/20/23 Subjective: feels slightly better overall today abdomen not as tender no issues overnight stomach discomfort improving weak, lightheaded ROS: 10 point ROS as noted above, otherwise negative Physical Exam: GEN: Alert, oriented, tired HEENT: Normal conjunctiva, sclera anicteric CV: Regular rate and rhythm, trace pedal edema Pulm: Nonlabored respirations on room air, diminished bilaterally ABD: mildly distended, mild LLQ tenderness - improving Integumentary: No rashes Neuro: Normal speech, normal affect vitals reviewed Problem List: Ascites, unknown etiology Ileus POA, secondary to ascites suspected Peritonitis hx diverticulitis KRYSTYNA on CKD3 Hypertension Chronic atrial fibrillation s/p pacemaker Hyponatremia Ascites, unknown etiology Ileus secondary to ascites suspected Peritonitis hx diverticulitis CT abdomen (12/14): mildly distended small bowel loops suggesting ileus, moderate-large volume ascites Linear enhancement along the dependent peritoneal peritoneal lining, ?possible reactive/infectious peritonitis on admission presented with diffuse abdominal pain, abdominal distention, weakness for ~2 days. +nausea without vomiting has history of diverticulitis. Family reports between 1-5 hospitalizations in the past. suspect peritonitis, however unclear origin source; possible malignancy empiric IV zosyn (12/15-12/19) cultures without growth, has remained afebrile, without leukocytosis durign hospitalization 12/19 - was able to get clinic records - shown to have klebsiella uti, sensitive to cipro and zosyn has completed 7+ days abx s/p diagnostic and therapeutic US guided paracentesis (12/17) fluid cytology sent out - noted several clusters of atypical cells with enlarged hyperchromatic nuclei, nuclear overlapping, some prominent nucleoli and cytoplasmic vacuoles. Mostly inflammatory cells with rare atypical cells. concerning for malignancy Culture preliminary without growth KRYSTYNA on CKD3 Creatinine slightly worse 1.43 -> 1.78 (12/19) Nephrology consulted on spironolactone IV lasix dc'd 12/18 stop valsartan for now continue to monitor renal function monitor and replete electrolytes as needed Hypertension Continue home coreg stop valsartan given KRYSTYNA Chronic atrial fibrillation s/p pacemaker Rate controlled. Continue home dose Coreg takes xarelto at home Hyponatremia, resolved monitor and replete electrolytes as needed Resolved VTE: Lovenox for now Code: Full Dispo: Home, ~1-2 days Time Spent Managing Pts Care (In Minutes): 40
--- NOTE | 2023-12-20 12:10 | P.CNS ---
Date of Consult: 12/20/23 Reason for Consult: KRYSTYNA, underlying CKD Requesting Physician: Tien Tripathi Chief Complaint: Abdominal Pain History of Present Illness: Pt is a 88 yrs old Female with past medical history of hypertension, unspecified atrial fibrillation, status post pacemaker placement, some diastolic dysfunction, mitral valve insufficiency, and CKD Stage III under the care of Dr. Baum who saw her earlier in November and may have treated her then for Klebsiella bacteriuruia. Pt came in a few days ago with abdominal pain, distention and generalized weakness which has been going on for a few days. Pt was found to have new onset ascites which was tapped on the . Peritoneal cell count and diff was abnormal. Renal function has also worsened in recent days. Pt denies current abd pain or N/V or dyspnea. Allergies codeine Adverse Reaction (Verified 06/24/23 21:23) Nausea/Vomiting Home Medications: Levothyroxine [Synthroid*] 50 mcg PO [id number] 06/25/23 PARoxetine HCL [Paxil*] 10 mg PO DAILY 06/25/23 Rivaroxaban [Xarelto*] 15 mg PO DAILY 06/25/23 Spironolactone 25 mg PO DAILY 06/25/23 Telmisartan 40 mg PO DAILY 06/25/23 Dicyclomine [Bentyl] 10 mg PO TID 12/16/23 carvediloL [Carvedilol] 6.25 mg PO BID 6AM 6PM 12/16/23 - Past Medical/Surgical History Diabetic: No -: HTN -: Afib -: PPM -: Diverticulitis -: Knee surgery Psychosocial/ Personal History: Lives at home with family - Social History Alcohol use: No CD- Drugs: No Caffeine use: Yes Place of Residence: Home Review of Systems General: Weakness Eyes: Unremarkable ENT: Unremarkable Respiratory: Unremarkable Cardiovascular: As per HPI Gastrointestinal: Distention, As per HPI Genitourinary: As per HPI Musculoskeletal: Unremarkable Integumentary: Unremarkable Neurological: Weakness Lymphatics: Unremarkable Physical Examination Temp Pulse Resp BP Pulse Ox 98.7 F 88 22 H 105/73 95 12/20/23 08:00 12/20/23 08:00 12/20/23 08:00 12/20/23 08:00 12/20/23 08:00 General: In no apparent distress, Cooperative HEENT: Atraumatic, Normocephalic Neck: Supple Respiratory: Normal air movement, Other (No rhonchi or wheezing anteriorly) Cardiovascular: Regular rate/rhythm, Other (Cardiac murmur, loud, LUSB) Gastrointestinal: Soft and benign, No tenderness, No guarding, Distended Musculoskeletal: No swelling, No contractures Integumentary: No rashes Neurological: Normal speech, Normal tone, Normal affect Conclusions/Impression: A/P) 1. Stage 1 KRYSTYNA on underlying CKD Stage III unspecified with multifactorial KRYSTYNA in the setting of relative BP lowering, large volume paracentesis, concurrent BEN inhibitor use, other 2. Cont to monitor renal function closely, monitor UOP, avoid hypotension, hold ACEi/ARB agents. 3. Abnormal findings in urine, unspecified. Recent Klebsiella bacteriuria, sensitive to Abx she has been on here 4. New onset ascites, abnormality of albumin with sharp drop in albumin c/w 3 mo ago. Abnormal cell count. Peritonitis, unspecified. Culture neg but has been on Abx, lymphocyte predominant, possible abnormal cytology. Check SAAG. 5. Will dose Albumin 25% 100 ml IV q12h x 2 doses 6. Underlying chronic diastolic CHF, MR -unclear if contributory, BNP ~ 2700 last mo. Recheck, will determine when to resume diuretic therapy. Check dig level in the setting of KRYSTYNA, lower dose freq or hold per level, CrCl
[2023-12-20] MEDS: ALBUMIN HUMAN 25% 100 ML IV SCH (14:24)
[2023-12-20] MEDS: carvediloL 3.125 MG TAB PO SCH (16:49)
[2023-12-21 03:29] VITALS: O2SAT 92
[2023-12-21 05:32] LABS: Absolute Basophils 0.1 K/uL (0-0.5); Absolute Eosinophils 0.2 K/uL (0-0.5); Absolute Lymphocytes (CBC) 1.3 K/uL (0.7-4.9); Absolute Monocytes 0.8 K/uL (0.1-1.3); Absolute Neutrophil 4.9 K/uL (1.8-8.0); Basophils % 0.9 % (0-1.3); Eosinophils % 2.6 % (0-4.4); Hemoglobin 8.9 g/dL (12.0-15.0); Lymphocytes % 17.4 % (15.3-44.8); MCH 28.9 pg (27.0-35.0); MCHC 31.9 g/dL (32.0-36.0); MCV 90.8 fL (80-100); MPV 7.5 fL (7.6-11.3); Monocytes % 10.6 % (3.3-12.3); Neutrophils % 68.5 % (41.7-73.7); Platelets 321 thou/uL (152-406); RBC Red Blood Cell Count 3.08 M/uL (3.86-4.86)
[2023-12-21 05:41] LABS: TOTAL PROTEIN,PERITONEAL FLUID 3.6 g/dL
[2023-12-21 06:18] LABS: Albumin 2.7 g/dL (3.4-5.0); Albumin/Globulin Ratio 0.8 (1.1-1.8); Alkaline Phosphatase 41 U/L (45-117); Anion Gap 7.2 mEq/L (5.0-15.0); BUN Blood Urea Nitrogen 25 mg/dL (7-18); Bicarbonate 27 mEq/L (21-32); Bilirubin Direct 0.3 mg/dL (0-0.2); Bilirubin Indirect, Calculated 0.4 mg/dL (0.2-0.8); Bilirubin Total 0.7 mg/dL (0.2-1.0); Globulin 3.2 g/dL (2.3-3.5); Glomerular Filtration Rate 25 ml/min (=/>90); Glucose Level 100 mg/dL (74-106); NT PRO-BNP 15799 pg/mL (<450); Potassium 4.2 mEq/L (3.5-5.1); Protein, Total 5.9 g/dL (6.4-8.2); Sodium Level 139 mEq/L (136-145)
[2023-12-21 06:23] LABS: ALT/SGPT < 14 U/L (13-56); AST/SGOT < 10 U/L (15-37)
--- NOTE | 2023-12-21 09:11 | P.PN ---
Date of Service: 12/21/23 Subjective: Feeling better today no new issues overnight appetite is slowly improving afebrile ROS: 10 point ROS as noted above, otherwise negative Physical Exam: GEN: Alert, oriented, tired HEENT: Normal conjunctiva, sclera anicteric CV: Regular rate and rhythm, trace pedal edema; + murmur Pulm: Nonlabored respirations on room air, diminished bilaterally ABD: mildly distended Neuro: Normal speech, normal affect vitals reviewed Problem List: Ascites, unknown etiology Ileus POA, secondary to ascites suspected Peritonitis hx diverticulitis KRYSTYNA on CKD3 Diastolic CHF; acute vs chronic Mod-severe Mitral Regurgitation Hypertension Chronic atrial fibrillation s/p pacemaker Hyponatremia Ascites, unknown etiology Ileus POA, secondary to ascites suspected Peritonitis hx diverticulitis CT abdomen (12/14): mildly distended small bowel loops suggesting ileus, moderate-large volume ascites Linear enhancement along the dependent peritoneal peritoneal lining, ?possible reactive/infectious peritonitis on admission presented with diffuse abdominal pain, abdominal distention, weakness for ~2 days. +nausea without vomiting has history of diverticulitis. Family reports between 1-5 hospitalizations in the past. suspect peritonitis, however unclear origin source; possible malignancy 12/19 - was able to get clinic records - shown to have klebsiella UTI, sensitive to cipro and zosyn dc IV zosyn (12/19). Patient has completed at least 7+ days sensitive abx cultures without growth, has remained afebrile, CRP improving, without leukocytosis during hospitalization s/p diagnostic and therapeutic US guided paracentesis (12/17) fluid cytology sent out - noted several clusters of atypical cells with enlarged hyperchromatic nuclei, nuclear overlapping, some prominent nucleoli and cytoplasmic vacuoles. Mostly inflammatory cells with rare atypical cells. concerning for malignancy. Sent out for further testing family updated on findings 12/20 parcentesis cx (12/17): no growth KRYSTYNA on CKD3 Creatinine slightly worse 1.78 > 1.89 (12/20) Nephrology consulted IV lasix dc'd 12/18 spironolactone dc'd 12/19 stop valsartan for now continue to monitor renal function monitor and replete electrolytes as needed Diastolic CHF; acute vs chronic Mod-severe Mitral Regurgitation most recent echo (06/27/23): 50% EF, severely dilated left atrium, mod-severe lorraine ral regurgitation lasix and mikki on hold given worsening renal function repeat echo to eval EF / stenosis / regurgitation BNP 15.8k Hypertension Continue home coreg stop valsartan given KRYSTYNA Chronic atrial fibrillation s/p pacemaker Rate controlled. Continue home dose Coreg takes xarelto at home Hyponatremia, resolved monitor and replete electrolytes as needed Resolved VTE: Lovenox for now Code: Full Dispo: Home, ~2-3 days Pending renal function improves, echo family updated at bedside 12/20 Time Spent Managing Pts Care (In Minutes): 40
--- NOTE | 2023-12-21 17:16 | P.PN ---
Nephrology note (S) Pt seen lying in bed, on LFNC, reports dyspnea better, no abd pain when seen, has briefly been OOB to use bathroom a few times today with assistance (O) vitals reviewed in the emr General: In no apparent distress, Cooperative HEENT: Atraumatic, Normocephalic Neck: Supple Respiratory: Normal air movement, Other (No rhonchi or wheezing anteriorly) Cardiovascular: Regular rate/rhythm, Other (Cardiac murmur, loud, LUSB) Gastrointestinal: Soft and benign, No tenderness, No guarding, Distended Musculoskeletal: No swelling, No contractures Integumentary: No rashes Neurological: Normal speech, Normal tone, Normal affect Conclusions/Impression: A/P) 1. Stage 1 KRYSTYNA on underlying CKD Stage III unspecified with multifactorial KRYSTYNA in the setting of relative BP lowering, large volume paracentesis, concurrent BEN inhibitor use, and possible CRS as well 2. Cont to monitor renal function closely, monitor UOP, avoid hypotension, hold ACEi/ARB agents. 3. Abnormal findings in urine, unspecified. Recent Klebsiella bacteriuria, sensitive to Abx she has been on here 4. New onset ascites, abnormality of albumin with sharp drop in albumin c/w 3 mo ago. Abnormal cell count. Peritonitis, unspecified. Culture neg but has been on Abx, lymphocyte predominant, possible abnormal cytology. Check SAAG, total protein was reported and not ascitic albumin 5. Suspected acute on chronic diastolic CHF, possible worsened MR, harsher murmur -likely contributory, BNP ~ 2700 last mo, now > 15K. Will resume diuretic therapy. Checked dig level in the setting of KRYSTYNA, and for now level is ok but recommend to lower dose freq or hold if levels rise or if CrCl drops further
[2023-12-21] MEDS: FUROSEMIDE 40 MG/4 ML VIAL IV SCH (17:30)
[2023-12-22 06:01] LABS: Hematocrit 31.2 % (36.0-45.0); Hemoglobin 10.2 g/dL (12.0-15.0); MCH 29.4 pg (27.0-35.0); MCHC 32.5 g/dL (32.0-36.0); MCV 90.3 fL (80-100); MPV 7.4 fL (7.6-11.3); Platelets 370 thou/uL (152-406); RBC Red Blood Cell Count 3.46 M/uL (3.86-4.86)
[2023-12-22 06:31] LABS: Anion Gap 7.3 mEq/L (5.0-15.0); Potassium 4.3 mEq/L (3.5-5.1)
--- NOTE | 2023-12-22 11:15 | P.PN ---
Date of Service: 12/22/23 Subjective: feeling better each day doesn't think anything is getting worse worked with PT yesterday. Easily fatigued but didn't feel dizzy/lightheaded afebrile ROS: 10 point ROS as noted above, otherwise negative Physical Exam: GEN: Alert, oriented, NAD CV: Regular rate and rhythm, trace pedal edema; + murmur Pulm: Nonlabored respirations on 1L NC, diminished bilaterally ABD: mildly distended Neuro: Normal speech, normal affect vitals reviewed Problem List: Ascites, unknown etiology, suspect CHF vs can't rule out malignancy Diastolic CHF; acute vs chronic Mod-severe Mitral Regurgitation Ileus POA, secondary to ascites; resolved suspected Peritonitis, SBP ruled out hx diverticulitis KRYSTYNA on CKD3 Hypertension Chronic atrial fibrillation s/p pacemaker Hyponatremia Ascites, unknown etiology, suspect CHF vs can't rule out malignancy Diastolic CHF; acute vs chronic Mod-severe Mitral Regurgitation Ileus POA, secondary to ascites; resolved suspected Peritonitis, SBP ruled out hx diverticulitis CT abdomen (12/14): mildly distended small bowel loops suggesting ileus, moderate-large volume ascites Linear enhancement along the dependent peritoneal peritoneal lining, ?possible reactive/infectious peritonitis on admission presented with diffuse abdominal pain, abdominal distention, weakness for ~2 days. +nausea without vomiting has history of diverticulitis. Family reports between 1-5 hospitalizations in the past. suspect peritonitis, however unclear origin source; possible malignancy 12/19 - was able to get clinic records - shown to have klebsiella UTI, sensitive to cipro and zosyn IV zosyn dc 12/19. Patient completed at least 7+ days sensitive abx cultures without growth, has remained afebrile, CRP improving, without leukocytosis during hospitalization s/p diagnostic and therapeutic US guided paracentesis (12/17) fluid cytology sent out - noted several clusters of atypical cells with enlarged hyperchromatic nuclei, nuclear overlapping, some prominent nucleoli and cytoplasmic vacuoles. Mostly inflammatory cells with rare atypical cells. concerning for malignancy. Sent out for further testing family updated on findings 12/20 parcentesis cx (12/17): no growth echo 12/21/23 - pending read most recent echo (06/27/23): 50% EF, severely dilated left atrium, mod-severe mitral regurgitation KRYSTYNA on CKD3 Creatinine improving 1.89 > 1.56 (12/21) continue to monitor renal function monitor and replete electrolytes as needed continue IV lasix 40 mg BID; restarted 12/20 per nephro Hypertension Continue home coreg stop valsartan given KRYSTYNA / low bp Chronic atrial fibrillation s/p pacemaker Rate controlled. Continue home dose Coreg takes xarelto at home Hyponatremia, resolved monitor and replete electrolytes as needed Resolved VTE: Lovenox for now Code: Full Dispo: Home, ~ 2 days Pending renal function improves, echo Time Spent Managing Pts Care (In Minutes): 37
--- NOTE | 2023-12-22 11:18 | P.PN ---
Nephrology note (S) No acute complaints, recorded UOP does not appear to be accurate, mode mentions 600 cc in the canister this am before purewick was removed. Pt getting OOB to commode (O) vitals reviewed in the emr General: In no apparent distress, Cooperative HEENT: Atraumatic, Normocephalic Neck: Supple Respiratory: Normal air movement, Other (No rhonchi or wheezing anteriorly) Cardiovascular: Regular rate/rhythm, Other (Cardiac murmur, loud, LUSB) Gastrointestinal: Soft and benign, No tenderness, No guarding, mildly distended Musculoskeletal: No swelling, No contractures Integumentary: No rashes Neurological: Normal speech, Normal tone, Normal affect Conclusions/Impression: A/P) 1. Stage 1 KRYSTYNA on underlying CKD Stage III unspecified with multifactorial KRYSTYNA in the setting of relative BP lowering, large volume paracentesis, concurrent BEN inhibitor use, and possible CRS as well 2. Cont to monitor renal function closely, monitor UOP. Cr level has peaked and is lower today. avoid hypotension, hold ACEi/ARB agents. 3. Abnormal findings in urine, unspecified. Recent Klebsiella bacteriuria, sensitive to Abx she has been on here 4. New onset ascites, abnormality of albumin with sharp drop in albumin c/w 3 mo ago. Abnormal cell count. Peritonitis, unspecified. Culture neg but has been on Abx, lymphocyte predominant, possible abnormal cytology. Check SAAG, total protein was reported and not ascitic albumin 5. Suspected acute on chronic diastolic CHF, possible worsened MR, harsher murmur -likely contributory, BNP ~ 2700 last mo, now > 15K. Did resume diuretic therapy. Checked dig level in the setting of KRYSTYNA, and for now level is ok but recommend to lower dose freq or hold if levels rise or if CrCl drops further F/u TTE that was done
[2023-12-23 06:06] LABS: Hematocrit 31.5 % (36.0-45.0); Hemoglobin 10.2 g/dL (12.0-15.0); MCH 29.1 pg (27.0-35.0); MCHC 32.2 g/dL (32.0-36.0); MCV 90.2 fL (80-100); Platelets 350 thou/uL (152-406); RBC Red Blood Cell Count 3.49 M/uL (3.86-4.86); Red Cell Distribution Width 16.7 % (12.1-15.2)
[2023-12-23 06:28] LABS: Albumin 2.3 g/dL (3.4-5.0); Albumin/Globulin Ratio 0.6 (1.1-1.8); Alkaline Phosphatase 51 U/L (45-117); BUN Blood Urea Nitrogen 28 mg/dL (7-18); Bicarbonate 28 mEq/L (21-32); Bilirubin Direct 0.2 mg/dL (0-0.2); Bilirubin Indirect, Calculated 0.3 mg/dL (0.2-0.8); Bilirubin Total 0.5 mg/dL (0.2-1.0); Glomerular Filtration Rate 41 ml/min (=/>90); Glucose Level 116 mg/dL (74-106); NT PRO-BNP 13781 pg/mL (<450); Protein, Total 6.3 g/dL (6.4-8.2); Sodium Level 139 mEq/L (136-145)
[2023-12-23 06:34] LABS: ALT/SGPT < 14 U/L (13-56); AST/SGOT < 10 U/L (15-37)
[2023-12-23] MEDS: DIGOXIN 0.125 MG TABLET PO SCH (09:11)
--- NOTE | 2023-12-23 10:33 | P.PN ---
Date of Service: 12/23/23 Subjective: Continues to feel some improvement each day ambulating with PT. Slow to move and needing breaks but denies dizziness when ambulating doesn't feel short of breath. Breathing okay. however is on nasal cannula feels some new lower abdominal discomfort afebrile ROS: 10 point ROS as noted above, otherwise negative Physical Exam: GEN: Alert, oriented, NAD CV: Regular rate and rhythm, trace pedal edema; +murmur Pulm: Nonlabored respirations on 2L NC, diminished at bases bilaterally but clear ABD: mildly distended, soft Neuro: Normal speech, normal affect vitals reviewed Problem List: Ascites, unknown etiology, suspect CHF/mitral valve regurg/prolapse vs can't rule out malignancy Diastolic CHF; acute vs chronic Mod-severe Mitral Regurgitation Ileus POA, secondary to ascites; resolved suspected Peritonitis, SBP ruled out hx diverticulitis KRYSTYNA on CKD3; secondary to cardiorenal Hypertension Chronic atrial fibrillation s/p pacemaker Hyponatremia Ascites, unknown etiology, suspect CHF/mitral valve regurg/prolapse vs can't rule out malignancy Diastolic CHF; acute vs chronic Mod-severe Mitral Regurgitation Ileus POA, secondary to ascites; resolved suspected Peritonitis, SBP ruled out hx diverticulitis CT abdomen (12/14): suspected ileus, moderate-large volume ascites, Linear enhancement along the dependent peritoneal peritoneal lining, ?possible reactive/infectious peritonitis on admission presented with diffuse abdominal pain, abdominal distention, weakness for ~2 days. +nausea without vomiting has history of diverticulitis. Family reports between 1-5 hospitalizations in the past. suspect peritonitis, however unclear origin source; possible malignancy 12/19 - was able to get clinic records - shown to have klebsiella UTI, sensitive to cipro and zosyn IV zosyn dc 12/19. Patient completed at least 7+ days sensitive abx cultures without growth, has remained afebrile, without leukocytosis during hospitalization CRP worse 12/22 however clinically improving. will recheck UA. - reported some vague pelvic discomfort on 12/22 s/p diagnostic and therapeutic US guided paracentesis (12/17) fluid cytology sent out - noted several clusters of atypical cells with enlarged hyperchromatic nuclei, nuclear overlapping, some prominent nucleoli and cytoplasmic vacuoles. Mostly inflammatory cells with rare atypical cells. concerning for malignancy. Sent out for further testing parcentesis cx (12/17): no growth continue IV lasix 40 mg BID echo 12/21/23 - pending read most recent echo (06/27/23): 50% EF, severely dilated left atrium, mod-severe mitral regurgitation Patient denies any worsening SOB. Wean oxygen as tolerated. Doesn't use at home. consult cardiology KRYSTYNA on CKD3; secondary to cardiorenal Creatinine improving 1.56 -> 1.28 (12/22) continue to monitor renal function monitor and replete electrolytes as needed continue IV lasix 40 mg BID; restarted 12/20 per nephro Hypertension Continue home coreg valsartan held d/t KRYSTYNA / low bp Chronic atrial fibrillation s/p pacemaker Rate controlled. Continue home dose Coreg takes xarelto at home Hyponatremia, resolved monitor and replete electrolytes as needed Resolved VTE: Lovenox for now Code: 12/22 confirmed code status with patient/family - confirmed full code Dispo: Home with HH vs SNF Pending renal function improves, echo, off oxygen, CRP improves family will see how she does with PT next 1-2 days before deciding dispo choice Time Spent Managing Pts Care (In Minutes): 37
--- NOTE | 2023-12-23 17:56 | CON ---
Date of Consultation: 12/23/2023 Reason For Consultation: Mitral valve regurgitation. History Of Present Illness: 88-year-old female, history of hypertension, atrial fibrillation, pacema ker in place, and mitral valve regurgitation, presented to the emergency room because she has not bee n feeling well. She has some abdominal discomfort. Echo done and showed significant MR, and recomme nded AVANI, hence I was consulted. Saw her by bedside, and she said she has a residential sales consultant that she fo llows up with in [place] and aware of the issue. Past Medical History: Hypertension, atrial fibrillation. Past Surgical History: Appendectomy, cholecystectomy, and knee surgeries. Medications: Refer to reconciliation sheet for detailed list. Allergies: CODEINE. Family History: No premature coronary artery disease or cancer. Social History: She does not smoke or drink. Does not use any drugs. Review of Systems: All systems were reviewed and they were negative except as mentioned in the HPI. Physical Examination: Vital Signs: Reviewed. Head and Neck: Pupils are equal, reactive to light. Intact eye movements. No JVD. No cervical lym phadenopathy. Neck is supple. Thyroid is not enlarged. Lungs: Clear to auscultation bilaterally. No rhonchi, wheezing, or crackles. No accessory muscle u se. Heart: Irregular with the holosystolic murmur. Abdomen: Soft and nontender. Bowel sounds positive. No organomegaly. No masses or hernia. No rig idity or rebound. Extremities: No edema, clubbing, or cyanosis. Intact pulses. Skin: No rash. No nodule. Neurologic: Alert, awake, oriented x3. No acute focal deficits appreciated. Investigations: Her BUN 28, creatinine 1.28, and hemoglobin is 10. Assessment And Recommendations: 1.Mitral valve regurgitation, appears severe, at least moderate to severe. Needs further assessment with transesophageal echocardiogram. However, this is not an acute issue. Can be planned for as an outpatient with her primary residential sales consultant. I explained the situation to her in detail. I then encou raged her to see her residential sales consultant postdischarge to get the mitral valve evaluated further. 2.Hypertension. Blood pressure is controlled. Continue current management. 3.Atrial fibrillation. This condition is controlled. Continue current therapy. 4.Congestive heart failure, diastolic, and appears to be euvolemic. I will switch the Lasix to oral . Cardiology will sign off as this patient's cardiac issues are chronic and to follow up with her [facility] residential sales consultant postdischarge to further evaluate and manage accordingly. /LEOPOLDO Voice ID: [id number] Report ID: [id number]
[2023-12-23] MEDS: ACETAMINOPHEN 325 MG TABLET PO PRN (22:57)
[2023-12-24 06:32] LABS: Hematocrit 30.6 % (36.0-45.0); Hemoglobin 10.1 g/dL (12.0-15.0); MCH 29.5 pg (27.0-35.0); MCV 89.5 fL (80-100); MPV 7.6 fL (7.6-11.3); Platelets 373 thou/uL (152-406); RBC Red Blood Cell Count 3.42 M/uL (3.86-4.86); Red Cell Distribution Width 16.5 % (12.1-15.2)
--- NOTE | 2023-12-24 06:58 | ECHO ---
HEIGHT: 5 ft 1 in WEIGHT: 114 lb 1.6 oz DATE OF STUDY: 12/21/[address]: Tien Tripathi MD 2-DIMENSIONAL: YES M.MODE: YES DOPPLER: YES COLOR FLOW: YES TDS: PORTABLE: YES DEFINITY: BUBBLE STUDY: DIAGNOSIS: EVAULATE FUNCTION, MITRAL REGURGITATION, NEW ASCITES/ OVERLOAD CARDIAC HISTORY: CATHERIZATION: SURGERY: PROSTHETIC VALVE: PACEMAKER: YES MEASUREMENTS (cm) DIASTOLIC (NORMALS) SYSTOLIC (NORMALS) IVSd 0.7 (0.6-1.2) LA Diam 5.1 (1.9-4.0) LVEF 72% LVIDd 4.6 (3.5-5.7) LVIDs 2.7 (2.0-3.5) %FS 41% LVPWd 0.8 (0.6-1.2) Ao Diam 2.5 (2.0-3.7) 2 DIMENSIONAL ASSESSMENT: RIGHT ATRIUM: NORMAL LEFT ATRIUM: SEVERELY DILATED RIGHT VENTRICLE: NORMAL LEFT VENTRICLE: NORMAL TRICUSPID VALVE: MILD TRICUSPID REGURGITATION MITRAL VALVE: MITRAL REGURGITATION IS PRESENT PULMONIC VALVE: MILD PULMONARY INSUFFICIENCY AORTIC VALVE: MILD AORTIC INSUFFICIENCY PERICARDIAL EFFUSION: NONE AORTIC ROOT: NORMAL LEFT VENTRICULAR WALL MOTION: NORMAL DOPPLER/COLOR FLOW: SEE BELOW COMMENTS: 1. NORMAL LEFT VENTRICULAR EJECTION FRACTION GREATER THAN 60% WITH NORMAL WALL MOTION 2. MODERATE TO SEVERE MITRAL REGURGITATION WITH SEVERE PROLAPSE AND POSSIBLE FLAIL, RECOMMEND TRANSESOPHAGEAL ECHOCARDIOGRAM. 3. MILD TRICUSPID REGURGITATION, PULMONIC INSUFFICIENCY, AORTIC INSUFFICIENCY 4. SEVERELY DILATED LEFT ATRIUM TECHNOLOGIST: LEON SLAUGHTER [facility]
[2023-12-24 07:08] LABS: Albumin 2.1 g/dL (3.4-5.0); Albumin/Globulin Ratio 0.5 (1.1-1.8); Alkaline Phosphatase 51 U/L (45-117); Anion Gap 6.8 mEq/L (5.0-15.0); BUN Blood Urea Nitrogen 35 mg/dL (7-18); Bicarbonate 31 mEq/L (21-32); Bilirubin Total 0.6 mg/dL (0.2-1.0); Globulin 3.9 g/dL (2.3-3.5); Glomerular Filtration Rate 36 ml/min (=/>90); Glucose Level 114 mg/dL (74-106); Magnesium 1.8 mg/dL (1.6-2.4); Potassium 3.8 mEq/L (3.5-5.1); Sodium Level 138 mEq/L (136-145)
[2023-12-24 07:11] LABS: ALT/SGPT < 14 U/L (13-56); AST/SGOT < 10 U/L (15-37)
--- NOTE | 2023-12-24 10:20 | P.PN ---
Date of Service: 12/24/23 Subjective: Continues to feel some improvement each day working with PT, ambulating around floor with assistance - only a few feet before needs break able to sit in chair for a while today no new issues ROS: 10 point ROS as noted above, otherwise negative Physical Exam: GEN: Alert, oriented, NAD CV: Irregularly irregular rhythm, trace pedal edema; +murmur Pulm: Nonlabored respirations on room air at rest, diminished at bases bilaterally but clear ABD: mildly distended, soft vitals reviewed Problem List: Ascites, unknown etiology, suspect CHF/mitral valve regurg/prolapse vs can't rule out malignancy Diastolic CHF; acute vs chronic Mod-severe Mitral Regurgitation Ileus POA, secondary to ascites; resolved suspected Peritonitis, SBP ruled out hx diverticulitis KRYSTYNA on CKD3; secondary to cardiorenal Hypertension Chronic atrial fibrillation s/p pacemaker Hyponatremia Ascites, unknown etiology, suspect CHF/mitral valve regurg/prolapse vs can't rule out malignancy Diastolic CHF; acute vs chronic Mod-Severe Mitral Regurgitation Ileus POA, secondary to ascites; resolved suspected Peritonitis, SBP ruled out hx diverticulitis CT abdomen (12/14): suspected ileus, moderate-large volume ascites, Linear enhancement along the dependent peritoneal peritoneal lining, ?possible reactive/infectious peritonitis on admission presented with diffuse abdominal pain, abdominal distention, weakness for ~2 days. +nausea without vomiting has history of diverticulitis. Family reports between 1-5 hospitalizations in the past. suspect peritonitis, however unclear origin source; possible malignancy 12/19 - was able to get clinic records - shown to have klebsiella UTI, sensitive to cipro and zosyn IV zosyn dc 12/19. Patient completed at least 7+ days sensitive abx. cultures without growth, has remained afebrile, without leukocytosis during hospitalization CRP worse however clinically improving. Unclear source. reported some vague pelvic discomfort on 12/22 UA ordered however still uncollected s/p diagnostic and therapeutic US guided paracentesis (12/17) fluid cytology sent out - noted several clusters of atypical cells with enlarged hyperchromatic nuclei, nuclear overlapping, some prominent nucleoli and cytoplasmic vacuoles. Mostly inflammatory cells with rare atypical cells. discussed with GI can't rule out malignancy. Sent out for further testing parcentesis cx (12/17): no growth continue lasix 40 mg BID; deescalate to PO from IV 12/23 Patient denies any worsening SOB. Wean oxygen as tolerated. Doesn't use at home. echo (12/20): 72% EF, mod-severe mitral regurgitation with severe prolapse and possible flail, severely dilated left atrium, mild TR, pulmonic insufficiency, aortic insufficiency Cardiology consulted - recommends outpatient [facility] to further eval mitral valve she follows with Dabaghi KRYSTYNA on CKD3; secondary to cardiorenal continue to monitor renal function monitor and replete electrolytes as needed continue lasix 40 mg BID; deescalate from IV 12/23 Hypertension Continue home coreg valsartan held since 12/19 secondary to KRYSTYNA / low bp Chronic atrial fibrillation s/p pacemaker Rate controlled. Continue home dose Coreg takes xarelto at home Hyponatremia, resolved monitor and replete electrolytes as needed Resolved VTE: lovenox Code: 12/22 confirmed code status with patient/family - full code Dispo: SNF, patient agreeable 12/23 Time Spent Managing Pts Care (In Minutes): 37
[2023-12-24] MEDS: FUROSEMIDE 40 MG TABLET PO SCH (16:39)
--- NOTE | 2023-12-24 21:33 | P.PN ---
Date of Service: 12/24/23 Vital Signs Temp Pulse Resp BP Pulse Ox 98.4 F 77 16 122/58 L 97 12/24/23 20:00 12/24/23 20:00 12/24/23 20:00 12/24/23 20:00 12/24/23 20:00 Medications Acetaminophen (Acetaminophen 325 Mg Tablet) 650 mg PO Q4HP PRN PRN Reason: TEMP > 100' F Last Admin: 12/23/23 22:57 Dose: 650 mg Carvedilol (Carvedilol 3.125 Mg Tab) 3.125 mg PO BIDWM [facility] Last Admin: 12/24/23 16:40 Dose: 3.125 mg Digoxin (Digoxin 0.125 Mg Tablet) 0.125 mg PO Q48H [facility] Last Admin: 12/23/23 09:11 Dose: 0.125 mg Enoxaparin Sodium (Enoxaparin 30 Mg/0.3 Ml) 30 mg SQ DAILY [facility] Last Admin: 12/24/23 09:18 Dose: 30 mg Furosemide (Furosemide 40 Mg Tablet) 40 mg PO BIDL [facility] Last Admin: 12/24/23 16:39 Dose: 40 mg Levothyroxine Sodium (Levothyroxine Sod 0.05 Mg Tablet) 0.05 mg PO [id number] [facility] Last Admin: 12/24/23 05:18 Dose: 0.05 mg Ondansetron HCl (Ondansetron 4 Mg/2 Ml Vial) 4 mg IV Q6HP PRN PRN Reason: NAUSEA / VOMITING Last Admin: 12/24/23 10:37 Dose: 4 mg Paroxetine HCl (Paroxetine Hcl 10 Mg Tab) 10 mg PO DAILY [facility] Last Admin: 12/24/23 09:18 Dose: 10 mg Microbiology Results 12/16/23 00:00 Blood - Blood Aerobic Blood Culture - Final No growth in 5 days. 12/16/23 00:00 Blood - Blood Anaerobic Blood Culture - Final No growth in 5 days. 12/16/23 00:20 Blood - Blood Aerobic Blood Culture - Final No growth in 5 days. 12/16/23 00:20 Blood - Blood Anaerobic Blood Culture - Final No growth in 5 days. 12/15/23 21:00 Clean Catch Urine [place] Count - Final >100,000 CFU/ML. 12/15/23 21:00 Clean Catch Urine - Final MIXED LYNDA. 12/15/23 21:00 Nasopharnyx Influenza Type A Antigen Screen - Final 12/15/23 21:00 Nasopharnyx Influenza Type B Antigen Screen - Final Assessment/ Plan: Nephrology No dyspnea No chest pain No acute events overnight Vitals, medications, blood work and imaging reviewed in the chart NAD. MMM. NCAT. Normal Respiratory Effort. Irregular S1S2. ND Abd. No C/C. Hip Edema trace. No rash. AAO. Normal speech. Stage I KRYSTYNA multifactorial CKD III - No NSAIDs HTN with CKD/ CHF -Continue Coreg Diastolic CHF, A/C Severe MR -Continue Lasix Hypoalbuminemia -Maintain nutrition Anemia in chronic illness -Monitor H&H [id number] EXAM DESCRIPTION: CT - Abdomen Pelvis W Contrast - 12/15/2023 10:25 pm CLINICAL HISTORY: ABD PAIN COMPARISON: Head Brain Wo Cont dated 12/15/2023 TECHNIQUE: Thin cut axial CT imaging of the abdomen and pelvis was performed following intravenous administration of iodinated contrast. Multiplanar reformats were generated and reviewed. All CT scans are performed using dose optimization technique as appropriate and may include automated exposure control or mA/KV adjustment according to patient size. FINDINGS: No suspicious findings in the lung bases. The liver, spleen, adrenal glands, and pancreas show no suspicious findings. Gallbladder is not visualized, could be surgically removed. Prominent common bile duct up to 1.4 cm in caliber. Symmetric renal function is seen with no hydronephrosis or suspicious renal mass. Moderate to large volume free ascites, with linear enhancement along the dependent peritoneal lining, specially in the pelvis. Some mucosal or visceral peritoneal enhancement of mildly dilated fluid-filled small bowel loops in the central abdomen. No focal transition point or bowel wall thickening. No free air, fluid collections, or inflammatory stranding. No hernia, mass or bulky lymphadenopathy. The urinary bladder is without significant finding. No suspicious bony findings. IMPRESSION: Mildly distended small bowel loops with no focal transition point, suggesting ileus. Moderate to large volume free fascitis. Linear enhancement along the dependent peritoneal peritoneal lining, suggesting reactive or infectious peritonitis. Some enhancement is also seen along the small bowel mucosa which may indicate concomitant enteritis. Nonspecific distention of the common bile duct. Please correlate for history of prior cholecystectomy and signs/ symptoms of biliary stasis. [id number] EXAM DESCRIPTION: RADChest Single View12/15/2023 7:39 pm CLINICAL HISTORY: weakness COMPARISON: Chest Single View dated 06/26/2023; Chest Single View dated 06/25/2023 TECHNIQUE: Portable AP view of the chest. FINDINGS: No pneumothorax. Developing left small effusion and underlying airspace opacification. The cardiomediastinal contours are unremarkable. IMPRESSION: Developing left small pleural effusion with underlying airspace opacification. Pneumonia should be considered. [id number] LEFT VENTRICULAR WALL MOTION: NORMAL DOPPLER/COLOR FLOW: SEE BELOW COMMENTS: 1. NORMAL LEFT VENTRICULAR EJECTION FRACTION GREATER THAN 60% WITH NORMAL WALL MOTION 2. MODERATE TO SEVERE MITRAL REGURGITATION WITH SEVERE PROLAPSE AND POSSIBLE FLAIL, RECOMMEND TRANSESOPHAGEAL ECHOCARDIOGRAM. 3. MILD TRICUSPID REGURGITATION, PULMONIC INSUFFICIENCY, AORTIC INSUFFICIENCY 4. SEVERELY DILATED LEFT ATRIUM
[2023-12-25 05:56] LABS: Potassium 4.1 mEq/L (3.5-5.1)
[2023-12-25 05:58] LABS: Hematocrit 32.8 % (36.0-45.0); Hemoglobin 10.3 g/dL (12.0-15.0); MCH 28.4 pg (27.0-35.0); MCHC 31.4 g/dL (32.0-36.0); MCV 90.6 fL (80-100); Platelets 364 thou/uL (152-406); RBC Red Blood Cell Count 3.62 M/uL (3.86-4.86); Red Cell Distribution Width 16.1 % (12.1-15.2)
[2023-12-25 06:04] LABS: Anion Gap 6.1 mEq/L (5.0-15.0); Magnesium 1.8 mg/dL (1.6-2.4)
[2023-12-25 06:05] LABS: Albumin 2.1 g/dL (3.4-5.0); Phosphorus 2.9 mg/dL (2.5-4.9)
[2023-12-25] MEDS: MAGNESIUM SULFATE 1 gm IVPB 1 GM/100 ML BAG IV ONE (09:07)
--- NOTE | 2023-12-25 12:43 | P.PN ---
Subjective Date of Service: 12/25/23 Chief Complaint: Abdominal Pain Patient denies any new complain. She denies any shortness of breath. She denies any abdominal pain. She is tolerating her diet. Physical Examination - Vital Signs Temperature: 97.8 F Blood Pressure: 118/58 Pulse: 76 Respirations: 17 Pulse Ox (%): 98 Assessment And Plan - Plan Physical examination General: Alert and oriented x3, NAD, HEENT: Conjunctiva not pale, anicteric sclera Neck: Supple, no elevated JVD Heart: Heart sounds 1 and 2 normal, regular rhythm, normal rate, no pedal edema Lungs: Clear to auscultation bilaterally, adequate breath sounds bilaterally, no rhonchi or crackles. Abdomen: Soft, mildly distended, mild tenderness in the left lower quadrant, ascites, normal bowel sounds. Extremities: No tenderness, no deformity Skin: Normal skin turgor, no rash, no nodules or ulcers. Neuro: No focal motor deficit. Normal speech. Psychiatry: Normal mood, no agitation. Diagnosis Ascites, unknown etiology, suspect CHF/mitral valve regurg/prolapse vs can't rule out malignancy Diastolic CHF; acute vs chronic Mod-severe Mitral Regurgitation Ileus POA, secondary to ascites; resolved suspected Peritonitis, SBP ruled out hx diverticulitis KRYSTYNA on CKD3; secondary to cardiorenal Hypertension Chronic atrial fibrillation s/p pacemaker Hyponatremia Plan Abdominal pain Ascites Ileus Peritonitis CT on admission showed large volume ascites with peritoneal lining enhancement. Status post IV Zosyn. Paracentesis done, ascitic fluid cytology shows inflammatory cells with atypical cells. Cytology sent out for more testing. Ascitic fluid culture: No growth echo (12/20): 72% EF, mod-severe mitral regurgitation with severe prolapse and possible flail, severely dilated left atrium, mild TR, pulmonic insufficiency, aortic insufficiency Patient is on Aldactone Differential diagnosis for ascites include chronic liver disease, valvular heart disease, and inflammatory origin given persistently elevated CRP. Continue Lasix-IV Lasix transitioned to p.o. Resume Aldactone Hypertension Continue home medications. Chronic atrial fibrillation Rate controlled. Status post pacemaker Continue home dose Coreg Xarelto resumed. Hyponatremia Resolved Patient is on oral Lasix Acute on Chronic kidney disease stage III Continue Lasix and Aldactone. Monitor renal function. Valvular heart disease Follow-up outpatient cardiology for AV[facility]. Patient follows with Dr. Mendoza. DVT prophylaxis: Lovenox Advanced directive full code Disposition: SNF.
--- NOTE | 2023-12-25 21:53 | P.PN ---
Date of Service: 12/25/23 Vital Signs Temp Pulse Resp BP Pulse Ox 97.2 F 72 16 113/56 L 96 12/25/23 16:00 12/25/23 16:00 12/25/23 16:00 12/25/23 16:00 12/25/23 16:00 Medications Acetaminophen (Acetaminophen 325 Mg Tablet) 650 mg PO Q4HP PRN PRN Reason: TEMP > 100' F Last Admin: 12/23/23 22:57 Dose: 650 mg Carvedilol (Carvedilol 3.125 Mg Tab) 3.125 mg PO BIDWM [facility] Last Admin: 12/25/23 16:52 Dose: 3.125 mg Digoxin (Digoxin 0.125 Mg Tablet) 0.125 mg PO Q48H [facility] Last Admin: 12/25/23 09:06 Dose: 0.125 mg Enoxaparin Sodium (Enoxaparin 30 Mg/0.3 Ml) 30 mg SQ DAILY [facility] Last Admin: 12/25/23 09:07 Dose: 30 mg Furosemide (Furosemide 40 Mg Tablet) 40 mg PO BIDL [facility] Last Admin: 12/25/23 16:52 Dose: 40 mg Levothyroxine Sodium (Levothyroxine Sod 0.05 Mg Tablet) 0.05 mg PO [id number] [facility] Last Admin: 12/25/23 06:00 Dose: Not Given Ondansetron HCl (Ondansetron 4 Mg/2 Ml Vial) 4 mg IV Q6HP PRN PRN Reason: NAUSEA / VOMITING Last Admin: 12/24/23 10:37 Dose: 4 mg Paroxetine HCl (Paroxetine Hcl 10 Mg Tab) 10 mg PO DAILY [facility] Last Admin: 12/25/23 09:06 Dose: 10 mg Microbiology Results 12/16/23 00:00 Blood - Blood Aerobic Blood Culture - Final No growth in 5 days. 12/16/23 00:00 Blood - Blood Anaerobic Blood Culture - Final No growth in 5 days. 12/16/23 00:20 Blood - Blood Aerobic Blood Culture - Final No growth in 5 days. 12/16/23 00:20 Blood - Blood Anaerobic Blood Culture - Final No growth in 5 days. 12/15/23 21:00 Clean Catch Urine [place] Count - Final >100,000 CFU/ML. 12/15/23 21:00 Clean Catch Urine - Final MIXED LYNDA. 12/15/23 21:00 Nasopharnyx Influenza Type A Antigen Screen - Final 12/15/23 21:00 Nasopharnyx Influenza Type B Antigen Screen - Final Assessment/ Plan: Nephrology No dyspnea No chest pain No acute events overnight Vitals, medications, blood work and imaging reviewed in the chart NAD. MMM. NCAT. Normal Respiratory Effort. Irregular S1S2. ND Abd. No C/C. Hip Edema trace. No rash. AAO. Normal speech. Stage I KRYSTYNA multifactorial CKD III - No NSAIDs HTN with CKD/ CHF -Continue Coreg Diastolic CHF, A/C Severe MR -Continue Lasix Hypoalbuminemia -Maintain nutrition Anemia in chronic illness -Monitor H&H [id number] EXAM DESCRIPTION: CT - Abdomen Pelvis W Contrast - 12/15/2023 10:25 pm CLINICAL HISTORY: ABD PAIN COMPARISON: Head Brain Wo Cont dated 12/15/2023 TECHNIQUE: Thin cut axial CT imaging of the abdomen and pelvis was performed following intravenous administration of iodinated contrast. Multiplanar reformats were generated and reviewed. All CT scans are performed using dose optimization technique as appropriate and may include automated exposure control or mA/KV adjustment according to patient size. FINDINGS: No suspicious findings in the lung bases. The liver, spleen, adrenal glands, and pancreas show no suspicious findings. Gallbladder is not visualized, could be surgically removed. Prominent common bile duct up to 1.4 cm in caliber. Symmetric renal function is seen with no hydronephrosis or suspicious renal mass. Moderate to large volume free ascites, with linear enhancement along the dependent peritoneal lining, specially in the pelvis. Some mucosal or visceral peritoneal enhancement of mildly dilated fluid-filled small bowel loops in the central abdomen. No focal transition point or bowel wall thickening. No free air, fluid collections, or inflammatory stranding. No hernia, mass or bulky lymphadenopathy. The urinary bladder is without significant finding. No suspicious bony findings. IMPRESSION: Mildly distended small bowel loops with no focal transition point, suggesting ileus. Moderate to large volume free fascitis. Linear enhancement along the dependent peritoneal peritoneal lining, suggesting reactive or infectious peritonitis. Some enhancement is also seen along the small bowel mucosa which may indicate concomitant enteritis. Nonspecific distention of the common bile duct. Please correlate for history of prior cholecystectomy and signs/ symptoms of biliary stasis. [id number] EXAM DESCRIPTION: RADChest Single View12/15/2023 7:39 pm CLINICAL HISTORY: weakness COMPARISON: Chest Single View dated 06/26/2023; Chest Single View dated 06/25/2023 TECHNIQUE: Portable AP view of the chest. FINDINGS: No pneumothorax. Developing left small effusion and underlying airspace opacification. The cardiomediastinal contours are unremarkable. IMPRESSION: Developing left small pleural effusion with underlying airspace opacification. Pneumonia should be considered. [id number] LEFT VENTRICULAR WALL MOTION: NORMAL DOPPLER/COLOR FLOW: SEE BELOW COMMENTS: 1. NORMAL LEFT VENTRICULAR EJECTION FRACTION GREATER THAN 60% WITH NORMAL WALL MOTION 2. MODERATE TO SEVERE MITRAL REGURGITATION WITH SEVERE PROLAPSE AND POSSIBLE FLAIL, RECOMMEND TRANSESOPHAGEAL ECHOCARDIOGRAM. 3. MILD TRICUSPID REGURGITATION, PULMONIC INSUFFICIENCY, AORTIC INSUFFICIENCY 4. SEVERELY DILATED LEFT ATRIUM
[2023-12-26 06:19] LABS: Anion Gap 8.9 mEq/L (5.0-15.0); Potassium 3.9 mEq/L (3.5-5.1)
[2023-12-26] MEDS: POTASSIUM CL SA 10 MEQ TAB PO ONE (08:43)
--- NOTE | 2023-12-26 14:28 | P.PN ---
Subjective Date of Service: 12/26/23 Chief Complaint: Abdominal Pain Patient denies any new complain. She denies any shortness of breath. She reports good sleep She denies any abdominal pain. Physical Examination - Vital Signs Temperature: 98.4 F Blood Pressure: 105/55 Pulse: 76 Respirations: 18 Pulse Ox (%): 98 Assessment And Plan - Plan Physical examination General: Alert and oriented x3, NAD, Neck: Supple, no elevated JVD Heart: Heart sounds 1 and 2 normal, regular rhythm, normal rate, no pedal edema Lungs: Clear to auscultation bilaterally, adequate breath sounds bilaterally, no rhonchi or crackles. Abdomen: Soft, mildly distended, nontender, normal bowel sounds. Extremities: No tenderness, no deformity Skin: Normal skin turgor, no rash, no nodules or ulcers. Neuro: No focal motor deficit. Normal speech. Psychiatry: Normal mood, no agitation. Diagnosis Ascites, unknown etiology, suspect CHF/mitral valve regurg/prolapse vs can't rule out malignancy Diastolic CHF; acute vs chronic Mod-severe Mitral Regurgitation Ileus POA, secondary to ascites; resolved suspected Peritonitis, SBP ruled out hx diverticulitis KRYSTYNA on CKD3; secondary to cardiorenal Hypertension Chronic atrial fibrillation s/p pacemaker Hyponatremia Plan Abdominal pain Ascites Ileus Peritonitis CT on admission showed large volume ascites with peritoneal lining enhancement. Status post IV Zosyn. Paracentesis done, ascitic fluid cytology showed inflammatory cells with atypical cells. Cytology sent out for more testing. Ascitic fluid culture: No growth echo (12/20): 72% EF, mod-severe mitral regurgitation with severe prolapse and possible flail, severely dilated left atrium, mild TR, pulmonic insufficiency, aortic insufficiency Patient is on Aldactone Differential diagnosis for ascites include chronic liver disease, valvular heart disease, and inflammatory origin given persistently elevated CRP. Continue Lasix-IV Lasix transitioned to p.o. Resume Aldactone Hypertension Continue home medications. Chronic atrial fibrillation Rate controlled. Status post pacemaker Continue home dose Coreg Xarelto resumed. Hyponatremia Resolved Patient is on oral Lasix Monitor BMP Acute on Chronic kidney disease stage III Continue Lasix and Aldactone. Monitor renal function. Valvular heart disease Follow-up outpatient cardiology for [facility]. Patient follows with Dr. Mendoza. DVT prophylaxis: Lovenox Advanced directive full code Disposition: SNF. Awaiting insurance authorization.
[2023-12-26] MEDS: RIVAROXABAN 15 MG TABLET PO SCH (18:17)
--- NOTE | 2023-12-26 21:32 | P.PN ---
Date of Service: 12/26/23 Vital Signs Temp Pulse Resp BP Pulse Ox 97.8 F 85 17 139/60 95 12/26/23 20:00 12/26/23 20:00 12/26/23 20:00 12/26/23 20:00 12/26/23 20:00 Medications Acetaminophen (Acetaminophen 325 Mg Tablet) 650 mg PO Q4HP PRN PRN Reason: TEMP > 100' F Last Admin: 12/25/23 22:14 Dose: 650 mg Carvedilol (Carvedilol 3.125 Mg Tab) 3.125 mg PO BIDWM [facility] Last Admin: 12/26/23 15:40 Dose: Not Given Digoxin (Digoxin 0.125 Mg Tablet) 0.125 mg PO Q48H [facility] Last Admin: 12/25/23 09:06 Dose: 0.125 mg Furosemide (Furosemide 40 Mg Tablet) 40 mg PO BIDL [facility] Last Admin: 12/26/23 15:39 Dose: Not Given Levothyroxine Sodium (Levothyroxine Sod 0.05 Mg Tablet) 0.05 mg PO [id number] [facility] Last Admin: 12/26/23 05:46 Dose: 0.05 mg Ondansetron HCl (Ondansetron 4 Mg/2 Ml Vial) 4 mg IV Q6HP PRN PRN Reason: NAUSEA / VOMITING Last Admin: 12/24/23 10:37 Dose: 4 mg Paroxetine HCl (Paroxetine Hcl 10 Mg Tab) 10 mg PO DAILY [facility] Last Admin: 12/26/23 08:43 Dose: 10 mg Rivaroxaban (Rivaroxaban 15 Mg Tablet) 15 mg PO DAILY 5 PM [facility] Last Admin: 12/26/23 18:17 Dose: 15 mg Microbiology Results 12/16/23 00:00 Blood - Blood Aerobic Blood Culture - Final No growth in 5 days. 12/16/23 00:00 Blood - Blood Anaerobic Blood Culture - Final No growth in 5 days. 12/16/23 00:20 Blood - Blood Aerobic Blood Culture - Final No growth in 5 days. 12/16/23 00:20 Blood - Blood Anaerobic Blood Culture - Final No growth in 5 days. 12/15/23 21:00 Clean Catch Urine [place] Count - Final >100,000 CFU/ML. 12/15/23 21:00 Clean Catch Urine - Final MIXED LYNDA. 12/15/23 21:00 Nasopharnyx Influenza Type A Antigen Screen - Final 12/15/23 21:00 Nasopharnyx Influenza Type B Antigen Screen - Final Assessment/ Plan: Nephrology No dyspnea No chest pain No acute events overnight Vitals, medications, blood work and imaging reviewed in the chart NAD. MMM. NCAT. Normal Respiratory Effort. Irregular S1S2. ND Abd. No C/C. Hip Edema trace. No rash. AAO. Normal speech. Stage I KRYSTYNA multifactorial CKD III - No NSAIDs HTN with CKD/ CHF -Continue Coreg Diastolic CHF, A/C Severe MR -Continue Lasix Hypoalbuminemia -Maintain nutrition Anemia in chronic illness -Monitor H&H [id number] EXAM DESCRIPTION: CT - Abdomen Pelvis W Contrast - 12/15/2023 10:25 pm CLINICAL HISTORY: ABD PAIN COMPARISON: Head Brain Wo Cont dated 12/15/2023 TECHNIQUE: Thin cut axial CT imaging of the abdomen and pelvis was performed following intravenous administration of iodinated contrast. Multiplanar reformats were generated and reviewed. All CT scans are performed using dose optimization technique as appropriate and may include automated exposure control or mA/KV adjustment according to patient size. FINDINGS: No suspicious findings in the lung bases. The liver, spleen, adrenal glands, and pancreas show no suspicious findings. Gallbladder is not visualized, could be surgically removed. Prominent common bile duct up to 1.4 cm in caliber. Symmetric renal function is seen with no hydronephrosis or suspicious renal mass. Moderate to large volume free ascites, with linear enhancement along the dependent peritoneal lining, specially in the pelvis. Some mucosal or visceral peritoneal enhancement of mildly dilated fluid-filled small bowel loops in the central abdomen. No focal transition point or bowel wall thickening. No free air, fluid collections, or inflammatory stranding. No hernia, mass or bulky lymphadenopathy. The urinary bladder is without significant finding. No suspicious bony findings. IMPRESSION: Mildly distended small bowel loops with no focal transition point, suggesting ileus. Moderate to large volume free fascitis. Linear enhancement along the dependent peritoneal peritoneal lining, suggesting reactive or infectious peritonitis. Some enhancement is also seen along the small bowel mucosa which may indicate concomitant enteritis. Nonspecific distention of the common bile duct. Please correlate for history of prior cholecystectomy and signs/ symptoms of biliary stasis. [id number] EXAM DESCRIPTION: RADChest Single View12/15/2023 7:39 pm CLINICAL HISTORY: weakness COMPARISON: Chest Single View dated 06/26/2023; Chest Single View dated 06/25/2023 TECHNIQUE: Portable AP view of the chest. FINDINGS: No pneumothorax. Developing left small effusion and underlying airspace opacification. The cardiomediastinal contours are unremarkable. IMPRESSION: Developing left small pleural effusion with underlying airspace opacification. Pneumonia should be considered. [id number] LEFT VENTRICULAR WALL MOTION: NORMAL DOPPLER/COLOR FLOW: SEE BELOW COMMENTS: 1. NORMAL LEFT VENTRICULAR EJECTION FRACTION GREATER THAN 60% WITH NORMAL WALL MOTION 2. MODERATE TO SEVERE MITRAL REGURGITATION WITH SEVERE PROLAPSE AND POSSIBLE FLAIL, RECOMMEND TRANSESOPHAGEAL ECHOCARDIOGRAM. 3. MILD TRICUSPID REGURGITATION, PULMONIC INSUFFICIENCY, AORTIC INSUFFICIENCY 4. SEVERELY DILATED LEFT ATRIUM
[2023-12-27 06:24] LABS: Anion Gap 10.5 mEq/L (5.0-15.0); Potassium 4.5 mEq/L (3.5-5.1)
--- NOTE | 2023-12-27 11:03 | P.PN ---
Subjective Date of Service: 12/27/23 Chief Complaint: Abdominal Pain Patient has no new complaint. No issues overnight. She denies shortness of breath or abdominal pain. Physical Examination - Vital Signs Temperature: 95.8 F Blood Pressure: 119/63 Pulse: 69 Respirations: 24 Pulse Ox (%): 99 Assessment And Plan - Plan Physical examination General: Alert and oriented x3, NAD, Neck: Supple, no elevated JVD Heart: Heart sounds 1 and 2 normal, regular rhythm, normal rate, no pedal edema Lungs: Clear to auscultation bilaterally, adequate breath sounds bilaterally, no rhonchi or crackles. Abdomen: Soft, mildly distended, nontender, normal bowel sounds. Extremities: No tenderness, no deformity Skin: Normal skin turgor, no rash, no nodules or ulcers. Neuro: No focal motor deficit. Normal speech. Psychiatry: Normal mood, no agitation. Diagnosis Ascites, unknown etiology, suspect CHF/mitral valve regurg/prolapse vs can't rule out malignancy Diastolic CHF; acute vs chronic Mod-severe Mitral Regurgitation Ileus POA, secondary to ascites; resolved suspected Peritonitis, SBP ruled out hx diverticulitis KRYSTYNA on CKD3; secondary to cardiorenal Hypertension Chronic atrial fibrillation s/p pacemaker Hyponatremia Plan Abdominal pain Ascites Ileus Peritonitis CT on admission showed large volume ascites with peritoneal lining enhancement. Status post IV Zosyn. Paracentesis done, ascitic fluid cytology showed inflammatory cells with atypical cells. Cytology sent out for more testing. Ascitic fluid culture: No growth echo (12/20): 72% EF, mod-severe mitral regurgitation with severe prolapse and possible flail, severely dilated left atrium, mild TR, pulmonic insufficiency, aortic insufficiency Patient is on Aldactone Differential diagnosis for ascites include chronic liver disease, valvular heart disease, and inflammatory origin given persistently elevated CRP. Continue oral Lasix. Continue Aldactone Hypertension Continue home medications. Chronic atrial fibrillation Rate controlled. Status post pacemaker Continue home dose Coreg Xarelto resumed. Hyponatremia Resolved Patient is on oral Lasix Monitor BMP Acute on Chronic kidney disease stage III Continue Lasix and Aldactone. Monitor renal function. Valvular heart disease Follow-up outpatient cardiology for AVANI. DVT prophylaxis: Lovenox Advanced directive full code Disposition: SNF. Awaiting insurance authorization.
[2023-12-27] MEDS: HYDROCORTISONE ACETATE 25MG SUPP PR SCH (18:41)
--- NOTE | 2023-12-27 21:38 | P.PN ---
Date of Service: 12/27/23 Vital Signs Temp Pulse Resp BP Pulse Ox 98.2 F 65 20 140/65 95 12/27/23 20:00 12/27/23 20:00 12/27/23 20:00 12/27/23 20:00 12/27/23 20:00 Medications Acetaminophen (Acetaminophen 325 Mg Tablet) 650 mg PO Q4HP PRN PRN Reason: TEMP > 100' F Last Admin: 12/26/23 23:14 Dose: 650 mg Carvedilol (Carvedilol 3.125 Mg Tab) 3.125 mg PO BIDWM [facility] Last Admin: 12/27/23 17:03 Dose: 3.125 mg Digoxin (Digoxin 0.125 Mg Tablet) 0.125 mg PO Q48H [facility] Last Admin: 12/27/23 08:38 Dose: 0.125 mg Furosemide (Furosemide 40 Mg Tablet) 40 mg PO BIDL [facility] Last Admin: 12/27/23 17:02 Dose: 40 mg Hydrocortisone Acetate (Hydrocortisone Acetate 25mg Supp) 25 mg [place] DAILY [facility] Last Admin: 12/27/23 18:41 Dose: 25 mg Levothyroxine Sodium (Levothyroxine Sod 0.05 Mg Tablet) 0.05 mg PO [id number] [facility] Last Admin: 12/27/23 05:56 Dose: 0.05 mg Ondansetron HCl (Ondansetron 4 Mg/2 Ml Vial) 4 mg IV Q6HP PRN PRN Reason: NAUSEA / VOMITING Last Admin: 12/24/23 10:37 Dose: 4 mg Paroxetine HCl (Paroxetine Hcl 10 Mg Tab) 10 mg PO DAILY [facility] Last Admin: 12/27/23 08:38 Dose: 10 mg Rivaroxaban (Rivaroxaban 15 Mg Tablet) 15 mg PO DAILY 5 PM [facility] Last Admin: 12/27/23 17:03 Dose: 15 mg Microbiology Results 12/16/23 00:00 Blood - Blood Aerobic Blood Culture - Final No growth in 5 days. 12/16/23 00:00 Blood - Blood Anaerobic Blood Culture - Final No growth in 5 days. 12/16/23 00:20 Blood - Blood Aerobic Blood Culture - Final No growth in 5 days. 12/16/23 00:20 Blood - Blood Anaerobic Blood Culture - Final No growth in 5 days. 12/15/23 21:00 Clean Catch Urine [place] Count - Final >100,000 CFU/ML. 12/15/23 21:00 Clean Catch Urine - Final MIXED LYNDA. 12/15/23 21:00 Nasopharnyx Influenza Type A Antigen Screen - Final 12/15/23 21:00 Nasopharnyx Influenza Type B Antigen Screen - Final Assessment/ Plan: Nephrology No dyspnea No chest pain No acute events overnight Vitals, medications, blood work and imaging reviewed in the chart NAD. MMM. NCAT. Normal Respiratory Effort. Irregular S1S2. ND Abd. No C/C. Hip Edema trace. No rash. AAO. Normal speech. Stage I KRYSTYNA multifactorial CKD III - No NSAIDs HTN with CKD/ CHF -Continue Coreg Diastolic CHF, A/C Severe MR -Continue Lasix Hypoalbuminemia -Maintain nutrition Anemia in chronic illness -Monitor H&H [id number] EXAM DESCRIPTION: CT - Abdomen Pelvis W Contrast - 12/15/2023 10:25 pm CLINICAL HISTORY: ABD PAIN COMPARISON: Head Brain Wo Cont dated 12/15/2023 TECHNIQUE: Thin cut axial CT imaging of the abdomen and pelvis was performed following intravenous administration of iodinated contrast. Multiplanar reformats were generated and reviewed. All CT scans are performed using dose optimization technique as appropriate and may include automated exposure control or mA/KV adjustment according to patient size. FINDINGS: No suspicious findings in the lung bases. The liver, spleen, adrenal glands, and pancreas show no suspicious findings. Gallbladder is not visualized, could be surgically removed. Prominent common bile duct up to 1.4 cm in caliber. Symmetric renal function is seen with no hydronephrosis or suspicious renal mass. Moderate to large volume free ascites, with linear enhancement along the dependent peritoneal lining, specially in the pelvis. Some mucosal or visceral peritoneal enhancement of mildly dilated fluid-filled small bowel loops in the central abdomen. No focal transition point or bowel wall thickening. No free air, fluid collections, or inflammatory stranding. No hernia, mass or bulky lymphadenopathy. The urinary bladder is without significant finding. No suspicious bony findings. IMPRESSION: Mildly distended small bowel loops with no focal transition point, suggesting ileus. Moderate to large volume free fascitis. Linear enhancement along the dependent peritoneal peritoneal lining, suggesting reactive or infectious peritonitis. Some enhancement is also seen along the small bowel mucosa which may indicate concomitant enteritis. Nonspecific distention of the common bile duct. Please correlate for history of prior cholecystectomy and signs/ symptoms of biliary stasis. [id number] EXAM DESCRIPTION: RADChest Single View12/15/2023 7:39 pm CLINICAL HISTORY: weakness COMPARISON: Chest Single View dated 06/26/2023; Chest Single View dated 06/25/2023 TECHNIQUE: Portable AP view of the chest. FINDINGS: No pneumothorax. Developing left small effusion and underlying airspace opacification. The cardiomediastinal contours are unremarkable. IMPRESSION: Developing left small pleural effusion with underlying airspace opacification. Pneumonia should be considered. [id number] LEFT VENTRICULAR WALL MOTION: NORMAL DOPPLER/COLOR FLOW: SEE BELOW COMMENTS: 1. NORMAL LEFT VENTRICULAR EJECTION FRACTION GREATER THAN 60% WITH NORMAL WALL MOTION 2. MODERATE TO SEVERE MITRAL REGURGITATION WITH SEVERE PROLAPSE AND POSSIBLE FLAIL, RECOMMEND TRANSESOPHAGEAL ECHOCARDIOGRAM. 3. MILD TRICUSPID REGURGITATION, PULMONIC INSUFFICIENCY, AORTIC INSUFFICIENCY 4. SEVERELY DILATED LEFT ATRIUM
--- NOTE | 2023-12-28 10:29 | RAD REPORT ---
EXAM DESCRIPTION: RAD - Chest Single View - 12/28/2023 10:22 am CLINICAL HISTORY: Dyspnea COMPARISON: Chest Single View dated 12/15/2023; Chest Single View dated 06/26/2023; Chest Single View d ated 06/25/2023; Abdomen Pelvis W Contrast dated 12/15/2023; Paracentesis Proc Guidance dated FINDINGS: Lines: Pacemaker. Lungs: Likely mild atelectasis at the left lung base. Pleural: Small left pleural effusion. Cardiac: Cardiomegaly. Mediastinum: Within normal limits. Bones: No acute fractures. Other: None IMPRESSION: Small left pleural effusion and likely underlying atelectasis. No other acute findings i dentified.
--- NOTE | 2023-12-28 12:38 | P.PN ---
Subjective Date of Service: 12/28/23 Chief Complaint: Abdominal Pain Patient reports feeling more weak today compared to yesterday She reports some shortness of breath today. She denies any abdominal pain she denies any cough. Physical Examination - Vital Signs Temperature: 97.9 F Blood Pressure: 153/72 Pulse: 104 Respirations: 12 Pulse Ox (%): 92 Assessment And Plan - Plan Physical examination General: Alert and oriented x3, NAD, Neck: Supple, no elevated JVD Heart: Heart sounds 1 and 2 normal, regular rhythm, normal rate, no pedal edema Lungs: Clear to auscultation bilaterally, adequate breath sounds bilaterally, no rhonchi or crackles. Abdomen: Soft, mildly distended, nontender, normal bowel sounds. Extremities: No tenderness, no deformity Skin: Normal skin turgor, no rash, no nodules or ulcers. Neuro: No focal motor deficit. Normal speech. Psychiatry: Normal mood, no agitation. Diagnosis Ascites, unknown etiology, suspect CHF/mitral valve regurg/prolapse vs can't rule out malignancy Diastolic CHF; acute vs chronic Mod-severe Mitral Regurgitation Ileus POA, secondary to ascites; resolved suspected Peritonitis, SBP ruled out hx diverticulitis KRYSTYNA on CKD3; secondary to cardiorenal Hypertension Chronic atrial fibrillation s/p pacemaker Hyponatremia Plan Abdominal pain Ascites Ileus Peritonitis Metastatic adenocarcinoma-unknown origin CT on admission showed large volume ascites with peritoneal lining enhancement. Status post IV Zosyn. Paracentesis done, ascitic fluid cytology suggest metastatic adenocarcinoma. I sent a message to discuss further assessment with Oncology-Dr. Grimes. Ascitic fluid culture: No growth echo (12/20): 72% EF, mod-severe mitral regurgitation with severe prolapse and possible flail, severely dilated left atrium, mild TR, pulmonic insufficiency, aortic insufficiency Patient is on Aldactone Continue oral Lasix. Continue Aldactone Hypertension Continue home medications. Chronic atrial fibrillation Rate controlled. Status post pacemaker Continue home dose Coreg Xarelto resumed. Hyponatremia Resolved Patient is on oral Lasix Monitor BMP Acute on Chronic kidney disease stage III Continue Lasix and Aldactone. Monitor renal function. Valvular heart disease Follow-up outpatient cardiology for AVANI. Generalized weakness Likely related to malignancy Continue PT. DVT prophylaxis: Lovenox Advanced directive full code Disposition: SNF. Awaiting insurance authorization.
--- NOTE | 2023-12-28 21:40 | P.PN ---
Date of Service: 12/28/23 Vital Signs Temp Pulse Resp BP Pulse Ox 97.5 F 68 18 141/63 H 96 12/28/23 20:00 12/28/23 20:00 12/28/23 20:00 12/28/23 20:00 12/28/23 20:00 Medications Acetaminophen (Acetaminophen 325 Mg Tablet) 650 mg PO Q4HP PRN PRN Reason: TEMP > 100' F Last Admin: 12/26/23 23:14 Dose: 650 mg Carvedilol (Carvedilol 3.125 Mg Tab) 3.125 mg PO BIDWM [facility] Last Admin: 12/28/23 16:40 Dose: 3.125 mg Digoxin (Digoxin 0.125 Mg Tablet) 0.125 mg PO Q48H [facility] Last Admin: 12/27/23 08:38 Dose: 0.125 mg Furosemide (Furosemide 40 Mg Tablet) 40 mg PO BIDL [facility] Last Admin: 12/28/23 16:40 Dose: 40 mg Hydrocortisone Acetate (Hydrocortisone Acetate 25mg Supp) 25 mg [place] DAILY [facility] Last Admin: 12/28/23 08:32 Dose: 25 mg Levothyroxine Sodium (Levothyroxine Sod 0.05 Mg Tablet) 0.05 mg PO [id number] [facility] Last Admin: 12/28/23 05:48 Dose: 0.05 mg Ondansetron HCl (Ondansetron 4 Mg/2 Ml Vial) 4 mg IV Q6HP PRN PRN Reason: NAUSEA / VOMITING Last Admin: 12/28/23 05:51 Dose: 4 mg Paroxetine HCl (Paroxetine Hcl 10 Mg Tab) 10 mg PO DAILY [facility] Last Admin: 12/28/23 08:32 Dose: 10 mg Rivaroxaban (Rivaroxaban 15 Mg Tablet) 15 mg PO DAILY 5 PM [facility] Last Admin: 12/28/23 16:40 Dose: 15 mg Microbiology Results 12/16/23 00:00 Blood - Blood Aerobic Blood Culture - Final No growth in 5 days. 12/16/23 00:00 Blood - Blood Anaerobic Blood Culture - Final No growth in 5 days. 12/16/23 00:20 Blood - Blood Aerobic Blood Culture - Final No growth in 5 days. 12/16/23 00:20 Blood - Blood Anaerobic Blood Culture - Final No growth in 5 days. 12/15/23 21:00 Clean Catch Urine [place] Count - Final >100,000 CFU/ML. 12/15/23 21:00 Clean Catch Urine - Final MIXED LYNDA. 12/15/23 21:00 Nasopharnyx Influenza Type A Antigen Screen - Final 12/15/23 21:00 Nasopharnyx Influenza Type B Antigen Screen - Final Assessment/ Plan: Nephrology No dyspnea No chest pain No acute events overnight Vitals, medications, blood work and imaging reviewed in the chart NAD. MMM. NCAT. Normal Respiratory Effort. Irregular S1S2. +SM ND Abd. No C/C. Hip Edema trace. No rash. AAO. Normal speech. Stage I KRYSTYNA multifactorial CKD III - No NSAIDs HTN with CKD/ CHF -Continue Coreg Diastolic CHF, A/C Severe MR -Continue Lasix Hypoalbuminemia -Maintain nutrition Anemia in chronic illness -Monitor H&H [id number] EXAM DESCRIPTION: CT - Abdomen Pelvis W Contrast - 12/15/2023 10:25 pm CLINICAL HISTORY: ABD PAIN COMPARISON: Head Brain Wo Cont dated 12/15/2023 TECHNIQUE: Thin cut axial CT imaging of the abdomen and pelvis was performed following intravenous administration of iodinated contrast. Multiplanar reformats were generated and reviewed. All CT scans are performed using dose optimization technique as appropriate and may include automated exposure control or mA/KV adjustment according to patient size. FINDINGS: No suspicious findings in the lung bases. The liver, spleen, adrenal glands, and pancreas show no suspicious findings. Gallbladder is not visualized, could be surgically removed. Prominent common bile duct up to 1.4 cm in caliber. Symmetric renal function is seen with no hydronephrosis or suspicious renal mass. Moderate to large volume free ascites, with linear enhancement along the dependent peritoneal lining, specially in the pelvis. Some mucosal or visceral peritoneal enhancement of mildly dilated fluid-filled small bowel loops in the central abdomen. No focal transition point or bowel wall thickening. No free air, fluid collections, or inflammatory stranding. No hernia, mass or bulky lymphadenopathy. The urinary bladder is without significant finding. No suspicious bony findings. IMPRESSION: Mildly distended small bowel loops with no focal transition point, suggesting ileus. Moderate to large volume free fascitis. Linear enhancement along the dependent peritoneal peritoneal lining, suggesting reactive or infectious peritonitis. Some enhancement is also seen along the small bowel mucosa which may indicate concomitant enteritis. Nonspecific distention of the common bile duct. Please correlate for history of prior cholecystectomy and signs/ symptoms of biliary stasis. [id number] EXAM DESCRIPTION: RADChest Single View12/15/2023 7:39 pm CLINICAL HISTORY: weakness COMPARISON: Chest Single View dated 06/26/2023; Chest Single View dated 06/25/2023 TECHNIQUE: Portable AP view of the chest. FINDINGS: No pneumothorax. Developing left small effusion and underlying airspace opacification. The cardiomediastinal contours are unremarkable. IMPRESSION: Developing left small pleural effusion with underlying airspace opacification. Pneumonia should be considered. [id number] LEFT VENTRICULAR WALL MOTION: NORMAL DOPPLER/COLOR FLOW: SEE BELOW COMMENTS: 1. NORMAL LEFT VENTRICULAR EJECTION FRACTION GREATER THAN 60% WITH NORMAL WALL MOTION 2. MODERATE TO SEVERE MITRAL REGURGITATION WITH SEVERE PROLAPSE AND POSSIBLE FLAIL, RECOMMEND TRANSESOPHAGEAL ECHOCARDIOGRAM. 3. MILD TRICUSPID REGURGITATION, PULMONIC INSUFFICIENCY, AORTIC INSUFFICIENCY 4. SEVERELY DILATED LEFT ATRIUM
[2023-12-29 08:34] VITALS: BP 142/64
[2023-12-29 08:44] VITALS: TEMP 96.8
--- NOTE | 2023-12-29 11:29 | P.DS ---
Admission Date: 12/16/23 Discharge Date: 12/29/23 Disposition: TRANSFER TO SNF - REHAB Discharge Condition: FAIR Reason for Admission: Abdominal Pain Hospital Course: Diagnosis Ascites, unknown etiology, suspect CHF/mitral valve regurg/prolapse vs can't rule out malignancy Diastolic CHF; acute vs chronic Mod-severe Mitral Regurgitation Ileus POA, secondary to ascites; resolved suspected Peritonitis, SBP ruled out hx diverticulitis KRYSTYNA on CKD3; secondary to cardiorenal Hypertension Chronic atrial fibrillation s/p pacemaker Hyponatremia Patient presented to the emergency department with abdominal pain and distention. CT abdomen and pelvis done in the emergency department showed large volume ascites with peritoneal lining enhancement. Patient was hospitalized for further management. US guided paracentesis was done, ascitic fluid drained. 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 Patient may have malignancy related to her reproductive tract-ovary or fallopian tube Echocardiogram done showed moderate to severe mitral regurgitation with severe prolapse, severely dilated left atrium, mild tricuspid regurgitation, pulmonary insufficiency and aortic insufficiency. Patient was briefly treated with IV Zosyn for suspected infectious peritonitis. She has atrial fibrillation which was mostly rate controlled during the hospital stay. She takes Coreg and Xarelto which were continued during the hospital stay. She has a pacemaker in place. Her ascites was managed with IV Lasix which was later transitioned to oral Lasix. Her kidney function was stable with diuresis. Patient will need to follow-up with her glove presser regarding the valvular heart disease noted. Vital Signs/Physical Exam: Temp Pulse Resp BP Pulse Ox 96.8 F 69 20 142/64 H 93 12/29/23 08:00 12/29/23 08:31 12/29/23 08:00 12/29/23 08:31 12/29/23 08:00 General: Alert, In no apparent distress, Oriented x3 HEENT: Mucous membr. moist/pink, Sclerae nonicteric Neck: Supple, JVD not distended Respiratory: Clear to auscultation bilaterally, Normal air movement Cardiovascular: No edema, Regular rate/rhythm, Normal S1 S2 Gastrointestinal: Normal bowel sounds, Soft and benign, No tenderness, Distended (Mildly distended) Musculoskeletal: No swelling, No tenderness Integumentary: No rashes, No cyanosis Neurological: Normal speech, Normal strength at 5/5 x4 extr Laboratory Data at Discharge: WBC 7.90 thou/uL (4.3-10.9) 12/25/23 04:25 Hgb 10.3 g/dL (12.0-15.0) L 12/25/23 04:25 Hct 32.8 % (36.0-45.0) L 12/25/23 04:25 Plt Count 364 thou/uL (152-406) 12/25/23 04:25 PT 16.4 SECONDS (9.4-12.5) H 12/17/23 09:31 INR 1.48 12/17/23 09:31 APTT 34.6 SECONDS (24.3-36.9) 12/17/23 09:31 Sodium 133 mEq/L (136-145) L 12/27/23 05:53 Potassium 4.5 mEq/L (3.5-5.1) D 12/27/23 05:53 BUN 47 mg/dL (7-18) H 12/27/23 05:53 Creatinine 1.48 mg/dL (0.55-1.02) H 12/27/23 05:53 Glucose 125 mg/dL (74-106) H 12/27/23 05:53 Phosphorus 2.9 mg/dL (2.5-4.9) 12/25/23 04:25 Magnesium 1.8 mg/dL (1.6-2.4) 12/25/23 04:25 Total Bilirubin 0.6 mg/dL (0.2-1.0) 12/24/23 05:49 AST < 10 U/L (15-37) L 12/24/23 05:49 ALT < 14 U/L (13-56) 12/24/23 05:49 Alkaline Phosphatase 51 U/L (45-117) 12/24/23 05:49 Home Medications: Levothyroxine [Synthroid*] 50 mcg PO [id number] 06/25/23 PARoxetine HCL [Paxil*] 10 mg PO DAILY 06/25/23 Rivaroxaban [Xarelto*] 15 mg PO DAILY 06/25/23 carvediloL [Carvedilol] 6.25 mg PO BID 6AM 6PM 12/16/23 Furosemide [Lasix*] 40 mg PO DAILY tab 12/29/23 Hydrocort Acetate Suppos [Anucort-Hc Suppository*] 25 mg [place] DAILY PRN supp 12/29/23 Physician Discharge Instructions: Patient presented to the emergency department with abdominal pain and distention. CT abdomen and pelvis done in the emergency department showed large volume ascites with peritoneal lining enhancement. Patient was hospitalized for further management. US guided paracentesis was done, ascitic fluid drained. 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 Patient may have malignancy related to her reproductive tract-ovary or fallopian tube Echocardiogram done showed moderate to severe mitral regurgitation with severe prolapse, severely dilated left atrium, mild tricuspid regurgitation, pulmonary insufficiency and aortic insufficiency. Patient was briefly treated with IV Zosyn for suspected infectious peritonitis. She has atrial fibrillation which was mostly rate controlled during the hospital stay. She takes Coreg and Xarelto which were continued during the hospital stay. She has a pacemaker in place. Her ascites was managed with IV Lasix which was later transitioned to oral Lasix. Her kidney function was stable with diuresis. Patient will need to follow-up with her glove presser regarding the valvular heart disease noted. Please note!!! There are cancer cells in your peritoneal fluid which surrounds the contents of your abdomen. The cancer cells are of unknown origin but most likely related to your reproductive organs. It is important you follow-up with gynecology oncologist to evaluate you for a way to obtain a biopsy to look for the source of the cancer followed by the appropriate treatment. Your primary care physician Dr. Andrade can help arrange for you to see a gynecology oncologist. You may also need colonoscopy. Followup: Melquiades Vazquez MD [Primary Care Provider] - Time spent managing pt's care (in minutes): 42
== END 2023-12-29 13:06 | DRG 306 ==
LOC: ER 17:53 → ERHOLD 12-16 00:31 → 2ND 12-16 01:29
PROVIDERS: ADMIT Family Medicine; ATTEND Internal Medicine
PROC: 0W9G3ZZ Drainage of Peritoneal Cavity, Percutaneous Approach (ICD-10-PCS; principal; 2023-12-18)
DX: I08.3 Combined rheumatic disorders of mitral, aortic and tricuspid valves (principal); I50.33 Acute on chronic diastolic (congestive) heart failure; K65.8 Other peritonitis; I13.0 Hypertensive heart and chronic kidney disease with heart failure and stage 1 through stage 4 chronic kidney disease, or unspecified chronic kidney disease; R18.8 Other ascites; E87.1 Hypo-osmolality and hyponatremia; K56.7 Ileus, unspecified; N39.0 Urinary tract infection, site not specified; I48.20 Chronic atrial fibrillation, unspecified; N17.9 Acute kidney failure, unspecified; C78.6 Secondary malignant neoplasm of retroperitoneum and peritoneum; C56.9 Malignant neoplasm of unspecified ovary; C80.1 Malignant (primary) neoplasm, unspecified; N18.30 Chronic kidney disease, stage 3 unspecified; D63.1 Anemia in chronic kidney disease; E88.09 Other disorders of plasma-protein metabolism, not elsewhere classified; E86.0 Dehydration; B96.1 Klebsiella pneumoniae [K. pneumoniae] as the cause of diseases classified elsewhere; Z88.5 Allergy status to narcotic agent; Z95.0 Presence of cardiac pacemaker; Z79.01 Long term (current) use of anticoagulants; Z79.02 Long term (current) use of antithrombotics/antiplatelets; Z90.49 Acquired absence of other specified parts of digestive tract; Z79.890 Hormone replacement therapy; Z79.899 Other long term (current) drug therapy; Z90.710 Acquired absence of both cervix and uterus
CPT/HCPCS: 36415; 49083; 70450; 71045; 74177; 80048; 80053; 80069; 80076; 80162; 81001; 82945; 83605; 83615; 83735; 83880; 84157; 84484; 85025; 85027; 85610; 85730; 86140; 87040; 87070; 87086; 87088; 87804; 87811; 88108; 88305; 89050; 93005; 93306; 96361; 96365; 96375; 97110; 97116; 97161; 97530; 99285; J1650; J1940; J2405; J2543; J3475; J7030; J7040; P9047; Q9967

== ENCOUNTER 2024-01-02 20:22 | Inpatient (IN) | payer OTHER ==
[2024-01-02] MEDS ORDERED: ONDANSETRON 4 MG/2 ML VIAL ONE (20:58)
[2024-01-02 21:05] LABS: Absolute Basophils 0.1 K/uL (0-0.5); Absolute Eosinophils 0.1 K/uL (0-0.5); Absolute Lymphocytes (CBC) 1.3 K/uL (0.7-4.9); Absolute Monocytes 1.1 K/uL (0.1-1.3); Absolute Neutrophil 8.7 K/uL (1.8-8.0); Basophils % 0.7 % (0-1.3); Eosinophils % 1.1 % (0-4.4); Hematocrit 34.5 % (36.0-45.0); Hemoglobin 10.8 g/dL (12.0-15.0); Lymphocytes % 11.7 % (15.3-44.8); MCH 28.2 pg (27.0-35.0); MCHC 31.4 g/dL (32.0-36.0); MCV 89.7 fL (80-100); MPV 7.3 fL (7.6-11.3); Neutrophils % 76.5 % (41.7-73.7); Platelets 680 thou/uL (152-406); RBC Red Blood Cell Count 3.84 M/uL (3.86-4.86); Red Cell Distribution Width 16.6 % (12.1-15.2)
[2024-01-02 21:18] LABS: PT Prothrombin Time 24.9 SECONDS (9.4-12.5); PTT, Activated Partial Thromb 39.3 SECONDS (24.3-36.9); Protime INR 2.28
[2024-01-02 21:30] LABS: AST/SGOT 19 U/L (15-37); Albumin 2.2 g/dL (3.4-5.0); Albumin/Globulin Ratio 0.5 (1.1-1.8); Alkaline Phosphatase 79 U/L (45-117); BUN Blood Urea Nitrogen 49 mg/dL (7-18); Bicarbonate 27 mEq/L (21-32); Bilirubin Direct 0.2 mg/dL (0-0.2); Bilirubin Indirect, Calculated 0.4 mg/dL (0.2-0.8); Bilirubin Total 0.6 mg/dL (0.2-1.0); Globulin 4.8 g/dL (2.3-3.5); Glomerular Filtration Rate 40 ml/min (=/>90); Glucose Level 128 mg/dL (74-106); Lipase 25 U/L (13-75); Magnesium 2.2 mg/dL (1.6-2.4); NT PRO-BNP 11275 pg/mL (<450); Sodium Level 129 mEq/L (136-145); Troponin High Sensitivity 13.6 pg/mL (<58.9)
[2024-01-02 21:58] LABS: ALT/SGPT < 14 U/L (13-56); Creatine Phosphokinase < 15 U/L (26-192)
--- NOTE | 2024-01-02 22:04 | RAD REPORT ---
EXAM DESCRIPTION: [place] Single View01/02/2024 8:58 pm CLINICAL HISTORY: Chest pain COMPARISON: December 28, 2023 FINDINGS: Heart is moderately enlarged Small left pleural effusion present Lungs appear clear of acute infiltrate. Pacemaker lead in place
--- NOTE | 2024-01-02 22:04 | RAD REPORT ---
EXAM DESCRIPTION: CT - Abdomen Pelvis Wo Contrast - 01/02/2024 9:39 pm CLINICAL HISTORY: Abdominal pain COMPARISON: November 2023 TECHNIQUE: Computed axial tomography of the abdomen and pelvis was obtained. IV and oral contrast we re not requested. All CT scans are performed using dose optimization technique as appropriate and may include automated exposure control or mA/KV adjustment according to patient size. FINDINGS: The evaluation of solid organs, vessels and bowel is limited secondary to the lack of con trast administration. Liver, pancreas, adrenals and kidneys grossly normal Stable splenic calcification Prominence of bile duct unchanged Moderate to large amount of ascites. Omental caking with peritoneal nodules. No evidence diverticulitis. No obstruction. Apparent thickening of the wall of rectosigmoid colon Small left pleural effusion IMPRESSION: Peritoneal carcinomatosis with moderate to large amount ascites Apparent thickening of the wall of the rectosigmoid colon could be secondary to distention or mass
--- NOTE | 2024-01-02 23:20 | ER ---
Nurse's Notes [facility] Name: Jama Johnson Age: 88 yrs Sex: Female : 1935 Arrival Date: 01/02/2024 Time: 20:22 Bed 3 Private MD: Diagnosis: Large volume ascites, shortness of breath, hyponatremia, peritoneal carcinomatosis, sigmoid colon mass, Presentation: 01/01 20:35 Chief complaint: EMS states: Pt called due to epigastric pain and abdominal distention. jb4 Reports feeling short of breath. Was put on 1L nc for comfort. Satting 97% on RA. Pain has been going on for 1.5 hours and pt reports having a paracentesis in the past. Coronavirus screen: At this time, the client does not indicate any symptoms associated with coronavirus-19. Ebola Screen: No symptoms or risks identified at this time. Initial Sepsis Screen: Does the patient meet any 2 criteria? No. Patient's initial sepsis screen is negative. Does the patient have a suspected source of infection? No. Patient's initial sepsis screen is negative. Risk Assessment: Do you want to hurt yourself or someone else? Patient reports no desire to harm self or others. Onset of symptoms was January 02, 2024. Transition of care: patient was not received from another setting of care. 20:35 Method Of Arrival: EMS: [facility] jb4 20:35 Acuity: ALMAZ 3 jb4 Historical: - Allergies: 20:42 Codeine (Upset stomach); jb4 - Home Meds: 20:42 Xarelto 15 mg Oral tablet 1 tab daily [Active]; telmisartan 40 mg Oral tablet 1 tab jb4 daily [Active]; paroxetine HCl 10 mg Oral tablet 1 tab daily [Active]; levothyroxine 50 mcg tablet 1 tab daily [Active]; dicyclomine 10 mg Oral capsule 1 cap 3 times per day [Active]; carvedilol 6.25 mg Oral tablet 1 tab 2 times per day [Active]; - PMHx: 20:42 Diverticulitis; Atrial fibrillation; Hypertension; Pacemaker; jb4 - PSHx: 20:42 Cholecystectomy; Appendectomy; hysterectomy; Knee - Bilateral; jb4 - Immunization history:: Adult Immunizations up to date. - Infectious Disease History:: Denies. - Social history:: Smoking status: Patient denies any tobacco usage or history of. - Family history:: not pertinent. Screenin/15 06:39 [facility] ED Fall Risk Assessment (Adult) History of falling in the last 3 months, jb4 including since admission No falls in past 3 months (0 pts) Confusion or Disorientation No (0 pts) Intoxicated or Sedated No (0 pts) Impaired Gait No (0 pts) Mobility Assist Device Used No (0 pt) Altered Elimination Yes (1 pt) Score/Fall Risk Level 0 - 2 = Low Risk Oriented to surroundings, Maintained a safe environment. Abuse screen: Denies threats or abuse. Nutritional screening: No deficits noted. Tuberculosis screening: No symptoms or risk factors identified. Assessment: 01/01 21:00 General: Appears in no apparent distress. comfortable, Behavior is calm, cooperative, jb4 appropriate for age. Pain: Complains of pain in abdomen Pain does not radiate. Pain currently is 7 out of 10 on a pain scale. Neuro: Level of Consciousness is awake, alert, obeys commands, Oriented to person, place, time, situation. Cardiovascular: Patient's skin is warm and dry. Respiratory: Airway is patent Respiratory effort is even, unlabored, Respiratory pattern is regular, symmetrical. GI: Abdomen is round distended, Reports lower abdominal pain, upper abdominal pain, constipation, nausea. : No signs and/or symptoms were reported regarding the genitourinary system. EENT: No signs and/or symptoms were reported regarding the EENT system. Derm: Skin is intact, Skin is pink, warm \T\ dry. 22:00 Reassessment: Patient appears in no apparent distress at this time. Patient and/or jb4 family updated on plan of care and expected duration. Pain level reassessed. Patient is alert, oriented x 3, equal unlabored respirations, skin warm/dry/pink. 23:00 Reassessment: Patient appears in no apparent distress at this time. Patient and/or jb4 family updated on plan of care and expected duration. Pain level reassessed. Patient is alert, oriented x 3, equal unlabored respirations, skin warm/dry/pink. 01/02 00:12 Reassessment: Patient appears in no apparent distress at this time. Patient and/or jb4 family updated on plan of care and expected duration. Pain level reassessed. Patient is alert, oriented x 3, equal unlabored respirations, skin warm/dry/pink. 01:00 Reassessment: Pt is resting in bed with eyes closed, respirations are even and jb4 unlabored. 02:00 Reassessment: Patient appears in no apparent distress at this time. No changes from jb4 previously documented assessment. Patient and/or family updated on plan of care and expected duration. Pain level reassessed. 03:02 Reassessment: Patient appears in no apparent distress at this time. No changes from jb4 previously documented assessment. Patient and/or family updated on plan of care and expected duration. Pain level reassessed. Vital Signs: 01/01 20:35 BP 152 / 74; Pulse 74; Resp 16; Temp 97.5(TE); Pulse Ox 99% on 2 lpm NC; Weight 52.16 jb4 kg (M); 21:15 BP 140 / 65; Pulse 70; Resp 16; Pulse Ox 100% on 2 lpm NC; jb4 23:00 BP 130 / 57; Pulse 75; Resp 14; Pulse Ox 100% on 2 lpm NC; jb4 08 00:00 BP 127 / 66; Pulse 71; Resp 23; Pulse Ox 100% on 2 lpm NC; jb4 01:15 BP 127 / 67; Pulse 71; Resp 21; Pulse Ox 100% on 2 lpm NC; jb4 02:45 BP 139 / 75; Pulse 75; Resp 22; Pulse Ox 100% on 2 lpm NC; jb4 03:45 BP 125 / 60; Pulse 76; Resp 21; Pulse Ox 100% on 2 lpm NC; jb4 04:45 BP 122 / 57; Pulse 72; Resp 22; Pulse Ox 100% on 2 lpm NC; jb4 06:00 BP 113 / 44; Pulse 66; Resp 20; Pulse Ox 100% on 2 lpm NC; jb4 07:17 BP 107 / 51; Pulse 61; Resp 18; Temp 97.4; Pulse Ox 100% on 2 lpm NC; ph Nancy Coma Score: 01/01 23:12 Eye Response: spontaneous(4). Motor Response: obeys commands(6). Verbal Response: sp4 oriented(5). Total: 15. ED Course: 20:23 Patient arrived in ED. jj6 20:26 Dino Fan MD is Attending Physician. sp4 20:42 Triage completed. jb4 20:42 Arm band placed on right wrist. jb4 20:45 First set of blood cultures drawn by me. oe 20:55 Inserted saline lock: 22 gauge in right antecubital area, using aseptic technique. oe Blood collected. Flushed with 10 mL NS. 21:00 XRAY CXR (1 view) In Process Unspecified. EDMS 21:06 Second set of blood cultures drawn by me. oe 21:15 EKG done, by ED staff, reviewed by Dino Fan MD. oe 21:16 BMP Sent. oe 21:16 Blood Culture Adult (2) Sent. oe 21:16 CBC with Diff Sent. oe 21:16 CPK Sent. oe 21:16 Hepatic Function Sent. oe 21:16 Lipase Sent. oe 21:17 Magnesium Sent. oe 21:17 NT PRO-BNP Sent. oe 21:17 PT-INR Sent. oe 21:17 Ptt, Activated Sent. oe 21:17 Troponin HS Sent. oe 21:41 CT Abd/Pelvis - Without Contrast In Process Unspecified. 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 Provider notified. 01/02 04:42 Tien Tripathi MD is Hospitalizing Provider. sp4 06:39 Patient has correct armband on for positive identification. Bed in low position. Call jb4 light in reach. Side rails up X 1. Provided Education on: plan of care. 07:28 Sarah Willams RN is Primary Nurse. ph 07:29 Primary Nurse role handed off by Sarah Willams RN ar6 07:29 Faith Stevens, RN is Primary Nurse. ar6 07:33 Sarah Willams RN is Primary Nurse. ph Administered Medications: 01/01 21:07 Drug: Ondansetron IVP 4 mg IVP once; over 2 minutes Route: IVP; Site: right antecubital;jb4 01/02 04:44 Follow up: Response: No adverse reaction; Marked relief of symptoms jb4 01/01 23:39 Drug: Diazepam PO 2 mg PO once Route: PO; jb4 01/02 04:44 Follow up: Response: No adverse reaction; Marked relief of symptoms jb4 01:51 Drug: Furosemide IVP 20 mg IVP once; give over 2 minutes Route: IVP; Site: right jb4 antecubital; 04:44 Follow up: Response: No adverse reaction; Marked relief of symptoms jb4 01:51 Drug: NS 0.9% IV 1000 ml IV at 75 ml/hr continuous Route: IV; Rate: 75 ml/hr; Site: jb4 right antecubital; 04:43 Follow up: IV Status: Infusion continued upon admission jb4 05:01 Drug: Albumin IVPB 25 grams 100 ml IVPB once; (Note: Albumin 25% concentration) Volume: jb4 100 ml; Route: IVPB; Site: right antecubital; Outcome: 01/01 23:19 ER care complete, transfer ordered by . sp4 01/02 04:43 Decision to Hospitalize by Provider. sp4 08:40 Patient left the ED. ph Signatures: Dispatcher [employer] EDSarah Rossi RN RN ph Melquiades Evans RN RN jb4 Tank Abdullahi Jennifer jj6 Villegas, Rebecca rv1 Potepalov, Sergey, MD MD sp4 Faith Stevens RN RN ar6 Corrections: (The following items were deleted from the chart) 00:12 00:09 General: Appears jbHernandez jb4 06:42 06:39 Provided Education on: discharge instructions.. alan jb4
--- NOTE | 2024-01-02 23:20 | EDPHYS ---
Physician Documentation [facility] Name: Jama Johnson Age: 88 yrs Sex: Female : 1935 Arrival Date: 01/02/2024 Time: 20:22 Bed 3 Private MD: ED Physician Dino Fan HPI: 01/01 20:26 This 88 yrs old Female presents to ER via Unassigned with complaints of sp4 Breathing Difficulty. 22:54 88-year-old female who was just admitted here 12/16/2023 through 12/29/2023. Patient sp4 presents with moderate abdominal distention ascites and shortness of breath. Patient presents with EMS. Recent admitting diagnosis for ascites, CHF, mitral valve regurgitation, ileus, ascites with paracentesis, acute renal insufficiency, hypertension, chronic atrial fibrillation, hyponatremia. 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 Possibly reproductive tract or fallopian tube cancer. Echocardiogram showed moderate to severe mitral regurgitation with severe mitral valve prolapse, dilated left atrium, tricuspid regurgitation, pulmonary insufficiency and aortic insufficiency. Patient is also on Coreg and Xarelto. Pacemaker in place. IV Lasix given to ascites. Kidney function was stable. Patient's medications include Synthroid 50 mcg daily, paroxetine 10 mg daily, Xarelto 15 mg daily, carvedilol 6.25 twice daily, furosemide 40 mg p.o. daily, Anusol suppositories. 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 Historical: - Allergies: 20:42 Codeine (Upset stomach); jb4 - Home Meds: 20:42 Xarelto 15 mg Oral tablet 1 tab daily [Active]; telmisartan 40 mg Oral tablet 1 tab jb4 daily [Active]; paroxetine HCl 10 mg Oral tablet 1 tab daily [Active]; levothyroxine 50 mcg tablet 1 tab daily [Active]; dicyclomine 10 mg Oral capsule 1 cap 3 times per day [Active]; carvedilol 6.25 mg Oral tablet 1 tab 2 times per day [Active]; - PMHx: 20:42 Diverticulitis; Atrial fibrillation; Hypertension; Pacemaker; jb4 - PSHx: 20:42 Cholecystectomy; Appendectomy; hysterectomy; Knee - Bilateral; jb4 - Immunization history:: Adult Immunizations up to date. - Infectious Disease History:: Denies. - Social history:: Smoking status: Patient denies any tobacco usage or history of. - Family history:: not pertinent. ROS: 23:12 Constitutional: Negative for fever, chills, and weight loss, positive generalized sp4 weakness, positive abdominal distention, positive shortness of breath, positive abdominal ascites. 23:12 All other systems are negative, Exam: 23:12 Constitutional: Patient is frail elderly female with abdominal distention and no signs sp4 of acute dyspnea or respiratory distress. Patient is ill-appearing but nontoxic. Head/Face: Normocephalic, atraumatic. Eyes: Pupils equal round and reactive to light, extra-ocular motions intact. Lids and lashes normal. Conjunctiva and sclera are not injected. Cornea within normal limits. Periorbital areas with no swelling, redness, or edema. ENT: Nares patent. No nasal discharge, no septal abnormalities noted. Tympanic membranes are normal and external auditory canals are clear. Oropharynx with no redness, swelling, or masses, exudates, or evidence of obstruction, uvula midline. Mucous membranes moist. Neck: Trachea midline, no thyromegaly or masses palpated, and no cervical lymphadenopathy. Supple, full range of motion without nuchal rigidity, or vertebral point tenderness. Chest/axilla: Normal chest wall appearance and motion. Nontender with no deformity. No lesions are appreciated. Cardiovascular: Regular rate and rhythm with a normal S1 and S2. No gallops, murmurs, or rubs. Normal PMI, no JVD. No pulse deficits. Respiratory: Lungs have equal breath sounds bilaterally, clear to auscultation and percussion. No rales, rhonchi or wheezes noted. No increased work of breathing, no retractions or nasal flaring. Abdomen/GI: Soft, patient has moderate amount of abdominal ascites with positive fluid wave but no tense distention. Patient is not tender on exam. Back: No spinal tenderness. No costovertebral tenderness. Skin: Warm, dry with normal turgor. Normal color with no rashes, no lesions, and no evidence of cellulitis. Positive skin frailty and senile skin changes. MS/ Extremity: Pulses equal, no cyanosis. Neurovascular intact. Full, normal range of motion. Neuro: Awake and alert, GCS 15, oriented to person, place, time, and situation. Cranial nerves II-XII grossly intact. Motor strength 5/5 in all extremities. Sensory grossly intact. Psych: Awake, alert, with orientation to person, place and time. Behavior, mood, and affect are within normal limits 23:12 ECG was reviewed by the Attending Physician. 2105 atrial flutter with variable AV block rate 67. Vital Signs: 20:35 BP 152 / 74; Pulse 74; Resp 16; Temp 97.5(TE); Pulse Ox 99% on 2 lpm NC; Weight 52.16 jb4 kg (M); 21:15 BP 140 / 65; Pulse 70; Resp 16; Pulse Ox 100% on 2 lpm NC; jb4 23:00 BP 130 / 57; Pulse 75; Resp 14; Pulse Ox 100% on 2 lpm NC; jb4 01/02 00:00 BP 127 / 66; Pulse 71; Resp 23; Pulse Ox 100% on 2 lpm NC; jb4 01:15 BP 127 / 67; Pulse 71; Resp 21; Pulse Ox 100% on 2 lpm NC; jb4 02:45 BP 139 / 75; Pulse 75; Resp 22; Pulse Ox 100% on 2 lpm NC; jb4 03:45 BP 125 / 60; Pulse 76; Resp 21; Pulse Ox 100% on 2 lpm NC; jb4 04:45 BP 122 / 57; Pulse 72; Resp 22; Pulse Ox 100% on 2 lpm NC; jb4 06:00 BP 113 / 44; Pulse 66; Resp 20; Pulse Ox 100% on 2 lpm NC; jb4 07:17 BP 107 / 51; Pulse 61; Resp 18; Temp 97.4; Pulse Ox 100% on 2 lpm NC; ph Nancy Coma Score: 01/01 23:12 Eye Response: spontaneous(4). Motor Response: obeys commands(6). Verbal Response: sp4 oriented(5). Total: 15. MDM: 20:27 Patient medically screened. sp4 22:52 ED course: EXAM DESCRIPTION: CT - Abdomen Pelvis Wo Contrast - 01/02/2024 9:39 pm sp4 CLINICAL HISTORY: Abdominal pain COMPARISON: November 2023 TECHNIQUE: Computed axial tomography of the abdomen and pelvis was obtained. IV and oral contrast were not requested. All CT scans are performed using dose optimization technique as appropriate and may include automated exposure control or mA/KV adjustment according to patient size. FINDINGS: The evaluation of solid organs, vessels and bowel is limited secondary to the lack of contrast administration. Liver, pancreas, adrenals and kidneys grossly normal Stable splenic calcification Prominence of bile duct unchanged Moderate to large amount of ascites. Omental caking with peritoneal nodules. No evidence diverticulitis. No obstruction. Apparent thickening of the wall of rectosigmoid colon Small left pleural effusion IMPRESSION: Peritoneal carcinomatosis with moderate to large amount ascites Apparent thickening of the wall of the rectosigmoid colon could be secondary to distention or mass. 23:17 Differential diagnosis: Anxiety Reaction asthma, Bronchitis CHF exacerbation, Chronic sp4 Obstructive Pulmonary Disease pneumonia, Psychogenic. Data reviewed: vital signs, nurses notes, EMS record, old medical records, lab test result(s), EKG, radiologic studies, CT scan, plain films. Consideration of Admission/Observation Escalation of care including admission/observation considered. ED course: Patient essentially has worsening cancer spread with peritoneal carcinomatosis with moderate to large amount of ascites. Rectosigmoid colon distention or mass. Patient at this time warrants transfer for hematology oncology consult at this time I do not just available here. Will request transfer to [facility] for further evaluation.. 01/02 04:43 ED course: Patient was discussed with MD Brown who advised draining abdomen and sp4 having patient sent to their outpatient clinic for outpatient cancer workup. . 01/01 20:27 Order name: BMP; Complete Time: 22:46 sp4 01/01 20:27 Order name: Blood Culture Adult (2) sp4 01/01 20:27 Order name: CBC with Diff; Complete Time: 22:46 sp4 01/01 20:27 Order name: CPK; Complete Time: 22:46 sp4 01/01 20:27 Order name: Hepatic Function; Complete Time: 22:46 sp4 01/01 20:27 Order name: Lipase; Complete Time: 22:46 sp4 01/01 20:27 Order name: Magnesium; Complete Time: 22:46 sp4 01/01 20:27 Order name: NT PRO-BNP; Complete Time: 22:46 sp4 01/01 20:27 Order name: PT-INR; Complete Time: 22:46 sp4 01/01 20:27 Order name: Ptt, Activated; Complete Time: 22:46 sp4 01/01 20:27 Order name: Troponin HS; Complete Time: 22:46 sp4 01/01 20:27 Order name: XRAY CXR (1 view); Complete Time: 22:46 sp4 01/01 20:37 Order name: CT Abd/Pelvis - Without Contrast; Complete Time: 22:46 sp4 01/01 20:27 Order name: Cardiac monitoring; Complete Time: 21:16 sp4 01/01 20:27 Order name: EKG - Nurse/Tech; Complete Time: 21:16 sp4 01/01 20:27 Order name: IV Saline Lock; Complete Time: 21:16 sp4 01/01 20:27 Order name: Labs collected and sent; Complete Time: 21:16 sp4 01/01 20:27 Order name: O2 Per Protocol; Complete Time: 22:50 sp4 01/01 20:27 Order name: O2 Sat Monitoring; Complete Time: 22:50 sp4 01/02 00:13 Order name: Barnhart; Complete Time: 01:45 sp4 01/02 00:18 Order name: Misc. Order: Paracentesis consent ; Complete Time: 02:48 sp4 EC/14 23:12 Rate is 67 beats/min. Rhythm is irregularly irregular, A flutter. QRS [place] is Normal. sp4 QRS interval is normal. No ST changes noted. Clinical impression: Atrial Flutter. Interpreted by me. Reviewed by me. Administered Medications: 21:07 Drug: Ondansetron IVP 4 mg IVP once; over 2 minutes Route: IVP; Site: right antecubital;4 01/02 04:44 Follow up: Response: No adverse reaction; Marked relief of symptoms 4 01/01 23:39 Drug: Diazepam PO 2 mg PO once Route: PO; 01/02 04:44 Follow up: Response: No adverse reaction; Marked relief of symptoms jb4 01:51 Drug: Furosemide IVP 20 mg IVP once; give over 2 minutes Route: IVP; Site: right [facility] antecubital; 04:44 Follow up: Response: No adverse reaction; Marked relief of symptoms jb4 01:51 Drug: NS 0.9% IV 1000 ml IV at 75 ml/hr continuous Route: IV; Rate: 75 ml/hr; Site: jb4 right antecubital; 04:43 Follow up: IV Status: Infusion continued upon admission jb4 05:01 Drug: Albumin IVPB 25 grams 100 ml IVPB once; (Note: Albumin 25% concentration) Volume: jb4 100 ml; Route: IVPB; Site: right antecubital; Disposition Summary: 01/03/24 04:43 Hospitalization Ordered Notes: Hospitalization Status: Inpatient Admission sp4 Provider: Tien Tripathi sp4 Location: Telemetry/MedSurg (Inpatient) sp4 Condition: Fair(01/03/24 04:43) sp4 Problem: new(01/03/24 04:43) sp4 Symptoms: have improved(01/03/24 04:43) sp4 Bed/Room Type: Standard sp4 Room Assignment: 431(01/03/24 06:25) Diagnosis - Large volume ascites, shortness of breath, hyponatremia, peritoneal carcinomatosis, sp4 sigmoid colon mass, Forms: - Medication Reconciliation Form sp4 - SBAR form sp4 - Leadership Thank You Letter sp4 Signatures: Dispatcher [employer] EDMS Kavita Wilson RN RN Melquiades Hoffman RN RN jb4 Dino Fan MD MD sp4 Corrections: (The following items were deleted from the chart) 01/01 20:28 20:28 Chest Single View+RAD.RAD.BRZ ordered. [facility] 20:37 20:37 Abdomen Pelvis Wo Con+CT.RAD.BRZ ordered. EDVT EDVT 22:09 20:37 PTT, ACTIVATED+COAG.LAB.BRZ ordered. [facility] 01/02 01:33 01/01 20:28 Arterial Blood Gas+RC.LAB.BRZ ordered. [facility] 01/02 04:39 01/01 23:19 [facility] sp4 01/02 04:39 01/01 23:19 [facility] sp4 01/02 04:39 01/01 23:19 Higher level of care sp4 rv01/02 04:39 01/01 23:19 Stable sp4 rv01/02 04:39 01/01 23:19 new sp4 rv1 08/15 04:39 01/01 23:19 have improved sp4 rv1 01/02 04:39 01/01 23:19 Malignant ascites sp4 rv1 01/02 04:39 01/01 23:19 Large volume ascites, shortness of breath, peritoneal carcinomatosis, rv1 colonic mass, physical debility, worsening dyspnea sp4 01/02 06:25 04:43 sp4 [address]
[2024-01-02] MEDS ORDERED: DIAZEPAM 2 MG TABLET ONE (23:28)
[2024-01-03] MEDS ORDERED: NA CHLORIDE 0.9% 1,000 ML ONE (01:46)
[2024-01-03] MEDS ORDERED: FUROSEMIDE 20 MG/ 2ML VIAL ONE (01:46)
--- NOTE | 2024-01-03 04:46 | P.HP ---
Certification for Inpatient Patient admitted to: Inpatient With expected LOS: <2 Midnights Practitioner: I am a practitioner with admitting privileges, knowledge of patient current condition, hospital course, and medical plan of care. Services: Services provided to patient in accordance with Admission requirements found in Title 42 Section 412.3 of the Code of Federal Regulations Patient History Date of Service: 01/03/24 Reason for admission: Large volume ascites History of Present Illness: 88 yrs old Female with past medical history Diverticulitis; Atrial fibrillation; Hypertension; Pacemaker; presents to the emergency room with moderate abdominal distention. Reports associated shortness of breath that is worse with exertion. Noted to have large volume ascites. HPI Reports recent admission ascites, CHF, mitral valve regurgitation, ileus, ascites with paracentesis, acute renal insufficiency, hypertension, chronic atrial fibrillation, hyponatremia an attempt was made to transfer the patient for oncology services, patient was denied, MD Brown stated oncology workup will have to be done as an outpatient basis. 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 Currently on Xarelto, Coreg for atrial fibrillation, Lasix for fluid volume overload. Recent echo showed severe mitral regurgitation and mitral valve prolapse, dilated left atrium, tricuspid regurgitation,, prominent pulmonary and aortic insufficiency the patient will need to follow-up with [facility] and oncology after discharge. Plan to admit for large volume ascites,a, peritoneal carcinomatosis, sigmoid mass, hyponatremia Allergies codeine Adverse Reaction (Verified 06/24/23 21:23) Nausea/Vomiting Home Medications: Levothyroxine [Synthroid*] 50 mcg PO [id number] 06/25/23 PARoxetine HCL [Paxil*] 10 mg PO DAILY 06/25/23 Rivaroxaban [Xarelto*] 15 mg PO DAILY 06/25/23 carvediloL [Carvedilol] 6.25 mg PO BID 6AM 6PM 12/16/23 Furosemide [Lasix*] 40 mg PO DAILY tab 12/29/23 Hydrocort Acetate Suppos [Anucort-Hc Suppository*] 25 mg [place] DAILY PRN supp 12/29/23 - Past Medical/Surgical History Diabetic: No -: HTN -: Afib -: PPM -: Diverticulitis -: Knee surgery Psychosocial/ Personal History: Lives at home with family - Social History Alcohol use: No CD- Drugs: No Caffeine use: Yes Physical Examination - Physical Exam General: Alert, In no apparent distress, Oriented x3, Other (Frail) HEENT: Atraumatic, Normocephalic, PERRLA Neck: 2+ carotid pulse no bruit, JVD not distended Respiratory: Clear to auscultation bilaterally, Normal air movement Cardiovascular: Normal pulses, Regular rate/rhythm Capillary refill: <2 Seconds Gastrointestinal: Ascites (Large volume ascites, positive fluid wave) Musculoskeletal: No clubbing, No swelling Integumentary: No rashes, No breakdown Neurological: Normal speech, Normal strength at 5/5 x4 extr, Cranial nerves 3-12 intact - Studies Laboratory Data (last 24 hrs) 01/02/24 01/02/24 01/02/24 20:45 20:45 20:45 WBC 11.40 H Hgb 10.8 L Hct 34.5 L Plt Count 680 H PT 24.9 H INR 2.28 APTT 39.3 H Sodium 129 L Potassium 4.0 BUN 49 H Creatinine 1.29 H Glucose 128 H Magnesium 2.2 Total Bilirubin 0.6 AST 19 ALT < 14 Alkaline Phosphatase 79 Lipase 25 01/02/24 20:37 WBC Hgb Hct Plt Count PT INR APTT Cancelled Sodium Potassium BUN Creatinine Glucose Magnesium Total Bilirubin AST ALT Alkaline Phosphatase Lipase Assessment and Plan - Plan Assessment plan large volume ascites, peritoneal carcinomatosis, sigmoid mass, Paracentesis, albumin, Paracentesis in the ER by ER physician 88 yrs old Female with past medical history Diverticulitis; Atrial fibrillation; Hypertension; Pacemaker; presents to the emergency room with moderate abdominal distention. reports associated shortness of breath that is worse with exertion. Noted to have large volume ascites. 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 hyponatremia Gentle IV fluids, Avoid nephrotoxic medication Microcytic anemia Trend H&H Do iron study Full code Diet cardiac SCDs Disposition patient resides at home independent prior Discharge Plan: Home - Advance Directives Does patient have a Living Will: No Does patient have a Durable POA for Healthcare: No - Code Status/Comfort Care Code Status: Full Code Critical Care: No Time Spent Managing Pts Care (In Minutes): 55
[2024-01-03] MEDS ORDERED: ALBUMIN HUMAN 25% 100 ML IV ONE (04:51)
--- NOTE | 2024-01-03 09:51 | P.CNS ---
Date of Consult: 01/03/24 Reason for Consult: Hyponatremia/ CKD Requesting Physician: Tien Tripathi Chief Complaint: Large volume ascites History of Present Illness: 88 yrs old Female with past medical history Diverticulitis; Atrial fibrillation; Hypertension; Pacemaker; presents to the emergency room with moderate abdominal distention. Reports associated shortness of breath that is worse with exertion. Noted to have large volume ascites. HPI Reports recent admission ascites, CHF, mitral valve regurgitation, ileus, ascites with paracentesis, acute renal insufficiency, hypertension, chronic atrial fibrillation, hyponatremia an attempt was made to transfer the patient for oncology services, patient was denied, MD Brown stated oncology workup will have to be done as an outpatient basis. 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 Currently on Xarelto, Coreg for atrial fibrillation, Lasix for fluid volume overload. Recent echo showed severe mitral regurgitation and mitral valve prolapse, dilated left atrium, tricuspid regurgitation,, prominent pulmonary and aortic insufficiency the patient will need to follow-up with [facility] and oncology after discharge. Plan to admit for large volume ascites,a, peritoneal carcinomatosis, sigmoid mass, hyponatremia 20:26 This 88 yrs old Female presents to ER via Unassigned with complaints of sp4 Breathing Difficulty. 22:54 88-year-old female who was just admitted here 12/16/2023 through 12/29/2023. Patient sp4 presents with moderate abdominal distention ascites and shortness of breath. Patient presents with EMS. Recent admitting diagnosis for ascites, CHF, mitral valve regurgitation, ileus, ascites with paracentesis, acute renal insufficiency, hypertension, chronic atrial fibrillation, hyponatremia. 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 Possibly reproductive tract or fallopian tube cancer. Echocardiogram showed moderate to severe mitral regurgitation with severe mitral valve prolapse, dilated left atrium, tricuspid regurgitation, pulmonary insufficiency and aortic insufficiency. Patient is also on Coreg and Xarelto. Pacemaker in place. IV Lasix given to ascites. Kidney function was stable. Patient's medications include Synthroid 50 mcg daily, paroxetine 10 mg daily, Xarelto 15 mg daily, carvedilol 6.25 twice daily, furosemide 40 mg p.o. daily, Anusol suppositories. Patient was advised to see [facility] oncology for biopsy and further workup Allergies codeine Adverse Reaction (Verified 06/24/23 21:23) Nausea/Vomiting Home medications list reviewed: Yes Home Medications: Levothyroxine [Synthroid*] 50 mcg PO [id number] 06/25/23 PARoxetine HCL [Paxil*] 10 mg PO DAILY 06/25/23 Rivaroxaban [Xarelto*] 15 mg PO DAILY 06/25/23 carvediloL [Carvedilol] 6.25 mg PO BID 6AM 6PM 12/16/23 Furosemide [Lasix*] 40 mg PO DAILY tab 12/29/23 Hydrocort Acetate Suppos [Anucort-Hc Suppository*] 25 mg [place] DAILY PRN supp 12/29/23 - Past Medical/Surgical History Diabetic: No -: HTN -: Afib -: PPM -: Diverticulitis -: Large volume ascites with paracentesis 01/11 -: CKD -: Knee surgery Psychosocial/ Personal History: Lives at home with family - Social History Alcohol use: No CD- Drugs: No Caffeine use: Yes Review of Systems 10-point ROS is otherwise unremarkable General: Weakness, Malaise Physical Examination Temp Pulse Resp BP Pulse Ox 97.4 F 61 18 107/51 L 01/03/24 07:17 01/03/24 07:17 01/03/24 07:17 01/03/24 07:17 General: In no apparent distress HEENT: Atraumatic Neck: Supple Respiratory: Diminished Cardiovascular: Normal pulses, Normal S1 S2 Gastrointestinal: Normal bowel sounds, No guarding Musculoskeletal: No clubbing, No contractures Integumentary: No rashes, No cyanosis Neurological: Normal speech Laboratory Data (last 24 hrs) 01/02/24 01/02/24 01/02/24 20:45 20:45 20:45 WBC 11.40 H Hgb 10.8 L Hct 34.5 L Plt Count 680 H PT 24.9 H INR 2.28 APTT 39.3 H Sodium 129 L Potassium 4.0 BUN 49 H Creatinine 1.29 H Glucose 128 H Magnesium 2.2 Total Bilirubin 0.6 AST 19 ALT < 14 Alkaline Phosphatase 79 Lipase 25 01/02/24 20:37 WBC Hgb Hct Plt Count PT INR APTT Cancelled Sodium Potassium BUN Creatinine Glucose Magnesium Total Bilirubin AST ALT Alkaline Phosphatase Lipase Imagings Data: EXAM DESCRIPTION: CT - Abdomen Pelvis Wo Contrast - 01/02/2024 9:39 pm CLINICAL HISTORY: Abdominal pain COMPARISON: November 2023 TECHNIQUE: Computed axial tomography of the abdomen and pelvis was obtained. IV and oral contrast were not requested. All CT scans are performed using dose optimization technique as appropriate and may include automated exposure control or mA/KV adjustment according to patient size. FINDINGS: The evaluation of solid organs, vessels and bowel is limited secondary to the lack of contrast administration. Liver, pancreas, adrenals and kidneys grossly normal Stable splenic calcification Prominence of bile duct unchanged Moderate to large amount of ascites. Omental caking with peritoneal nodules. No evidence diverticulitis. No obstruction. Apparent thickening of the wall of rectosigmoid colon Small left pleural effusion IMPRESSION: Peritoneal carcinomatosis with moderate to large amount ascites Apparent thickening of the wall of the rectosigmoid colon could be secondary to distention or mass EXAM DESCRIPTION: RADChest Single View01/02/2024 8:58 pm CLINICAL HISTORY: Chest pain COMPARISON: December 28, 2023 FINDINGS: Heart is moderately enlarged Small left pleural effusion present Lungs appear clear of acute infiltrate. Pacemaker lead in place Conclusions/Impression: CKD III -No NSAIDs Hyponatremia -Encourage nutrtion -Start salt tabs Hypoalbuminemia Moderate malnutrition in the setting of malignancy -Protein supplementation prn Anemia in chronic illness -Monitor H&H Peritoneal Carcinomatosis Malignant Ascites -S/P Paracentesis -Follow up with oncology -Follow up cytology Hospitalist and ER notes reviewed Case discussed with Dr. Tripathi Thank you kindly for the consultation
[2024-01-03 10:31] LABS: Absolute Eosinophils 0.1 K/uL (0-0.5); Absolute Lymphocytes (CBC) 1.1 K/uL (0.7-4.9); Absolute Monocytes 0.9 K/uL (0.1-1.3); Absolute Neutrophil 6.1 K/uL (1.8-8.0); Basophils % 0.3 % (0-1.3); Eosinophils % 0.9 % (0-4.4); Hematocrit 31.6 % (36.0-45.0); Lymphocytes % 12.9 % (15.3-44.8); MCH 28.2 pg (27.0-35.0); MCHC 31.7 g/dL (32.0-36.0); MCV 88.9 fL (80-100); MPV 7.3 fL (7.6-11.3); Monocytes % 11.3 % (3.3-12.3); Neutrophils % 74.6 % (41.7-73.7); Platelets 587 thou/uL (152-406); RBC Red Blood Cell Count 3.55 M/uL (3.86-4.86); Red Cell Distribution Width 16.2 % (12.1-15.2)
[2024-01-03 10:51] LABS: Albumin 2.6 g/dL (3.4-5.0); Albumin/Globulin Ratio 0.7 (1.1-1.8); Alkaline Phosphatase 63 U/L (45-117); BUN Blood Urea Nitrogen 53 mg/dL (7-18); Bicarbonate 31 mEq/L (21-32); Bilirubin Total 0.8 mg/dL (0.2-1.0); Globulin 3.5 g/dL (2.3-3.5); Glomerular Filtration Rate 46 ml/min (=/>90); Glucose Level 126 mg/dL (74-106); Protein, Total 6.1 g/dL (6.4-8.2); Sodium Level 131 mEq/L (136-145)
[2024-01-03 10:54] LABS: ALT/SGPT < 14 U/L (13-56); AST/SGOT < 10 U/L (15-37)
[2024-01-03] MEDS: SODIUM CHLORIDE 1 GM TAB PO SCH (12:16)
[2024-01-03] MEDS: ONDANSETRON 4 MG/2 ML VIAL IV PRN (12:40)
--- NOTE | 2024-01-03 17:33 | P.PN ---
Date of Service: 01/03/24 Patient seen shortly after admission early this morning. Some slight confusion - did receive benzo recently feels better after paracentesis - 3L removed by ED physician denies any other new/worsening symptoms at this time, but is tired and somewhat confused. repeat labs pending. Discussed with patient and family at bedside (daughter and ) discussed goals of care and code status patient and family in agreement with DNR currently considering hospice and not wanting to pursue more aggressive measures at this time will consult medical social worker / hospice daughter states would likely be at nursing facility due to care patient will need. uncertain if hospice would provide palliative paracentesis as needed.
[2024-01-03] MEDS: carvediloL 6.25 MG TAB PO SCH (19:17)
[2024-01-03 19:24] VITALS: BMI 19.7
[2024-01-04 00:45] LABS: Renal Epithelial <5 /HPF (None Seen); Specific Gravity 1.014 (1.005-1.030); Sqamous Epithelial None Seen /HPF (None Seen); Urine Bacteria <20 /HPF (<20); Urine Bilirubin NEGATIVE (Negative); Urine Blood 2+ (Negative); Urine Clarity Turbid (Clear); Urine Color Light-Yellow (Yellow); Urine Culture Reflex Order REFLEXED; Urine Glucose NEGATIVE (Negative); Urine Ketones NEGATIVE (Negative); Urine Microscopic Reflex YN ORDER UMIC; Urine Mucus Slight /HPF (None Seen); Urine Nitrite NEGATIVE (Negative); Urine Protein NEGATIVE (Negative); Urine Urobilinogen Normal (Normal); Urine WBC 20-50 /HPF (<5); Urine WBC Clump Rare /HPF (None Seen)
[2024-01-04] MEDS: LEVOTHYROXINE SOD 0.05 MG TABLET PO SCH (05:24)
--- OUTSIDE RECORDS SUMMARY | 2024-01-04 09:08 | XMS REPORT | Continuity of Care Document ---
Author Name Unknown Address [address] [place] [address] [facility] thconnect Address [address] [place] [address] Care Team Providers Care Trimmer Machine Name Role Phone Naima HOLLIS, Matheus Hoffmann Primary Care Physician MATHEUS MCNAMARA Attending Clinician Flip Mcnamara MD, Matheus Hoffmann Attending Clinician + [phone] Matheus Mcnamara MD Attending Clinician + [phone] Doctor Unassigned, [place] Attending Clinician U Katarzyna De Los Santos Attending Clinician [phone] KATARZYAN MARQUEZ Attending Clinician Unavailable Pascual Smallwood MD Attending Clinician [phone] Yuliya Potter Attending Clinician Unavailable JUSTINE LOPEZ Attending Clinician Unavailable John HOLLIS, Justine Attending Clinician [phone] CHUCKY PERKINS Attending Clinician Flip Perkins MD, Chucky Nassar Attending Clinician + [phone] Only, Ad[facility] Test Attending Clinician Unavailable Daron Kelly CRNA Attending Clinician [phone] Stefanie Hernández MD Attending Clinician [phone] Pob, [facility] Main Attending Clinician Unavailbindu Mariee MD, Chucky Attending Clinician [phone] Bautista SAMPSON, Penelope Hernandez Attending Clinician [phone] PENELOPE DIEHL Attending Clinician Unavailable MARIE BATISTA Attending Clinician Unavailable Efra Aguilar DO Attending Clinician 2, [facility] Attending Clinician Unavailable Chris HOLLIS, Celeste Attending Clinician [phone] Kika Sparks RN Attending Clinician [phone] Rudd Attending Clinician [phone] Sherif HOLLIS, Fabiana Attending Clinician [phone] Yuliya Potter Admitting Clinician Unavailable CHUCKY PERKINS Admitting Clinician Flip Perkins MD, Chucky Nassar Admitting Clinician + [phone] Sherif HOLLIS, Fabiana Admitting Clinician [phone] Payers Payer Name Policy Type Policy Number Effective Date Expirati on Date Source [employer] MA[employer]ED MEDICARE PPO-MARLEN [id number] 2020 00:00:00 Problems Condition Name Condition Details Condition Category Status Onset Date Resolution Date Last Treatment Date Treating Clinician Comments Source Rectal bleed Rectal bleed Disease Active 06-13 00:00: 00 [facility] Acute on chronic diastolic congestive heart failure Acute on chronic diastolic congestive heart failure Disease Active 2017-05 00:00: 00 [facility] Anemia Anemia Disease Active 2017-05 00:00: 00 [facility] PAF (paroxysma l atrial fibrillati on) PAF (paroxysma l atrial fibrillati on) Disease Active 2017-05 00:00: 00 [facility] Lower GI bleed Lower GI bleed Disease Active 2017-05 00:00: 00 [facility] Acute blood loss anemia Acute blood loss anemia Disease Active 2017-05 00:00: 00 [facility] Screening for colorectal cancer Screening for colorectal cancer Disease Active 2017-05 00:00: 00 Overview: Formattin g of this note might be different from the original. Added automatic ally from request for surgery [id number] [facility] Chest pain Chest pain Disease Active 09-15 00:00: 00 [facility] Allergic rhinitis Allergic rhinitis Disease Active 2014-05 00:00: 00 [facility] Essential hypertensi on, benign Essential hypertensi on, benign Disease Active 2014-05 00:00: 00 [facility] Generalize d anxiety disorder Generalize d anxiety disorder Disease Active 2014-05 00:00: 00 [facility] Osteoarthr itis Osteoarthr itis Disease Active 2014-05 00:00: 00 [facility] Asthma, mild intermitte nt Asthma, mild intermitte nt Disease Active 2014-05 00:00: 00 [facility] Hypothyroi dism Hypothyroi dism Disease Active 2014-05 00:00: 00 [facility] Hyperlipid emia Hyperlipid emia Disease Active 2014-05 00:00: 00 [facility] Malaise Malaise Disease Active 2014-05 00:00: 00 [facility] Lumbago Lumbago Disease Active 2014-05 00:00: 00 [facility] Sinusitis, acute Sinusitis, acute Disease Active 2014-05 00:00: 00 [facility] Renal insufficie ncy Renal insufficie ncy Disease Active 2014-05 00:00: 00 Overview: Formattin g of this note might be different from the original. Patient is already under multiple MD's care for chronic renal insuffici ency. [facility] Allergies, Adverse Reactions, Alerts Allergy Name Allergy Type Status Severity Reaction(s) Onset Date Inactive Date Treating Clinician Comments Source codeine DA Active [place] CHEST PAIN 2022-05 016 00:00: 00 [facility] Doxycycl ine Drug Allergy Active Other - See comments 2018-05 004 00:00: 00 [facility] DOXYCYCL INE DRUG INGREDI Active Other-Cmnt 2018-05 0-04 00:00: 00 [facility] VIBRAMYC IN (CALCIUM ) DRUG Active N/V 2014-05 00:00: 00 [facility] Vibramyc in (Calcium ) Propensi ty to adverse reaction s Active Nausea and/or Vomiting 2014-05 00:00: 00 [facility] Vibramyc in Calcium Propensi ty to adverse reaction s Active Nausea and/or Vomiting 2014-05 00:00: 00 [facility] Codeine Drug Allergy Active Other - See comments 2014-05 00:00: 00 Chest pain also Chest pain also [facility] CODEINE DRUG INGREDI Active ITCHING 2014-05 00:00: 00 [facility] Social History Social Habit Start Date Stop Date Quantity Comments Source Gender identity [facility] Sexual orientation U [facility] Alcoholic beverage intake 2023-10-16 00:00:00 2023-10-16 00:00:00 0 /d [facility] Alcohol intake 2023-07-16 00:00:00 2023-07-16 00:00:00 0 /d [facility] History of Social function 2023-05-23 00:00:00 2023-05-23 00:00:00 [facility] Tobacco use and exposure 2023-05-23 00:00:00 2023-05-23 00:00:00 Smokeless tobacco non-user [facility] Exposure to SARS-CoV-2 (event) 2022-05-15 00:00:00 2022-05-25 10:36:00 Not sure [facility] Sex assigned at 1935 00:00:00 1935 00:00:00 [facility] Smoking Status Start Date Stop Date Source Never smoked tobacco [facility] Medications Ordered Medication Name Filled Medication Name Start Date Stop Date Current Medication? Ordering Clinician Indication Dosage Frequency Signature (SIG) Comments Components Source carvediloL 6.25 mg tablet 10-15 16:31: 53 Yes 6.25mg Take 1 tablet by mouth in the morning and 1 tablet in the evening. Take with meals. [facility] hydrocortis one (PROCTOSOL HC) 2.5 % rectal cream 10-15 00:00: 00 Yes [id number] INSERT INTO RECTUM 2 (TWO) TIMES DAILY. [facility] azelastine 137 mcg (0.1 %) nasal spray 07-25 00:00: 10-15 00:00 :00 No [id number] 1{spray } USE 1 SPRAY IN EACH NOSTRIL IN THE MORNING AND 1 SPRAY IN THE EVENING. USE IN EACH NOSTRIL DIRECTED [facility] levothyroxi ne 50 mcg tablet 07-16 00:00: 00 Yes [id number] 50ug Take 1 tablet by mouth every morning. [facility] azelastine 137 mcg (0.1 %) nasal spray 06-25 00:00: 00 07-25 00:00 :00 No [id number] 1{spray } Use 1 Warren in each nostril in the morning and 1 Warren in the evening. Use in each nostril as directed [facility] azithromyci n 250 mg tablet 05-23 00:00: 00 07-16 00:00 :00 No [id number] Take 500 mg PO day 1, then 250 mg PO days 2 to 5 [facility] benzonatate (TESSALON PERLES) 100 mg capsule 05-23 00:00: 00 07-16 00:00 :00 No [id number] 100mg Take 1 capsule by mouth every 8 (eight) hours as needed for Cough. [facility] azelastine 137 mcg (0.1 %) nasal spray 05-23 00:00: 00 06-25 00:00 :00 No [id number] 1{spray } Use 1 Warren in each nostril in the morning and 1 Warren in the evening. Use in each nostril as directed [facility] LEVOTHYROXI NE 50 mcg tablet 2022-05 2- 00:00: 00 07-16 00:00 :00 No [id number] TAKE 1 TABLET BY MOUTH EVERY DAY [facility] LEVOTHYROXI NE 50 mcg tablet 9- 00:00: 00 04-23 00:00 :00 No [id number] TAKE 1 TABLET BY MOUTH EVERY DAY [facility] PAROXETINE 10 mg tablet 8-17 00:00: 00 Yes [id number] 10mg TAKE 1 TABLET BY MOUTH EVERY DAY IN THE MORNING [facility] LEVOTHYROXI NE 50 mcg tablet 5- 00:00: 00 01-24 00:00 :00 No [id number] TAKE 1 TABLET BY MOUTH EVERY DAY [facility] LEVOTHYROXI NE 50 mcg tablet - 00:00: 00 10-18 00:00 :00 No [id number] TAKE 1 TABLET BY MOUTH EVERY DAY [facility] albuterol (VENTOLIN HFA) 90 mcg/actuati on inhaler - 00:00: 00 Yes [id number] 2{puff} Inhale 2 Puffs every 6 (six) hours as needed for Wheezing or Shortness of Breath. [facility] amoxicillin 500 mg tablet - 00:00: 00 05-23 00:00 :00 No [id number] 500mg Take 1 tablet by mouth in the morning and 1 tablet at noon and 1 tablet in the evening. [facility] fluconazole (DIFLUCAN) 150 mg tablet - 00:00: 00 05-26 05:59 :00 No [id number] 150mg Take 1 tablet by mouth once now for 1 dose. [facility] FUROSEMIDE 40 mg tablet 2021-05 00:00: 00 Yes [id number] TAKE 1 TABLET BY MOUTH EVERY DAY [facility] LEVOTHYROXI NE 50 mcg tablet 2021-05 00:00: 00 07-20 00:00 :00 No [id number] TAKE 1 TABLET BY MOUTH EVERY DAY [facility] LEVOTHYROXI NE 50 mcg tablet 9- 00:00: 00 04-25 00:00 :00 No [id number] TAKE 1 TABLET BY MOUTH EVERY DAY [facility] molnupiravi r 200 mg capsule 8- 00:00: 00 05-25 00:00 :00 No [id number] 800mg Take 4 capsules by mouth every 12 (twelve) hours. [facility] carvedilol 3.125 mg tablet 12-19 13:26: 11 10-15 00:00 :00 No 3.125mg Take 3.125 mg by mouth 2 (two) times daily with meals. [facility] PARoxetine 10 mg tablet 12-19 00:00: 00 01-04 00:00 :00 No [id number] 10mg Take 1 tablet by mouth in the morning. [facility] LEVOTHYROXI NE 50 mcg tablet 6-07 00:00: 00 Yes [id number] TAKE 1 TABLET BY MOUTH EVERY DAY [facility] FUROSEMIDE 40 mg tablet 5-31 00:00: 00 04-25 00:00 :00 No [id number] TAKE 1 TABLET BY MOUTH EVERY DAY [facility] telmisartan 40 mg tablet 3-05 00:00: 00 Yes 40mg Take 40 mg by mouth daily. [facility] spironolact one (SPIRONOLAC TONE) 25 mg tablet 2-10 11:39: 45 Yes 25mg Take 25 mg by mouth daily. [facility] cetirizine (ZYRTEC) 10 mg tablet 2-10 11:39: 45 Yes 10mg Take 10 mg by mouth as needed. [facility] NEBULIZER ACCESSORIES (NEBULIZER MISC) 2-10 11:39: 45 10-15 00:00 :00 No [facility] MAGNESIUM CHLORIDE (SLOW-MAG ORAL) 2- 11:39: 45 10-15 00:00 :00 No Take by mouth daily. Indication s: stopped taking, reports not effective [facility] XARELTO 15 mg tablet 06-23 00:00: 00 Yes 15mg Take 15 mg by mouth daily. [facility] PROCTOSOL HC 2.5 % rectal cream 2020-05 00:00: 00 10-15 00:00 :00 No [id number] INSERT INTO RECTUM 2 (TWO) TIMES DAILY. [facility] allopurinoL 300 mg tablet 02-03 00:00: 00 Yes 1{tbl} Take 1 tablet by mouth daily. [facility] albuterol (VENTOLIN HFA) 90 mcg/actuati on inhaler 11-15 00:00: 00 05-25 00:00 :00 No [id number] 2{puff} Inhale 2 Puffs every 6 (six) hours as needed for Wheezing or Shortness of Breath. [facility] PULMICORT FLEXHALER 180 mcg/actuati on aerosol powder 10-30 00:00: 00 Yes [id number] TAKE 1 PUFF BY MOUTH EVERY DAY [facility] Immunizations Ordered Immunization Name Filled Immunization Name Date Status Comments Source SARS-COV-2 COVID-19 PFIZER VACCINE 2020-07-23 00:00:00 Completed [facility] SARS-COV-2 COVID-19 PFIZER VACCINE 2020-07-23 00:00:00 Completed [facility] SARS-COV-2 COVID-19 PFIZER VACCINE 2020-07-23 00:00:00 Completed [facility] SARS-COV-2 COVID-19 PFIZER VACCINE 2020-07-23 00:00:00 Completed [facility] SARS-COV-2 COVID-19 PFIZER VACCINE 2020-07-23 00:00:00 Completed [facility] SARS-COV-2 COVID-19 PFIZER VACCINE 2020-07-23 00:00:00 Completed [facility] SARS-COV-2 COVID-19 PFIZER VACCINE 2020-07-23 00:00:00 Completed [facility] SARS-COV-2 COVID-19 PFIZER VACCINE 2020-07-23 00:00:00 Completed [facility] SARS-COV-2 COVID-19 PFIZER VACCINE 2020-07-23 00:00:00 Completed [facility] SARS-COV-2 COVID-19 PFIZER VACCINE 2020-07-23 00:00:00 Completed [facility] SARS-COV-2 COVID-19 PFIZER VACCINE 2020-07-23 00:00:00 Completed [facility] SARS-COV-2 COVID-19 PFIZER VACCINE 2020-07-23 00:00:00 Completed [facility] SARS-COV-2 COVID-19 PFIZER VACCINE 2020-07-02 00:00:00 Completed [facility] SARS-COV-2 COVID-19 PFIZER VACCINE 2020-07-02 00:00:00 Completed [facility] SARS-COV-2 COVID-19 PFIZER VACCINE 2020-07-02 00:00:00 Completed [facility] SARS-COV-2 COVID-19 PFIZER VACCINE 2020-07-02 00:00:00 Completed [facility] SARS-COV-2 COVID-19 PFIZER VACCINE 2020-07-02 00:00:00 Completed [facility] SARS-COV-2 COVID-19 PFIZER VACCINE 2020-07-02 00:00:00 Completed [facility] SARS-COV-2 COVID-19 PFIZER VACCINE 2020-07-02 00:00:00 Completed [facility] SARS-COV-2 COVID-19 PFIZER VACCINE 2020-07-02 00:00:00 Completed [facility] SARS-COV-2 COVID-19 PFIZER VACCINE 2020-07-02 00:00:00 Completed [facility] SARS-COV-2 COVID-19 PFIZER VACCINE 2020-07-02 00:00:00 Completed [facility] SARS-COV-2 COVID-19 PFIZER VACCINE 2020-07-02 00:00:00 Completed [facility] SARS-COV-2 COVID-19 PFIZER VACCINE 2020-07-02 00:00:00 Completed [facility] Influenza High Dose 2019-02-13 00:00:00 Completed [facility] Influenza High Dose 2019-02-13 00:00:00 Completed [facility] Influenza High Dose 2019-02-13 00:00:00 Completed [facility] Influenza High Dose 2019-02-13 00:00:00 Completed [facility] Influenza High Dose 2019-02-13 00:00:00 Completed [facility] Influenza High Dose 2019-02-13 00:00:00 Completed [facility] Influenza High Dose 2019-02-13 00:00:00 Completed [facility] Influenza High Dose 2019-02-13 00:00:00 Completed [facility] Influenza High Dose 2019-02-13 00:00:00 Completed [facility] Influenza High Dose 2019-02-13 00:00:00 Completed [facility] Influenza High Dose 2019-02-13 00:00:00 Completed [facility] Influenza High Dose 2019-02-13 00:00:00 Completed [facility] Influenza High Dose 2018-03-14 00:00:00 Completed [facility] Influenza High Dose 2018-03-14 00:00:00 Completed [facility] Influenza High Dose 2018-03-14 00:00:00 Completed [facility] Influenza High Dose 2018-03-14 00:00:00 Completed [facility] Influenza High Dose 2018-03-14 00:00:00 Completed [facility] Influenza High Dose 2018-03-14 00:00:00 Completed [facility] Influenza High Dose 2018-03-14 00:00:00 Completed [facility] Influenza High Dose 2018-03-14 00:00:00 Completed [facility] Influenza High Dose 2018-03-14 00:00:00 Completed [facility] Influenza High Dose 2018-03-14 00:00:00 Completed [facility] Influenza High Dose 2018-03-14 00:00:00 Completed [facility] Influenza High Dose 2018-03-14 00:00:00 Completed [facility] Influenza High Dose 2017-02-21 00:00:00 Completed [facility] Influenza High Dose 2017-02-21 00:00:00 Completed [facility] Influenza High Dose 2017-02-21 00:00:00 Completed [facility] Influenza High Dose 2017-02-21 00:00:00 Completed [facility] Influenza High Dose 2017-02-21 00:00:00 Completed [facility] Influenza High Dose 2017-02-21 00:00:00 Completed [facility] Influenza High Dose 2017-02-21 00:00:00 Completed [facility] Influenza High Dose 2017-02-21 00:00:00 Completed [facility] Influenza High Dose 2017-02-21 00:00:00 Completed [facility] Influenza High Dose 2017-02-21 00:00:00 Completed [facility] Influenza High Dose 2017-02-21 00:00:00 Completed [facility] Influenza High Dose 2017-02-21 00:00:00 Completed [facility] Influenza High Dose 2016-02-11 00:00:00 Completed [facility] Influenza High Dose 2016-02-11 00:00:00 Completed [facility] Influenza High Dose 2016-02-11 00:00:00 Completed [facility] Influenza High Dose 2016-02-11 00:00:00 Completed [facility] Influenza High Dose 2016-02-11 00:00:00 Completed [facility] Influenza High Dose 2016-02-11 00:00:00 Completed [facility] Influenza High Dose 2016-02-11 00:00:00 Completed [facility] Influenza High Dose 2016-02-11 00:00:00 Completed [facility] Influenza High Dose 2016-02-11 00:00:00 Completed [facility] Influenza High Dose 2016-02-11 00:00:00 Completed [facility] Influenza High Dose 2016-02-11 00:00:00 Completed [facility] Influenza High Dose 2016-02-11 00:00:00 Completed [facility] Influenza High Dose 2015-04-27 00:00:00 Completed [facility] Influenza High Dose 2015-04-27 00:00:00 Completed [facility] Influenza High Dose 2015-04-27 00:00:00 Completed [facility] Influenza High Dose 2015-04-27 00:00:00 Completed [facility] Influenza High Dose 2015-04-27 00:00:00 Completed [facility] Influenza High Dose 2015-04-27 00:00:00 Completed [facility] Influenza High Dose 2015-04-27 00:00:00 Completed [facility] Influenza High Dose 2015-04-27 00:00:00 Completed [facility] Influenza High Dose 2015-04-27 00:00:00 Completed [facility] Influenza High Dose 2015-04-27 00:00:00 Completed [facility] Influenza High Dose 2015-04-27 00:00:00 Completed [facility] Influenza High Dose 2015-04-27 00:00:00 Completed [facility] Influenza High Dose Unknown Completed [facility] Influenza High Dose Unknown Completed [facility] Influenza High Dose Unknown Completed [facility] Influenza High Dose Unknown Completed [facility] Influenza High Dose Unknown Completed [facility] SARS-COV-2 COVID-19 PFIZER VACCINE Unknown Completed [facility] SARS-COV-2 COVID-19 PFIZER VACCINE Unknown Completed [facility] Influenza High Dose Unknown Completed [facility] Influenza High Dose Unknown Completed [facility] Influenza High Dose Unknown Completed [facility] Influenza High Dose Unknown Completed [facility] Influenza High Dose Unknown Completed [facility] SARS-COV-2 COVID-19 PFIZER VACCINE Unknown Completed [facility] SARS-COV-2 COVID-19 PFIZER VACCINE Unknown Completed [facility] Influenza High Dose Unknown Completed [facility] Influenza High Dose Unknown Completed [facility] Influenza High Dose Unknown Completed [facility] Influenza High Dose Unknown Completed [facility] Influenza High Dose Unknown Completed [facility] SARS-COV-2 COVID-19 PFIZER VACCINE Unknown Completed [facility] SARS-COV-2 COVID-19 PFIZER VACCINE Unknown Completed [facility] Influenza High Dose Unknown Completed [facility] Influenza High Dose Unknown Completed [facility] Influenza High Dose Unknown Completed [facility] Influenza High Dose Unknown Completed [facility] Influenza High Dose Unknown Completed [facility] SARS-COV-2 COVID-19 PFIZER VACCINE Unknown Completed [facility] SARS-COV-2 COVID-19 PFIZER VACCINE Unknown Completed [facility] Influenza High Dose Unknown Completed [facility] Influenza High Dose Unknown Completed [facility] Influenza High Dose Unknown Completed [facility] Influenza High Dose Unknown Completed [facility] Influenza High Dose Unknown Completed [facility] SARS-COV-2 COVID-19 PFIZER VACCINE Unknown Completed [facility] SARS-COV-2 COVID-19 PFIZER VACCINE Unknown Completed [facility] Influenza High Dose Unknown Completed [facility] Influenza High Dose Unknown Completed [facility] Influenza High Dose Unknown Completed [facility] Influenza High Dose Unknown Completed [facility] Influenza High Dose Unknown Completed [facility] SARS-COV-2 COVID-19 PFIZER VACCINE Unknown Completed [facility] SARS-COV-2 COVID-19 PFIZER VACCINE Unknown Completed [facility] Influenza High Dose Unknown Completed [facility] Influenza High Dose Unknown Completed [facility] Influenza High Dose Unknown Completed [facility] Influenza High Dose Unknown Completed [facility] Influenza High Dose Unknown Completed [facility] SARS-COV-2 COVID-19 PFIZER VACCINE Unknown Completed [facility] SARS-COV-2 COVID-19 PFIZER VACCINE Unknown Completed [facility] Influenza High Dose Unknown Completed [facility] Influenza High Dose Unknown Completed [facility] Influenza High Dose Unknown Completed [facility] Influenza High Dose Unknown Completed [facility] Influenza High Dose Unknown Completed [facility] SARS-COV-2 COVID-19 PFIZER VACCINE Unknown Completed [facility] SARS-COV-2 COVID-19 PFIZER VACCINE Unknown Completed [facility] Influenza High Dose Unknown Completed [facility] Influenza High Dose Unknown Completed [facility] Influenza High Dose Unknown Completed [facility] Influenza High Dose Unknown Completed [facility] Influenza High Dose Unknown Completed [facility] SARS-COV-2 COVID-19 PFIZER VACCINE Unknown Completed [facility] SARS-COV-2 COVID-19 PFIZER VACCINE Unknown Completed [facility] Influenza High Dose Unknown Completed [facility] Influenza High Dose Unknown Completed [facility] Influenza High Dose Unknown Completed [facility] Influenza High Dose Unknown Completed [facility] Influenza High Dose Unknown Completed [facility] SARS-COV-2 COVID-19 PFIZER VACCINE Unknown Completed [facility] SARS-COV-2 COVID-19 PFIZER VACCINE Unknown Completed [facility] Influenza High Dose Unknown Completed [facility] Influenza High Dose Unknown Completed [facility] Influenza High Dose Unknown Completed [facility] Influenza High Dose Unknown Completed [facility] Influenza High Dose Unknown Completed [facility] SARS-COV-2 COVID-19 PFIZER VACCINE Unknown Completed [facility] SARS-COV-2 COVID-19 PFIZER VACCINE Unknown Completed [facility] Influenza High Dose Unknown Completed [facility] Influenza High Dose Unknown Completed [facility] Influenza High Dose Unknown Completed [facility] Influenza High Dose Unknown Completed [facility] Influenza High Dose Unknown Completed [facility] SARS-COV-2 COVID-19 PFIZER VACCINE Unknown Completed [facility] SARS-COV-2 COVID-19 PFIZER VACCINE Unknown Completed [facility] Influenza High Dose Unknown Completed [facility] Influenza High Dose Unknown Completed [facility] Influenza High Dose Unknown Completed [facility] Influenza High Dose Unknown Completed [facility] Influenza High Dose Unknown Completed [facility] SARS-COV-2 COVID-19 PFIZER VACCINE Unknown Completed [facility] SARS-COV-2 COVID-19 PFIZER VACCINE Unknown Completed [facility] Influenza High Dose Unknown Completed [facility] Influenza High Dose Unknown Completed [facility] Influenza High Dose Unknown Completed [facility] Influenza High Dose Unknown Completed [facility] Influenza High Dose Unknown Completed [facility] SARS-COV-2 COVID-19 PFIZER VACCINE Unknown Completed [facility] SARS-COV-2 COVID-19 PFIZER VACCINE Unknown Completed [facility] Influenza High Dose Unknown Completed [facility] Influenza High Dose Unknown Completed [facility] Influenza High Dose Unknown Completed [facility] Influenza High Dose Unknown Completed [facility] Influenza High Dose Unknown Completed [facility] SARS-COV-2 COVID-19 PFIZER VACCINE Unknown Completed [facility] SARS-COV-2 COVID-19 PFIZER VACCINE Unknown Completed [facility] Influenza High Dose Unknown Completed [facility] Influenza High Dose Unknown Completed [facility] Influenza High Dose Unknown Completed [facility] Influenza High Dose Unknown Completed [facility] Influenza High Dose Unknown Completed [facility] SARS-COV-2 COVID-19 PFIZER VACCINE Unknown Completed [facility] SARS-COV-2 COVID-19 PFIZER VACCINE Unknown Completed [facility] Vital Signs Vital Name Observation Time Observation Value Comments S ource Systolic blood pressure 2023-10-16 21:24:00 153 mm[Hg] [facility] Diastolic blood pressure 2023-10-16 21:24:00 81 mm[Hg] [facility] Heart rate 2023-10-16 21:15:00 95 /min [facility] Body temperature 2023-10-16 21:15:00 36.11 Hilaria [facility] Body weight 2023-10-16 21:15:00 48.988 kg [facility] BMI 2023-10-16 21:15:00 21.09 kg/m2 [facility] Oxygen saturation in Arterial blood by Pulse oximetry 2023-10-16 21:15:00 95 /min [facility] Systolic blood pressure 2023-07-16 20:29:00 124 mm[Hg] [facility] Diastolic blood pressure 2023-07-16 20:29:00 75 mm[Hg] [facility] Heart rate 2023-07-16 20:29:00 81 /min [facility] Body temperature 2023-07-16 20:29:00 36.39 Hilaria [facility] Body weight 2023-07-16 20:29:00 49.442 kg [facility] BMI 2023-07-16 20:29:00 21.29 kg/m2 [facility] Oxygen saturation in Arterial blood by Pulse oximetry 2023-07-16 20:29:00 98 /min [facility] Systolic blood pressure 2023-05-23 19:07:00 138 mm[Hg] [facility] Diastolic blood pressure 2023-05-23 19:07:00 81 mm[Hg] [facility] Heart rate 2023-05-23 19:07:00 94 /min [facility] Body temperature 2023-05-23 19:07:00 36.44 Hilaria [facility] Respiratory rate 2023-05-23 19:07:00 18 /min [facility] Body height 2023-05-23 19:07:00 152.4 cm [facility] Body weight 2023-05-23 19:07:00 50.349 kg [facility] BMI 2023-05-23 19:07:00 21.68 kg/m2 [facility] Oxygen saturation in Arterial blood by Pulse oximetry 2023-05-23 19:07:00 98 /min [facility] Systolic blood pressure 2022-05-25 16:49:00 108 mm[Hg] [facility] Diastolic blood pressure 2022-05-25 16:49:00 68 mm[Hg] [facility] Heart rate 2022-05-25 16:49:00 102 /min [facility] Body temperature 2022-05-25 16:49:00 36.39 Hilaria [facility] Body height 2022-05-25 16:49:00 152.4 cm [facility] Body weight 2022-05-25 16:49:00 51.256 kg [facility] BMI 2022-05-25 16:49:00 22.07 kg/m2 [facility] Oxygen saturation in Arterial blood by Pulse oximetry 2022-05-25 16:49:00 97 /min [facility] Procedures Procedure Date / Time Performed Performing Clinicia n Source REFERRAL- REQUEST/RESPONSE 2023-07-24 06:01:00 Doctor Unassigned, [place] [facility] REFERRAL- REQUEST/RESPONSE 2023-03-20 05:01:00 Doctor Unassigned, [place] [facility] REFERRAL- REQUEST/RESPONSE 2022-08-15 05:01:00 Doctor Unassigned, [place] [facility] REFERRAL- REQUEST/RESPONSE 2022-02-07 05:01:00 Doctor Unassigned, [place] [facility] Encounters Start Date/Time End Date/Time Encounter Type Admission Type Attending Clinicians Care Facility Care Department Encounter ID Source 2024-04-10 10:15:00 2024-04-10 10:15:00 Outpatient MATHEUS THAYER [facility] [id number] [facility] 2024-01-03 00:00:00 2024-01-03 14:13:17 Telephone [facility] 1.2.840.114 350.1.13.10 4.2.7.2.686 [id number] [facility] 2024-01-03 00:00:00 2024-01-03 13:06:45 Telephone Matheus Mcnamara [facility] BU[facility] 1.2.840.114 350.1.13.10 4.2.7.2.686 [id number] [facility] 2023-12-18 00:00:00 2023-12-18 14:29:06 Telephone Matheus Mcnamara [facility] MEDICAL OFFICE BUILDING 1.2840.114 350.1.13.10 4.2.7.2.686 [id number] [id number] [facility] 2023-12-10 14:00:00 2023-12-10 14:00:00 Outpatient MATHEUS THAYER [facility] [id number] [facility] 2023-10-16 16:30:00 2023-10-16 16:45:00 Office Visit Matheus Mcnamara [facility] MEDICAL OFFICE BUILDING 1.2840.114 350.1.13.10 4.2.7.2.686 [id number] [facility] 2023-10-16 16:30:00 2023-10-16 16:41:03 Outpatient MATHEUS THAYER [facility] [id number] [facility] 2023-07-24 00:00:00 2023-07-24 00:00:00 Orders Only Doctor Unassigned, [place] [facility] 1.2840.114 350.1.13.10 4.2.7.2.686 [id number] [facility] 2023-07-19 00:00:00 2023-07-19 00:00:00 Refill Katarzyna Marquez [facility] MED[facility] OFFICE BUILDING 1.84.114 350.1.13.10 4.2.7.2.686 [id number] [facility] 2023-07-16 14:30:00 2023-07-16 15:00:00 Office Visit Matheus Mcnamara [facility] [place] 1.84.114 350.1.13.10 4.2.7.2.686 [id number] [facility] 2023-07-16 14:30:00 2023-07-16 14:30:00 Outpatient R MATHEUS MCNAMARA [facility] [id number] [facility] 2023-06-24 00:00:00 2023-06-24 00:00:00 Refill Katarzyna Marquez Jose Roberto [facility] MEDICAL OFFICE BUILDING 1.84.114 350.1.13.10 4.2.7.2.686 [id number] [facility] 2023-05-23 13:21:41 2023-05-23 23:59:00 Outpatient R KATARZYNA MARQUEZ [facility] [id number] [facility] 2023-05-23 13:21:41 2023-05-23 23:59:00 Hospital [facility] MED[facility] OFF[facility] BUILDING 1.84.114 350.1.13.10 4.2.7.2.686 [id number] [facility] 2023-05-23 13:00:00 2023-05-23 13:21:21 Office Visit [facility] MED[facility] OFFICE BUILDING 1.84.114 350.1.13.10 4.2.7.2.686 [id number] [facility] 2023-04-23 00:00:00 2023-04-23 00:00:00 Refill Pascual Smallwood [facility] 1.84.114 350.1.13.10 4.2.7.2.686 [id number] [facility] 2023-03-22 10:00:00 2023-03-22 10:00:00 Outpatient R MATHEUS MCNAMARA [facility] [id number] [facility] 2023-03-21 00:00:00 2023-03-21 00:00:00 Telephone BryannaMatheus jean [facility] MEDICAL OFFICE BUILDING 1.84.114 350.1.13.10 4.2.7.2.686 [id number] [facility] 2023-03-20 00:00:00 2023-03-20 00:00:00 Orders Only Doctor Unassigned, [place] [facility] 1..114 350.1.13.10 4.2.7.2.686 [id number] [facility] 2023-03-10 11:04:00 2023-03-11 10:52:00 Inpatient JYOTSNA LimedYuliya [facility] MEDI.01 [id number] [facility] 2023-01-24 00:00:00 2023-01-24 00:00:00 [facility] OFF[facility] BUILDING 1.84.114 350.1.13.10 4.2.7.2.686 [id number] [facility] 2023-01-04 00:00:00 2023-01-04 00:00:00 Refill Matheus Mcnamara [facility] OFF[facility] BUILDING 1.84.114 350.1.13.10 4.2.7.2.686 [id number] [facility] 2022-10-18 00:00:00 2022-10-18 00:00:00 Refill Matheus Mcnamara [facility] 1.2.840.114 350.1.13.10 4.2.7.2.686 [id number] [facility] 2022-08-15 00:00:00 2022-08-15 00:00:00 Orders Only Doctor Unassigned, [place] [facility] 1.2.840.114 350.1.13.10 4.2.7.2.686 [id number] [facility] 2022-07-20 00:00:00 2022-07-20 00:00:00 Refill Matheus Mcnamara [facility] 1.2.840.114 350.1.13.10 4.2.7.2.686 [id number] [facility] 2022-05-25 10:45:00 2022-05-25 11:00:00 Office Visit Matheus Mcnamara [facility] 1.2.840.114 350.1.13.10 4.2.7.2.686 [id number] [facility] 2022-05-25 10:45:00 2022-05-25 10:45:00 Outpatient R MATHEUS MCNAMARA [facility] [id number] [facility] 2022-04-25 00:00:00 2022-04-25 00:00:00 Refill Matheus Mcnamara [facility] 1.2.840.114 350.1.13.10 4.2.7.2.686 [id number] [facility] 2022-02-15 00:00:00 2022-02-15 00:00:00 Refill [facility] 1.2.840.114 350.1.13.10 4.2.7.2.686 [id number] [facility] 2022-02-07 00:00:00 2022-02-07 00:00:00 Orders Only Doctor Unassigned, [place] [facility] 1.2.840.114 350.1.13.10 4.2.7.2.686 [id number] [facility] 2022-01-19 00:00:00 2022-01-19 00:00:00 Refill NaimaMatheus [facility] 1.2.840.114 350.1.13.10 4.2.7.2.686 [id number] [facility] 2021-12-20 00:00:00 2021-12-20 00:00:00 Telephone [facility] 1.2.840.114 350.1.13.10 4.2.7.2.686 [id number] [facility] 2021-12-20 00:00:00 2021-12-20 00:00:00 Telephone BryannabeulahMatheus [facility] 1.2.840.114 350.1.13.10 4.2.7.2.686 [id number] [facility] 2021-12-19 13:15:00 2021-12-19 13:45:27 Outpatient R MATHEUS MCNAMARA [facility] [id number] [facility] 2021-12-19 13:15:00 2021-12-19 13:45:27 Outpatient R MATHEUS MCNAMARA [facility] [id number] [facility] 2021-12-19 13:15:00 2021-12-19 13:30:00 Office Visit Veselka, Matheus [facility] 1.2.840.114 350.1.13.10 4.2.7.2.686 [id number] [facility] 2021-12-19 13:15:00 2021-12-19 13:15:00 Outpatient Liz CAVANAUGHJOAO MATHEUS [facility] [id number] [facility] 2021-12-19 13:15:00 2021-12-19 13:15:00 Outpatient Liz CAVANAUGHJOAOMATHEUS [facility] [id number] [facility] 2021-10-25 14:15:00 2021-10-25 14:15:00 Outpatient MATHEUS THAYER [facility] [id number] [facility] 2021-10-25 00:00:00 2021-10-25 00:00:00 Refill Naima [facility] 1.2.840.114 350.1.13.10 4.2.7.2.686 [id number] [facility] 2021-10-17 00:00:00 2021-10-17 00:00:00 Reffrance Mcnamara [facility] 1.2.840.114 350.1.13.10 4.2.7.2.686 [id number] [facility] 2021-08-25 00:00:00 2021-08-25 00:00:00 Patient Secure Msg Doctor Unassigned, [place] [facility] 1.2.840.114 350.1.13.10 4.2.7.2.686 [id number] [facility] 2021-08-19 17:20:00 2021-08-19 17:42:43 Outpatient JUSTINE MURILLO [facility] [id number] [facility] 2021-08-19 17:20:00 2021-08-19 17:42:43 Urgent Care Justine Lopez [facility] 1.2.840.114 350.1.13.10 4.2.7.2.686 [id number] [facility] 2021-08-18 17:20:00 2021-08-18 17:20:00 Outpatient R [facility] [id number] [facility] 2021-08-03 00:00:00 2021-08-03 00:00:00 Orders Only Doctor Unassigned, [place] [facility] 1..840.114 350.1.13.10 4.2.7.2.686 [id number] [facility] 2021-07-27 00:00:00 2021-07-27 00:00:00 Matheus Moreno [facility] [place] NAL OFFICE BUILDING ONE 1..840.114 350.1.13.10 4.2.7.2.686 [id number] [facility] 2021-06-30 09:29:00 2021-06-30 11:39:00 Outpatient R CHUCKY PERKINS [facility] OPH [id number] [facility] 2021-06-30 09:29:00 2021-06-30 11:39:00 Hospital Encounter Chucky Perkins [facility] [place] 1..840.114 350.1.13.10 4.2.7.2.686 [id number] [facility] 2021-06-30 09:50:00 2021-06-30 10:25:00 Surgery Chucky Perkins [facility] [place] 1.2.840.114 350.1.13.10 4.2.7.2.686 [id number] [facility] 2021-06-28 14:45:00 2021-06-28 15:00:00 Laboratory Only Only, Adc Test Chucky Perkisn [facility] 1.840.114 350.1.13.10 4.2.7.2.686 [id number] [facility] 2021-06-28 14:45:00 2021-06-28 14:45:00 Outpatient R CHUCKY PERKINS [facility] [id number] [facility] 2021-06-16 07:45:00 2021-06-16 10:25:00 Outpatient R CHUCKY PERKINS [facility] OPH [id number] [facility] 2021-06-16 07:45:00 2021-06-16 10:25:00 Hospital Encounter Chucky Perkins [facility] 1.2840.114 350.1.13.10 4.2.7.2.686 [id number] [facility] 2021-06-16 09:10:00 2021-06-16 09:40:00 Anesthesia Event Daron Kelly [facility] 1.2840.114 350.1.13.10 4.2.7.2.686 [id number] [facility] 2021-06-16 08:40:00 2021-06-16 09:15:00 Surgery Chucky Perkins [facility] 1.2840.114 350.1.13.10 4.2.7.2.686 [id number] [facility] 2021-06-16 00:00:00 2021-06-16 00:00:00 Orders Only Doctor Unassigned, [place] [facility] 1.2840.114 350.1.13.10 4.2.7.2.686 [id number] [facility] 2021-06-14 10:30:00 2021-06-14 10:45:00 Laboratory Only Only, Adc Test Chucky Perkins [facility] 1.0.114 350.1.13.10 4.2.7.2.686 [id number] [facility] 2021-06-14 10:30:00 2021-06-14 10:30:00 Outpatient R GREGORIOCHUCKY [facility] [id number] [facility] 2021-06-14 10:15:00 2021-06-14 10:30:00 Packing Room Supervisor Visit Pob, Adc Lab Chucky Josue [facility] BUILDING 1..114 350.1.13.10 4.2.7.2.686 [id number] [facility] 2021-05-24 00:00:00 2021-05-24 00:00:00 Orders Only Doctor Unassigned, [place] [facility] .0.114 350.1.13.10 4.2.7.2.686 [id number] [id number] [facility] 2021-04-28 00:00:00 2021-04-28 00:00:00 [facility] ..114 350.1.13.10 4.2.7.2.686 [id number] [facility] 2021-04-18 00:00:00 2021-04-18 00:00:00 Orders Only Doctor Unassigned, [place] [facility] .0.114 350.1.13.10 4.2.7.2.686 [id number] [id number] [facility] 2021-03-22 00:00:00 2021-03-22 00:00:00 [facility] .0.114 350.1.13.10 4.2.7.2.686 [id number] [facility] 2021-03-01 00:00:00 2021-03-01 00:00:00 Opheliafrance Mcnamara [facility] Office Building One 1.84.114 350.1.13.10 4.2.7.2.686 [id number] [facility] 2021-02-10 00:00:00 2021-02-10 00:00:00 Orders Only Doctor Unassigned, [place] [facility] 1.0.114 350.1.13.10 4.2.7.2.686 [id number] [facility] 2021-01-11 00:00:00 2021-01-11 00:00:00 Concha Mcnamara [facility] Office Building One 1.84.114 350.1.13.10 4.2.7.2.686 [id number] [facility] 2020-12-28 00:00:00 2020-12-28 00:00:00 Opheliafrance Bryann[facility]otsnajo[facility] Building 1.84.114 350.1.13.10 4.2.7.2.686 [id number] [facility] 2020-12-21 00:00:00 2020-12-21 00:00:00 Orders Only Doctor Unassigned, [place] [facility] 1.2.114 350.1.13.10 4.2.7.2.686 [id number] [facility] 2020-11-26 08:56:37 2020-11-26 09:11:37 Packing Room Supervisor Visit Pob, Adc Lab Main Chucky Mariee [facility] Building 1.84.114 350.1.13.10 4.2.7.2.686 [id number] [facility] 2020-11-26 08:45:00 2020-11-26 08:45:00 Outpatient R [facility] [id number] [facility] 2020-11-26 00:00:00 2020-11-26 00:00:00 Orders Only Doctor Unassigned, [place] [facility] 1.20.114 350.1.13.10 4.2.7.2.686 [id number] [facility] 2020-11-15 10:39:15 2020-11-15 11:35:08 Office Visit Naima [facility] Office Building One 1..114 350.1.13.10 4.2.7.2.686 [id number] [facility] 2020-11-15 10:45:00 2020-11-15 10:45:00 Outpatient R [facility]A [facility] [id number] [facility] 2020-09-28 00:00:00 2020-09-28 00:00:00 Telephone Naima [facility] Office Building One 1.114 350.1.13.10 4.2.7.2.686 [id number] [facility] 2020-09-27 00:00:00 2020-09-27 00:00:00 Orders Only Doctor Unassigned, [place] [facility] 1.114 350.1.13.10 4.2.7.2.686 [id number] [facility] 2020-09-23 00:00:00 2020-09-23 00:00:00 Refill Naima [facility] Office Building One 1.84.114 350.1.13.10 4.2.7.2.686 [id number] [facility] 2020-07-30 10:12:53 2020-07-30 10:27:53 Packing Room Supervisor Visit Pob, Adc Lab Main CristinoroslynchunjeseValenteio David [facility] Building 1..840.114 350.1.13.10 4.2.7.2.686 [id number] [facility] 2020-07-30 10:00:00 2020-07-30 10:00:00 Outpatient PENELOPE GUDINO [facility] [id number] [facility] 2020-07-30 00:00:00 2020-07-30 00:00:00 Orders Only Doctor Unassigned, [place] [facility] 1.840.114 350.1.13.10 4.2.7.2.686 [id number] [facility] 2020-07-23 14:40:00 2020-07-23 14:40:00 Outpatient MARIE VALENTINE [facility] [id number] [facility] 2020-07-14 00:00:00 2020-07-14 00:00:00 Matheus Moreno [facility] Office Building One 1.840.114 350.1.13.10 4.2.7.2.686 [id number] [facility] 2020-07-02 13:00:00 2020-07-02 13:00:00 Outpatient MARIE VALENTINE [facility] [id number] [facility] 2020-07-02 13:00:00 2020-07-02 13:00:00 Outpatient MARIE VALENTINE [facility] [id number] [facility] 2020-06-12 00:00:00 2020-06-12 00:00:00 Patient Outreach Efra Aguilar [facility] 1..840.114 350.1.13.10 4.2.7.2.686 [id number] [facility] 2020-04-05 08:03:45 2020-04-05 08:18:45 Packing Room Supervisor Visit Pob, Adc Lab Main Penelope Diehl [facility] Building 1.284.114 350.1.13.10 4.2.7.2.686 [id number] [facility] 2020-04-05 08:00:00 2020-04-05 08:00:00 Outpatient R PENELOPE DIEHL [facility] [id number] [facility] 2020-04-05 00:00:00 2020-04-05 00:00:00 Orders Only Doctor Unassigned, [place] [facility] 1..114 350.1.13.10 4.2.7.2.686 [id number] [facility] 2020-03-29 00:00:00 2020-03-29 00:00:00 Matheus Moreno [facility] Office Building One 1.84.114 350.1.13.10 4.2.7.2.686 [id number] [facility] 2020-01-02 10:00:00 2020-01-02 10:00:00 Outpatient PENELOPE GUDINO [facility] [id number] [facility] 2020-01-02 09:24:15 2020-01-02 09:39:15 Packing Room Supervisor Visit Yang, Adc Lab Main Penelope Diehl [facility] Building 1.284.114 350.1.13.10 4.2.7.2.686 [id number] [facility] 2020-01-02 00:00:00 2020-01-02 00:00:00 Orders Only Doctor Unassigned, [place] [facility] 1.20.114 350.1.13.10 4.2.7.2.686 [id number] [id number] [facility] 2020-01-02 00:00:00 2020-01-02 00:00:00 Refill Matheus Mcnamara [facility] Office Building One 1.2840.114 350.1.13.10 4.2.7.2.686 [id number] 044 [id number] [facility] 2019-12-27 00:00:00 2019-12-27 00:00:00 Refill Matheus Mcnamara [facility] Building One 1.284.114 350.1.13.10 4.2.7.2.686 [id number] [facility] 2019-12-24 11:49:05 2019-12-24 12:04:05 Packing Room Supervisor Visit 2, Adc Lab Matheus Mcnamara [facility] Building 1.2840.114 350.1.13.10 4.2.7.2.686 [id number] [facility] 2019-12-24 11:17:19 2019-12-24 11:32:19 Office Visit Matheus Mcnamara [facility] Building 1.2840.114 350.1.13.10 4.2.7.2.686 [id number] [id number] [facility] 2019-12-24 11:30:00 2019-12-24 11:30:00 Outpatient R MATHEUS MCNAMARA [facility] [id number] [facility] 2019-12-11 00:00:00 2019-12-11 00:00:00 Telephone Matheus Mcnamara [facility] Building 1.2840.114 350.1.13.10 4.2.7.2.686 [id number] [facility] 2019-12-11 00:00:00 2019-12-11 00:00:00 Orders Only Doctor Unassigned, [place] [facility] 1.284.114 350.1.13.10 4.2.7.2.686 [id number] [id number] [facility] 2019-12-03 00:00:00 2019-12-03 00:00:00 Matheus Moreno [facility] Building One 1.2840.114 350.1.13.10 4.2.7.2.686 [id number] 044 [id number] [facility] 2019-11-28 00:00:00 2019-11-28 00:00:00 Pre Visit Outreach Matheus Mcnamara [facility] Building 1.2840.114 350.1.13.10 4.2.7.2.686 [id number] [id number] [facility] 2019-10-31 00:00:00 2019-10-31 00:00:00 Refill Naima [facility] Building 1.2840.114 350.1.13.10 4.2.7.2.686 [id number] 044 [id number] [facility] 2019-10-31 00:00:00 2019-10-31 00:00:00 Reffrance Mcnamara [facility] Building One 1.84.114 350.1.13.10 4.2.7.2.686 [id number] [id number] [facility] 2019-10-28 00:00:00 2019-10-28 00:00:00 Refill Matheus Mcnamara [facility] Building 1.2840.114 350.1.13.10 4.2.7.2.686 [id number] 044 [id number] [facility] 2019-10-27 00:00:00 2019-10-27 00:00:00 Refill Naima [facility] One 1.0.114 350.1.13.10 4.2.7.2.686 [id number] [facility] 2019-10-14 00:00:00 2019-10-14 00:00:00 Telephone [facility]us Mcnamara [facility] 1.2.840.114 350.1.13.10 4.2.7.2.686 [id number] 044 [id number] [facility] 2019-09-29 00:00:00 2019-09-29 00:00:00 Refill Naima [facility] Building One 1.2.840.114 350.1.13.10 4.2.7.2.686 [id number] [id number] [facility] 2019-09-04 00:00:00 2019-09-04 00:00:00 Telephone Naima [facility] One 1.2.840.114 350.1.13.10 4.2.7.2.686 [id number] 044 [id number] [facility] 2019-09-03 00:00:00 2019-09-03 00:00:00 Telephone Matheus Mcnamara [facility] nal Building 1.2.840.114 350.1.13.10 4.2.7.2.686 [id number] [id number] [facility] 2019-09-03 00:00:00 2019-09-03 00:00:00 Telephone Naima [facility] Building One 1.2.840.114 350.1.13.10 4.2.7.2.686 [id number] [id number] [facility] 2019-08-29 00:00:00 2019-08-29 00:00:00 Refill Naima [facility] One 1.2.840.114 350.1.13.10 4.2.7.2.686 [id number] [id number] [facility] 2019-08-25 00:00:00 2019-08-25 00:00:00 Orders Only Doctor Unassigned, [place] [facility] 1.20.114 350.1.13.10 4.2.7.2.686 [id number] [facility] 2019-08-05 10:30:49 2019-08-18 07:52:14 Telemedici ne Visit Naima [facility] Building One 1.114 350.1.13.10 4.2.7.2.686 [id number] 044 [id number] [facility] 2019-08-06 00:00:00 2019-08-06 00:00:00 Refill Naima [facility] One 1.114 350.1.13.10 4.2.7.2.686 [id number] [id number] [facility] 2019-08-05 10:15:00 2019-08-05 10:15:00 Outpatient R MATHEUS MCNAMARA [facility] [id number] [facility] 2019-08-01 07:36:52 2019-08-01 07:51:52 Packing Room Supervisor Visit Pob, Adc Lab Main Penelope Diehl [facility] Building 1.114 350.1.13.10 4.2.7.2.686 [id number] [facility] 2019-08-01 07:45:00 2019-08-01 07:45:00 Outpatient PENELOPE GUDINO [facility] [id number] [facility] 2019-08-01 00:00:00 2019-08-01 00:00:00 Orders Only Doctor Unassigned, [place] [facility] 1.114 350.1.13.10 4.2.7.2.686 [id number] [id number] [facility] 2019-07-22 08:59:19 2019-07-22 09:42:43 Office Visit NaimaMatheus [facility] Office Building One 1.114 350.1.13.10 4.2.7.2.686 [id number] [id number] [facility] 2019-07-22 09:00:00 2019-07-22 09:00:00 Outpatient R BRYANNABEULAHMATHEUS [facility] [id number] [facility] 2019-07-07 00:00:00 2019-07-07 00:00:00 Telephone Matheus Mcnamara [facility] Office Building One 1..114 350.1.13.10 4.2.7.2.686 [id number] [id number] [facility] 2019-07-03 09:26:15 2019-07-03 10:37:04 Office Visit NiamaMatheus [facility] Building One 1.114 350.1.13.10 4.2.7.2.686 [id number] [id number] [facility] 2019-07-03 00:00:00 2019-07-03 00:00:00 Orders Only Doctor Unassigned, [place] [facility] 1.114 350.1.13.10 4.2.7.2.686 [id number] [facility] 2019-06-26 14:19:49 2019-06-26 15:35:33 Office Visit Celeste Perez [facility] Building 1.114 350.1.13.10 4.2.7.2.686 [id number] [facility] 2019-06-21 00:00:00 2019-06-21 00:00:00 Refill Matheus Mcnamara [facility] Building One 1.2840.114 350.1.13.10 4.2.7.2.686 [id number] [facility] 2019-06-17 00:00:00 2019-06-17 00:00:00 Transition of Care Kika Sparks 1.2.840.114 350.1.13.10 4.2.7.2.686 [id number] [facility] 2019-06-13 18:48:06 2019-06-16 18:54:00 Hospital Encounter TimCr alan Adnan [facility] 1.840.114 350.1.13.10 4.2.7.2.686 [id number] [facility] 2019-06-14 00:00:00 2019-06-14 00:00:00 Reffrance Mcnamara [facility] Building One 1.840.114 350.1.13.10 4.2.7.2.686 [id number] [id number] [facility] 2019-06-10 00:00:00 2019-06-10 00:00:00 Orders Only Doctor Unassigned, [place] [facility] 1.2840.114 350.1.13.10 4.2.7.2.686 [id number] [facility] 2019-01-29 00:00:00 2019-01-29 00:00:00 RefMatheus Bravo [facility] Building One 1.0.114 350.1.13.10 4.2.7.2.686 [id number] 044 [id number] [facility] 2019-01-08 00:00:00 2019-01-08 00:00:00 Reffrance Mcnamara [facility] Building One 1.0.114 350.1.13.10 4.2.7.2.686 [id number] 044 [id number] [facility] 2019-01-05 00:00:00 2019-01-05 00:00:00 Concha Mcnamara [facility] Building One 1.2.840.114 350.1.13.10 4.2.7.2.686 [id number] [id number] [facility] 2018-12-12 00:00:00 2018-12-12 00:00:00 Concha Mcnamara [facility] Building One ..840.114 350.1.13.10 4.2.7.2.686 [id number] 044 [id number] [facility] Results Test Description Test Time Test Comments Results Result Co mments Source - XR CHEST 1 V 2023-03-11 07:11:00 [facility] 1935 Sex: F Name: JAMA VERDUZCO [facility] : 1935 Age/S: 88 / F [address] Unit #: [id number] Loc: [place] [address] Phys: Nury Mnedoza MD Cardiology Acct: [id number] Dis Date: Status: ADM IN PHONE #: [phone] Exam Date: 03/11/2023437 FAX #: Reason: Post implanted device EXAMS: CPT: [id number] XR CHEST 1 V 57014 Fluoro Time: DAP (Gy m2): Air Kerma [...] PAGE 1 Signed Report Name: JAMA VERDUZCO [facility] : 1935 Age/S: 88 / F [address] Unit #: [id number] Loc: [place] [address] Phys: Nury Mendoza MD Cardiology Acct: [id number] Dis Date: Status: ADM IN PHONE #: [phone] Exam Date: 03/11/2023 0438 FAX #: Reason: Post implanted device EXAMS: CPT: [id number] XR CHEST 1 V 97967 Fluoro Time: DAP (Gy m2): Air Kerma (mGy): (Continued) Technologist: Myra Gunn Trnscb Date/Time: 03/11/2023 (710) tISIAH Orig Print D/T: S: 03/11/2023 (0714) PAGE 2 Signed Report CBC W/AUTO [id number] 04:44:00* Test Item Value Reference Range Interpretation [...] NO DIFF/SCN CRITERIA - XR CHEST 1 [id number] 15:12:00 [facility] : 1935 Sex: F Name: JAMA VERDUZCO [facility] : 1935 Age/S: [address] Unit #: [id number] Loc: [place] [address] Phys: Nury Mendoza MD Cardiology Acct: [id number] Dis Date: Status: ADM IN PHONE #: [phone] Exam Date: 03/10/2023 1446 FAX #: Reason: Post implanted device EXAMS: CPT: [id number] XR CHEST 1 V 11193 Fluoro Time: DAP (Gy m2): Air Kerma (mGy): EXAM: Portable chest x-ray, one view INDICATION: Post implanted device ADMITTING DIAGNOSIS: 6 sinus syndrome, post pacemaker placement LOCATION CODE: C3 COMPARISON: None TECHNIQUE: Single Portable AP upright view of the chestDISCUSSION: Catheter and Tubes: This a left subclavian [...] PAGE 1 Signed Report Name: JAMA VERDUZCO [facility] : 1935ge/S: [address] Unit #: [id number] Loc: [place] [address] Phys: Nury Mendoza MD Cardiology Acct: [id number] Dis Date: Status: ADM IN PHONE #: [phone] Exam Date: 446 FAX #: Reason: Post implanted device EXAMS: CPT: [id number] XR CHEST 1 V 48181 Fluoro Time: DAP (Gy m2): Air Kerma (mGy): (Continued) Technologist: Tirso Adams Trnscb Date/Time: 03/10/2023 (1511) [email or web address] Orig Print D/T: S: 03/10/2023 (3110) PAGE 2 Signed ReportPROTHROMBIN [id number] 10:52:00* Test Item Value Reference Range Interpretation [...] Infarction (to prevent recurrent infarct). COMPREHENSIVE METABOLIC [id number] 10:52:00* Test Item Value Reference Range Interpretation [...] = LDL) 90 MG/DL 0-129 N <100 IEEOXDV98 0 - 129 NEAR OPTIMAL/ABOVE [id number] - 159 [id number] - 189 HIGH>OR= 190 VERY HIGHNOTE THAT GUIDELINES ARE PROVIDED BY NATIONAL CHOLESTEROLEDUCATION PROGRAM ADULT TREATMENT PANEL III LDL/HDL (test code = LDL/HDL) 1.57 Ratio See_Comment N [Automated [employer] ge] The system which generated this result transmitted reference range: 1.48-3.22 Avg. The reference range was not used to interpret this result as normal/abnormal. [id number] 10:52:00* Test Item Value Reference Range Interpretation Comme nts MAGNESIUM (test code = MAG) 2.1 MG/DL 1.8-2.4 N CBC W/AUTO [id number] 10:28:00* Test Item Value Reference Range Interpretation [...] DIFF/SCN CRITERIA Notes Date/Time Note Provider Source 2024-01-03 14:11:05 Received RAD report of chest from [facility]. Placed in Providers box. Cynthia Mckay [facility] 2024-01-03 11:16:29 What kind of cancer does she have? V T [facility] 2024-01-03 09:24:33 Referral pending, please review T Christina Alarcon RN [facility] 2024-01-03 09:01:47 Patients daughter came by to request referral to cancer doctor Ambar Grimes MD hematology/oncology with [facility]. Patient is currently in the hospital and was diagnosed with cancer pt was scheduled for post hospital but had to cancel due to being in hospital. If approved please call Chase travis daughter at [phone]. Fax number for referral is [phone] and phone number is [phone]. Phuong Sorto [facility] 2023-12-18 14:16:36 Received radiology services report from [facility], have placed in provider's box and loaded into patients chart. Brianne Moore [facility] 2023-07-19 09:45:59 Images from the original note were not included. Requesting 90 days Notes: 06/25/23 Last Refilled: [facility]/pharmacy #[id number] - [place], [place] - [address] AT [facility] Recent Visits Date Type Provider Dept 07/16/23 Office Visit Matheus Mcnamara MD [facility] 05/23/23 Office Visit Katarzyna Marquez PA [facility] 05/25/22 Office Visit Matheus Mcnamara MD [facility] Showing recent visits within past 540 days with a meds authorizing provider and meeting all other requirements Future Appointments Date Type Provider Dept 10/16/23 Appointment Matheus Mcnamara MD [facility] Showing future appointments within next 150 days with a meds authorizing provider and meeting all other requirements Name from pharmacy: AZELASTINE 0.1% (137 MCG) NEPTALI Will file in chart as: AZELASTINE 137 mcg (0.1 %) nasal spray Sig: Use 1 Warren in each nostril in the morning and 1 Warren in the evening. Use in each nostril as directed Disp: Not specified (Pharmacy requested: 90 Each) Refills: 1 Start: 07/19/2023 Class: eRX Non-formulary For: Acute URI, Acute cough Last ordered: 3 weeks ago (06/25/2023) by DELIA Levy Last refill: 06/25/2023 Rx #: [id number] Pharmacy comment: REQUEST FOR 90 DAYS PRESCRIPTION. DX Code Needed. Allergy Ujlurt4007/19/2023 09:31 AM Protocol Details Valid encounter within last 12 months This request has changes from the previous prescription. To be filled at: [facility]/pharmacy #[id number] - [place], [place] - [address] AT [facility] 2023-03-11 08:37:00 [facility] ([facility] Hospitalist Discharge Summary REPORT#:[id number] REPORT STATUS: Signed REPORT INITIALIZATION DATE:03/11/23 TIME:836 PATIENT: JAMA VERDUZCO UNIT #: [id number] ROOM/BED: [place] [address] : [birth year] AGE: 88 SEX: F ATTEND: Yuliya Potter MD ADM AUTHOR: Alirio Thompson MD REPT SERVICE DT/TIME: 03/11/23 0837 * ALL edits or amendments must be made on the electronic/computer document * General Information Discharge date: 03/11/23 Discharge diagnosis: Symptomatic sick sinus syndrome Chronic atrial fibrillation Status post pacemaker placement Hypertension Hyperlipidemia Hypothyroidism Hospital course: 88-year-old female with past medical history of sick sinus syndrome who underwent pacemaker placement by Dr. Mendoza and is admitted for postoperative monitoring. Denies any pain. No fever or chills. No nausea vomiting or diarrhea. Patient was admitted and was monitored closely under telemetry. Pain was controlled well. Patient had a pacemaker impression. Appreciate help from cardiology She responded well to treatment and is being discharged to home today in a stable condition with an advise to follow up with PCP in 1 week and also with Cardiology in 1 week Med Rec Med Rec Discharge meds: Continue taking these medications: LEVOTHYROXINE (SYNTHROID) 50 MCG TAB 50 MICROGRAM ORAL [...] PUFF INHALATION RT - EVERY 6 HOURS. Objective VS/I O Last Documented: Result Date Time O2 Delivery Nasal cannula 03/11 930 O2 Flow Rate 2 03/11 930 Pulse Ox 97 03/11 0752 B/P 140/76 03/11 0752 B/P Mean 97.2 03/11 752 Pulse 91 03/11 0752 Resp 21 03/11 075 FiO2 28 03/11 0738 Temp 97.5 03/11 0405 Free Text Obj Notes Free Text Obj Notes: Physical Exam General appearance: alert, awake, oriented HEENT : normocephalic ,Atraumatic Eyes: Eyes normal inspection. ENT: Dry mucous membranes present. Neck: Normal inspection. Neck supple. CVS: Normal heart rate and rhythm. Heart sounds normal. Respiratory: No respiratory distress. Breath sounds normal. Abdomen: Soft and nontender. Genitourinary: no bladder distention Back: Normal inspection. Skin: Skin warm. Normal skin color. No rash. Extremities: No lower extremity edema. Neuro: Oriented X 3. No motor deficit No generalized lymph adenopathy Psych normal affect Discharge Instructions PCP Discharge to: Home/Self Care Additional Discharge Routines: PCP Follow-Up, Car Attendant Follow-Up Diet: Resume Home Diet/Feeds Discharge management: greater than 30 mins Follow-up Appointments PCP follow-up: PCP: DOES_NOT KNOW PCP follow up timeframe: In 1-2 weeks Consulting provider 1: Provider 1: Nury Mendoza MD Cardiology Specialty: CardiologyInterventional Consult follow up timeframe: In 1-2 weeks at 1104 RPT #: [id number] END OF REPORT [facility] 2023-03-11 05:47:00 [id number] [facility] [address] [place] [address] PATIENT NAME: JAMA VERDUZCO ADMIT DATE: 03/10/23 ACCOUNT NO: [id number] ROOM NO: [facility] AGE: 88 REPORT TYPE: eELECTROCARDIOGRAM SEX: F ADMITTING PHYSICIAN: Yuliya Potter MD ATTENDING PHYSICIAN: Yuliya Potter MD Order: [id number] Test Reason : Post insertion procedure Test Date/Time Stamp: SunMar 11 2023 05:47:22 Blood Pressure : / mmHG Vent. Rate : 077 BPM Atrial Rate : 308 BPM P-R Int : 000 ms QRS Dur : 102 ms QT Int : 418 ms P-R-T Axes : 000 099 024 degrees QTc Int : 473 ms Atrial flutter with variable AV block Lateral infarct (cited on or before 10-MAR-2023) Abnormal ECG When compared with ECG of 10-MAR-2023 14:10, Criteria for Septal infarct are no longer present Confirmed by NURY MENDOZA ([id number]) on 03/11/2023 8:08:35 AM Referred By: Nury Mendoza Confirmed by:NURY MENDOZA at 0808 PATIENT NAME: JAMA VERDUZCO [facility] 2023-03-10 15:11:00 [facility] ([facility]) Hospitalist History Physical REPORT#:[id number] REPORT STATUS: Signed REPORT INITIALIZATION DATE:03/10/23 TIME:1511 PATIENT: JAMA VERDUZCO UNIT #: [id number] ROOM/BED: [place] [address] : [birth year] AGE: 88 SEX: F ATTEND: Yuliya Potter MD ADM AUTHOR: Alirio Thompson MD REPT SERVICE DT/TIME: 03/10/23 0201 * ALL edits or amendments must be made on the electronic/computer document * History of Present Illness HPI Chief complaint: Status post pacemaker placement HPI: 88-year-old female with past medical history of sick sinus syndrome who underwent pacemaker placement by Dr. Mendoza and is admitted for postoperative monitoring. Denies any pain. No fever or chills. No nausea vomiting or diarrhea. History Past Medical Surgical Hx Additional medical history: Hypertension, hyperlipidemia, osteoarthritis, hypothyroidism, anxiety, gout, iron deficiency anemia, asthma, sinusitis, CKD stage II, vitamin D deficiency Additional surgical history: Status post pacemaker placement Complete cystectomy Left knee replacement, cholecystectomy, Family History Family history: Reports: Hypertension. Social History Smoking status for patients 13 years old or older: Never Smoker Medication/Allergy-Vaccine Hx Medications: Home Medications: LEVOTHYROXINE (SYNTHROID) 50 MCG PO DAILY FUROSEMIDE (LASIX) 20 MG PO DAILY RIVAROXABAN (XARELTO) 15 MG PO DAILY CARVEDILOL (COREG) 3.125 MG PO DAILY SPIRONOLACTONE (ALDACTONE) 50 MG PO DAILY TELMISARTAN (MICARDIS) 40 MG PO DAILY ALLOPURINOL (ZYLOPRIM) 300 MG PO DAILY PARoxetine HCL (PAXIL) 10 MG PO QAM ALBUTEROL (ALBUTEROL HFA 90 MCG/ACT) 2 PUFF INH RTQ6H Allergies: Coded Allergies: codeine (Intermediate, CHEST PAIN 03/05/23) Review of Systems Free Text ROS Notes Free Text ROS Notes: Constitutional: Reports: generalized weakness. Skin: Denies: rash. Allergy/Immun: Denies: rhinorrhea, sneezing. Eyes: Denies: visual loss/blurred. ENT: Denies: earache, nasal congestion. Respiratory: Denies: non productive cough. Cardiovascular: Denies: chest pain, palpitations. GI: Denies: diarrhea, nausea. : Denies: dysuria. Musculoskeletal: Reports: arthritis. Denies: extremity pain. Heme: Denies: bleeding. Endocrine: Denies: polydipsia. Neuro: Reports: dizziness, gait problem, lightheaded, spinning sensation. Psych: Reports: anxiety. All systems rev neg: except as noted OBJECTIVE VS/I O: Vital Signs Date Temp Pulse Resp B/P B/P [...] and BMI Weight (kg): 50.000 BMI: 20.8 Medications: Active Meds + DC'd Last 24 Hrs Allopurinol (ZYLOPRIM) 300 MG DAILY PO Furosemide (LASIX) [...] IV Sterile Water (WATER FOR INJECTION) 10 ML Hydrocodone Bitart/Acetaminophen (NORCO 5/325) 1 TAB Q4H PRN [...] (0.9% Sodium Chloride) 1,000 ML ASDIR IV Results Findings/Data: Laboratory Tests 03/10/23 1000: [Embedded Image Not Available] Laboratory Tests: 03/10 1000 Chemistry Sodium (134 - [...] % (Auto) (20.5 - 51.1 %) 21.3 [place] % (Auto) (1.7 - 9.3 %) 4.3 Eos % (Auto) (0.0 - 6.0 %) 2.3 Baso % (Auto) (0.0 - 2.0 %) 0.8 Neut # (Auto) (1.8 - 7.6 K/mm3) 6.1 Lymph # (Auto) (0.6 - 3.2 K/mm3) 1.8 [place] # (Auto) (0.3 - 1.1 K/mm3) 0.4 Eos # (Auto) (0.0 - 0.4 K/mm3) 0.2 Baso # (Auto) (0.0 - 0.1 K/mm3) 0.1 Abs Immat Gran (auto) (0.00 - 0.03 x10 3/uL) 0.03 Add Manual Diff (CRITERIA DIFF/SCN) NO Immature Gran % (0.0 - 5.0 %) 0.3 Nucleated RBC % (0.0 - 1.0 /100WBC%) 0.0 Laboratory Tests 03/10/23 1000: [Embedded Image Not Available] Free Text PE Notes Free Text PE Notes: Physical Exam General appearance: alert, awake, oriented HEENT : normocephalic ,Atraumatic Eyes: Eyes normal inspection. ENT: Dry mucous membranes present. Neck: Normal inspection. Neck supple. CVS: Normal heart rate and rhythm. Heart sounds normal. Respiratory: No respiratory distress. Breath sounds normal. Abdomen: Soft and nontender. Genitourinary: no bladder distention Back: Normal inspection. Skin: Skin warm. Normal skin color. No rash. Extremities: No lower extremity edema. Neuro: Oriented X 3. No motor deficit No generalized lymph adenopathy Psych normal affect Diagnosis, Assessment Plan Free Text A P: Symptomatic sick sinus syndrome chronic atrial fibrillation Status post pacemaker placement Pain control Appreciate help from cardiology Continue home medications Hypertension Continue home medications Titrate antihypertensives Hyperlipidemia Continue statin Hypothyroidism Continue Synthroid Anemia of chronic disease Monitor CBC in a.m. GI/DVT prophylaxis Advanced directive full code at 1102 RPT #: [id number] END OF REPORT [facility] 2023-03-10 14:10:00 [phone] [facility] [address] [place] [address] PATIENT NAME: JAMA VERDUZCO ADMIT DATE: 03/10/23 ACCOUNT NO: [id number] ROOM NO: [facility] AGE: 88 REPORT TYPE: eELECTROCARDIOGRAM SEX: F ADMITTING PHYSICIAN: Yuliya Potter MD ATTENDING PHYSICIAN: Yuliya Potter MD Order: [id number] Test Reason : post ekg Test Date/Time Stamp: [facility] Mar 10 2023 14:10:55 Blood Pressure : / mmHG Vent. Rate : 088 BPM Atrial Rate : 264 BPM P-R Int : 000 ms QRS Dur : 108 ms QT Int : 402 ms P-R-T Axes : 000 104 -18 degrees QTc Int : 486 ms Atrial flutter with variable AV block Septal infarct (cited on or before 10-MAR-2023) Lateral infarct (cited on or before 10-MAR-2023) Abnormal ECG When compared with ECG of 10-MAR-2023 10:20, Atrial flutter has replaced Atrial fibrillation T wave inversion no longer evident in Inferior leads Confirmed by NURY MENDOZA ([id number]) on 03/10/2023 2:45:42 PM Referred By: Nury Mendoza Confirmed by:NURY MENDOZA at 1440 PATIENT NAME: JAMA VERDUZCO [facility] 2023-03-10 13:45:00 [id number] [address] PATIENT NAME: JAMA VERDUZCO ADMIT DATE: 03/10/23 ACCOUNT NO: [id number] ROOM NO: L.PO7 AGE: 88 REPORT TYPE: OPERATIVE REPORT SEX: F ADMITTING PHYSICIAN: Yuliya Potter MD ATTENDING PHYSICIAN: Yuliya Potter MD OPERATION DATE: 03/10/2023 CARDIOLOGY PROCEDURE. COLLECTIONS ANALYST: Nury Mendoza MD PREOPERATIVE DIAGNOSIS: POSTOPERATIVE DIAGNOSIS TITLE OF PROCEDURE: Single chamber MRI compatible permanent pacemaker implantation. SURGEON: Nury Mendoza MD INTERNATIONAL TRADE SPECIALIST: INDICATION FOR THE PROCEDURE: Symptomatic sick sinus [...] By: Nury Mendoza MD Date Dictated: 03/10/2023 13:45:38 Date Transcribed: 03/10/2023 14:54:27 NICOLAS/VICKI PATIENT NAME: JAMA VERDUZCO Receipt ID: [id number] Authenticated by Nury Mendoza MD On 03/10/2023 09:11:29 PM at 0911 PATIENT NAME: JAMA VERDUZCO [facility] 2023-03-10 10:20:00 [id number] [address] PATIENT NAME: JAMA VERDUZCO ADMIT DATE: 03/10/23 ACCOUNT NO: [id number] ROOM NO: AGE: 88 REPORT TYPE: eELECTROCARDIOGRAM SEX: F ADMITTING PHYSICIAN: ATTENDING PHYSICIAN: Nury Mendoza MD Order: [id number] Test Reason : PRE PPM Test Date/Time Stamp: Sat Mar 10 2023 10:20:28 Blood Pressure : / mmHG Vent. Rate : 090 BPM Atrial Rate : 000 BPM P-R Int : 000 ms QRS Dur : 106 ms QT Int : 384 ms P-R-T Axes : 000 106 -51 degrees QTc Int : 469 ms Atrial fibrillation with premature ventricular or aberrantly conducted complexes Septal infarct , age undetermined Lateral infarct , age undetermined T wave abnormality, consider inferior ischemia Abnormal ECG No previous ECGs available Confirmed by NURY MENDOZA ([id number]) on 03/10/2023 10:25:29 AM Referred By: Nury Mendoza Confirmed by:NURY MENDOZA at 1025 PATIENT NAME: JAMA VERDUZCO [facility] 2023-03-09 07:39:00 [id number] [facility] [id number] [place] [address] PATIENT NAME: JAMA VERDUZCO ADMIT DATE: ACCOUNT NO: [id number] ROOM NO: AGE: 88 REPORT TYPE: HISTORY AND PHYSICAL SEX: F ADMITTING PHYSICIAN: ATTENDING PHYSICIAN: uNry Mendoza MD Cardiology PATIENT NAME: JAMA VERDUZCO ADMIT DATE:03/10/2023 ADMISSION DATE: 03/10/2023 10:30:00 ADMISSION HISTORY AND PHYSICAL COLLECTIONS ANALYST: Nury Mendoza MD REASON FOR ADMISSION: Single chamber permanent pacemaker implantation for symptomatic sick sinus syndrome with worsening pauses in a patient with chronic atrial fibrillation. HISTORY OF PRESENT ILLNESS: Jama is an 88-year-old lady who I have been following in my office since 2003. The patient has a long history of atrial fibrillation, which is now chronic and sick sinus syndrome. She has been followed up regularly over the years with monitoring. Her last Holter monitor showed 805 pauses, the longest was 4.7 seconds. Heart rate going down to 18 at night. Average heart rate was 76. The patient has worsening sick sinus syndrome and is here for single chamber permanent pacemaker implantation. She had a cardiac catheterization back in 2008 that showed no angiographic coronary artery disease. She has had carotid Doppler showing less than 25% plaquing. Echocardiogram shows gblmesit-ew-ponbuj mitral regurgitation, moderate tricuspid insufficiency, wxag-kq-adwgasrz aortic valve insufficiency, normal ejection fraction, pulmonary hypertension 50-60 mmHg. Her last nuclear stress test was negative for ischemia in 2014. The patient has been having worsening dizziness, dyspnea, tiredness. No syncope. She has had episodes of near syncope in the past. She has been taking a very low dose carvedilol for atrial fibrillation control and she is here for single chamber permanent pacemaker implantation. The patient needs the carvedilol for rate control for her atrial fibrillation. So, she has tachybrady syndrome also. There is no history of congestive heart failure, TIAs or strokes. There is no history of chest pains. PAST MEDICAL HISTORY: Remarkable for the above, in addition to hypertension, hyperlipidemia, osteoarthritis, hypothyroidism, anxiety, gout, bronchitis, iron deficiency anemia, asthma, sinusitis, chronic renal insufficiency. She had COVID in 11/2021. History also of vitamin D deficiency, and allergies. PAST SURGICAL HISTORY: She has had complete hysterectomy, left knee replacement, cholecystectomy, right knee replacement, and colonoscopy back in 2018. ALLERGIES: CODEINE AND DOXYCYCLINE. PATIENT NAME: JAMA VERDUZCO MEDICATIONS: She takes Xarelto 15 mg daily is on hold, carvedilol 3.125 mg daily, furosemide 20 mg daily, paroxetine 10 mg daily, allopurinol 300 mg daily, iron, ____ 50 mcg daily, Slow-Mag, vitamin D3, Zyrtec, albuterol, spironolactone 50 mg daily, telmisartan 40 mg daily. SOCIAL HISTORY: There is no history of smoking, alcohol or street drug use. FAMILY HISTORY: Negative for premature atherosclerosis. REVIEW OF SYSTEMS: Remarkable for the above, in addition to fatigue, allergies, decreased hearing, mouth breathing at night, dizzy spells, presyncope episodes, asthma, cough, occasional wheezing, history of symptomatic anemia, osteoarthritis, difficulty balancing for which she uses a cane, poor coordination, numbness. No acute GI or symptoms. No TIAs or strokes. PHYSICAL EXAMINATION: GENERAL: Reveals a pleasant elderly lady in no acute distress. VITAL SIGNS: Blood pressure 136/68, pulse 90 and irregular, respiratory rate 18 and unlabored, temperature afebrile. HEENT: Head atraumatic, normocephalic. Eyes and ENT examination within normal for age. NECK: Supple. Elevated jugular venous pressure is noted. No bruits. Normal upstroke. LUNGS: Clear and resonant. HEART: Irregular rate and rhythm with III/ systolic and II/ diastolic murmurs at the mitral and aortic area respectively. No gallops. ABDOMEN: Soft. No tenderness, no organomegaly, no masses or bruits. EXTREMITIES: 1+ edema. 2+ distal pulses. No cyanosis or clubbing. NEUROLOGIC: Alert and oriented x3. Examination appears to be nonfocal. LABORATORY DATA: Pending. Noninvasive cardiovascular workup enclosed. IMPRESSION: This is an 88-year-old lady with chronic atrial fibrillation, tachybrady syndrome with significant pauses on recent Holter monitor that is symptomatic with dizzy spells. The patient has also valvular heart disease and hypertensive heart disease, pulmonary hypertension, multiple cardiovascular risk factors. The patient is here for single chamber permanent pacemaker implantation. PLAN: The recommendation is to proceed with the above-mentioned procedures. The risks and benefits of the planned procedures were discussed in detail with the patient and available family members and she is willing to proceed. Rest as per orders. Dictated By: Nury Mendoza MD Date Dictated: 03/09/2023 07:39:07 Date Transcribed: 03/09/2023 10:13:43 NICOLAS/CHRISTINA/SHORTY Receipt ID: [id number] Authenticated and Edited by Nury Mendoza MD On 03/09/23 4:54:10 PM PATIENT NAME: DAXJAMA at 0455 PATIENT NAME: MARTELL VERDUZCOLIE [facility] 2023-01-24 10:45:24 Formatting of this n ote is different from the original. Images from the original note were not included. Requested Renewals Name from pharmacy: LEVOTHYROXINE 50 MCG TABLET Will file in chart as: LEVOTHYROXINE 50 mcg tablet Sig: TAKE 1 TABLET BY MOUTH EVERY DAY Disp: 90 tablet Refills: 0 (Pharmacy requested: Not specified) Start: 01/24/2023 Class: eRX For: Acquired hypothyroidism Last ordered: 3 months ago (10/18/2022) by Matheus Mcnamara MD Last refill: 10/18/2022 Rx #: [id number] Endocrinology: Hypothyroid Agents Failed 01/24/2023 09:58 AM Protocol Details Manual Review: ENT providers forward refill request to PCP. TSH in normal range and within 360 days Valid encounter within last 12 months To be filled at: [facility]/pharmacy #[id number] [place] [id number] AT [facility] Recent Visits Date Type Provider Dept 05/25/22 Office Visit Matheus Mcnamara MD [facility] 12/19/21 Office Visit Matheus Mcnamara MD [facility] Showing recent visits within past 540 days with a meds authorizing provider and meeting all other requirements Future Appointments No visits were found meeting these conditions. Showing future appointments within next 150 days with a meds authorizing provider and meeting all other requirements Christiane Workman LVN [facility] 2023-01-04 09:39:03 Formatting of this n ote is different from the original. Images from the original note were not included. Requested Renewals Name from pharmacy: PAROXETINE HCL 10 MG TABLET Will file in chart as: PAROXETINE 10 mg tablet Sig: TAKE 1 TABLET BY MOUTH EVERY DAY IN THE MORNING Disp: 90 tablet Refills: 3 Start: 01/04/2023 Class: eRX For: Generalized anxiety disorder Last ordered: 1 year ago (12/19/2021) by Matheus Mcnamara MD Last refill: 10/03/2022 Rx #: [id number] Psychiatry: Antidepressants Failed 01/04/2023 12:38 AM Protocol Details Manual Review: Verify no changes in dose in the last 3 months Valid encounter within last 12 months To be filled at: [facility]/pharmacy #[id number] [facility] [address] AT [facility] Recent Visits Date Type Provider Dept 05/25/22 Office Visit Matheus Mcnamara MD [facility] 12/19/21 Office Visit Matheus Mcnamara MD [facility] Showing recent visits within past 540 days with a meds authorizing provider and meeting all other requirements Future Appointments No visits were found meeting these conditions. Showing future appointments within next 150 days with a meds authorizing provider and meeting all other requirements Christiane Workman LVN [facility]
[2024-01-04] MEDS: FUROSEMIDE 40 MG TABLET PO SCH (09:28)
[2024-01-04] MEDS: PARoxetine HCL 10 MG TAB PO SCH (09:28)
[2024-01-04 09:33] LABS: Absolute Basophils 0.1 K/uL (0-0.5); Absolute Eosinophils 0.1 K/uL (0-0.5); Absolute Monocytes 0.9 K/uL (0.1-1.3); Absolute Neutrophil 7.2 K/uL (1.8-8.0); Basophils % 1.1 % (0-1.3); Eosinophils % 1.1 % (0-4.4); Hematocrit 33.3 % (36.0-45.0); Hemoglobin 10.9 g/dL (12.0-15.0); Lymphocytes % 10.3 % (15.3-44.8); MCHC 32.7 g/dL (32.0-36.0); MCV 88.8 fL (80-100); MPV 6.7 fL (7.6-11.3); Monocytes % 9.9 % (3.3-12.3); Neutrophils % 77.6 % (41.7-73.7); Platelets 609 thou/uL (152-406); RBC Red Blood Cell Count 3.75 M/uL (3.86-4.86); Red Cell Distribution Width 16.5 % (12.1-15.2)
[2024-01-04 09:48] LABS: Albumin 2.1 g/dL (3.4-5.0); Albumin/Globulin Ratio 0.6 (1.1-1.8); Alkaline Phosphatase 66 U/L (45-117); BUN Blood Urea Nitrogen 42 mg/dL (7-18); Bicarbonate 30 mEq/L (21-32); Bilirubin Total 0.6 mg/dL (0.2-1.0); Globulin 3.7 g/dL (2.3-3.5); Glomerular Filtration Rate 49 ml/min (=/>90); Glucose Level 125 mg/dL (74-106); Protein, Total 5.8 g/dL (6.4-8.2); Sodium Level 136 mEq/L (136-145)
[2024-01-04 09:52] LABS: ALT/SGPT < 14 U/L (13-56); AST/SGOT < 10 U/L (15-37)
--- NOTE | 2024-01-04 11:16 | P.PN ---
Date of Service: 01/04/24 Subjective: no acute events overnight feels ok / better than yesterday, more alert denies any chills ROS: 10 point ROS as noted above, otherwise negative Physical Exam: GEN: Alert, oriented, NAD CV: irregularly irregularly rhthm, no edema Pulm: Nonlabored respirations on room air, clear bilaterally ABD: Soft, mild tenderness Neuro: Normal speech, normal affect vitals reviewed Problem List: Peritoneal carcinomatosis Malignant ascites ?rectosigmoid colon mass CKD3 Hyponatremia a-fib on chronic anticoagulation; s/p pacemaker Hypertension Chronic anemia CT abdomen (01/01): Peritoneal carcinomatosis with moderate to large amount ascites. +Apparent thickening of the wall of the rectosigmoid colon could be secondary to distention or mass Fluid cytology from paracentesis last admission (12/18/23) had confirmed malignant cells consistent with metastatic adenocarcinoma s/p paracentesis - 3L removed by ED physician. [place] some relief after paracentesis. Discussed goals of care and code status with patient and family at bedside (daughter and ). Patient and family in agreement with DNR social welfare research worker / hospice consulted 01/03 - after further discussion with family, they have decided to pursue comfort measures daughter states would likely be at nursing facility due to care patient will need. Time Spent Managing Pts Care (In Minutes):35
--- NOTE | 2024-01-04 11:51 | P.PN ---
Nephrology note (S) Pt seen lying in bed, denies any acute CP, dyspnea or abd pain. Case discussed with Dr. Tripathi (O) vitals reviewed in the emr General: In no apparent distress, Cooperative HEENT: Atraumatic, Normocephalic Neck: Supple Respiratory: Normal air movement, Other (No rhonchi or wheezing anteriorly) Cardiovascular: Regular rate/rhythm mostly, Other (Cardiac murmur, loud, LUSB) Gastrointestinal: Soft and benign, No tenderness, No guarding, mildly Distended Musculoskeletal: No swelling, No contractures Integumentary: No rashes Neurological: Normal speech, Normal tone, Normal affect Conclusions/Impression: A/P) 1. Recent Stage 1 KRYSTYNA on underlying CKD Stage III unspecified with multifactorial KRYSTYNA in the setting of relative BP lowering, large volume paracentesis, concurrent BEN inhibitor use, and possible CRS as well 2. Current renal function relatively stable 3. New onset ascites, abnormality of albumin with sharp drop in albumin c/w 3 mo ago. Abnormal cell count and cytology. Concern for malignancy. Recurrent ascites. 4. Cchronic diastolic CHF, mod to severe MR, cont maintenance diuretic therapy. Per primary team, family and pt consider palliative care options
[2024-01-04] MEDS ORDERED: MORPHINE 2 MG/ML SYR IV PRN (12:13)
[2024-01-04] MEDS: ACETAMINOPHEN 500 MG TAB PO PRN (21:11)
--- NOTE | 2024-01-05 08:42 | P.PN ---
Date of Service: 01/05/24 Subjective: tired, comfortable no worsening symptoms ROS: 10 point ROS as noted above, otherwise negative Physical Exam: GEN: Alert, oriented, fatigued appearing CV: irregularly irregularly rhthm, no edema Pulm: Nonlabored respirations on 2L NC ABD: Soft, mild tenderness, mild distention vitals reviewed Problem List: Peritoneal carcinomatosis Malignant ascites ?rectosigmoid colon mass CKD3 Hyponatremia a-fib on chronic anticoagulation; s/p pacemaker Hypertension Chronic anemia CT abdomen (01/01): Peritoneal carcinomatosis with moderate to large amount ascites. +Apparent thickening of the wall of the rectosigmoid colon could be secondary to distention or mass Fluid cytology from paracentesis last admission (12/18/23) had confirmed malignant cells consistent with metastatic adenocarcinoma s/p paracentesis - 3L removed by ED physician. [place] some relief after paracentesis. Discussed goals of care and code status with patient and family at bedside (daughter and ). Patient and family in agreement with DNR manager social work / hospice consulted 01/03 - after further discussion with family, they have decided to pursue comfort measures 01/03 daughter states would likely be at nursing facility due to care patient will need. Time Spent Managing Pts Care (In Minutes):30
[2024-01-05] MEDS: LORazepam 2 MG/ML VIAL IV PRN (23:21)
--- NOTE | 2024-01-06 10:09 | P.PN ---
Date of Service: 01/06/24 Subjective: Patient seen this morning on rounds Reports some abdominal soreness, fatigue No nausea/vomiting ROS: 10 point ROS as noted above, otherwise negative Physical Exam: GEN: Alert, oriented, fatigued appearing CV: irregularly irregularly rhthm, no edema Pulm: Nonlabored respirations on 2L NC ABD: Soft, mild tenderness, mild distention vitals reviewed Problem List: Peritoneal carcinomatosis with malignant ascites ?rectosigmoid colon mass gram negative bacteriuria CKD3 Hyponatremia a-fib on chronic anticoagulation; s/p pacemaker Hypertension Chronic anemia CT abdomen (01/01): Peritoneal carcinomatosis with moderate to large amount ascites. +Apparent thickening of the wall of the rectosigmoid colon could be secondary to distention or mass s/p paracentesis - 3L removed by ED physician. [place] some relief after paracentesis. Fluid cytology from paracentesis last admission (12/18/23) confirmed malignant cells consistent with metastatic adenocarcinoma social studies teacher / hospice consulted per patient and family request/wishes 01/03 - after further discussion with family, they have decided to pursue comfort measures daughter states would likely be at nursing facility due to care patient will need. Pending hospice at facility, pending bed -probably tomorrow Time Spent Managing Pts Care (In Minutes):30
[2024-01-06] MEDS: TRAMADOL HCL 50 MG TAB PO PRN (19:33)
[2024-01-07 16:51] VITALS: BP 138/66; TEMP 96.9
--- NOTE | 2024-01-07 17:10 | P.DS ---
Admission Date: 01/03/24 Discharge Date: 01/07/24 Disposition: HOSPICE-MEDICAL FACILITY Reason for Admission: Large volume ascites Vital Signs/Physical Exam: Temp Pulse Resp BP Pulse Ox 96.9 F 84 12 138/66 100 01/07/24 15:00 01/07/24 15:00 01/07/24 15:00 01/07/24 15:00 01/07/24 15:00 Laboratory Data at Discharge: WBC 9.30 thou/uL (4.3-10.9) 01/04/24 09:26 Hgb 10.9 g/dL (12.0-15.0) L D 01/04/24 09:26 Hct 33.3 % (36.0-45.0) L 01/04/24 09:26 Plt Count 609 thou/uL (152-406) H 01/04/24 09:26 PT 24.9 SECONDS (9.4-12.5) H 01/02/24 20:45 INR 2.28 01/02/24 20:45 APTT 39.3 SECONDS (24.3-36.9) H 01/02/24 20:45 Sodium 136 mEq/L (136-145) D 01/04/24 09:26 Potassium 4.0 mEq/L (3.5-5.1) 01/04/24 09:26 BUN 42 mg/dL (7-18) H 01/04/24 09:26 Creatinine 1.09 mg/dL (0.55-1.02) H 01/04/24 09:26 Glucose 125 mg/dL (74-106) H 01/04/24 09:26 Magnesium 2.0 mg/dL (1.6-2.4) 01/04/24 09:26 Total Bilirubin 0.6 mg/dL (0.2-1.0) 01/04/24 09:26 AST < 10 U/L (15-37) L 01/04/24 09:26 ALT < 14 U/L (13-56) 01/04/24 09:26 Alkaline Phosphatase 66 U/L (45-117) 01/04/24 09:26 Lipase 25 U/L (13-75) 01/02/24 20:45 Home Medications: Levothyroxine [Synthroid*] 50 mcg PO [id number] 06/25/23 PARoxetine HCL [Paxil*] 10 mg PO DAILY 06/25/23 Rivaroxaban [Xarelto*] 15 mg PO DAILY 06/25/23 carvediloL [Carvedilol] 6.25 mg PO BID 6AM 6PM 12/16/23 Furosemide [Lasix*] 40 mg PO DAILY tab 12/29/23 Hydrocort Acetate Suppos [Anucort-Hc Suppository*] 25 mg AR DAILY PRN supp 12/29/23 Physician Discharge Instructions: Physician discharge instructions: Patient presetned with worsening abdominal pain, distention, shortness of breath, secondary to peritoneal carcinomatosis with moderate-large amount ascites, seen on CT abdomen on admission. Patient underwent paracentesis in ED, had ~3 liters removed and felt some relief of her symptoms. Fluid cytology from paracentesis last admission (12/18/23) confirmed malignant cells consistent with metastatic adenocarcinoma, unknown primary. Discussed patients condition at length with patient, family. Given her worsening cancer, qualify of life, and quick recurrence of this ascites, the decision for comfort measures was made by the patient and her family. nutrition services assistant & hospice were consulted per patient/family request. Discharged to hospice at nursing facility. Followup: Melquiades Vazquez MD [Primary Care Provider] -
[2024-01-07 19:19] VITALS: O2SAT 94
--- NOTE | 2024-01-08 18:06 | EKG ---
Test Date: 2024-01-02 Test Time: 21:06:18 Mechanic: NGOZI MEASUREMENT RESULTS: Intervals: Rate: 67 CO: QRSD: 116 QT: 364 QTc: 384 [place]: P: 194 CO: QRS: 84 T: -88 INTERPRETIVE STATEMENTS: Atrial flutter with variable AV block Incomplete left bundle branch block ST & T wave abnormality, consider inferolateral ischemia Abnormal ECG Compared to ECG 12/15/2023 20:50:41 Left bundle-branch block now present Atrial fibrillation no longer present Ventricular premature complex(es) no longer present Left-axis deviation no longer present Myocardial infarct finding no longer present ST (T wave) deviation still present Possible ischemia still present Electronically Signed On 01-08-24 17:53:33 CDT by Jose Ca
== END 2024-01-07 20:40 | disposition hospice, inpatient (51) | DRG 375 ==
LOC: ER 20:22 → ERHOLD 01-03 04:47 → 4TH 01-03 07:40
PROVIDERS: ADMIT Hospitalist; ATTEND Hospitalist
PROC: 0W9G3ZZ Drainage of Peritoneal Cavity, Percutaneous Approach (ICD-10-PCS; principal; 2024-01-03)
DX: C78.6 Secondary malignant neoplasm of retroperitoneum and peritoneum (principal); E44.0 Moderate protein-calorie malnutrition; R18.0 Malignant ascites; E87.1 Hypo-osmolality and hyponatremia; Z68.1 Body mass index [BMI] 19.9 or less, adult; N17.9 Acute kidney failure, unspecified; I50.32 Chronic diastolic (congestive) heart failure; I13.0 Hypertensive heart and chronic kidney disease with heart failure and stage 1 through stage 4 chronic kidney disease, or unspecified chronic kidney disease; N18.30 Chronic kidney disease, stage 3 unspecified; D63.1 Anemia in chronic kidney disease; D50.9 Iron deficiency anemia, unspecified; I48.91 Unspecified atrial fibrillation; K63.9 Disease of intestine, unspecified; D72.829 Elevated white blood cell count, unspecified; C80.1 Malignant (primary) neoplasm, unspecified; E88.09 Other disorders of plasma-protein metabolism, not elsewhere classified; I08.3 Combined rheumatic disorders of mitral, aortic and tricuspid valves; Z66 Do not resuscitate; Z51.5 Encounter for palliative care; Z95.0 Presence of cardiac pacemaker; Z88.5 Allergy status to narcotic agent; Z79.01 Long term (current) use of anticoagulants; Z79.02 Long term (current) use of antithrombotics/antiplatelets; Z90.49 Acquired absence of other specified parts of digestive tract; Z79.890 Hormone replacement therapy; Z79.899 Other long term (current) drug therapy; Z90.710 Acquired absence of both cervix and uterus
CPT/HCPCS: 36415; 71045; 74176; 80048; 80053; 80076; 81001; 82550; 83690; 83735; 83880; 84484; 85025; 85610; 85730; 87040; 87086; 87088; 93005; 94760; 96361; 96374; 96375; 99284; J1940; J2405; J7030; P9047